=== PATIENT | male | born 1960 | race Caucasian/White ===

== ENCOUNTER → 2020-07-25 14:49 | Outpatient (BNVA) | payer MEDICAID, SELFPAY | PROVIDERS: Visit Provider Internal Medicine Cardiovascular Disease | DX: I42.8 Other cardiomyopathies (principal); Z86.79 Personal history of other diseases of the circulatory system | CPT/HCPCS: 93005; 99212 ==

== ENCOUNTER → 2021-02-22 14:45 | Outpatient (REF) | payer MEDICAID, SELFPAY ==
--- NOTE | 2021-02-22 14:49 | CA_ITS ---
Transthoracic Echocardiogram Patient (Last, First, Middle): Valerio Tello, Gender: Male Date of : 1960 Age: 60 Procedure Date: 02/22/2021 Procedure Type: Transthoracic Echocardiogram Location: OP Height: 172.72 cm Weight: 65.77 kg BSA: 1.78 m2 Heart Rate: bpm BP: 128 / 70 mmHg Audio Specialist: ALESSANDRO/YOON Referring MD: Justin Reyes MD Symptoms: I42.9 - Cardiomyopathy, unspecified Study Quality: Good Conclusions: - Mildly dilated left ventricle with mild LV systolic dysfunction with LVEF of 45-50% with impaired relaxation filling pattern Findings Left Ventricle Mildly increased left ventricular cavity size. There is normal left ventricular wall thickness. The left ventricular systolic function is mildly decreased. The visually estimated ejection fraction is between 45-50%. Spectral Doppler is indicative of an impaired relaxation filling pattern. Wall Motion Rest Echo Findings The basal inferior and apical septum segments are hypokinetic. The apex segment is akinetic. All other scored wall segments showed normal motion. Pericardium/Pleural There is no evidence of pericardial effusion. Prior Study Comparison Changes noted compared to prior study dated: 05/09/2020. LV systolic function has improved Measurements 2D Linear Measurements IVSd: 0.86 0.6-0.9/0.6-1.0 cm LVIDd: 6.07 3.9-5.3/4.2-5.9 cm LVIDd Index: 3.41 2.4-3.2/2.2-3.1 cm/m2 LVIDs: 4.54 2.0-3.6 cm LVPWd: 0.86 0.7-1.1 cm LV Mass: 259.61 67-162/88-224 g LV Mass Index: 145.85 43-95/49-115 g/m2 2D Systolic Function EF 4C: 47.20 >55% EF 2C: 47.30 >55% EF BiP: 47.00 >55% Mitral Valve MV Pk E: 0.67 MV PK A: 0.83 MV Decel Time: 268.00 E/A: 0.80 E'Lateral: 8.49 E'Medial: 5.77 E/E' Med: 11.60 E/E' Lat: 7.90 PHT: 78.00 MVA PHT: 2.82 Decel [place]: 2.50 Diastolic Function MV Pk E: 0.67 MV Pk A: 0.83 E/A: 0.80 E'Medial: 5.77 E/E' Med: 11.60 E' Laterial: 8.49 E/E' Lat: 7.90 Updated in Other Vendor System with Status of Final Justin Reyes MD electronically signed on 02/23/2021 1:00:22 PM with status of Final
== END ==
LOC: HO.CARD 14:45
PROVIDERS: PCP Family Medicine; Visit Provider Internal Medicine Cardiovascular Disease
DX: I42.9 Cardiomyopathy, unspecified (principal)
CPT/HCPCS: 93308

== ENCOUNTER 2021-03-07 16:21 | Emergency (ER) | payer MEDICAID, SELFPAY ==
--- NOTE | ~2021-03-07 | CT_ITS ---
EXAMINATION: CT ABDOMEN AND PELVIS WITH CONTRAST CLINICAL INFORMATION: Right inguinal pain. Hernia. COMPARISON: 01/25/2019 TECHNIQUE: Multidetector volumetric images were obtained from the superior aspect of the liver through the pubic symphysis following administration 85 mL of Omnipaque 350 intravenous contrast. Sagittal and coronal reformatted images were obtained on the technologist's workstation. Oral contrast: No This CT examination was performed using dose optimization techniques as appropriate, variously including the following: *Automated exposure control *Adjustment of mA and/or kV according to patient size (this includes techniques or standardized protocols for targeted exams where dose is matched to indication/reason for exam; i.e. extremities or head) *Use of iterative reconstruction technique DLP: 447 mGy-cm FINDINGS: LUNG BASES: Linear left basilar atelectasis. The visualized cardiac structures are unremarkable. LIVER, GALLBLADDER, AND BILIARY TREE: The liver is normal in size, shape, and attenuation. No focal hepatic lesion or biliary ductal dilatation is present. The gallbladder is unremarkable with no evidence of radiopaque gallstones, gallbladder wall thickening, or obvious pericholecystic inflammatory changes. PANCREAS: Unremarkable. SPLEEN: Unremarkable. ADRENAL GLANDS: Unremarkable. KIDNEYS AND URETERS: The kidneys are normal in size, shape, and attenuation. No hydronephrosis, hydroureter, or calculi seen. No perinephric stranding. 0.8 cm right upper pole simple renal cyst. No follow-up imaging recommended. BLADDER: Unremarkable. GASTROINTESTINAL TRACT: The stomach is unremarkable. Normal caliber small bowel. No obstruction. No colonic wall thickening or inflammatory change. Moderate colonic stool burden. Normal appendix. No free air or free fluid. ABDOMINAL WALL: No significant hernia is appreciated. LYMPH NODES: Normal. VASCULAR: Normal caliber aorta with mild atherosclerotic calcification. PELVIC VISCERA: The prostate and seminal vesicles are unremarkable. OSSEOUS STRUCTURES: No acute or suspicious osseous abnormality. CT/CT abdomen pelvis w con IMPRESSION: No acute findings of the abdomen or pelvis. Moderate colonic stool burden. No abdominal wall hernia. No inflammatory changes.
[2021-03-07 16:50] VITALS: BP 137/78; PULSE 68; RESP 18; TEMP 36.7; O2SAT 97; BMI 22.8
--- NOTE | 2021-03-07 17:47 | ED.GENADULT ---
HPI - General Adult General Chief complaint: General Medical Stated complaint: abd pain Time Seen by Provider: 03/07/21 17:33 Source: patient Mode of arrival: ambulatory Limitations: no limitations History of Present Illness HPI narrative: this is a 52-year-old male who complains of pain in his right groin area for few weeks, gradually worse and especially worse with ambulation or going up stairs. The patient has noted some bulging in the area. He denies any nausea vomiting. His appetite has been unchanged. He denies any fever. He thinks his stools have been a little bit slower in calming. He denies any urinary symptoms. Describes the pain as burning and moderately severe, worse at night. Patient is concerned he could have an incarcerated hernia. Related Data Home Medications Medication Instructions Recorded Confirmed folic acid 1 mg tablet 1 mg PO DAILY 07/25/20 07/25/20 lisinopril 5 mg tablet 5 mg PO DAILY 07/25/20 07/25/20 multivitamin,[id number] 1 tab PO DAILY 07/25/20 07/25/20 thiamine HCl (vitamin B1) 100 mg 100 mg PO DAILY 07/25/20 07/25/20 tablet Previous Rx's Medication Instructions Recorded ibuprofen 600 mg PO QID PRN #30 tab 03/07/21 tramadol 50 - 100 mg PO Q6H PRN #20 tab 03/07/21 Allergies Allergy/AdvReac Type Severity Reaction Status Date / Time Penicillins [PENICILLINS] Allergy Intermediate RASH Verified 03/07/21 16:50 Review of Systems Review of Systems: Yes all other systems are reviewed and are negative Constitutional: Constitutional: Reports as per HPI and Denies fever(s) Eyes: Eyes: Reports as per HPI and Reports no additional eye complaints ENT: Reports system reviewed and no additional complaints, except as documented, Reports as per HPI, Denies nasal congestion, Denies nasal discharge and Denies sore throat Cardiovascular: Cardiovascular: Reports as per HPI, Denies chest pain and Denies dyspnea Respiratory: Respiratory: Reports as per HPI, Denies cough and Denies dyspnea Gastrointestinal: Gastrointestinal: Reports as per HPI, Reports abdominal pain ( Right groin pain), Reports change in stool character, Denies diarrhea and Denies vomiting Genitourinary: Genitourinary: Reports as per HPI, Denies hematuria, Denies dysuria and Denies urinary frequency Comments: no scrotal swelling Musculoskeletal: Musculoskeletal: Reports no additional musculoskeletal complaints and Denies numbness Integumentary/Breasts: Skin/Breast: Reports as per HPI and Denies rash Neurologic: Reports as per HPI, Denies focal weakness and Denies numbness Psychiatric: Psychiatric: Reports no additional psychiatric complaints and Reports as per HPI Endocrine: Endocrine: Reports no additional endocrine complaints and Reports as per HPI Hematologic/Lymphatic: Hematologic/Lymphatic: Reports no additional hematologic/lymphatic complaints, Reports as per HPI and Reports other (No peripheral edema) [facility] Past Medical History Medical History Cardiomyopathy Paroxysmal atrial fibrillation Family History Family History (Updated 07/25/20 @ 15:09 by PHILL Carter) Father No problems noted. Mother No problems noted. Social History Social History (Updated 07/25/20 @ 15:17 by Justin Reyes MD) Alcohol intake: never Patient Tobacco Use Status: Never used Tobacco Use of substances other than those prescribed or required for medical reasons: No Advance Directives: No Advance Directives Information Provided: No Physical Exam Vital Signs: Vital Signs: Last Vital Signs Temp 97.7 F 03/07/21 18:01 Pulse 70 03/07/21 20:08 Resp 18 03/07/21 20:08 BP 114/62 03/07/21 20:08 Pulse Ox 98 03/07/21 20:08 Body Mass Index 22.8 Medical Decision Making MDM Narrative Medical decision making narrative: patient with right groin area pain, worsened with ambulation, had tenderness just above his inguinal ligament in the right suprapubic area. Patient had a slight bulge with Valsalva on exam, but no definite hernia. CT of the abdomen pelvis was negative for evidence of hernia or any other acute pathology. Labs are unremarkable. Will treat the patient with anti-inflammatory medicine and tramadol. The patient notes that he does go to the gym but has not recently due to the pain. It is possible he strained a muscle Lab Data Result diagrams: 03/07/21 18:09 03/07/21 18:09 Labs: Lab Results 03/07/21 03/07/21 Range/Units 18:09 18:09 WBC 5.1 (4.8-10.8) X10*3/uL RBC 4.21 L (4.60-5.80) X10*6/uL Hgb 13.2 L (14.0-18.0) g/dl Hct 40.1 L (42-52) % MCV 95.2 (80-98) fL MCH 31.4 (27.0-33.0) pg MCHC 32.9 (31.0-36.0) g/dl RDW 11.9 (11.0-16.0) % Plt Count 194 (160-400) X10*3/uL MPV 10.3 (9.4-12.4) fL Immature Gran % (Auto) 0.2 (0.0-0.4) % Neut % (Auto) 66.5 (45-73) % Lymph % (Auto) 24.3 (20-40) % [place] % (Auto) 7.8 (2-11) % Eos % (Auto) 0.8 (0-4) % Baso % (Auto) 0.4 (0-2) % Lymph # (Auto) 1.3 (1.2-4.9) X10*3/uL [place] # (Auto) 0.4 (0.1-1.2) X10*3/uL Eos # (Auto) 0.0 (0.0-0.4) X10*3/uL Baso # (Auto) 0.0 (0.0-0.2) X10*3/uL Abs Immat Gran (auto) 0.01 (0.00-0.03) X10*3/uL Absolute Neuts (auto) 3.4 (2.0-8.3) X10*3/uL Absolute Nucleated RBC 0.000 (0.0-0.012) X10*3/uL Nucleated RBC % (auto) 0.0 (0.0-0.2) /100WBC Sodium 136 (135-145) mmol/L Potassium 4.4 (3.3-5.1) mmol/L Chloride 103 (96-108) mmol/L Carbon Dioxide 24 (22-29) mmol/L Anion Gap 13 (12-20) BUN 37 H (9-16) mg/dL Creatinine 1.34 (0.5-1.4) mg/dL Estim Creat Clear Calc 57.8 Estimated GFR 55 Random Glucose 101 (60-115) mg/dL Calcium 10.3 H (8.4-10.2) mg/dL Total Bilirubin 0.8 (0.0-1.0) mg/dL AST 27 (5-37) U/L ALT 47 H (0-40) U/L Alkaline Phosphatase 75 (39-117) U/L Total Protein 7.1 (6.5-8.0) g/dL Albumin 4.5 (3.5-5.0) g/dL Discharge Plan Discharge Clinical Impression: Right groin pain Patient Disposition: Home, Self-Care Instructions: Groin Pain (ED) Additional Instructions: take the ibuprofen and tramadol as prescribed. Follow up with your primary care physician. Return for any new or worsened symptoms such as fever, increased pain or swelling Prescriptions: New ibuprofen 600 mg tablet 600 mg PO QID PRN (Reason: pain) Qty: 30 RF: 0 tramadol 50 mg tablet 50 - 100 mg PO Q6H PRN (Reason: pain) Qty: 20 RF: 0 No Action lisinopril 5 mg tablet 5 mg PO DAILY RF: 0 thiamine HCl (vitamin B1) 100 mg tablet 100 mg PO DAILY RF: 0 Complete Multivitamin Tablet 1 tab PO DAILY RF: 0 folic acid 1 mg tablet 1 mg PO DAILY RF: 0 Interventions: ED Discharge Assessment Last Done: 03/07/21 20:16 Discharge Date/Time: 03/07/21 20:21
[2021-03-07 18:01] VITALS: BP 129/74; PULSE 56; TEMP 36.5; O2SAT 97
[2021-03-07] MEDS: Ketorolac Tromethamine 15 MG/ML VIAL IVPUSH (18:13)
[2021-03-07 18:14] LABS: MANUAL DIFF FLAG NO
[2021-03-07 18:19] LABS: Basophils Percent Auto 0.4 % (0-2); Eosinophils Percent Auto 0.8 % (0-4); Hematocrit 40.1 % (42-52); Hemoglobin 13.2 g/dl (14.0-18.0); Imm Gran Abs Auto 0.01 X10*3/uL (0.00-0.03); Imm Gran Pct Auto 0.2 % (0.0-0.4); Lymphocytes Absolute Auto 1.3 X10*3/uL (1.2-4.9); Lymphocytes Percent Auto 24.3 % (20-40); Mean Corpuscular HGB Conc 32.9 g/dl (31.0-36.0); Mean Corpuscular Hemoglobin 31.4 pg (27.0-33.0); Mean Corpuscular Volume 95.2 fL (80-98); Mean Platelet Volume 10.3 fL (9.4-12.4); Monocytes Absolute Auto 0.4 X10*3/uL (0.1-1.2); Monocytes Percent Auto 7.8 % (2-11); Neutrophils Absolute Auto 3.4 X10*3/uL (2.0-8.3); Neutrophils Percent Auto 66.5 % (45-73); Platelet Count 194 X10*3/uL (160-400); Red Blood Count 4.21 X10*6/uL (4.60-5.80); Red Cell Distribution Width 11.9 % (11.0-16.0); White Blood Count 5.1 X10*3/uL (4.8-10.8)
[2021-03-07 18:40] LABS: Alanine Aminotransferase 47 U/L (0-40); Albumin Level 4.5 g/dL (3.5-5.0); Alkaline Phosphatase 75 U/L (39-117); Anion Gap 13 (12-20); Aspartate Amino Transferase 27 U/L (5-37); Bilirubin Total 0.8 mg/dL (0.0-1.0); Blood Urea Nitrogen 37 mg/dL (9-16); Calcium 10.3 mg/dL (8.4-10.2); Carbon Dioxide 24 mmol/L (22-29); Chloride 103 mmol/L (96-108); Creatinine Clr Calc Pharmacy 57.8; Estimated Glomerular Filt Rate 55; Glucose Random 101 mg/dL (60-115); Potassium 4.4 mmol/L (3.3-5.1); Sodium 136 mmol/L (135-145); Total Protein 7.1 g/dL (6.5-8.0)
[2021-03-07] MEDS: iohexoL 350 MG/ML 100 ML INFUS..BTL IV (19:12)
[2021-03-07 19:26] VITALS: RESP 16
[2021-03-07 20:08] VITALS: BP 114/62; PULSE 70; RESP 18; O2SAT 98
== END 2021-03-07 20:21 | disposition home or self-care (01) ==
PROVIDERS: Emergency Provider Emergency Medicine; PCP Family Medicine
DX: R10.31 Right lower quadrant pain (principal); I48.0 Paroxysmal atrial fibrillation; Z79.899 Other long term (current) drug therapy
CPT/HCPCS: 36415; 74177; 80053; 85025; 96374; 99284; J1885; Q9967

== ENCOUNTER → 2021-03-29 14:42 | Outpatient (BNVA) | payer MEDICAID, SELFPAY | PROVIDERS: PCP Family Medicine; Referring Provider Family Medicine; Visit Provider Internal Medicine Cardiovascular Disease | DX: I42.9 Cardiomyopathy, unspecified (principal); I48.0 Paroxysmal atrial fibrillation | CPT/HCPCS: 99212 ==

== ENCOUNTER 2021-04-24 12:42 | Outpatient (REF) | payer MEDICAID, SELFPAY ==
--- NOTE | ~2021-04-24 | US_ITS ---
EXAMINATION: US ABDOMEN LIMITED CLINICAL INFORMATION: Right lower quadrant pain, lump. Rule out hernia. COMPARISON: CT abdomen and pelvis 03/07/2021. Ultrasound abdomen complete 05/08/2020 and 11/05/2017. TECHNIQUE: Real-time imaging of the right lower quadrant. FINDINGS: Imaging to the right lower quadrant reveals nonvisualization of hernia. There is a hypoechoic round lesion measuring 1.15 x 0.661, likely a small lymph node. It is normal. No additional lesions seen. US/US abdomen limited IMPRESSION: No evidence of hernia. Small benign lymph node right groin.
== END 2021-04-24 12:43 | disposition home or self-care (01) ==
LOC: HO.US 12:42
PROVIDERS: Visit Provider Family Medicine
DX: R10.31 Right lower quadrant pain (principal)
CPT/HCPCS: 76705

== ENCOUNTER → 2021-05-02 12:44 | Outpatient (BNVA) | payer MEDICAID, SELFPAY | PROVIDERS: PCP Family Medicine; Referring Provider Family Medicine; Visit Provider Surgery | DX: K40.90 Unilateral inguinal hernia, without obstruction or gangrene, not specified as recurrent (principal); I42.9 Cardiomyopathy, unspecified | CPT/HCPCS: 99202 ==

== ENCOUNTER 2021-05-25 08:16 | Day surgery (SDC) | payer MEDICAID, SELFPAY ==
--- NOTE | 2021-05-15 | ECG_ITS ---
Test Reason : pre op Blood Pressure : / mmHG Vent. Rate : 077 BPM Atrial Rate : 077 BPM P-R Int : 196 ms QRS Dur : 108 ms QT Int : 412 ms P-R-T Axes : 031 -40 -09 degrees QTc Int : 466 ms Normal sinus rhythm Left axis deviation Cannot rule out Anterior infarct (cited on or before 08-MAY-2020) Abnormal ECG When compared with ECG of 08-MAY-2020 10:34, T wave inversion less evident in Anterolateral leads Referred By: Gale Nicole Electronically Signed By:SHANDRA VANCE
[2021-05-15 13:51] VITALS: BP 115/67; PULSE 80; RESP 20; O2SAT 97; BMI 24.6
--- NOTE | 2021-05-15 13:55 | P.CONAN_ITS ---
Documented by User: Gale Nicole NP 05/16/21 14:43 HPI - Anesthesia Eval Consult details Narrative: 61yo M for Right Hernia Repair Inguinal with Mesh Cardiac cleared at low to intermed h/o of ETOH abuse. None since 05/2020 [facility] Active Problems Active Problems: All Active Problems (Updated 05/14/21 @ 09:40 by Mila Medley RN) Right inguinal hernia (Acute) Cardiomyopathy (Acute) Paroxysmal atrial fibrillation (Acute) Past Medical History Medical History Alcohol dependence Cardiomyopathy HTN (hypertension) Paroxysmal atrial fibrillation Right inguinal hernia Family History Family History Father No problems noted. Mother No problems noted. Family history of problems with anesthesia: No Surgical History Surgical History History of tonsillectomy Hx of oral surgery Hx of right heart catheterization Social History Social History (Updated 05/14/21 @ 09:14 by Mila Medley RN) Are you a primary prompt care rn to a significant other at home: No Do you presently have visiting nurse or other home services: No Alcohol intake: former Patient Tobacco Use Status: Never used Tobacco Use of substances other than those prescribed or required for medical reasons: No Have you been hit, kicked, punched, or otherwise hurt by someone within the past year? If so, by whom?: No Are you DNR?: No Advance Directives Information Provided: Yes Advance Directives on File: No Recently lost weight without trying: No Eating poorly because of decreased appetite: No Nutrition Risks: No Nutritional Risk Poor oral hygiene: No Meds Allergies Allergy/AdvReac Type Severity Reaction Status Date / Time Penicillins [PENICILLINS] Allergy Intermediate RASH Verified 05/25/21 10:08 Home Medications Medication Instructions Recorded Confirmed Last Taken Type folic acid 1 mg tablet 1 mg PO DAILY 07/25/20 05/15/21 Unknown History lisinopril 5 mg tablet 5 mg PO DAILY 07/25/20 05/15/21 Unknown History gabapentin 600 mg tablet 600 mg PO TID 05/02/21 05/15/21 Unknown History ibuprofen 600 mg tablet 600 mg PO QID PRN 05/02/21 05/15/21 05/11/21 History sertraline 50 mg tablet 50 mg PO DAILY 05/02/21 05/15/21 Unknown History temazepam 15 mg capsule 15 mg PO BEDTIME PRN 05/02/21 05/15/21 Unknown History thiamine HCl (vitamin B1) 100 mg 100 mg PO DAILY 05/02/21 05/15/21 Unknown Hi story tablet Exam Exam Date and Time: May 15, 2021 1355 Pertinent Lab Results Pertinent Lab Results: Laboratory Tests 03/07/21 03/07/21 18:09 18:09 WBC 5.1 Hgb 13.2 L Hct 40.1 L Plt Count 194 Sodium 136 Potassium 4.4 Chloride 103 Carbon Dioxide 24 BUN 37 H Creatinine 1.34 Narrative Narrative: Echo 01/2021 Conclusions: -? Mildly dilated left ventricle with mild LV systolic ? dysfunction with LVEF of 45-50% with impaired relaxation filling pattern? ? EKG 05/2021 Vent. Rate : 077 BPM ? ? Atrial Rate : 077 BPM ?? P-R Int : 196 ms? QRS Dur : 108 ms ? ? QT Int : 412 ms ? ? ? P-R-T Axes : 031 -40 -09 degrees ?? QTc Int : 466 ms ? Normal sinus rhythm Left axis deviation Cannot rule out Anterior infarct (cited on or before 08-MAY-2020) Abnormal ECG When compared with ECG of 08-MAY-2020 10:34, T wave inversion less evident in Anterolateral leads Airway Mallampati Class: II TM Dist: >3cm Neck ROM: Full Loose/Missing/Broken Teeth: Yes (Pulled molars, poor dentition - denies loose or broken) Heart: RRR Lungs: CTA Assessment and Plan Assessment Anesthesia Assessment: Anesthesia Plan Discussed and PAT Visit Final Anesthetic Review Family History of Problems with Anesthesia: No Documented by User: Paola Davidson MD 05/25/21 11:00 [facility] Past Medical History Medical History Alcohol dependence Cardiomyopathy HTN (hypertension) Paroxysmal atrial fibrillation Right inguinal hernia Family History Family History Father No problems noted. Mother No problems noted. Surgical History Surgical History History of tonsillectomy Hx of oral surgery Hx of right heart catheterization History of Problems with Anesthesia: No Social History Social History (Updated 05/14/21 @ 09:14 by Mila Medley RN) Are you a primary prompt care rn to a significant other at home: No Do you presently have visiting nurse or other home services: No Alcohol intake: former Patient Tobacco Use Status: Never used Tobacco Use of substances other than those prescribed or required for medical reasons: No Have you been hit, kicked, punched, or otherwise hurt by someone within the past year? If so, by whom?: No Are you DNR?: No Advance Directives Information Provided: Yes Advance Directives on File: No Recently lost weight without trying: No Eating poorly because of decreased appetite: No Nutrition Risks: No Nutritional Risk Poor oral hygiene: No Meds Allergies Allergy/AdvReac Type Severity Reaction Status Date / Time Penicillins [PENICILLINS] Allergy Intermediate RASH Verified 05/25/21 10:08 Home Medications Medication Instructions Recorded Confirmed Last Taken Type folic acid 1 mg tablet 1 mg PO DAILY 07/25/20 05/15/21 Unknown History lisinopril 5 mg tablet 5 mg PO DAILY 07/25/20 05/15/21 Unknown History gabapentin 600 mg tablet 600 mg PO TID 05/02/21 05/15/21 Unknown History ibuprofen 600 mg tablet 600 mg PO QID PRN 05/02/21 05/15/21 05/11/21 History sertraline 50 mg tablet 50 mg PO DAILY 05/02/21 05/15/21 Unknown History temazepam 15 mg capsule 15 mg PO BEDTIME PRN 05/02/21 05/15/21 Unknown History thiamine HCl (vitamin B1) 100 mg 100 mg PO DAILY 05/02/21 05/15/21 Unknown History tablet Assessment and Plan Assessment Anesthesia Assessment: Chart Reviewed Final Anesthetic Review History of Problems with Anesthesia: No NPO: Yes ASA Class: III Patient Risk: Intermediate Procedure Risk: Low Assessment/Block/Sedation in SS: Assess/Block/Sedation-SS Anesthetic Plan Anesthetic Plan: GA Disposition: Standard PACU
[2021-05-25] VITALS (21 sets, daily range): BP systolic 107–158; BP diastolic 60–92; PULSE 41–88; RESP 15–18; TEMP 36.1–36.7; O2SAT 95–100
--- NOTE | 2021-05-25 | ECG_ITS ---
Test Reason : t wave inversion Blood Pressure : / mmHG Vent. Rate : 043 BPM Atrial Rate : 043 BPM P-R Int : 164 ms QRS Dur : 102 ms QT Int : 534 ms P-R-T Axes : 027 -33 -43 degrees QTc Int : 451 ms Marked sinus bradycardia Left axis deviation T wave abnormality, consider lateral ischemia Abnormal ECG When compared with ECG of 15-MAY-2021 14:54, Vent. rate has decreased BY 34 BPM Inverted T waves have replaced nonspecific T wave abnormality in Inferior leads Inverted T waves have replaced nonspecific T wave abnormality in Lateral leads Clinical Correlation Advised Referred By: Chente Day Electronically Signed By:SHANDRA VANCE
[2021-05-25] MEDS: Lactated Ringers 1,000 ML 50 ML IVCONT (09:29)
--- NOTE | 2021-05-25 10:56 | MHC.SHP ---
Pre-Procedural Eval Section A Date of Service: 05/25/21 Section B Chief Complaint: Right Inguinal Hernia Allergies: Allergies Allergy/AdvReac Type Severity Reaction Status Date / Time Penicillins [PENICILLINS] Allergy Intermediate RASH Verified 05/25/21 10:08 Plan I have reviewed the history and physical and performed a pertinent physical examination on my patient. No changes have occurred unless specified.
--- NOTE | 2021-05-25 11:53 | W.PM.OPN ---
Operative Note Operative Note Date of Service: 05/25/21 Narrative: Preop diagnosis: Right inguinal hernia Postop diagnosis: Right inguinal hernia, indirect Procedure: Repair of right inguinal hernia with mesh Surgeon: Bernabe Rao MD metallurgical laboratory assistant: KEMI Diallo The patient is a 61-year-old male who was seen in the office because of a reducible mass on the right groin. Physical exam is consistent with right inguinal hernia. He had his CAT scan but this was not obvious on imaging studies. In view of symptoms however wanted to proceed with repair. He understood the technique of repair with mesh and he was aware of the risks, benefits, and alternatives He was brought to the operating room and placed supine the table under general anesthesia via laryngeal mask airway. The right groin was prepped and draped in the usual sterile fashion. A surgical time-out was done. The patient received cefazolin 2 g IV preoperatively. I infiltrated the planned line of incision with lidocaine 1%. I made a short incision in the skin along an imaginary line from anterior superior iliac spine to the pubic ramus using blade 15. This was carried down with electrocautery through the full-thickness skin all the way expose the external oblique aponeurosis. We bluntly dissected the external oblique aponeurosis to define the external ring. I made an incision on the aponeurosis using a blade 15. This was extended inferomedially to connect external ring. The inguinal canal was therefore entered. I applied hemostats on the edges of the divided external oblique aponeurosis. I proceeded to bluntly dissect the underside to create space for the mesh. I bluntly dissected the spermatic cord and its contents with the finger until I was able to pass a Milly drain around this. This Milly drain was used for retraction. Identified the vas deferens and accompanying vessels. These were protected during the dissection. I proceeded to continue to dissect the cord to identify the contents and I was able to see a small sac. The sac was gently dissected off of the rest of the cord contents until this was reduced to the internal ring. I reinforced the internal ring with a small-sized plug. The plug was secured with Prolene 2 sutures to the shelving edge of the inguinal and laterally and the internal oblique superiorly and medially usiing its inner leaves. I then reinforced the floor of the canal with a keyhole mesh. The tails of the mesh were passed around the cord at the level of the internal ring and were secured together with Prolene 2 sutures. I then the mesh on the floor of the canal. I secured the mesh with Prolene to suture to shelving edge of the inguinal meant laterally and the internal oblique superiorly and medially as well as the pubic ramus inferomedially. I observed for hemostasis. Once hemostasis was ensured, I proceeded to then irrigate. I closed the external oblique aponeurosis with a running Dexon 2-0 stitch to re-create the external ring. The subcutaneous layer was reapposed with Dexon 3-0 interrupted sutures. Skin closure was achieved with Dexon 4-0 subcuticular running stitch. The area was infiltrated with Marcaine 0.5% for postop analgesia. The procedure was then completed The patient tolerated the procedure well with no complication noted. Initial and final counts of sponges and instruments were correct. Estimated blood loss was about 20 cc. The patient was extubated without difficulty and transferred to the recovery room with stable vital signs.
[2021-05-25] MEDS: fentaNYL citrate/PF 100 MCG/2 ML VIAL 50 MCG IVPUSH (12:17)
[2021-05-25] MEDS: oxyCODONE HCl Immed Release 5 MG TABLET PO (12:39)
[2021-05-25] MEDS: Ketorolac Tromethamine 30 MG/ML VIAL IVPUSH (13:20)
--- NOTE | 2021-05-25 16:16 | PM.EVENT ---
Event Note Date of Service: 05/25/21 Event Note: He underwent repair of right inguinal hernia today, uneventful However, was noted to be bradycardic in the PACU, with some T-wave inversions Hemodynamically remained stable As per pastry cook apprentice, Dr. Reyes- likely due to vagal response to pain To be observed overnight Likely discharge home tomorrow Patient continues do well
[2021-05-25] MEDS: 0.9 % Sodium Chloride 1,000 ML 80 ML IVCONT (17:14)
[2021-05-25] MEDS: Gabapentin 600 MG TABLET PO ×2 (17:15→19:37)
[2021-05-25] MEDS: 0.9 % Sodium Chloride Flush 3 ML SYRINGE IVFLUSH (17:28)
[2021-05-25] MEDS: Docusate Sodium 100 MG CAPSULE PO (19:37)
[2021-05-26] VITALS (8 sets, daily range): BP systolic 116–147; BP diastolic 68–74; PULSE 51–86; RESP 16–18; TEMP 36.6–37.2; O2SAT 97–99
[2021-05-26] MEDS: 0.9 % Sodium Chloride 1,000 ML 80 ML IVCONT ×2 (04:14→17:12)
[2021-05-26] MEDS: Docusate Sodium 100 MG CAPSULE PO ×2 (09:24→19:46)
[2021-05-26] MEDS: Sertraline HCL 50 MG TABLET PO (09:24)
[2021-05-26] MEDS: lisinopriL 5 MG TABLET PO (09:24)
[2021-05-26] MEDS: 0.9 % Sodium Chloride Flush 3 ML SYRINGE IVFLUSH (09:24)
[2021-05-26] MEDS: Folic Acid 1 MG TABLET PO (09:24)
[2021-05-26] MEDS: Gabapentin 600 MG TABLET PO ×3 (09:24→19:46)
[2021-05-26] MEDS: oxyCODONE HCl Immed Release 5 MG TABLET PO ×2 (09:25→14:21)
[2021-05-26] MEDS: Thiamine HCL 100 MG TABLET PO (09:25)
--- NOTE | 2021-05-26 10:34 | MHC.CM.PN ---
PATIENT LIVES ALONE. HE USES NO DME OR VNA SERVICES. HE CURRENTLY DOES NOT HAVE A CAR SO HE HAS TO WALK OR TAKE PUBLIC TRANSPORT TO [place]. HCP IS ON FILE AND VERIFIED. PCP (ANDREW CALDERON) HAS RECENTLY MOVED TO ANOTHER LOCATION. PATIENT IS HOPING TO REMAIN AT [facility] WITH A NEWLY ASSIGNED PCP, [place] IS TOO FAR FOR HIM. HE WOULD LIKE TO GO HOME TODAY. 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 HE WILL NEED A TAXI IF DC OVER WEEKEND, OTHERWISE HE CAN USE THE [facility] SHUTTLE
--- NOTE | 2021-05-26 12:41 | PM.CNCAR ---
History of Present Illness History of Present Illness Date of Service: 05/26/21 Requesting physician: Bernabe Rao Chief complaint: Sinus bradycardia Narrative: I was requested to see the patient for postoperative sinus bradycardia. Patient known to me with prior history of mild cardiomyopathy without congestive heart failure. In the past she has had sinus bradycardia leading to metoprolol therapy. The medication was used for neurohormonal modulation. That time his metoprolol has been discontinued is been doing well. He has no symptoms related to it. Yesterday came for elective outpatient right inguinal hernia surgery which she underwent uneventfully. Postoperatively was noted to have sinus bradycardia which was marked. There was no hypertension. Patient continues to have pain at the surgical site. However heart rate today as improved. He did not receive any intervention for sinus bradycardia. Review of Systems Constitutional: Constitutional: Reports no additional constitutional complaints Cardiovascular: Cardiovascular: Reports no additional cardiovascular complaints Respiratory: Respiratory: Reports no additional respiratory complaints Gastrointestinal: Gastrointestinal: Reports no additional gastrointestinal complaints Musculoskeletal: Musculoskeletal: Reports other (Pain at the surgical site) Integumentary/Breasts: Skin/Breast: Reports system reviewed and no additional complaints, except as docu Neurologic: Reports system reviewed and no additional complaints, except as documented Psychiatric: Psychiatric: Reports no additional psychiatric complaints Endocrine: Endocrine: Reports no additional endocrine complaints Hematologic/Lymphatic: Hematologic/Lymphatic: Reports no additional hematologic/lymphatic complaints Allergic/Immunologic: Allergic/Immunologic: Reports no additional allergic/immunologic complaints [facility] Past Medical History Medical History Alcohol dependence Cardiomyopathy HTN (hypertension) Paroxysmal atrial fibrillation Right inguinal hernia Family History Family History Father No problems noted. Mother No problems noted. Surgical History Surgical History History of tonsillectomy Hx of oral surgery Hx of right heart catheterization Social History Social History Household Members: Other Household Members Other:: lives alone. Housing: Apartment Are you a primary caregiver assisted living to a significant other at home: No Do you presently have visiting nurse or other home services: No Alcohol intake: former Patient Tobacco Use Status: Never used Tobacco Use of substances other than those prescribed or required for medical reasons: No Currently Displaying Signs/Symptoms of Drug Intoxication Withdrawal: No Have you been hit, kicked, punched, or otherwise hurt by someone within the past year? If so, by whom?: No Do you feel safe in your current relationship?: No Current Relationship Is there a partner from a previous relationship who is making you feel unsafe now?: No Are you made to feel afraid or neglected: No Are you DNR?: No Advance Directives Information Provided: Yes Advance Directives on File: No Do you have thoughts of harming others: None Do you have a plan to hurt others: No Plan Recently lost weight without trying: No Eating poorly because of decreased appetite: No Nutrition Risks: No Nutritional Risk Poor oral hygiene: No service: No Current occupational status: disabled Meds Allergies Allergy/AdvReac Type Severity Reaction Status Date / Time Penicillins [PENICILLINS] Allergy Intermediate RASH Verified 05/25/21 10:08 Active Medications: Current Medications Acetaminophen (Acetaminophen 325 Mg Tablet) 650 mg PO Q6H PRN PRN Reason: Pain, Mild (Pain Scale 1-3) Diphenhydramine HCl (Diphenhydramine Hcl 50 Mg/Ml Vial) 25 mg IVPUSH Q6H PRN PRN Reason: Itching Docusate Sodium (Docusate Sodium 100 Mg Capsule) 100 mg PO BID [facility] Last Admin: 05/26/21 09:24 Dose: 100 mg Documented by: Folic Acid (Folic Acid 1 Mg Tablet) 1 mg PO DAILY [facility] Last Admin: 05/26/21 09:24 Dose: 1 mg Documented by: Gabapentin (Gabapentin 600 Mg Tablet) 600 mg PO TID [facility] Last Admin: 05/26/21 09:24 Dose: 600 mg Documented by: Sodium Chloride (Ns) 1,000 mls @ 80 mls/hr IVCONT .[id number] [facility] Last Admin: 05/26/21 04:14 Dose: 80 mls/hr Documented by: Lisinopril (Lisinopril 5 Mg Tablet) 5 mg PO DAILY [facility]; Protocol Last Admin: 05/26/21 09:24 Dose: 5 mg Documented by: Morphine Sulfate (Morphine Sulfate 2 Mg/Ml Cartridge) 4 mg IVPUSH Q4H PRN; Protocol PRN Reason: Pain, Severe (Pain Scale 7-10) Ondansetron HCl (Ondansetron Hcl 4 Mg/2 Ml Vial) 4 mg IVPUSH Q8H PRN PRN Reason: Nausea Oxycodone HCl (Oxycodone Hcl Immed Release 5 Mg Tablet) 5 mg PO Q4H PRN PRN Reason: Pain, Moderate (Pain Scale 4-6 Last Admin: 05/26/21 09:25 Dose: 5 mg Documented by: Oxycodone HCl (Oxycodone Hcl Immed Release 5 Mg Tablet) 10 mg PO Q4H PRN PRN Reason: Pain, Severe (Pain Scale 7-10) Sertraline HCl (Sertraline Hcl 50 Mg Tablet) 50 mg PO DAILY [facility] Last Admin: 05/26/21 09:24 Dose: 50 mg Documented by: Sodium Chloride (0.9 % Sodium Chloride Flush 3 Ml Syringe) 3 ml IVFLUSH QSHIFT [facility] Last Admin: 05/26/21 09:24 Dose: 3 ml Documented by: Thiamine HCl (Thiamine Hcl 100 Mg Tablet) 100 mg PO DAILY [facility] Last Admin: 05/26/21 09:25 Dose: 100 mg Documented by: Zolpidem Tartrate (Zolpidem Tartrate 5 Mg Tablet) 5 mg PO BEDTIME PRN PRN Reason: Insomnia Home Medications Medication Instructions Recorded Confirmed Last Taken Type folic acid 1 mg tablet 1 mg PO DAILY 07/25/20 05/15/21 Unknown History lisinopril 5 mg tablet 5 mg PO DAILY 07/25/20 05/15/21 Unknown History gabapentin 600 mg tablet 600 mg PO TID 05/02/21 05/15/21 Unknown History ibuprofen 600 mg tablet 600 mg PO QID PRN 05/02/21 05/15/21 05/11/21 History sertraline 50 mg tablet 50 mg PO DAILY 05/02/21 05/15/21 Unknown History temazepam 15 mg capsule 15 mg PO BEDTIME PRN 05/02/21 05/15/21 Unknown History thiamine HCl (vitamin B1) 100 mg 100 mg PO DAILY 05/02/21 05/15/21 Unknown History tablet Physical Exam Vital Signs: Vital Signs: Last Vital Signs Temp 98.2 F 05/26/21 11:43 Pulse 68 05/26/21 11:43 Resp 18 05/26/21 11:43 BP 143/72 H 05/26/21 11:43 Pulse Ox 98 05/26/21 11:43 Body Mass Index 24.6 Const: General: cooperative, comfortable, no acute distress, alert and awake Nutritional Appearance: average body habitus Orientation/consciousness: patient oriented x3 HENMT: Head: Yes normocephalic and Yes atraumatic Neck: Neck: Yes trachea midline, Yes supple and Yes no JVD Resp: Effort & Inspection: normal respiratory effort Auscultation: clear to auscultation bilaterally Cardio: Jugular venous distension: no JVD Palpation: normal PMI Rate: regular rate Rhythm: regular rhythm Heart sounds: S1 normal heart sound present, S2 normal heart sound present, no click, no gallops, no murmurs and no rubs GI: Auscultation: normal bowel sounds Skin: General skin exam: no rashes or lesions noted Neuro: General: patient oriented x3 and no focal motor deficits Extrem: General: Yes no clubbing, cyanosis or edema Assessment and Plan (1) Sinus bradycardia: Status: Acute Postoperative marked sinus bradycardia without symptoms and not requiring any intervention we did the sinus bradycardia is not resolved. This appears to be due to high vagal tone in this man who has had prior history of sinus bradycardia with metoprolol therapy. He may have underlying sinoatrial juliane dysfunction. No interventions per se required at this point time. Will follow up with outpatient Holter monitor in couple weeks time. Patient can be discharged home from cardiac perspective. (2) Cardiomyopathy: Status: Acute Prior history of cardiomyopathy with mild LV systolic dysfunction. Clinically no signs of congestive heart failure. Can be discharged home. Abstinence from alcohol was discussed. Continue lisinopril 5 mg for neurohormonal modulation. Will follow up in the clinic after Holter monitor. Thank you for allowing me to partake in his care Procedures Date of Service Date of Service: 05/26/21
--- NOTE | 2021-05-26 13:33 | PM.PNGS ---
Subjective Subjective Date of Service: 05/26/21 Physical Exam Vital Signs: Vital Signs: Last Vital Signs Temp 98.2 F 05/26/21 11:43 Pulse 68 05/26/21 11:43 Resp 18 05/26/21 11:43 BP 143/72 H 05/26/21 11:43 Pulse Ox 98 05/26/21 11:43 Body Mass Index 24.6 Procedures Date of Service Date of Service: 05/26/21 Progress Note: A&P Assessment and plan (1) Sinus bradycardia: Status: Acute (2) Right inguinal hernia: Status: Acute Assessment and Plan: pt seen by cardiology nothing to do with his meds. PT - says he is safe to go home sp ing hernia - doing well, dc home Fall Risk Details Current Medications: Current Medications Acetaminophen (Acetaminophen 325 Mg Tablet) 650 mg PO Q6H PRN PRN Reason: Pain, Mild (Pain Scale 1-3) Diphenhydramine HCl (Diphenhydramine Hcl 50 Mg/Ml Vial) 25 mg IVPUSH Q6H PRN PRN Reason: Itching Docusate Sodium (Docusate Sodium 100 Mg Capsule) 100 mg PO BID [facility] Last Admin: 05/26/21 09:24 Dose: 100 mg Documented by: Folic Acid (Folic Acid 1 Mg Tablet) 1 mg PO DAILY [facility] Last Admin: 05/26/21 09:24 Dose: 1 mg Documented by: Gabapentin (Gabapentin 600 Mg Tablet) 600 mg PO TID [facility] Last Admin: 05/26/21 09:24 Dose: 600 mg Documented by: Sodium Chloride (Ns) 1,000 mls @ 80 mls/hr IVCONT .[id number] [facility] Last Admin: 05/26/21 04:14 Dose: 80 mls/hr Documented by: Lisinopril (Lisinopril 5 Mg Tablet) 5 mg PO DAILY [facility]; Protocol Last Admin: 05/26/21 09:24 Dose: 5 mg Documented by: Morphine Sulfate (Morphine Sulfate 2 Mg/Ml Cartridge) 4 mg IVPUSH Q4H PRN; Protocol PRN Reason: Pain, Severe (Pain Scale 7-10) Ondansetron HCl (Ondansetron Hcl 4 Mg/2 Ml Vial) 4 mg IVPUSH Q8H PRN PRN Reason: Nausea Oxycodone HCl (Oxycodone Hcl Immed Release 5 Mg Tablet) 5 mg PO Q4H PRN PRN Reason: Pain, Moderate (Pain Scale 4-6 Last Admin: 05/26/21 09:25 Dose: 5 mg Documented by: Oxycodone HCl (Oxycodone Hcl Immed Release 5 Mg Tablet) 10 mg PO Q4H PRN PRN Reason: Pain, Severe (Pain Scale 7-10) Sertraline HCl (Sertraline Hcl 50 Mg Tablet) 50 mg PO DAILY [facility] Last Admin: 05/26/21 09:24 Dose: 50 mg Documented by: Sodium Chloride (0.9 % Sodium Chloride Flush 3 Ml Syringe) 3 ml IVFLUSH QSHIFT [facility] Last Admin: 05/26/21 09:24 Dose: 3 ml Documented by: Thiamine HCl (Thiamine Hcl 100 Mg Tablet) 100 mg PO DAILY [facility] Last Admin: 05/26/21 09:25 Dose: 100 mg Documented by: Zolpidem Tartrate (Zolpidem Tartrate 5 Mg Tablet) 5 mg PO BEDTIME PRN PRN Reason: Insomnia Time Spent With Patient Time: Total time spent is greater than 50% in coordination of care (as documented) at patient's floor/unit and/or counseling patient: Time with patient: less than 15 minutes Quality Stroke Does the patient have a stroke diagnosis?: No VTE Prior VTE?: No VTE Risk Level:: Surgical - low VTE Device Contraindication: Treatment Not Indicated VTE Drug Contraindication: Treatment Not Indicated
--- NOTE | 2021-05-26 13:38 | HO.POSTANES ---
Post Anesthesia Evaluation Post Anesthesia Evaluation Vital Signs: Vital Signs Temp Pulse Resp BP Pulse Ox 05/26/21 11:43 98.2 F 68 18 143/72 H 98 05/26/21 09:24 52 147/70 H 05/26/21 07:50 97.9 F 52 18 147/70 H 98 05/26/21 04:00 98.1 F 77 16 124/68 97 Anesthesia: General LMA Mental Status: Awake Pain Control: Satisfactory Nausea/Vomiting: None Hydration: Adequate Anesthesia-Related Issues: No Anes. Related Issues
--- NOTE | 2021-05-26 13:51 | MHC.CM.PN ---
PATIENT IS DISCHARGED HOME - SELF CARE. HE WILL NEED A TAXI VOUCHER FOR TRANSPORT HOME. COMPLETED VOUCHER TO BE GIVEN TO RN.
--- NOTE | 2021-05-26 14:08 | MHC.CM.PN ---
Addendum entered by Jade Bello 05/26/21 14:14: DC PLACED ON HOLD SECONDARY TO PAIN AND HIS INABILITY TO GET HIS MEDICATION ([facility] IS CLOSED ON WEEKEND) POSSIBLE PLAN IS HOME LATE AFTERNOON FRIDAY, AND PATIENT CAN OBTAIN HIS MEDICATION ON FRIDAY. CM CAN EDIT THIS [facility] IF PATIENT DOES DC TOMORROW. [facility] AWARE OF PLAN. Original Note: PATIENT TO RETURN HOME TODAY. [facility] ARRANGED FOR A 1600 TRANSFER TO HOME SECONDARY TO PAIN AND INABILITY TO MANGE FOUR FLIGHTS OF STAIRS. PATIENT FEELS THAT HE WILL BE ABLE TO RELAX IN HIS HOME AND HAS ENOUGH FOOD AND WATER TO GET HIM THROUGH THE NEXT 4-5 DAYS. RN, SURGEON, AND UNIT AWARE OF PLAN.
--- NOTE | 2021-05-26 17:01 | PM.PNGS ---
Subjective Subjective Date of Service: 05/26/21 Interval history: complaining of surgical pain and feeling a little weak walking Physical Exam Vital Signs: Vital Signs: Last Vital Signs Temp 98.7 F 05/26/21 15:55 Pulse 51 05/26/21 15:55 Resp 16 05/26/21 15:55 BP 120/70 05/26/21 15:55 Pulse Ox 97 05/26/21 15:55 Body Mass Index 24.6 Skin: Other: incision ok bandage Procedures Date of Service Date of Service: 05/26/21 Progress Note: A&P Assessment and plan (1) Right inguinal hernia: Status: Acute Assessment and Plan: pt s/p ingu hernia repair but before dc home he had bradycardia. kept overnight and cardiology has seen ok to dc home no ddition or changes to meds or no f.u PT ambulated the pt and he is safet to go home soon will follow his bradycardia today nd if ok will dc home on po pain meds tomorrow he agrees Fall Risk Details Current Medications: Current Medications Acetaminophen (Acetaminophen 325 Mg Tablet) 650 mg PO Q6H PRN PRN Reason: Pain, Mild (Pain Scale 1-3) Diphenhydramine HCl (Diphenhydramine Hcl 50 Mg/Ml Vial) 25 mg IVPUSH Q6H PRN PRN Reason: Itching Docusate Sodium (Docusate Sodium 100 Mg Capsule) 100 mg PO BID [facility] Last Admin: 05/26/21 09:24 Dose: 100 mg Documented by: Folic Acid (Folic Acid 1 Mg Tablet) 1 mg PO DAILY [facility] Last Admin: 05/26/21 09:24 Dose: 1 mg Documented by: Gabapentin (Gabapentin 600 Mg Tablet) 600 mg PO TID [facility] Last Admin: 05/26/21 14:21 Dose: 600 mg Documented by: Sodium Chloride (Ns) 1,000 mls @ 80 mls/hr IVCONT .[id number] [facility] Last Admin: 05/26/21 16:20 Dose: Not Given Documented by: Lisinopril (Lisinopril 5 Mg Tablet) 5 mg PO DAILY [facility]; Protocol Last Admin: 05/26/21 09:24 Dose: 5 mg Documented by: Morphine Sulfate (Morphine Sulfate 2 Mg/Ml Cartridge) 4 mg IVPUSH Q4H PRN; Protocol PRN Reason: Pain, Severe (Pain Scale 7-10) Ondansetron HCl (Ondansetron Hcl 4 Mg/2 Ml Vial) 4 mg IVPUSH Q8H PRN PRN Reason: Nausea Oxycodone HCl (Oxycodone Hcl Immed Release 5 Mg Tablet) 5 mg PO Q4H PRN PRN Reason: Pain, Moderate (Pain Scale 4-6 Last Admin: 05/26/21 14:21 Dose: 5 mg Documented by: Oxycodone HCl (Oxycodone Hcl Immed Release 5 Mg Tablet) 10 mg PO Q4H PRN PRN Reason: Pain, Severe (Pain Scale 7-10) Sertraline HCl (Sertraline Hcl 50 Mg Tablet) 50 mg PO DAILY [facility] Last Admin: 05/26/21 09:24 Dose: 50 mg Documented by: Sodium Chloride (0.9 % Sodium Chloride Flush 3 Ml Syringe) [facility] Admin: 05/26/21 09:24 Dose: 3 ml Documented by: Thiamine HCl (Thiamine Hcl 100 Mg Tablet) 100 mg PO DAILY [facility] Last Admin: 05/26/21 09:25 Dose: 100 mg Documented by: Zolpidem Tartrate (Zolpidem Tartrate 5 Mg Tablet) 5 mg PO BEDTIME PRN PRN Reason: Insomnia Time Spent With Patient Time: Total time spent is greater than 50% in coordination of care (as documented) at patient's floor/unit and/or counseling patient: Time with patient: 15 - 24 minutes Quality Stroke Does the patient have a stroke diagnosis?: No VTE Prior VTE?: No VTE Risk Level:: Surgical - low VTE Device Contraindication: Treatment Not Indicated VTE Drug Contraindication: Treatment Not Indicated
[2021-05-26] MEDS: oxyCODONE HCl Immed Release 5 MG TABLET 10 MG PO (19:45)
[2021-05-26] MEDS: Acetaminophen 325 MG TABLET 650 MG PO (19:46)
[2021-05-27] VITALS: BP 110/60; PULSE 58; RESP 16; TEMP 37; O2SAT 99
[2021-05-27] MEDS: 0.9 % Sodium Chloride 1,000 ML 80 ML IVCONT (04:11)
[2021-05-27] MEDS: Acetaminophen 325 MG TABLET 650 MG PO (04:17)
[2021-05-27] MEDS: oxyCODONE HCl Immed Release 5 MG TABLET PO ×2 (04:17→14:06)
[2021-05-27 07:49] VITALS: BP 134/74; PULSE 72
[2021-05-27] MEDS: Gabapentin 600 MG TABLET PO ×2 (07:49→14:06)
[2021-05-27] MEDS: Docusate Sodium 100 MG CAPSULE PO (07:49)
[2021-05-27] MEDS: lisinopriL 5 MG TABLET PO (07:49)
[2021-05-27] MEDS: Sertraline HCL 50 MG TABLET PO (07:49)
[2021-05-27] MEDS: Thiamine HCL 100 MG TABLET PO (07:49)
[2021-05-27] MEDS: Folic Acid 1 MG TABLET PO (07:49)
[2021-05-27 08:00] VITALS: BP 134/74; PULSE 68; RESP 20; TEMP 36.2; O2SAT 97
--- NOTE | 2021-05-27 09:39 | PC.NURSE ---
Pt IV accidentally removed by patient. Dr. Bhakta made aware, gave okay to leave without IV access. No IV medications at this time.
[2021-05-27 11:43] VITALS: BP 131/70; PULSE 67; RESP 20; TEMP 36.4; O2SAT 97
--- NOTE | 2021-05-27 13:56 | MHC.CM.PN ---
PT WAS CLEARED TO DC YESTERDAY HOWEVER WAS HELD ANOTHER NIGHT DUE TO HIS PHARMACY NOT BEING OPEN. CM MET WITH PT THIS MORNING TO DISCUSS DC PLANS. PT WAS AWARE THE PLAN WAS FOR HIM TO DC HOME VIA BLS LATER TODAY AND PLANT PACKER HIS MEDS TOMORROW HOWEVER PT [place]ES [place] [address] AND HAS NO ONE TO GET THE MEDS FOR HIM. AFTER SOME DISCUSSION IT WAS DETERMINED IF PT DC'D VIA BLS TODAY AND SPENT ALL NIGHT WITHOUT PAIN MEDS, HE WOULD POSSIBLY HAVE A VERY DIFFICULT TIME GETTING TO THE PHARMACY TOMORROW. PT REPORTS HE FEELS HE COULD NAVIGATE HIS STAIRS IF HE HAD PAIN MEDICATION AND WENT VERY SLOWLY. CM WILL ARRANGE TAXI TRANSPORT FOR PT TO GO TO [facility] ON TO GET HIS MEDS AND THEN HOME. OT WILL DC HOME TODAY WITH NO SERVICES VIA TAXI
== END 2021-05-27 15:15 | disposition home or self-care (01) ==
LOC: HO.SSS 12:01 → HO.S3 15:31
PROVIDERS: PCP Family Medicine; Visit Provider Surgery
PROC: (CPT 49505; principal; 2021-05-25 11:20)
DX: K40.90 Unilateral inguinal hernia, without obstruction or gangrene, not specified as recurrent (principal); R00.1 Bradycardia, unspecified; I42.8 Other cardiomyopathies; I10 Essential (primary) hypertension; Z79.899 Other long term (current) drug therapy; Z88.0 Allergy status to penicillin
CPT/HCPCS: 49505; 93005; 97161; C1781; J0690; J1100; J1885; J2250; J2405; J3010

== ENCOUNTER 2021-06-18 | Outpatient (REF) | payer MEDICAID, SELFPAY | END 2021-06-18 00:01 | disposition home or self-care (01) | LOC: CF | PROVIDERS: PCP Family Medicine; Visit Provider Surgery | DX: K40.90 Unilateral inguinal hernia, without obstruction or gangrene, not specified as recurrent (principal) | CPT/HCPCS: 99212 ==

== ENCOUNTER 2021-11-01 14:13 | Outpatient (REF) | payer MEDICAID, SELFPAY ==
--- NOTE | ~2021-11-01 | US_ITS ---
EXAMINATION: US ABDOMEN LIMITED CLINICAL INFORMATION: Right lower quadrant, status post hernia repair. COMPARISON: Ultrasound abdomen limited 04/24/2021. Ultrasound abdomen complete with liver elastography 05/08/2020. CT abdomen and pelvis with contrast 03/07/2021. TECHNIQUE: Real-time imaging of the right lower quadrant abdominal viscera, area of hernia repair scar, inguinal area. FINDINGS: No definite hernia visualized in the region of the right groin. Nonenlarged lymph node noted measuring 3 mm in short axis. US/US abdomen limited IMPRESSION: 1. No definite hernia visualized in the region of the right groin. 2. Nonenlarged lymph node noted measuring 3 mm in short axis.
== END 2021-11-01 14:14 | disposition home or self-care (01) ==
LOC: HO.US 14:13
PROVIDERS: PCP Family Medicine; Visit Provider Family Medicine
DX: R10.31 Right lower quadrant pain (principal)
CPT/HCPCS: 76705

== ENCOUNTER → 2021-11-08 13:57 | Outpatient (BNVA) | payer MEDICAID, SELFPAY | PROVIDERS: PCP Family Medicine; Visit Provider Surgery | DX: L76.82 Other postprocedural complications of skin and subcutaneous tissue (principal); Z98.890 Other specified postprocedural states; Z87.19 Personal history of other diseases of the digestive system | CPT/HCPCS: 99212 ==

== ENCOUNTER 2022-02-15 13:00 | Outpatient (RCR) | payer MEDICAID, SELFPAY | END 2022-02-22 15:51 | disposition home or self-care (01) | LOC: HO.PT 13:00 | PROVIDERS: PCP Family Medicine; Visit Provider Family Medicine | DX: M54.9 Dorsalgia, unspecified (principal) | CPT/HCPCS: 97110; 97140; 97161; 97535 ==

== ENCOUNTER → 2022-02-28 12:56 | Outpatient (BNVA) | payer MEDICAID, SELFPAY | PROVIDERS: PCP Family Medicine; Visit Provider Nurse Practitioner | DX: Z01.818 Encounter for other preprocedural examination (principal); I48.0 Paroxysmal atrial fibrillation; I42.9 Cardiomyopathy, unspecified; F10.20 Alcohol dependence, uncomplicated | CPT/HCPCS: 99202 ==

== ENCOUNTER 2022-03-20 14:17 | Outpatient (REF) | payer MEDICAID, SELFPAY ==
--- NOTE | ~2022-03-20 | XR_ITS ---
EXAMINATION: XR KNEE, RIGHT CLINICAL INFORMATION: Right knee pain. COMPARISON: None TECHNIQUE: 2 views of the right knee. FINDINGS: There is mild loss of medial compartment joint space. The lateral and the patellofemoral compartment joint spaces are normal. No bony erosive changes. No abnormal joint effusion. The soft tissues are normal. XR/XR knee RT 2V IMPRESSION: Mild early degenerative arthritic changes of the medial compartment of the right knee.
== END 2022-03-20 14:18 | disposition home or self-care (01) ==
LOC: HO.XRAY 14:17
PROVIDERS: PCP Family Medicine; Visit Provider Family Medicine
DX: M25.561 Pain in right knee (principal)
CPT/HCPCS: 73560

== ENCOUNTER 2022-04-29 11:31 | Outpatient (REF) | payer MEDICAID, SELFPAY ==
--- NOTE | ~2022-04-29 | XR_ITS ---
EXAMINATION: XR BILATERAL KNEE AP STANDING. SUNRISE VIEW OF THE RIGHT KNEE. CLINICAL INFORMATION: Pain in right knee COMPARISON: 03/20/2022 TECHNIQUE: AP bilateral standing view of both knees with sunrise view of the right knee were obtained. FINDINGS: Right knee: Mild medial compartment joint space narrowing. Lateral and patellofemoral compartment joint spaces are maintained. No fracture or dislocation. Left knee: There may be minimal medial compartment joint space narrowing. Lateral compartment joint space maintained. No fracture or dislocation. XR/XR knee RT 1V IMPRESSION: Mild right, minimal left medial compartment joint space narrowing.
--- NOTE | ~2022-04-29 | XR_ITS ---
EXAMINATION: XR BILATERAL KNEE AP STANDING. SUNRISE VIEW OF THE RIGHT KNEE. CLINICAL INFORMATION: Pain in right knee COMPARISON: 03/20/2022 TECHNIQUE: AP bilateral standing view of both knees with sunrise view of the right knee were obtained. FINDINGS: Right knee: Mild medial compartment joint space narrowing. Lateral and patellofemoral compartment joint spaces are maintained. No fracture or dislocation. Left knee: There may be minimal medial compartment joint space narrowing. Lateral compartment joint space maintained. No fracture or dislocation. XR/XR knee standing BI IMPRESSION: Mild right, minimal left medial compartment joint space narrowing.
== END 2022-04-29 11:32 | disposition home or self-care (01) ==
LOC: HO.HOSX 11:31
PROVIDERS: Visit Provider Physician Assistant
DX: M17.11 Unilateral primary osteoarthritis, right knee (principal)
CPT/HCPCS: 73560; 73565; 99202

== ENCOUNTER → 2022-05-07 13:55 | Outpatient (REF) | payer MEDICAID, SELFPAY ==
--- NOTE | 2022-05-07 13:58 | CA_ITS ---
Transthoracic Echocardiogram Patient (Last, First, Middle): Valerio Caldwell A Gender: Male Date of : 1960 Age: 62 Procedure Date: 05/07/2022 Procedure Type: Transthoracic Echocardiogram Location: OP Height: 170.18 cm Weight: 62.14 kg BSA: 1.72 m2 Heart Rate: bpm BP: 128 / 72 mmHg Ship Superintendent: SB Referring MD: Justin Reyes MD Symptoms: I42.9 - Cardiomyopathy, unspecified Study Quality: Adequate ECG Rhythm: Bradycardia Conclusions: - The left ventricular systolic function is moderately decreased. The calculated ejection fraction is 39% by biplane method. - The basal inferior and basal inferolateral segments are akinetic. - There is moderate global hypokinesis. - There is mildly decreased right ventricular systolic function. - The left atrium is moderately dilated. - There is mild mitral valve regurgitation. Findings Left Ventricle Normal left ventricular cavity size. There is normal left ventricular wall thickness. The left ventricular systolic function is moderately decreased. The calculated ejection fraction is 39% by biplane method. There is evidence of regional wall motion abnormalities. There is moderate global hypokinesis. E/E prime ratio is between 8 and 15 consistent with indeterminate filling pressures. Evidence suggests grade II (moderate) diastolic dysfunction. Wall Motion Rest Echo Findings The basal inferior and basal inferolateral segments are akinetic. Right Ventricle Normal right ventricular cavity size. There is mildly decreased right ventricular systolic function. Atria The left atrium is moderately dilated. The right atrium is mildly dilated. Aortic Valve There is a normal trileaflet aortic valve. There is no aortic valve stenosis. There is no aortic valve regurgitation. Mitral Valve The mitral valve appears normal. There is mild mitral valve regurgitation. There is no mitral valve stenosis. Pulmonic Valve The pulmonic valve is likely normal. There is trace pulmonic valve regurgitation. Tricuspid Valve Normal tricuspid valve structure. There is no tricuspid valve regurgitation. There is no evidence of pulmonary hypertension. Great Vessels The asc aorta is normal in size. Venous The inferior vena cava is normal in size and collapses greater than 50% with inspiration. Pericardium/Pleural There is no evidence of pericardial effusion. Prior Study Comparison Changes noted compared to prior study dated: 02/22/2021. LVEF is lower. See comment on wall motion. Measurements 2D Linear Measurements IVSd: 1.00 0.6-0.9/0.6-1.0 cm LVIDd: 5.33 3.9-5.3/4.2-5.9 cm LVIDd Index: 3.10 2.4-3.2/2.2-3.1 cm/m2 LVIDs: 4.31 2.0-3.6 cm LVPWd: 1.04 0.7-1.1 cm LA Diam: 4.00 2.7-3.8/3.0-4.0 cm LAIDs Index: 2.33 1.5-2.3 cm/m2 LV Mass: 258.85 67-162/88-224 g LV Mass Index: 150.50 43-95/49-115 g/m2 LVOT Diam: 2.40 3.0+(-)1.3 cm 2D Systolic Function EF 4C: 42.80 >55% EF 2C: 35.90 >55% EF BiP: 38.50 >55% Mitral Valve MV Pk E: 0.70 MV PK A: 0.53 MV Decel Time: 309.00 E/A: 1.30 E'Lateral: 4.95 E'Medial: 5.68 E/E' Med: 12.40 E/E' Lat: 14.20 PHT: 90.00 MVA PHT: 2.44 Decel [place]: 2.28 Aortic Valve AoV Pk Butch: 1.10 AoV Mn Butch: 0.78 AoV VTI: 0.25 AoV Pk Grad: 5.00 Aov Mn Grad: 3.00 PERNELL Cont.VTI: 3.23 LVOT LVOT Pk Butch: 0.75 LVOT Mn Butch: 0.56 LVOT VTI: 0.18 LVOT Pk Grad: 2.00 LVOT Mn Grad: 1.00 LVOT Diam: 2.40 LVOT Area: 4.52 Diastolic Function MV Pk E: 0.70 MV Pk A: 0.53 E/A: 1.30 E'Medial: 5.68 E/E' Med: 12.40 E' Laterial: 4.95 E/E' Lat: 14.20 Right Ventricle TAPSE (mm): 16.10 TVS' Butch: 7.95 Tricuspid Valve RA Press: 3.00 Great Vessels Aorta Sinus of Valsalva: 4.00 2.0-3.5 cm Ao Asc: 3.90 2.1-3.4 cm Pulmonary Veins Pulm Vein S/D 1.30 Pulmonary Valve PV Pk Butch: 0.81 Peak PV Grad: 3.00 Updated in Other Vendor System with Status of Final Henok Beltre MD electronically signed on 05/08/2022 8:54:06 AM with status of Final
== END ==
LOC: HO.CARD 13:55
PROVIDERS: PCP Family Medicine; Visit Provider Internal Medicine Cardiovascular Disease
DX: I42.9 Cardiomyopathy, unspecified (principal)
CPT/HCPCS: 93306

== ENCOUNTER → 2022-07-18 13:53 | Outpatient (BNVA) | payer MEDICAID, SELFPAY | PROVIDERS: PCP Family Medicine; Referring Provider Family Medicine; Visit Provider Surgery | DX: L76.82 Other postprocedural complications of skin and subcutaneous tissue (principal) | CPT/HCPCS: 99212 ==

== ENCOUNTER 2022-08-15 09:50 | Outpatient (REF) | payer MEDICAID, SELFPAY ==
--- NOTE | ~2022-08-15 | CT_ITS ---
EXAMINATION: CT ABDOMEN AND PELVIS WITHOUT CONTRAST CLINICAL INFORMATION: Post-procedural complication of skin and subcutaneous tissues. COMPARISON: None TECHNIQUE: Multidetector volumetric imaging was performed from the superior aspect of the liver through the pubic symphysis. Sagittal and coronal reformatted images were obtained on the technologist's workstation. This CT examination was performed using dose optimization techniques as appropriate, variously including the following: *Automated exposure control *Adjustment of mA and/or kV according to patient size (this includes techniques or standardized protocols for targeted exams where dose is matched to indication/reason for exam; i.e. extremities or head) *Use of iterative reconstruction technique DLP: 404 mGy-cm FINDINGS: LUNG BASES: The visualized lung bases are unremarkable. LIVER, GALLBLADDER, AND BILIARY TREE: The liver is normal in size, shape, and attenuation. No focal hepatic lesion or biliary ductal dilatation is present. The gallbladder is unremarkable with no evidence of radiopaque gallstones, gallbladder wall thickening, or obvious pericholecystic inflammatory changes. PANCREAS: Unremarkable. SPLEEN: Unremarkable. ADRENAL GLANDS: Unremarkable. KIDNEYS AND URETERS: The kidneys are normal in size, shape, and attenuation. No hydronephrosis, hydroureter, or calculi seen. There is mild bilateral perinephric stranding. BLADDER: Unremarkable. GASTROINTESTINAL TRACT: There is scattered stool and gas seen in the colon without distention. The small bowel loops are of normal caliber. Appendix is of normal caliber. ABDOMINAL WALL: No significant hernia is appreciated. LYMPH NODES: Normal. VASCULAR: Unremarkable. PELVIC VISCERA: Unremarkable. OSSEOUS STRUCTURES: No aggressive lytic or sclerotic process seen. Minimal ventral spondylosis at L3-L4 disc level is noted. CT/CT abdomen pelvis wo IV con IMPRESSION: No acute intra-abdominal process seen. Fleischner guidelines were followed.
== END 2022-08-15 09:51 | disposition home or self-care (01) ==
LOC: HO.CT 09:50
PROVIDERS: PCP Family Medicine; Visit Provider Surgery
DX: L76.82 Other postprocedural complications of skin and subcutaneous tissue (principal)
CPT/HCPCS: 74176

== ENCOUNTER 2022-08-21 13:00 | Outpatient (RCR) | payer MEDICAID, SELFPAY ==
[2022-07-08 14:11] VITALS: BP 158/83; PULSE 67; O2SAT 93
--- NOTE | 2022-07-08 15:15 | MHC.PT.EP ---
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 HE RESIDES ALONE , HAS A H/O PAROXYSMAL AF, IS CURRENTLY UNEMPLOYED, AND ENJOYS GOING TO THE GYM AND READING. Pt HAS DECR FLEXIB IN Rt HIP ROTATORS/ LEFT HS, (+) Rt LATERAL RETINACULAR SOFT TISSUE RESTRICTION, WEAKNESS IN QUADS/GLUTES, AND FLUCTUATIUNG Rt PES ANSERINE AREA PAIN. FUNTIONALLY, Pt NOTES LIMITED FUNCTIONAL SQUAT, DIFFIC W SLS, JOGGING TOLERANCE, PROLONGED WALKING OR MORE CHALLENGING EXER. Pt WOULD BENEFIT FROM PT TO ADDRESS LEs FLEXIBILITY, EASE PFPS, DEV A PROGR STRENGTHENING PROGRAM, AND EDUC Pt RE SELF-SX MGMT STRATEGIES. Frequency and Duration: The patient will be seen 2 x WK x 4 WKS Short Term Goals: *Pt WILL DEMON EFFICIENT GAIT MECHANICS ON LEVEL GROUND AND STAIRS *Pt'S RIGHT KNEE PAIN WILL DECR TO 2-3/10 *Pt DEMON WFL LEFT HS AND Rt HIP FLEXIBILITY *Pt DEMON WFL FUNCT SQUAT [facility] [employer] Maker Goals: *Pt INDEP W PROGR HEP AND SELF-SX MGMT TECHN *Pt WILL IMPROVE LUMBOPELVIC/ Rt LE STRENGTH TO AT LEAST 5-/5 *Pt W IMPROVED LEFI SCORE BY 5-8 POINTS (AT EVAL 43/80 ) Treatment Plan: Modalities to reduce pain, spasms and effusion. Manual therapy to restore motion and function. Therapeutic exercise to improve strength and flexibility. Neuromuscular re-education for posture and balance. Therapeutic activities to return to functional activities of daily living. Electronically signed by: KATHY CLINTON,PT Please sign and return to therapist. Thank you for your referral.
--- NOTE | 2022-10-29 08:44 | MHC.PT.DC ---
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 Electronically signed by: KATHY CLINTON,PT Please sign and return to therapist. Thank you for your referral.
== END 2022-10-29 08:44 | disposition home or self-care (01) ==
LOC: HO.PT 13:00
PROVIDERS: PCP Family Medicine; Visit Provider Physician Assistant
DX: M17.11 Unilateral primary osteoarthritis, right knee (principal)
CPT/HCPCS: 97110; 97161; 97530

== ENCOUNTER → 2022-08-22 14:32 | Outpatient (BNVA) | payer MEDICAID, SELFPAY | PROVIDERS: PCP Family Medicine; Visit Provider Surgery | DX: L76.82 Other postprocedural complications of skin and subcutaneous tissue (principal) | CPT/HCPCS: 99212 ==

== ENCOUNTER 2022-10-15 14:39 | Outpatient (REF) | payer MEDICAID, SELFPAY ==
--- NOTE | ~2022-10-15 | MR_ITS ---
EXAMINATION: MR THORACIC SPINE WITHOUT CONTRAST CLINICAL INFORMATION: 36-year-old with chronic mid back pain. COMPARISON: 01/25/2019 CT chest. TECHNIQUE: MRI of the thoracic spine was obtained using routine sequences without contrast. FINDINGS: ALIGNMENT: There is approximately 52 degrees of thoracic kyphosis centered at the T5-T6 level which is more prominent than on the previous CT chest. Otherwise, normal spinal alignment. VERTEBRAL BODIES AND BONE MARROW: Mild chronic compression fracture deformity of T5, stable in appearance, jmiu-tu-[id number] chronic compression fracture deformity of T6, also stable in appearance. Dsci-ut-haxdqxdk chronic anterior wedge compression fracture deformity of T8, stable in appearance. Slight anterior wedge compression deformities of T9 and T10 are also stable. No nonhealed compression fractures are seen and remainder of the vertebral body heights are well-maintained. No suspicious marrow replacing process or bone marrow edema. DISC SPACES AND ENDPLATES: Discogenic degenerative changes, with disc desiccation at multiple levels between T3-T4 and T10-T11 inclusive, with disc space height loss at T8-T9 and to a lesser degree at T9-T10 and T10-T11. Schmorl's nodes noted along the endplates at T9-T10, T8-T9, T7-T8, T5-T6 and T4-T5. Possible minimal intradiscal vacuum disc phenomenon at T9-T10 and at T8-T9 which are noted on previous CT. Minor anterior marginal endplate spurring at T9-T10 stable in appearance. PARASPINAL SOFT TISSUES: The paravertebral soft tissues appear grossly unremarkable. SPINAL CORD: The thoracic spinal cord is normal in morphology, caliber and signal intensity throughout. The conus terminates at the L1 level. No intradural lesions are seen. SPINAL LEVELS: C7-T1: No disc herniation or canal stenosis. Mild facet arthrosis on the left without significant neural foraminal stenosis. T8-T9: Mild facet arthropathy noted bilaterally without disc herniation or canal stenosis. There is mild bilateral neural foraminal stenosis. T9-T10: Tiny central disc protrusion with minimal indentation of the ventral thecal sac without cord impingement or canal stenosis. Mild facet arthrosis noted on the right with minimal foraminal narrowing. T10-T11: Minimal shallow central disc protrusion without cord impingement or canal stenosis. No significant DJD or neural foraminal stenosis. The remaining levels demonstrate no disc herniation or canal stenosis and no significant DJD or neuroforaminal stenosis. MR/MR thoracic spine wo con IMPRESSION: 1. Moderate thoracic kyphosis centered at the T5-T6 level, more prominent than on the previous CT of 01/25/2019. 2. Grma-ru-txoalfoy chronic compression fracture deformities of T5, T6, T8, T9 and T10 stable in appearance. 3. Ibro-wt-treddapx degrees of multilevel discogenic degenerative change with tiny central disc protrusions at T9-T10 and T10-T11 without spinal cord impingement or canal stenosis. 4. Mild degrees of facet arthropathy at multiple levels with mild bilateral neural foraminal stenosis at T8-T9 and minimal right-sided neural foraminal narrowing at T9-T10. 5. Normal appearance to the spinal cord.
== END 2022-10-15 14:40 | disposition home or self-care (01) ==
LOC: HO.MRI 14:39
PROVIDERS: Visit Provider Family Medicine
DX: M54.9 Dorsalgia, unspecified (principal)
CPT/HCPCS: 72146

== ENCOUNTER → 2022-11-29 13:20 | Outpatient (BNVA) | payer MEDICAID, SELFPAY | PROVIDERS: PCP Family Medicine; Visit Provider Physician Assistant | DX: M17.11 Unilateral primary osteoarthritis, right knee (principal); M23.91 Unspecified internal derangement of right knee | CPT/HCPCS: 99212 ==

== ENCOUNTER 2023-01-03 13:28 | Outpatient (REF) | payer MEDICAID, SELFPAY ==
--- NOTE | ~2023-01-03 | MR_ITS ---
EXAMINATION: MR KNEE WITHOUT CONTRAST, RIGHT CLINICAL INFORMATION: Osteoarthritis right knee COMPARISON: None available. TECHNIQUE: MRI of the knee without contrast was performed using routine sequences on a high-field scanner. FINDINGS: MENISCI: Medial Meniscus: Oblique tear of the posterior horn, involving the undersurface, with probable involvement of the superior surface as well. Peripheral undersurface tear in the mid/posterior body. Lateral Meniscus: Focal vertical of increased signal in the body, extending to the superior and undersurface from focal fraying/tear, possible component of the inner margin radial tear in this region. LIGAMENTS: Cruciate: Intact Collateral: Intact EXTENSOR MECHANISM: Intact ARTICULAR CARTILAGE/BONE: Patellofemoral Compartment: No focal cartilage loss There is a mild-moderate edema diffusely in the lateral femoral condyle, femoral intercondylar region, and the anterior aspect of the medial femoral condyle. Hazy edema otherwise in the medial femoral condyle. There is a moderate patchy edema in the proximal tibial epiphysis and metaphysis involving the lateral, central and central medial portion of the tibia. Findings are nonspecific. Differential consideration include bone bruise, stress injury, insufficiency injury. No focal cartilage loss is seen in the medial compartment.. Mild cartilage thinning in the anterior aspect of the lateral femoral condyle. JOINT FLUID AND BURSAE: Small effusion. No significant Moss's cyst. MR/MR knee RT wo con IMPRESSION: 1. Tear of the medial meniscal posterior horn and body. 2. Focal fraying/tear in the body of the lateral meniscus, possible component of the inner margin radial tear. 3. Mild left and moderate edema in the distal femur and proximal tibia, detailed above. Findings are nonspecific. Differential consideration include bone bruise, stress injury, insufficiency injury. Follow-up imaging for reassessment as clinically warranted. 4. Mild lateral compartment arthritis. 5. Small effusion.
== END 2023-01-03 13:29 | disposition home or self-care (01) ==
LOC: HO.MRI 13:28
PROVIDERS: PCP Family Medicine; Visit Provider Physician Assistant
DX: M17.11 Unilateral primary osteoarthritis, right knee (principal); M23.91 Unspecified internal derangement of right knee
CPT/HCPCS: 73721

== ENCOUNTER → 2023-02-03 11:58 | Outpatient (BNVA) | payer MEDICAID, SELFPAY | PROVIDERS: PCP Family Medicine; Visit Provider Orthopaedic Surgery | DX: S83.241D Other tear of medial meniscus, current injury, right knee, subsequent encounter (principal) | CPT/HCPCS: 99212 ==

== ENCOUNTER → 2023-02-25 13:57 | Outpatient (BNVA) | payer MEDICAID, SELFPAY | PROVIDERS: PCP Family Medicine; Referring Provider Family Medicine; Visit Provider Nurse Practitioner Family | DX: Z01.810 Encounter for preprocedural cardiovascular examination (principal); I42.8 Other cardiomyopathies; I48.0 Paroxysmal atrial fibrillation | CPT/HCPCS: 93005; 99212 ==

== ENCOUNTER → 2023-03-12 10:12 | Outpatient (REF) | payer MEDICAID, SELFPAY ==
--- NOTE | 2023-03-12 10:17 | CA_ITS ---
Transthoracic Echocardiogram Patient (Last, First, Middle): Valerio Caldwell A Gender: Male Date of : 1960 Age: 62 Procedure Date: 03/12/2023 Procedure Type: Transthoracic Echocardiogram Location: OP Height: 172.72 cm Weight: 72.58 kg BSA: 1.86 m2 Heart Rate: 69 bpm BP: 125 / 80 mmHg Route Aide: ZAHRA Malcolm MD: Abi Puckett DIRECTOR FUNDRAISING-C Wan Support Specialist: Justin Reyes MD Symptoms: I42.9 - Cardiomyopathy, unspecified Study Quality: Adequate ECG Rhythm: Sinus Conclusions: - 1. Moderate LV systolic dysfunction with LVEF of 35-40% with regional wall motion abnormality consistent with ischemic cardiomyopathy 2. Mild mitral regurgitation 3. Mildly dilated ascending aorta at 4 cm 4. Normal RV systolic pressure 5. No gross pericardial effusion Findings Left Ventricle Normal left ventricular cavity size. There is normal left ventricular wall thickness. The left ventricular systolic function is moderately decreased. The visually estimated ejection fraction is between 35-40%. Spectral Doppler is indicative of an impaired relaxation filling pattern. Peak GLS is -10.9%, which is moderately reduced. Wall Motion Rest Echo Findings The mid inferior and mid inferoseptal segments are hypokinetic. The basal inferior, basal inferoseptal, and basal inferolateral segments are akinetic. All other scored wall segments showed normal motion. Right Ventricle Normal right ventricular cavity size. There is mildly decreased right ventricular systolic function. Atria Both atria are normal in size. There is no evidence of interatrial shunt. Aortic Valve Normal aortic valve structure and function. There is no aortic valve stenosis. There is no aortic valve regurgitation. Mitral Valve There is mild anterior and posterior mitral leaflet thickening. There is mild mitral valve regurgitation. There is no mitral valve stenosis. Pulmonic Valve The pulmonic valve was not well visualized. Tricuspid Valve Likely normal tricuspid valve structure and function. Tricuspid regurgitation envelope is inadequate for calculation of right ventricular systolic pressure. Normal right atrial pressure. Great Vessels The pulmonary artery was not well visualized. There is mild dilatation of the ascending aorta measuring 4.00 cm. Venous The inferior vena cava is normal in size and collapses greater than 50% with inspiration. Pericardium/Pleural There is no evidence of pericardial effusion. Prior Study Comparison Changes noted compared to prior study dated: 05/07/2022. left atrium is measured to be within normal limits on this study. Measurements 2D Linear Measurements IVSd: 0.96 0.6-0.9/0.6-1.0 cm LVIDd: 5.44 3.9-5.3/4.2-5.9 cm LVIDd Index: 2.92 2.4-3.2/2.2-3.1 cm/m2 LVIDs: 4.04 2.0-3.6 cm LVPWd: 1.19 0.7-1.1 cm LA Diam: 3.80 2.7-3.8/3.0-4.0 cm LAIDs Index: 2.04 1.5-2.3 cm/m2 LV Mass: 287.85 67-162/88-224 g LV Mass Index: 154.76 43-95/49-115 g/m2 LVOT Diam: 2.30 3.0+(-)1.3 cm 2D Systolic Function EF 4C: 39.30 >55% EF 2C: 35.80 >55% EF BiP: 36.40 >55% Mitral Valve MV Pk E: 0.50 MV PK A: 0.80 MV Decel Time: 376.00 E/A: 0.60 E'Lateral: 6.96 E'Medial: 4.57 E/E' Med: 10.90 E/E' Lat: 7.20 PHT: 110.00 MVA PHT: 2.00 Decel [place]: 1.33 Aortic Valve AoV Pk Butch: 1.28 AoV Mn Butch: 1.01 AoV VTI: 0.28 AoV Pk Grad: 7.00 Aov Mn Grad: 4.00 PERNELL Cont.VTI: 2.51 LVOT LVOT Pk Butch: 0.87 LVOT Mn Butch: 0.68 LVOT VTI: 0.17 LVOT Pk Grad: 3.00 LVOT Mn Grad: 2.00 LVOT Diam: 2.30 LVOT Area: 4.15 Diastolic Function MV Pk E: 0.50 MV Pk A: 0.80 E/A: 0.60 E'Medial: 4.57 E/E' Med: 10.90 E' Laterial: 6.96 E/E' Lat: 7.20 Right Ventricle TAPSE (mm): 16.60 TVS' Butch: 8.81 Tricuspid Valve RA Press: 3.00 Great Vessels Aorta Sinus of Valsalva: 4.20 2.0-3.5 cm Ao Asc: 4.00 2.1-3.4 cm Pulmonary Valve PV Pk Butch: 0.87 Peak PV Grad: 3.00 Updated in Other Vendor System with Status of Final Justin Reyes MD electronically signed on 03/13/2023 4:38:30 PM with status of Final
== END ==
LOC: HO.CARD 10:12
PROVIDERS: PCP Family Medicine; Visit Provider Nurse Practitioner Family
DX: Z01.810 Encounter for preprocedural cardiovascular examination (principal); I42.9 Cardiomyopathy, unspecified
CPT/HCPCS: 93306; 93356

== ENCOUNTER → 2023-03-12 10:17 | Outpatient (BNV) | payer MEDICAID, SELFPAY | PROVIDERS: PCP Family Medicine; Visit Provider Internal Medicine Cardiovascular Disease | DX: I34.0 Nonrheumatic mitral (valve) insufficiency (principal) | CPT/HCPCS: 93306 ==

== ENCOUNTER 2023-03-17 12:21 | Outpatient (AMB) | payer MEDICAID, SELFPAY ==
--- NOTE | 2023-03-17 12:29 | A.OFFVIS_ITS ---
Intake Vital Signs 03/17/23 12:30 Height 5 ft 8 in Weight 161 lb BMI 24.5 Intake Visit Reasons: Pre-Op RT Knee 03/26/23NE Intake Note: Valerio is a 63 year old male who presnets today for a pre-operative appointment , scheduled for a Right Knee Arthroscopy on 03/26/23. Allergies Penicillins [PENICILLINS] Allergy (Intermediate, Verified 03/17/23 12:30) RASH HPI Pre-Op RT Knee 03/26/23NE HPI Details 62-year-old male who presents in the office today for his preoperative history and physical exam prior to a right knee arthroscopy to be performed on 03/26/[address] Franklin. Patient states he lives on the 4th floor with no elevator. He is concerned about how he is supposed to get up to his home. Patient is scheduled with Cardiology on 03/18/2023 for preoperative cardiac clearance. He has had the echo performed. He has a stress test scheduled for tomorrow, 03/18/2023. Patient is scheduled with his PCP on 03/21/2023 for preoperative clearance. He states he was kept for 2 days status post his hernia surgery due to a decrease in heart function. He states he has a hard time waking up from anesthesia. Patient has an allergy history, as follows: -Penicillin; rash Patient is currently taking, as follows: -Acetaminophen 1,000 mg PO Q8H PRN -Buspirone 7.5 mg PO BID -Diclofenac sodium 75 mg PO BID -Folic acid 1 mg PO daily -Gabapentin 600 mg PO TID -Lisinopril 5 mg PO daily -Temazepam 30 mg PO bedtime PRN -Thiamine HCI 100 mg PO daily Patient has a medical history, as follows: -Alcohol dependence; admitted 05/2020 with withdrawal -Hypertension -Cardiomyopathy -Paroxysmal atrial fibrillation Patient has a surgical history, as follows: -Right inguinal hernia repair -Tonsillectomy -Oral surgery ? 2019 -Right heart catheterization 2014 [facility] Medical History Cardiomyopathy HTN (hypertension) Incisional pain Paroxysmal atrial fibrillation Right inguinal hernia Right inguinal hernia Surgical History History of right inguinal hernia repair History of tonsillectomy Hx of oral surgery Hx of right heart catheterization Family History Father Esophagus cancer Mother No problems noted. Social History Household Members: Other Household Members Other:: lives alone. Housing: Apartment Are you a primary career development coordinator/teacher to a significant other at home: No Do you presently have visiting nurse or other home services: No Alcohol intake: former Patient Tobacco Use Status: Never used Tobacco service: No Current occupational status: disabled Review of Systems Const All systems reviewed & are unremarkable except as noted in HPI and below Physical Exam Vital Signs: BMI result Body Mass Index 24.5 Const General: cooperative and no acute distress Orientation/consciousness: patient oriented x3 HEENT Head: Yes normocephalic and Yes atraumatic Eyes EOM: EOMs intact bilaterally Neck Neck: Yes normal visual inspection and Yes no lymphadenopathy Resp Effort & Inspection: normal respiratory effort and able to speak in complete sentences Cardio Jugular venous distension: no JVD Peripheral pulses: Peripheral pulses 2+ throughout GI Inspection: Yes normal to inspection Palpation (GI): Soft to palpation Skin General skin exam: no rashes or lesions noted Rashes: no rashes Neuro General: patient oriented x3 Extrem Other: Right Knee: Full ROM Markedly + medial Franny's TTP medial joint line Psych Appearance: grossly normal Affect: normal affect Attitude: cooperative Assessment & Plan Assessment & Plan (1) Tear of medial meniscus of right knee: Code(s): S83.241A - Other tear of medial meniscus, current injury, right knee, initial encounter Plan Mr. Omer Guaman is a 62-year-old male who presents in the office today for his preoperative history and physical exam prior to a right knee arthroscopy to be performed on 03/26/[address] Franklin. Patient states he lives on the 4th floor with no elevator. He is concerned about how he is supposed to get up to his home. Patient is scheduled with Cardiology on 03/18/2023 for preoperative cardiac clearance. He has had the echo performed. He has a stress test scheduled for tomorrow, 03/18/2023. Patient is scheduled with his PCP on 03/21/2023 for preoperative clearance. He states he was kept for 2 days status post his hernia surgery due to a decrease in heart function. He states he has a hard time waking up from anesthesia. Patient has an allergy history, as follows: -Penicillin; rash Patient is currently taking, as follows: -Acetaminophen 1,000 mg PO Q8H PRN -Buspirone 7.5 mg PO BID -Diclofenac sodium 75 mg PO BID -Folic acid 1 mg PO daily -Gabapentin 600 mg PO TID -Lisinopril 5 mg PO daily -Temazepam 30 mg PO bedtime PRN -Thiamine HCI 100 mg PO daily Patient has a medical history, as follows: -Alcohol dependence; admitted 05/2020 with withdrawal -Hypertension -Cardiomyopathy -Paroxysmal atrial fibrillation Patient has a surgical history, as follows: -Right inguinal hernia repair; keep for 2 days status post due to a decrease in heart function. -Tonsillectomy -Oral surgery ? 2019 -Right heart catheterization 2014 I discussed in detail the procedure and what to expect pre and post operatively. We discussed the risks, benefits and alternatives to the surgery as well as the rehabilitation course. The risks; which include, but are not limited to infection, bleeding, nerve injury, ongoing pain, swelling, and stiffness, perioperative risk of injury to bones and soft tissues, and blood clots. I have answered all questions and with their understanding they have consented to move forward with a right knee arthroscopy to be performed on by Dr. Elkin Franklin. Follow up will be at the post operative appointment on 03/31/2023 at 11:15 am, or sooner if needed. Patient Instructions: Scribed for Nhi Fleming PA-C by Jessica Jean Baptiste claim review medical director, on 03/17/2023 at 12:26 pm, EST. Your attestation Coding Level of Care Code Global (50779) Diagnoses Tear of medial meniscus of right knee S83.241A
[2023-03-17 12:30] VITALS: BMI 24.5
== END 2023-03-17 14:09 | disposition home or self-care (01) ==
PROVIDERS: PCP Family Medicine; Visit Provider Physician Assistant
DX: S83.241A Other tear of medial meniscus, current injury, right knee, initial encounter (principal)
CPT/HCPCS: 99213

== ENCOUNTER → 2023-03-17 12:21 | Outpatient (BNVA) | payer MEDICAID, SELFPAY | PROVIDERS: PCP Family Medicine; Visit Provider Physician Assistant | DX: S83.241A Other tear of medial meniscus, current injury, right knee, initial encounter (principal) | CPT/HCPCS: 99213 ==

== ENCOUNTER → 2023-03-18 09:50 | Outpatient (REF) | payer MEDICAID, SELFPAY ==
--- NOTE | ~2023-03-18 | NM_ITS ---
Lexiscan Myocardial perfusion study Indication: Preoperative cardiovascular evaluation Technique: The patient was brought in for a Lexiscan perfusion study on 03/18/2023 and was injected 0.4 mg of Lexiscan intravenously. Within a minute of this injection 25 mCi of sestamibi was given intravenously. Images were obtained using the SPECT gamma camera interlaced with the gating device. Images were obtained in supine position. Resting perfusion study was performed on 03/20/2023. Patient was administered 25 mCi of sestamibi intravenously at rest. Images were then obtained in supine position. Total DLP 88mGy-cm. Images were processed with the software and compared side to side in short axis, horizontal long axis and vertical long axis views. Findings: Raw acquisition reviewed. The stress perfusion study showed diminished tracer uptake in the basal part of inferior wall, basal inferior septum. No major change with CT attenuation correction. The gated study shows diminished LV systolic function with calculated LVEF of 43%. LV cavity is normal in size. The gated study shows septal akinesis. Resting study shows diminished tracer uptake in the basal part of inferior wall, adjacent parts of inferior septum and septum. No major change with CT attenuation correction. Gating at rest reveals ejection fraction at 36%. Basal to mid septum akinetic. The findings are consistent with fixed defect in the basal to mid septum, anterior septum and basal inferior wall. WI/NM cardiolite stress test Impression: 1. Myocardial perfusion imaging study shows probable infarct in the basal part of septum, inferior septum and adjacent part of basal inferior wall. 2. Gated LVEF is 43% during stress and 36% during rest. 3. Transient ischemic dilatation not present. EKG component of the test reported separately.
--- NOTE | 2023-03-18 09:53 | CA_ITS ---
Acquisition Time: 2023-03-18 10:14:39 Total Exercise Time: 00:02:00 Test Indications: CARDIOMYOPATHY Medications: BUSPIRONE LISINOPRIL GABAPENTIN Protocol: LEXISCAN Max HR: 100 BPM 62% of Pred: 159 BPM Max BP: 114/072 mmHG Max Work Load: 1.0 METS Pharmacological stress test with Lexiscan injection while sitting and kicking his legs, without anginal symptoms, with isolated PVCs, with normotensive response to injection, with non-diagnostic EKGs. Nuclear images pending. Test reviewed with Dr. Chinchilla. Referred By: Abi Puckett Overread By: Massiel Pierce
== END ==
LOC: HO.CARD 09:50
PROVIDERS: PCP Family Medicine; Visit Provider Nurse Practitioner Family
DX: Z01.810 Encounter for preprocedural cardiovascular examination (principal); I48.0 Paroxysmal atrial fibrillation; I42.9 Cardiomyopathy, unspecified
CPT/HCPCS: 78452; 93017; A9500; J0280; J2785

== ENCOUNTER → 2023-03-18 09:53 | Outpatient (BNV) | payer MEDICAID, SELFPAY | PROVIDERS: PCP Family Medicine; Visit Provider Nurse Practitioner | DX: I42.9 Cardiomyopathy, unspecified (principal) | CPT/HCPCS: 78452; 93016; 93018 ==

== ENCOUNTER 2023-03-21 13:46 | Outpatient (REF) | payer MEDICAID, SELFPAY ==
[2023-03-21 17:55] LABS: Hemoglobin 12.1 g/dl (14.0-18.0); Mean Corpuscular HGB Conc 31.8 g/dl (31.0-36.0); Mean Corpuscular Hemoglobin 31.8 pg (27.0-33.0); Mean Corpuscular Volume 99.7 fL (80.0-98.0); Mean Platelet Volume 11.6 fL (9.4-12.4); Platelet Count 184 X10*3/uL (160-400); Red Blood Count 3.81 X10*6/uL (4.60-5.80); Red Cell Distribution Width 11.5 % (11.0-16.0); White Blood Count 4.2 X10*3/uL (4.8-10.8)
[2023-03-21 18:18] LABS: Anion Gap 9 (12-20); Blood Urea Nitrogen 14 mg/dL (9-16); Calcium 9.4 mg/dL (8.4-10.2); Carbon Dioxide 27 mmol/L (22-29); Chloride 106 mmol/L (96-108); Estimated Glomerular Filt Rate > 60; Glucose Random 63 mg/dL (60-115); Potassium 4.4 mmol/L (3.3-5.1); Sodium 138 mmol/L (135-145)
== END 2023-03-21 13:47 | disposition home or self-care (01) ==
LOC: HO.CHCLDS 13:46
PROVIDERS: Visit Provider Family Medicine
DX: Z01.818 Encounter for other preprocedural examination (principal)
CPT/HCPCS: 36415; 80048; 85027

== ENCOUNTER 2023-06-11 13:57 | Outpatient (REF) | payer MEDICAID, SELFPAY ==
[2023-06-11 15:08] LABS: Anion Gap 14 (12-20); Blood Urea Nitrogen 22 mg/dL (9-16); Calcium 9.4 mg/dL (8.4-10.2); Carbon Dioxide 23 mmol/L (22-29); Chloride 101 mmol/L (96-108); Estimated Glomerular Filt Rate 55; Glucose Random 86 mg/dL (60-115); Potassium 5.2 mmol/L (3.3-5.1); Sodium 133 mmol/L (135-145)
== END 2023-06-11 13:58 | disposition home or self-care (01) ==
LOC: HO.LAB 13:57
PROVIDERS: PCP Family Medicine; Visit Provider Internal Medicine Cardiovascular Disease
DX: Z01.810 Encounter for preprocedural cardiovascular examination (principal); I42.9 Cardiomyopathy, unspecified; I48.0 Paroxysmal atrial fibrillation; R94.31 Abnormal electrocardiogram [ECG] [EKG]; K40.90 Unilateral inguinal hernia, without obstruction or gangrene, not specified as recurrent
CPT/HCPCS: 36415; 80048; 85025; 85610

== ENCOUNTER 2023-07-21 13:31 | Outpatient (REF) | payer MEDICARE, MEDICAID, SELFPAY ==
[2023-07-21 16:02] LABS: MANUAL DIFF FLAG NO
[2023-07-21 16:22] LABS: Basophils Percent Auto 0.5 % (0-2); Eosinophils Absolute Auto 0.1 X10*3/uL (0.0-0.4); Eosinophils Percent Auto 3.2 % (0-4); Hematocrit 38.8 % (42.0-52.0); Hemoglobin 12.3 g/dl (14.0-18.0); Imm Gran Abs Auto 0.01 X10*3/uL (0.00-0.03); Imm Gran Pct Auto 0.2 % (0.0-0.4); Lymphocytes Absolute Auto 1.2 X10*3/uL (1.2-4.9); Lymphocytes Percent Auto 29.2 % (20-40); Mean Corpuscular HGB Conc 31.7 g/dl (31.0-36.0); Mean Corpuscular Hemoglobin 31.5 pg (27.0-33.0); Mean Corpuscular Volume 99.2 fL (80.0-98.0); Mean Platelet Volume 11.2 fL (9.4-12.4); Monocytes Absolute Auto 0.4 X10*3/uL (0.1-1.2); Monocytes Percent Auto 10.1 % (2-11); Neutrophils Absolute Auto 2.3 x10*3/uL (2.0-8.3); Neutrophils Percent Auto 56.8 % (45-73); Platelet Count 204 X10*3/uL (160-400); Red Blood Count 3.91 X10*6/uL (4.60-5.80); Red Cell Distribution Width 11.8 % (11.0-16.0); White Blood Count 4.1 X10*3/uL (4.8-10.8)
[2023-07-21 16:25] LABS: Alanine Aminotransferase 22 U/L (0-40); Albumin Level 4.5 g/dL (3.5-5.0); Alkaline Phosphatase 55 U/L (39-117); Anion Gap 9 (12-20); Aspartate Amino Transferase 21 U/L (5-37); Bilirubin Total 0.3 mg/dL (0.0-1.0); Blood Urea Nitrogen 12 mg/dL (9-16); Calcium 9.5 mg/dL (8.4-10.2); Carbon Dioxide 29 mmol/L (22-29); Chloride 109 mmol/L (96-108); Cholesterol 183 mg/dL (<200); Estimated Glomerular Filt Rate > 60; Glucose Random 83 mg/dL (60-115); HDL Cholesterol 50 mg/dL (>40); LDL Cholesterol Calculated 115 mg/dL (<100); Potassium 5.7 mmol/L (3.3-5.1); Sodium 141 mmol/L (135-145); Triglycerides 93 mg/dL (<150)
[2023-07-21 16:46] LABS: Creatinine Urine 153.13 mg/dL; Microalbum/Creatinine Ratio Ur 6.5 ug/mg cr (<30)
== END 2023-07-21 13:32 | disposition home or self-care (01) ==
LOC: HO.HHCL 13:31
PROVIDERS: Visit Provider Family Medicine
DX: I10 Essential (primary) hypertension (principal)
CPT/HCPCS: 36415; 80053; 80061; 82043; 82570; 85025

== ENCOUNTER 2023-12-26 13:55 | Outpatient (AMB) | payer MEDICARE, MEDICAID, SELFPAY ==
--- NOTE | 2023-12-26 13:54 | MHC.OFFVIS ---
Intake Visit Reasons: erectile dysfunction Intake Note: New Patient presents for initial visit for Erectile Dysfunction Urology Medications: none Blood Thinner: none Diabetic: no Can Top Setter Required: No Accompanied by: Self / Same As Patient Allergies Penicillins [PENICILLINS] Allergy (Intermediate, Verified 12/26/23 14:26) RASH Medication List - Last Reconciled 12/26/23 by ELINA Cardenas acetaminophen 1,000 mg PO Q8H PRN buspirone 7.5 mg PO BID diclofenac sodium 75 mg PO BID folic acid 1 mg PO DAILY gabapentin 600 mg PO TID hydroxyzine pamoate mg PO lisinopril 5 mg PO DAILY temazepam 30 mg PO BEDTIME PRN thiamine HCl (vitamin B1) 100 mg PO DAILY HPI Comments Details: Valerio is a 63-year-old male patient of Dr. Schroeder. He has a past medical history of alcohol dependence quit in 2019, hypertension, paroxysmal AFib, and cardiomyopathy. He presents to the office today as a new patient for low libido and erectile dysfunction. In discussion with the patient today he reports noting over the last year to be having issues obtaining and maintaining his erections. He reports at time he is able to obtain erections however it is not consistent. He also feels his sexual desire has been decreased. He otherwise denies urinary urgency, urinary frequency, incontinence, nocturia, hematuria, dysuria, foul smelling urine, changes to urinary stream, flank pain, fever, and or chills. He is happy with his current voiding parameters. He discusses upcoming appointment with cardiology as he suffers from cardiomyopathy and is undergoing cardiac clearance for his upcoming knee surgery. In office urinalysis results reviewed with the patient today. Otherwise offers no other issues or concerns at this time. ON LICENSE OF [facility] Medical History Incisional pain Right inguinal hernia HTN (hypertension) Right inguinal hernia Paroxysmal atrial fibrillation Cardiomyopathy Surgical History History of right inguinal hernia repair Hx of oral surgery Hx of right heart catheterization History of tonsillectomy Family History Father Esophagus cancer Mother No problems noted. Social History Household Members: Other Household Members Other:: lives alone. Housing: Apartment Are you a primary vision care associate to a significant other at home: No Do you presently have visiting nurse or other home services: No Alcohol intake: former Patient Tobacco Use Status: Never used Tobacco service: No Current occupational status: disabled Review of Systems Const Reports no additional complaints Eyes Reports no additional complaints ENT Reports no additional complaints Card Reports as per HPI Resp Reports no additional complaints GI Reports no additional complaints Reports as per HPI Musc Reports as per HPI Neuro Reports no additional complaints Psych Reports no additional complaints Ben/Lymph Reports no additional complaints Aller/Immun Reports no additional complaints Physical Exam Const General: cooperative, healthy appearing, comfortable, no acute distress, well developed, alert and awake Orientation/consciousness: patient oriented x3 Limitations: no limitations HEENT Head: Yes normal to inspection, Yes normocephalic and Yes atraumatic Ears: hearing grossly normal bilaterally Eyes General: appearance normal, both eyes and all related structures Neck Neck: Yes normal visual inspection and Yes trachea midline Chest Chest palpation & inspection: normal inspection of the chest Resp Effort & Inspection: normal respiratory effort and able to speak in complete sentences Cardio Rate: regular rate GI Inspection: Yes normal to inspection General: Yes no CVA tenderness Back/Spine/Pelvis Back: no CVA tenderness Skin General skin exam: no rashes or lesions noted Neuro General: patient oriented x3 Extrem General: Yes normal to inspection Psych Appearance: grossly normal and well kempt Mental Status: mental status grossly normal Speech and movement: Normal speech and movement present and Clear speech present Affect: normal affect Attitude: cooperative Thought process: Normal thought process present Thought content: Normal thought content present Insight: Fair insight present (Psych) Judgement: Fair judgement present (Psych) Results AMB Urinalysis, Automated UA Leukoctes 0 Samira/uL Last Edit by [employer] on 12/26/23 14:12 UA Nitrite Negative Last Edit by [employer] on 12/26/23 14:12 UA Urobilinogen 0.2 mg/dL Last Edit by [employer] on 12/26/23 14:12 UA Protein 0 mg/dL Last Edit by [employer] on 12/26/23 14:12 UA pH 7.5 Last Edit by [employer] on 12/26/23 14:12 UA Blood 0 Jaime/uL Last Edit by Sharee Stringer on 12/26/23 14:12 UA Specific [place] 1.005 Last Edit by Sharee Stringer on 12/26/23 14:12 UA Ketone Negative Last Edit by Sharee Stringer on 12/26/23 14:12 UA Bilirubin 0 mg/dL Last Edit by Sharee Stringer on 12/26/23 14:12 UA Glucose 0 mg/dL Last Edit by Sharee Stringer on 12/26/23 14:12 Results Reviewed Results Reviewed: Laboratory Last Values Urine pH (Auto) 7.5 12/26/23 14:02 Specific [place] (Auto) 1.005 12/26/23 14:02 Urine Protein (Auto) 0 mg/dL 12/26/23 14:02 Glucose (UA)(Auto) 0 mg/dL 12/26/23 14:02 Urine Ketones (Auto) Negative 12/26/23 14:02 Urine Blood (Auto) 0 Jaime/uL 12/26/23 14:02 Urine Nitrite (Auto) Negative 12/26/23 14:02 Urine Bilirubin (Auto) 0 mg/dL 12/26/23 14:02 Urine Urobilinogen (Auto) 0.2 mg/dL 12/26/23 14:02 Leukocyte Esterase (Auto) 0 Samira/uL 12/26/23 14:02 Assessment & Plan Assessment & Plan (1) Erectile dysfunction: Code(s): N52.9 - Male erectile dysfunction, unspecified Category: Medical (2) Low libido: Code(s): R68.82 - Decreased libido Category: Medical Plan In office urinalysis results reviewed with the patient today; as noted above. Discussed at length potential causes for low libido and erectile dysfunction. Discussed lifestyle modifications to assist with erectile dysfunction as well as low libido. Start Cialis 5 mg daily. Discuss treatment options for erectile dysfunction. Will obtain testosterone free and total as well as PSA for further assessment evaluation. Patient currently denies any bothersome urinary issues or concerns. He reports be happy with current voiding parameters. Follow-up in 3 months with labs to be completed prior; or sooner with any issues, concerns, and or questions. Orders: Orders AMB Urinalysis Automated 12/26/23 Z13.9 - Encounter for screening, unspecified Testosterone, Free/Total 12/26/23 N52.9 - Male erectile dysfunction, unspecified, R68.82 - Decreased libido Prostate Specific Antigen 12/26/23 N40.0 - Benign prostatic hyperplasia without lower urinary tract symptoms Medications: New tadalafil (Cialis) [id number] [facility] [id number] Member [id number] 5 mg PO DAILY 90 tabs 0RF 90 days Patient Instructions: The patient had an opportunity to ask questions regarding the treatment plan. All questions were answered. Physical exam, labs, and imaging were discussed and reviewed in detail. As well as risks, benefits, and discussion of treatment choices. No major barriers to understanding were identified. The patient expressed understanding and agreement with the above treatment plan. The patient was made aware they should contact our office by phone for worsening of their current condition, the appearance of new symptoms, or with any questions or concerns. Compliance is encouraged with any medications and follow up testing that is ordered. It is a privilege to be allowed the opportunity to participate in? your urological care.? Again, if you have any questions or concerns If you have any questions or concerns please do not hesitate to contact me. The office is [phone]. This note is constructed using voice recognition software. While every effort has been made to ensure accuracy cabin furnishings installer errors may have been included. Yours sincerely, ELINA Cardenas Coding Level of Care Code New Pt Level 4 (30407) Diagnoses Erectile dysfunction N52.9 Low libido R68.82
== END 2023-12-26 14:34 | disposition home or self-care (01) ==
PROVIDERS: PCP Family Medicine; Visit Provider Nurse Practitioner Family
DX: N52.9 Male erectile dysfunction, unspecified (principal); R68.82 Decreased libido
CPT/HCPCS: 99204

== ENCOUNTER → 2023-12-26 13:55 | Outpatient (BNVA) | payer MEDICARE, MEDICAID, SELFPAY | PROVIDERS: PCP Family Medicine; Visit Provider Nurse Practitioner Family | DX: N52.9 Male erectile dysfunction, unspecified (principal); R68.82 Decreased libido | CPT/HCPCS: 81003; 99202 ==

== ENCOUNTER 2024-02-24 14:28 | Outpatient (AMB) | payer MEDICARE, MEDICAID, SELFPAY ==
--- NOTE | 2024-02-24 14:53 | MHC.OFFVIS ---
Vital Signs 02/24/24 14:54 Height 5 ft 8 in Weight 180 lb 12.465 oz BMI 27.5 BP 120/84 Blood Pressure Location Lt brachial Position Sitting Pulse 79 Intake Visit Reasons: r/s 01/05/24 overdue followup Intake Note: Overdue follow-up with ekg Immunologist Required: No Allergies Penicillins [PENICILLINS] Allergy (Intermediate, Verified 12/26/23 14:26) RASH Medication List - Last Reconciled 02/24/24 by Justin Reyes MD acetaminophen 1,000 mg PO Q8H PRN buspirone 7.5 mg PO BID diclofenac sodium 75 mg PO BID folic acid 1 mg PO DAILY gabapentin 600 mg PO TID hydroxyzine pamoate 25 mg PO ONCE lisinopril 5 mg PO DAILY tadalafil (Cialis) 5 mg PO DAILY 90 days temazepam 30 mg PO BEDTIME PRN thiamine HCl (vitamin B1) 100 mg PO DAILY HPI Comments Details: Valerio comes for follow-up after a long gap. Last year he underwent an echocardiogram which showed persistent moderate LV systolic dysfunction subsequently underwent a myocardial perfusion imaging which was abnormal and for which she underwent a coronary CTA which showed nonobstructive CAD. Since then he has been doing overall okay. He is currently taking lisinopril 5 mg daily. Remains active and functional. Denies any exertional chest pain or shortness of breath. Denies any heart failure symptoms. He is taking his lisinopril every day. Denies any prolonged palpitations, irregular heartbeat, lightheadedness, syncope. Has stopped drinking alcohol completely. [facility] Medical History Incisional pain Right inguinal hernia HTN (hypertension) Right inguinal hernia Paroxysmal atrial fibrillation Cardiomyopathy Surgical History History of right inguinal hernia repair Hx of oral surgery Hx of right heart catheterization History of tonsillectomy Family History Father Esophagus cancer Mother No problems noted. Social History Household Members: Other Household Members Other:: lives alone. Housing: Apartment Are you a primary workforce investment act career manager to a significant other at home: No Do you presently have visiting nurse or other home services: No Alcohol intake: former Patient Tobacco Use Status: Never used Tobacco service: No Current occupational status: disabled Review of Systems Const Denies chills, Denies fatigue, Denies fever(s), Denies frequent falls, Denies weakness, Denies weight gain and Denies weight loss ENT Denies dizziness Card Denies chest pain, Denies leg edema, Denies lightheadedness, Denies palpitations, Denies dyspnea, Denies dyspnea on exertion, Denies orthopnea and Denies other (loss of consciousness) Resp Denies cough, Denies dyspnea and Denies dyspnea on exertion GI Denies hematochezia and Denies change in stool character Musc Denies abnormal gait, Denies muscle weakness, Denies numbness, Denies radiating pain into limb and Denies tingling Neuro Denies abnormal gait, Denies dizziness, Denies frequent falls, Denies numbness, Denies tingling and Denies weakness Endo Denies fatigue and Denies palpitations Physical Exam Vital Signs: Last Vital Signs Pulse 79 02/24/24 14:54 BP 120/84 02/24/24 14:54 BMI result Body Mass Index 27.5 Const General: cooperative, healthy appearing, comfortable and no acute distress Orientation/consciousness: patient oriented x3 Neck Neck: Yes normal visual inspection Resp Effort & Inspection: normal respiratory effort Auscultation: clear to auscultation bilaterally, no crackles, no rales, no rhonchi and no wheezes Cardio Jugular venous distension: no JVD Rate: regular rate Rhythm: regular rhythm Heart sounds: S1 normal heart sound present, S2 normal heart sound present, no murmurs and no rubs Neuro General: patient oriented x3 Extrem Other: brace on right knee Psych Appearance: grossly normal Mental Status: mental status grossly normal Speech and movement: Normal speech and movement present Office Procedures EKG Details: EKG shows normal sinus rhythm with left axis deviation with poor R-wave progression most likely lead placement with nonspecific T-wave changes [id number], Complete Assessment & Plan Assessment & Plan (1) Cardiomyopathy: Comment: nonischemic, suspected to be secondary to alcohol use. 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 Clinically with no signs or symptoms of heart failure. Will further maximize neurohormonal modulation. Increase lisinopril to 10 mg daily and add Toprol-XL 50 mg to his regimen. Signs and symptoms of heart failure were discussed. Follow-up basic metabolic profile in 1 weeks time. Follow-up echocardiogram in 3 months time. Alcohol abstinence was applauded. Continue to pursue the same. Further treatment based on the findings of the echocardiogram. (2) Paroxysmal atrial fibrillation: Comment: in setting of alcohol intoxication per Dr. Reyes note-not on anticoagulants at this time Code(s): I48.0 - Paroxysmal atrial fibrillation Category: Medical Plan: Atrial fibrillation in the setting of alcohol intoxication. Since then he has not been using any alcohol. Continue avoid alcohol. Start metoprolol therapy as above. No indication for oral anticoagulation therapy. (3) CAD (coronary artery disease): Comment: Nonobstructive by coronary CTA Code(s): I25.10 - Atherosclerotic heart disease of [place] coronary artery without angina pectoris Category: Medical Plan: Nonobstructive CAD by coronary CTA. No symptoms of angina. Consider statin therapy target goal LDL less than 70 mg/dL. Blood pressure is currently well optimized encouraged to continue to participate in physical activity as tolerated. Follow up in the clinic in 3 months time, sooner p.r.n.. Thank you for allowing me to partake in his care Medications: New lisinopril 10 mg PO DAILY 30 tabs 5RF metoprolol succinate ER (Toprol XL) 50 mg PO DAILY 30 tabs 5RF Coding Level of Care Code Est Pt Level 4 (37337) Diagnoses Cardiomyopathy I42.9 Paroxysmal atrial fibrillation I48.0 CAD (coronary artery disease) I25.10 CPT Codes EKG - CPT: 96080-[id number], Complete ([id number])
[2024-02-24 14:54] VITALS: BP 120/84; PULSE 79; BMI 27.5
== END 2024-02-24 15:14 | disposition home or self-care (01) ==
PROVIDERS: PCP Family Medicine; Visit Provider Internal Medicine Cardiovascular Disease
DX: I42.9 Cardiomyopathy, unspecified (principal); I48.0 Paroxysmal atrial fibrillation; I25.10 Atherosclerotic heart disease of native coronary artery without angina pectoris
CPT/HCPCS: 93010; 99214

== ENCOUNTER → 2024-02-24 14:28 | Outpatient (BNVA) | payer MEDICARE, MEDICAID, SELFPAY | PROVIDERS: PCP Family Medicine; Visit Provider Internal Medicine Cardiovascular Disease | DX: I25.10 Atherosclerotic heart disease of native coronary artery without angina pectoris (principal); I10 Essential (primary) hypertension; I48.0 Paroxysmal atrial fibrillation; I42.9 Cardiomyopathy, unspecified | CPT/HCPCS: 93005; 99212 ==

== ENCOUNTER 2024-03-22 15:46 | Outpatient (REF) | payer MEDICARE, MEDICAID, SELFPAY ==
[2024-03-22 18:14] LABS: Prostate Specific Antigen 0.56 ng/mL (<0.05-4.0)
[2024-03-26 14:58] LABS: Testosterone, Free 87.4 pg/mL (35.0-155.0); Testosterone, Total 840 ng/dL (250-1100)
== END 2024-03-22 15:47 | disposition home or self-care (01) ==
LOC: HO.HHCL 15:46
PROVIDERS: Visit Provider Nurse Practitioner Family
DX: N52.9 Male erectile dysfunction, unspecified (principal); R68.82 Decreased libido; N40.0 Benign prostatic hyperplasia without lower urinary tract symptoms; Z12.5 Encounter for screening for malignant neoplasm of prostate
CPT/HCPCS: 36415; 84153; 84402; 84403

== ENCOUNTER 2024-04-05 14:12 | Inpatient (IN) | payer MEDICARE, MEDICAID, SELFPAY ==
[2024-04-05] VITALS (11 sets, daily range): BP systolic 163–204; BP diastolic 82–126; PULSE 57–97; RESP 13–18; TEMP 36.6–36.8; O2SAT 97–100; BMI 25.7
--- NOTE | ~2024-04-05 | XR_ITS ---
EXAMINATION: XR CHEST 2 VIEW CLINICAL INFORMATION: Confusion COMPARISON: 12/09/2019 TECHNIQUE: PA and lateral views of the chest obtained. FINDINGS: There are low volumes but the lungs are clear. There are no pleural effusions. The cardiomediastinal silhouette is normal. XR/XR chest 2V IMPRESSION: No acute cardiopulmonary disease.
--- NOTE | ~2024-04-05 | CT_ITS ---
EXAMINATION: CT HEAD WITHOUT CONTRAST CLINICAL INFORMATION: Confusion. COMPARISON: CT head August 24, 2019 TECHNIQUE: Contiguous axial imaging was performed from the skull base to vertex without intravenous administration of contrast. Coronal and sagittal reformatted images are performed at the CT scanner. [This CT examination was performed using dose optimization techniques as appropriate, variously including the following: *Automated exposure control *Adjustment of mA and/or kV according to patient size (this includes techniques or standardized protocols for targeted exams where dose is matched to indication/reason for exam; i.e. extremities or head) *Use of iterative reconstruction technique] DLP: 715 mGy-cm. FINDINGS: There is no evidence of acute intracranial hemorrhage or territorial infarction. No abnormal mass-effect or midline shift is seen. Guan to white matter differentiation is well preserved. No extra-axial fluid collections are identified. There is generalized global volume loss. There is mild prominence of the ventricles and the sulci . There is mild hypodensity of the periventricular white matter due to chronic small vessel ischemic disease. There are vascular calcifications of the internal carotid arteries bilaterally. There is no osseous abnormality. The mastoid air cells and visualized portions of the paranasal sinuses are well-aerated. CT/CT head/brain wo IV con IMPRESSION: No acute intracranial pathology.
--- NOTE | ~2024-04-05 | CT_ITS ---
EXAMINATION: CT CHEST, ABDOMEN AND PELVIS WITHOUT CONTRAST CLINICAL INFORMATION: elevated calcium COMPARISON: 08/15/2022 TECHNIQUE: Multidetector volumetric imaging was performed from the thoracic inlet through the pubic symphysis without IV contrast. Sagittal and coronal reformatted images were obtained on the technologist's workstation. This CT examination was performed using dose optimization techniques as appropriate, variously including the following: *Automated exposure control *Adjustment of mA and/or kV according to patient size (this includes techniques or standardized protocols for targeted exams where dose is matched to indication/reason for exam; i.e. extremities or head) *Use of iterative reconstruction technique DLP: 491+923 mGy-cm FINDINGS: CHEST: Lung: There is mild cardiac enlargement. The lungs are clear without focal opacity or nodule. Mild bibasilar atelectasis is present Mediastinum: The ascending aorta is dilated at 4.0 cm.. The central vascular structures are otherwise unremarkable. No coronary calcium is seen. No hilar or mediastinal lymphadenopathy. Pericardium/Pleura: No significant effusion. No pleural mass or thickening. Chest Wall/Axilla: Unremarkable ABDOMEN/PELVIS: Peritoneal Space: No significant free air or free fluid identified. Liver, Gallbladder, Biliary Tree: The liver is normal in size, shape, and attenuation. No focal hepatic lesion or biliary ductal dilatation is present. The gallbladder is unremarkable with no evidence of radiopaque gallstones, gallbladder wall thickening, or obvious pericholecystic inflammatory changes. Pancreas: Unremarkable Spleen: Unremarkable Adrenal Glands: Unremarkable Kidneys and Ureters: The kidneys are normal in size, shape, and attenuation. No hydronephrosis, hydroureter, or calculi seen. No perinephric stranding. Bladder: Nuno catheter is present in the bladder. Gastrointestinal Tract: Dense contrast is present throughout the colon. There is some mild mucosal thickening of the terminal ileum without inflammatory changes in the surrounding fat. The small and large bowel are otherwise unremarkable. The appendix is unremarkable. Abdominal Wall: No significant hernia is appreciated. Lymph Nodes: No lymphadenopathy. Vascular: The aorta appears normal.. The IVC appears unremarkable. PELVIC VISCERA: Prostate mildly prominent. Seminal vesicles are normal. The vas deferens are calcified. OSSEUS STRUCTURES: No bony destructive lesions are seen. CT/CT abdomen pelvis wo IV con IMPRESSION: 1. A cause for the patient's elevated calcium has not been found. 2. Incidental note made of mild cardiomegaly, 4.0 cm ascending aortic aneurysm, mild mucosal thickening of the terminal ileum without inflammatory changes in the surrounding fat, mild BPH and calcified vas deferens. Fleischner guidelines were followed.
--- NOTE | 2024-04-05 14:19 | ED.WEAKNESS ---
HPI - Weakness General Chief complaint: Weakness Stated complaint: weakness nausea hypertension 180/110 Time Seen by Provider: 04/05/24 14:18 Source: patient and EMS Mode of arrival: EMS Limitations: no limitations History of Present Illness HPI Narrative: 64-year-old male past medical history significant for coronary disease right knee injury and pain paroxysmal atrial fibrillation cardiomyopathy patient is on BuSpar diclofenac gabapentin hydroxyzine lisinopril metoprolol temazepam who presents to the emergency department complaining of nausea hypertension and weakness. Patient lives alone he was found by bystanders and brought into a business who called EMS. He states he has been noncompliant with his medications he is unable to tell me why she told EMS that he is confused but is alert and oriented to person place and time and is answering all questions appropriately. During his stay he was he will answer a few more questions he states his symptoms gone for 5 days I Complaint: generalized weakness Onset (ago): day(s) Duration: constant Location: generalized Associated symptoms: nausea/vomiting Related Data Home Medications ?Medication ?Instructions ?Recorded ?Confirmed folic acid 1 mg tablet 1 mg PO DAILY 07/25/20 02/24/24 gabapentin 600 mg tablet 600 mg PO TID 05/02/21 02/24/24 thiamine HCl (vitamin B1) 100 mg 100 mg PO DAILY 05/02/21 02/24/24 tablet acetaminophen 500 mg tablet 1,000 mg PO Q8H PRN pain 02/25/23 02/24/24 buspirone 7.5 mg tablet 7.5 mg PO BID 02/25/23 02/24/24 diclofenac sodium 75 mg 75 mg PO BID 02/25/23 02/24/24 tablet,delayed release temazepam 30 mg capsule 30 mg PO BEDTIME PRN insomnia 02/25/23 02/24/24 hydroxyzine pamoate 25 mg capsule 25 mg PO ONCE 02/24/24 02/24/24 Previous Rx's ?Medication ?Instructions ?Recorded lisinopril 10 mg tablet 10 mg PO DAILY #30 tabs 02/24/24 metoprolol succinate 50 mg 50 mg PO DAILY #30 tabs 02/24/24 tablet,extended release 24 hr (Toprol XL) tadalafil 5 mg tablet (Cialis) 5 mg PO DAILY 90 days #90 tabs 03/29/24 Allergies Allergy/AdvReac Type Severity Reaction Status Date / Time Penicillins [PENICILLINS] Allergy Intermediate RASH Verified 04/05/24 14:24 Review of Systems Review of Systems: Review of systems: General: Patient denies any fever chills recent illness or falls Musculoskeletal: Denies back pain or body aches or other injuries HEENT: denies headache, runny nose, ear pain Respiratory: denies shortness of breath, cough Cardiovascular: no chest pain or palpitations : denies dysuria, frequency Abdomen: no nausea vomiting denies abdominal pain Extremities: no swelling, no pain Skin: no diaphoresis Yes all other systems are reviewed and are negative [facility] Past Medical History Medical History Incisional pain Right inguinal hernia HTN (hypertension) Right inguinal hernia Paroxysmal atrial fibrillation Cardiomyopathy Surgical History History of right inguinal hernia repair Hx of oral surgery Hx of right heart catheterization History of tonsillectomy Family History Family History Father Esophagus cancer Mother No problems noted. Social History Social History Household Members: Other Household Members Other:: lives alone. Housing: Apartment Are you a primary transitional care nurse to a significant other at home: No Do you presently have visiting nurse or other home services: No Alcohol intake: current Alcohol intake frequency: a few times a week Patient Tobacco Use Status: Never used Tobacco Smoked in Last 30 Days: No Use of substances other than those prescribed or required for medical reasons: No Advance Directives: No Advance Directives Information Provided: No Do you have a plan to hurt others: No Plan service: No Current occupational status: disabled Physical Exam Vital Signs: Vital Signs: Last Vital Signs Temp 97.8 F 04/05/24 16:04 Pulse 57 04/05/24 18:28 Resp 16 04/05/24 17:35 BP 173/86 H 04/05/24 18:28 Pulse Ox 100 04/05/24 17:35 O2 Del Method Room Air 04/05/24 17:35 BMI result Body Mass Index 25.7 Neurological exam: CN II- XII tested. Patient is alert and oriented to person place and time. Patient has no dysphagia or dysarthia, denies good vision in all four vision c[place] no nystagmus on exam, good strength to upper and lower extremities with normal reflexes to brachioradialis, wrist, patella and achilles. Negative romberg, good finger to nose and heel to dietz. General: Well-appearing well-nourished in no signs of distress HEENT: Normocephalic atraumatic Neck: No signs of JVD, no masses no tenderness or lymphadenopathy Cardiovascular: Regular rate and rhythm Respiratory: Clear to auscultation bilaterally Abdomen: Soft nontender no masses Extremities: Normal pedal pulses no signs of edema Skin: Dry warm no rashes Back: No tenderness full ROM Course Course Course Narrative: Patient has remained hypertensive we he was given labetalol and then 100 of Librium. Concerned the patient was having some alcohol withdrawal as he has only previous visits for for alcohol intoxication. Patient continues to be out of it he is awake is able to do everything normally has normal strength to his upper and lower extremities but continues to be slightly off. CT head is normal repeat troponin after 3 hours she was minimal change I do not think this is ACS I do not think this patient has any concerning signs still waiting for his [facility] LFTs. I will give some more labetalol IV and orally Reevaluation(s) Reevaluation #1: BP still elevated I will give another dose of labetolol Iv and orally. Still waiting on [facility] multiple calls made for results. They stated first set of blood was hemolyzed then they just didn't run the 2nd set of blood. I still can't see results but they state the calcium and creatinine are elevated. Reevaluation #2: With the Calcium and elevated creatinine I did consult Dr. Vincent from nephrology. I don't think emergent dialysis is warranted. I feel patient needs admission to the hospitalist service. Patient reassess he denies any cancer history and states he has never had kidney failure. BP is slightly improved. I will give another dose of labetolol at this time. Time: 18:36 Medications Administered Discontinued Medications Generic Name Dose Route Start Last Admin Trade Name Freq PRN Reason Stop Dose Admin Chlordiazepoxide HCl 100 mg 04/05/24 17:02 04/05/24 17:14 Chlordiazepoxide Hcl 25 Mg Capsule PO 04/05/24 17:03 100 mg ONCE ONE Administration Sodium Chloride 1,000 mls @ 999 mls/hr 08/05/24 14:30 04/05/24 17:59 Ns IV 04/05/24 15:30 Infused .Q1H1M HONG Infusion Sodium Chloride 1,000 mls @ 999 mls/hr 04/05/24 16:15 04/05/24 17:23 Ns IV 04/05/24 17:15 999 mls/hr .Q1H1M HONG Administration Labetalol HCl 20 mg 04/05/24 16:13 04/05/24 16:24 Labetalol Hcl 100 Mg/20 Ml Vial IVPUSH 04/05/24 16:14 20 mg ONCE ONE Administration Labetalol HCl 20 mg 04/05/24 17:53 04/05/24 18:08 Labetalol Hcl 100 Mg/20 Ml Vial IVPUSH 04/05/24 17:54 20 mg ONCE ONE Administration Labetalol HCl 200 mg 04/05/24 17:53 04/05/24 18:28 Labetalol Hcl 200 Mg Tablet PO 04/05/24 17:54 200 mg ONCE ONE Administration Protocol Medical Decision Making Medical Decision Making [facility] Narrative: Of the patient fluids get over for CT scan labs and reassess Differential Diagnosis Differential Diagnoses: The differential diagnosis associated with the presentation includes Weakness dehydration intracranial hemorrhage electrolyte abnormality hypertensive urgency hypertensive emergency medication noncompliance dementia Admission/Observation Consideration of admission/observation: Escalation of care including admission/observation considered Consult Healthcare Provider Management of the patient was discussed with: Hospitalist and Adjunct Lecturer I did speak with the [facility] and nephrology. Nephrology wanted saline started at 200 per hour and lasix 40 mg BID as well as 60 mg of palmidronate. Palmidronate is not on formulary I did call pharmacy to find a bisphosphonate that we might have. We agreed no dialysis he also wanted other things checked for admission including immunofixation, PTH, mere d 25 and 125 LDH, PSA and ct chest abdomen and pelvis. He will follow in the morning. Lab Data [facility] Lab Attestation statement: I reviewed the patient's lab results. 04/05/24 14:45 04/05/24 16:04 Labs: Lab Results 04/05/24 04/05/24 04/05/24 Range/Units 14:45 16:04 16:54 WBC 9.8 (4.8-10.8) X10*3/uL RBC 4.04 L (4.60-5.80) X10*6/uL Hgb 13.0 L (14.0-18.0) g/dl Hct 37.8 L (42.0-52.0) % MCV 93.6 (80.0-98.0) fL MCH 32.2 (27.0-33.0) pg MCHC 34.4 (31.0-36.0) g/dl RDW 11.4 (11.0-16.0) % Plt Count 223 (160-400) X10*3/uL MPV 10.8 (9.4-12.4) fL Immature Gran % (Auto) 0.3 (0.0-0.4) % Neut % (Auto) 80.8 H (45-73) % Lymph % (Auto) 9.7 L (20-40) % [place] % (Auto) 8.6 (2-11) % Eos % (Auto) 0.3 (0-4) % Baso % (Auto) 0.3 (0-2) % Lymph # (Auto) 1.0 L (1.2-4.9) X10*3/uL [place] # (Auto) 0.8 (0.1-1.2) X10*3/uL Eos # (Auto) 0.0 (0.0-0.4) X10*3/uL Baso # (Auto) 0.0 (0.0-0.2) X10*3/uL Abs Immat Gran (auto) 0.03 (0.00-0.03) X10*3/uL Absolute Neuts (auto) 7.9 (2.0-8.3) x10*3/uL Absolute Nucleated RBC 0.000 (0.0-0.012) X10*3/uL Nucleated RBC % (auto) 0.0 (0.0-0.2) /100WBC Sodium 138 (135-145) mmol/L Potassium 3.9 (3.3-5.1) mmol/L Chloride 102 (96-108) mmol/L Carbon Dioxide 24 (22-29) mmol/L Anion Gap 16 (12-20) BUN 63 H (9-16) mg/dL Creatinine 6.07 H* (0.5-1.4) mg/dL Estim Creat Clear Calc 11.7 Estimated GFR 9 Random Glucose 109 (60-115) mg/dL Lactic Acid (0.5-2.0) mmol/L Calcium 17.5 H* D (8.4-10.2) mg/dL Total Bilirubin 0.6 (0.0-1.0) mg/dL Direct Bilirubin 0.2 (0.0-0.5) mg/dL AST 20 (5-37) U/L ALT 18 (0-40) U/L Alkaline Phosphatase 48 (39-117) U/L Ammonia 21 (13-55) umol/L Troponin I High Sens 62.5 H (<3.5-35.0) ng/L Total Protein 6.8 (6.5-8.0) g/dL Albumin 4.1 (3.5-5.0) g/dL Lipase 17 (8-78) U/L Urine Color Yellow Urine Appearance Clear Urine pH 6.0 (5.0-9.0) Ur Specific [place] 1.010 (1.005-1.025) Urine Protein Negative (Neg-Trace) mg/dL Urine Glucose (UA) Negative (Negative) mg/dL Urine Ketones Negative (Negative) mg/dL Urine Blood Negative (Negative) Urine Nitrite Negative (Negative) Ur Leukocyte Esterase Negative (Negative) Urine Opiates Screen Not Detected (Not Detect) Ur Buprenorphine Scrn Not Detected (Not Detect) ng/mL Ur Oxycodone Screen Not Detected (Not Detect) ng/mL Urine Methadone Screen Not Detected (Not Detect) ng/mL Urine Fentanyl Screen Not Detected (Not Detect) Ur Barbiturates Screen Not Detected (Not Detect) Ur Phencyclidine Scrn Not Detected (Not Detect) Ur Amphetamines Screen Not Detected (Not Detect) U Benzodiazepines Scrn Not Detected (Not Detect) Urine Cocaine Screen Not Detected (Not Detect) U Marijuana (THC) Screen Not Detected (Not Detect) Ethyl Alcohol < 10 mg/dL COVID-19 (KAMRAN) Negative (Negative) COVID-19 Clin Com See Note 04/05/24 04/05/24 Range/Units 17:22 18:26 WBC (4.8-10.8) X10*3/uL RBC (4.60-5.80) X10*6/uL Hgb (14.0-18.0) g/dl Hct (42.0-52.0) % MCV (80.0-98.0) fL MCH (27.0-33.0) pg MCHC (31.0-36.0) g/dl RDW (11.0-16.0) % Plt Count (160-400) X10*3/uL MPV (9.4-12.4) fL Immature Gran % (Auto) (0.0-0.4) % Neut % (Auto) (45-73) % Lymph % (Auto) (20-40) % [place] % (Auto) (2-11) % Eos % (Auto) (0-4) % Baso % (Auto) (0-2) % Lymph # (Auto) (1.2-4.9) X10*3/uL [place] # (Auto) (0.1-1.2) X10*3/uL Eos # (Auto) (0.0-0.4) X10*3/uL Baso # (Auto) (0.0-0.2) X10*3/uL Abs Immat Gran (auto) (0.00-0.03) X10*3/uL Absolute Neuts (auto) (2.0-8.3) x10*3/uL Absolute Nucleated RBC (0.0-0.012) X10*3/uL Nucleated RBC % (auto) (0.0-0.2) /100WBC Sodium (135-145) mmol/L Potassium (3.3-5.1) mmol/L Chloride (96-108) mmol/L Carbon Dioxide (22-29) mmol/L Anion Gap (12-20) BUN (9-16) mg/dL Creatinine (0.5-1.4) mg/dL Estim Creat Clear Calc Estimated GFR Random Glucose (60-115) mg/dL Lactic Acid 1.6 (0.5-2.0) mmol/L Calcium (8.4-10.2) mg/dL Total Bilirubin (0.0-1.0) mg/dL Direct Bilirubin (0.0-0.5) mg/dL AST (5-37) U/L ALT (0-40) U/L Alkaline Phosphatase (39-117) U/L Ammonia (13-55) umol/L Troponin I High Sens 69.5 H (<3.5-35.0) ng/L Total Protein (6.5-8.0) g/dL Albumin (3.5-5.0) g/dL Lipase (8-78) U/L Urine Color Urine Appearance Urine pH (5.0-9.0) Ur Specific [place] (1.005-1.025) Urine Protein (Neg-Trace) mg/dL Urine Glucose (UA) (Negative) mg/dL Urine Ketones (Negative) mg/dL Urine Blood (Negative) Urine Nitrite (Negative) Ur Leukocyte Esterase (Negative) Urine Opiates Screen (Not Detect) Ur Buprenorphine Scrn (Not Detect) ng/mL Ur Oxycodone Screen (Not Detect) ng/mL Urine Methadone Screen (Not Detect) ng/mL Urine Fentanyl Screen (Not Detect) Ur Barbiturates Screen (Not Detect) Ur Phencyclidine Scrn (Not Detect) Ur Amphetamines Screen (Not Detect) U Benzodiazepines Scrn (Not Detect) Urine Cocaine Screen (Not Detect) U Marijuana (THC) Screen (Not Detect) Ethyl Alcohol mg/dL COVID-19 (KAMRAN) (Negative) COVID-19 Clin Com Independent Interpretation I performed an independent interpretation of an: EKG Interpretation: Rate 83 normal sinus rhythm a previous for comparison patient does have minimal elevation V2 V3 does not look like acute ACS Radiology Impression Discussion of test interpretation with radiology: I have reviewed the radiologist's reading. External Record Review External record reviewed: Inpatient record, Office record, Outpatient record and Prior outpatient labs Critical Care Time Critical Care Time Critical Care Time: Yes Total Critical Care Time: 60 Attestation: Altered mental status requiring CT and labs patient remained altered and hypotensive requiring multiple dose of antihypertensive medications Discharge Plan Discharge Clinical Impression: Hypertensive emergency, Hypercalcemia, Acute renal failure, Acute alteration in mental status Patient Disposition: Admitted As Inpatient Prescriptions: No Action tadalafil [Cialis] 5 mg tablet 5 mg PO DAILY 90 Days Qty: 90 0RF Rx Instructions: [id number] [facility] [id number] Member [id number] gabapentin 600 mg tablet 600 mg PO TID thiamine HCl (vitamin B1) 100 mg tablet 100 mg PO DAILY folic acid 1 mg tablet 1 mg PO DAILY hydroxyzine pamoate 25 mg capsule 25 mg PO ONCE lisinopril 10 mg tablet 10 mg PO DAILY Qty: 30 5RF metoprolol succinate [Toprol XL] 50 mg tablet extended release 24 hr 50 mg PO DAILY Qty: 30 5RF temazepam 30 mg capsule 30 mg PO BEDTIME PRN (Reason: insomnia) diclofenac sodium 75 mg tablet,delayed release (DR/EC) 75 mg PO BID buspirone 7.5 mg tablet 7.5 mg PO BID acetaminophen 500 mg tablet 1,000 mg PO Q8H PRN (Reason: pain) Print Language: Yakut
--- NOTE | 2024-04-05 14:25 | ECG_ITS ---
Test Reason : WEAKNESS Blood Pressure : / mmHG Vent. Rate : 083 BPM Atrial Rate : 083 BPM P-R Int : 238 ms QRS Dur : 110 ms QT Int : 334 ms P-R-T Axes : 013 -40 -30 degrees QTc Int : 392 ms Sinus rhythm with 1st degree A-V block Left axis deviation Moderate voltage criteria for LVH, may be normal variant ( R in aVL , Froilan product ) Anterior infarct , age undetermined ST & T wave abnormality, consider lateral ischemia Abnormal ECG When compared with ECG of 25-MAY-2021 13:23, NV interval has increased Vent. rate has increased BY 40 BPM T wave inversion more evident in Anterior leads QT has shortened Referred By: Aldair Duvall Electronically Signed By:MARIA LUISA BADILLO MD
--- NOTE | 2024-04-05 14:25 | PC.NURSE ---
a&ox4. vss and up to date aside from being hypertensive. pt is noncompliant w/ home medication. nsr on the cardiac specialist. pt biba c/o dizziness/weakness/nausea x 4 days. pt reports feeling confused but seems to be able to answer questions appropriately. pt seemingly somnolence/resting w/ eyes closed in no apparent distress. pt endorses slight headache - rating pain a 2/10. denies any change in vision. 20gIV placed in the right AC - labs obtained/sent to lab. ekg performed by tech. pt aware urine sample is needed - states, i'll do it soon, i'm just tired right now. no sob/wob noted. respirations even/unlabored. plan of care ongoing. call elizabeth placed within reach.
--- NOTE | 2024-04-05 14:31 | PC.NURSE ---
chest xray being completed at this time.
[2024-04-05 14:52] LABS: MANUAL DIFF FLAG NO
[2024-04-05 14:57] LABS: Basophils Percent Auto 0.3 % (0-2); Eosinophils Percent Auto 0.3 % (0-4); Hematocrit 37.8 % (42.0-52.0); Imm Gran Abs Auto 0.03 X10*3/uL (0.00-0.03); Imm Gran Pct Auto 0.3 % (0.0-0.4); Lymphocytes Percent Auto 9.7 % (20-40); Mean Corpuscular HGB Conc 34.4 g/dl (31.0-36.0); Mean Corpuscular Hemoglobin 32.2 pg (27.0-33.0); Mean Corpuscular Volume 93.6 fL (80.0-98.0); Mean Platelet Volume 10.8 fL (9.4-12.4); Monocytes Absolute Auto 0.8 X10*3/uL (0.1-1.2); Monocytes Percent Auto 8.6 % (2-11); Neutrophils Absolute Auto 7.9 x10*3/uL (2.0-8.3); Neutrophils Percent Auto 80.8 % (45-73); Platelet Count 223 X10*3/uL (160-400); Red Blood Count 4.04 X10*6/uL (4.60-5.80); Red Cell Distribution Width 11.4 % (11.0-16.0); White Blood Count 9.8 X10*3/uL (4.8-10.8)
[2024-04-05 15:10] LABS: Ethanol < 10 mg/dL
[2024-04-05] MEDS: 0.9 % Sodium Chloride 1,000 ML 999 ML IV ×2 (15:11→17:23)
[2024-04-05 15:14] LABS: COVID-19 Test Negative (Negative); IDNOW Serial# 152EDE1D
[2024-04-05 15:19] LABS: Ammonia 21 umol/L (13-55)
--- OUTSIDE RECORDS SUMMARY | 2024-04-05 15:20 | XMS_ITS | Continuity of Care Document ---
Author Organization [facility] ter Address [address] [place] [id number] Care Team Providers Care [employer] Developer Name Role Phone Moises MOLINA, Jose Elias Galeano Primary Care Physician Encounter [facility] Date(s): 01/12/20 - 01/15/[address] [address]- [facility] Encounter Diagnosis Altered mental status(Final) - 01/12/20 Discharge Disposition: A-D/C Home Attending Physician: Chloe Delgadillo MD Admitting Physician: Shahida Mares DO Referring Physician: Not on Staff, Referring MD Allergies, Adverse Reactions, Alerts Substance Reaction Severity Status penicillins Active Medications Banophen 50 mg oral capsule TAKE 1 CAPSULE BY MOUTH AT BEDTIME NEEDED Start Date: 01/15/20 Status: Ordered Daily Chun oral tablet TAKE 1 TABLET EVERY DAY WITH FOOD Start Date: 01/15/20 Status: Ordered digoxin 0.125 mg oral tablet 125 mcg, 1, tablet, By Mouth, Daily, # 90 tablet, Refills 0, Tot. Refills 0, Maintenance, 09/30/16 10:49:13, Route to Pharmacy Electronically, [id number], [facility] Start Date: 09/30/16 Stop Date: 12/29/16 Status: Ordered folic acid 1 mg oral tablet 1 tablet = 1 mg, By Mouth, Daily, 0 Refills, Maintenance, 06/19/15 11:53:34 Start Date: 06/19/15 Status: Ordered furosemide 20 mg oral tablet 20 mg, 1, tablet, By Mouth, Daily, # 90 tablet, Refills 0, Tot. Refills 0, Maintenance, 07/22/17 11:11:17, Route to Pharmacy Electronically, [id number], [facility] Start Date: 07/22/17 Stop Date: 10/20/17 Status: Ordered gabapentin 300 mg oral capsule 300 mg, 1, capsule, By Mouth, 2 times a day, # 60 capsule, Refills 0, Tot. Refills 0, Maintenance, 08/03/18 12:45:48 EST, Print Requisition Start Date: 08/03/18 Stop Date: 09/02/18 Status: Ordered lisinopril 10 mg oral tablet 10 mg, 1, tablet, By Mouth, Daily, Refills 0, Maintenance, 01/15/20 15:28:00 EDT Start Date: 01/15/20 Status: Ordered Metoprolol Succinate ER 25 mg oral tablet, extended release 1 tablet = 25 mg, By Mouth, Daily, # 90 tablet, 0 Refills, Maintenance, 07/22/17 11:11:45 Start Date: 07/22/17 Stop Date: 10/20/17 Status: Ordered spironolactone 25 mg oral tablet 25 mg, 1, tablet, By Mouth, 2 times a day, # 180 tablet, Refills 0, Tot. Refills 0, Maintenance, 07/22/17 11:11:06, Route to Pharmacy Electronically, [id number], [facility] Start Date: 07/22/17 Stop Date: 10/20/17 Status: Ordered thiamine 100 mg oral tablet 100 mg, By Mouth, Daily, Refills 0, Maintenance, 08/03/18 12:45:31 EST Start Date: 08/03/18 Status: Ordered Vitamin B-1 100 Mg Tablet TAKE 1 TABLET EVERY DAY Start Date: 01/15/20 Status: Ordered zaleplon 10 mg oral capsule TAKE 1 CAPSULE BY MOUTH AT BEDTIME Start Date: 01/15/20 Status: Ordered Problem List Condition Effective Dates Status Health Status Inform ant Alcoholism(Confirmed) Active Anxiety(Confirmed) Active BPH (benign prostatic hyperplasia)(Confirmed) Active Cardiogenic shock(Confirmed) Active Cardiomyopathy(Confirmed) Active Depression(Confirmed) Active Hyponatremia(Confirmed) Active Seizure(Confirmed) Active Vitamin D deficiency(Confirmed) Active Zinc deficiency(Confirmed) Active Vital Signs Most recent to oldest [Reference Range]: 1 2 3 Weight 67.4 kg (01/12/20 11:03 PM) Oxygen Saturation [94-100 %] 100 % (01/15/20 4:05 PM) 95 % (01/15/20 11:21 AM) 100 % (01/15/20 8:43 AM) Pulse Rate [55-90 bpm] 70 bpm (01/15/20 4:05 PM) 75 bpm (01/15/20 2:51 PM) 67 bpm (01/15/20 11:21 AM) Blood Pressure [90-138/55-84 mm Hg] 122/80mm Hg (01/15/20 4:05 PM) 123/89mm Hg (01/15/20 11:21 AM) 121/82mm Hg (01/15/20 8:43 AM) Respiratory Rate [16-30 br/min] 18 br/min (01/15/20 4:05 PM) 18 br/min (01/15/20 11:21 AM) 18 br/min (01/15/20 9:00 AM) Temperature [96.8-100.4 DegF] 97.8 DegF (01/15/20 4:05 PM) 98.0 DegF (01/15/20 11:21 AM) 97.8 DegF (01/15/20 8:43 AM) Mode of Delivery (Oxygen) Room air (01/15/20 4:05 PM) Room air (01/15/20 11:21 AM) Room air (01/15/20 8:43 AM) Blood pressure sites Arm, right (01/15/20 4:05 PM) Arm, right (01/15/20 11:21 AM) Arm, right (01/15/20 8:43 AM) Temperature Route Oral (01/15/20 4:05 PM) Oral (01/15/20 11:21 AM) Oral (01/15/20 8:43 AM) Social History Social History Type Response Smoking Status Never smoker; Tobacc o user in household: No entered on: 07/01/16 Sex
--- NOTE | 2024-04-05 15:40 | PC.NURSE ---
pt to CT at this time.
--- NOTE | 2024-04-05 16:00 | PC.NURSE ---
lab results still pending at this time. chemistry called - states results will be coming in shortly.
[2024-04-05] MEDS: Labetalol HCL 100 MG/20 ML VIAL 20 MG IVPUSH ×2 (16:24→18:08)
--- NOTE | 2024-04-05 16:25 | PC.NURSE ---
pt remains hypertensive at this time. denies any chest pain/palpitations. MD notified/aware. will reassess BP shortly.
[2024-04-05 16:36] LABS: Troponin-I High Sensitivity 62.5 ng/L (<3.5-35.0)
--- NOTE | 2024-04-05 16:49 | PC.NURSE ---
urine obtained/sent to lab.
[2024-04-05 17:12] LABS: Appearance Urine Clear; Color Urine Yellow; Glucose Urine UA Negative (Negative); Leukocyte Esterase Urine Negative (Negative); Nitrite Urine Negative (Negative); Urine Blood Negative (Negative); Urine Ketones Negative (Negative); Urine Protein Negative (Neg-Trace)
[2024-04-05] MEDS: chlordiazePOXIDE HCl 25 MG CAPSULE 100 MG PO (17:14)
[2024-04-05 17:16] LABS: Amphetamine Screen Urine Not Detected (Not Detect); Barbiturates, Urine Not Detected (Not Detect); Benzodiazepines Screen Urine Not Detected (Not Detect); Buprenorphine Scr Not Detected (Not Detect); Cannabinoid Screen Urine Not Detected (Not Detect); Cocaine Screen Urine Not Detected (Not Detect); Fentanyl, urine Not Detected (Not Detect); Methadone Screen, Urine Not Detected (Not Detect); Opiate Screen Urine Not Detected (Not Detect); Oxycodone Screen Urine Not Detected (Not Detect); Phencyclidine Screen Urine Not Detected (Not Detect)
--- NOTE | 2024-04-05 17:25 | PC.NURSE ---
pt remains hypertensive at this time. MD notified/aware. provider suspects possible withdrawal. medication administered per provider order. CIWA = 0.
--- NOTE | 2024-04-05 17:40 | PC.NURSE ---
lab called again d/t labs still not resulting. lab states that tube was placed on the analyzer but they did not run it. wire charger/dr. rahman notified/aware.
[2024-04-05 17:49] LABS: Troponin-I High Sensitivity 69.5 ng/L (<3.5-35.0)
[2024-04-05 18:09] LABS: Anion Gap 16 (12-20)
--- NOTE | 2024-04-05 18:11 | PC.NURSE ---
medication administered per provider order since pt remains hypertensive. pharmacy called d/t medication not being in pyxis. will administer PO BP medication when able.
--- NOTE | 2024-04-05 18:20 | PC.NURSE ---
lab called this RN for critical lab values of creatinine/calcium level. dr. rahman notified/aware. lab also stating that lactic level needs to be obtained. lab notified that this RN obtained specimen at 1445. labs states they left the lactic tube out on the counter and the ice melted so they are no longer able to use the original tube that had been collected. dr. rahman/charge notified as well.
[2024-04-05 18:25] LABS: Alanine Aminotransferase 18 U/L (0-40); Albumin Level 4.1 g/dL (3.5-5.0); Alkaline Phosphatase 48 U/L (39-117); Aspartate Amino Transferase 20 U/L (5-37); Bilirubin Direct 0.2 mg/dL (0.0-0.5); Bilirubin Total 0.6 mg/dL (0.0-1.0); Blood Urea Nitrogen 63 mg/dL (9-16); Calcium 17.5 mg/dL (8.4-10.2); Carbon Dioxide 24 mmol/L (22-29); Chloride 102 mmol/L (96-108); Creatinine Clr Calc Pharmacy 11.7; Estimated Glomerular Filt Rate 9; Glucose Random 109 mg/dL (60-115); Lipase 17 U/L (8-78); Potassium 3.9 mmol/L (3.3-5.1); Sodium 138 mmol/L (135-145); Total Protein 6.8 g/dL (6.5-8.0)
[2024-04-05] MEDS: Labetalol HCL 200 MG TABLET PO (18:28)
[2024-04-05 18:44] LABS: Lactic Acid 1.6 mmol/L (0.5-2.0)
[2024-04-05] MEDS: Furosemide 40 MG/4 ML VIAL IVPUSH (19:47)
[2024-04-05] MEDS: 0.9 % Sodium Chloride 1,000 ML 200 ML IVCONT (19:48)
--- NOTE | 2024-04-05 20:09 | MHC.EDTECH ---
This tech took over care of patient at 1900,hourly rounds and vitals completed,repositioned to comfort,belongings list completed and copy placed in chart,call elizabeth in reach
--- NOTE | 2024-04-05 20:13 | PM.IMHP ---
History of Present Illness Date of Service: 04/05/24 Attending physician on admission: Camelia Galaviz Chief Complaint: Confusion Valerio Guaman is a 64 years old man with past medical history significant for HFrEF, CAD, paroxysmal atrial fibrillation and essential hypertension was brought to the emergency department via EMS after he was found to be confused by a friend. Patient seems to be confused but was able to answer my questions appropriately. He stated that he feels generally weak, somewhat confused and dizzy. He denied nausea, vomiting or diarrhea, and does not take diuretics. He does take lisinopril and metoprolol for hypertension, however, said that he has not been taking dose over the last few days. Patient commented that recently he started low carb diet (like [place] diet) and has been taking supplements including vitamin-D and vitamin K. denied taking medications such as Tums. He did not report any acute urinary changes such as increased frequency, decreased frequency or dark urine. He also denied any headache, fever, chills, abdominal pain, chest pain or shortness on breath. Patient denies alcohol abuse, illicit drug use or tobacco smoking. In the ED, he was found to have marked hypertension (max 204/126, most recent 172/84. There is no tachycardia, tachypnea or low O2 sats. Blood workup showed no leukocytosis, hemoglobin is 13 which is at baseline and platelets are normal. Creatinine is 6.07 (prior 1.04) and BUN is 63. There is no metabolic acidosis. Lactic acid is normal. LFTs are normal. Troponin is 69.5. There is severe hypercalcemia 17.5 but no other electrolyte imbalances. Urinalysis negative for blood. Urine toxicology is negative. CXR is negative. Head CTA showed no acute intracranial pathology. ECG showed NSR, first-degree AV block, nonspecific ST and T-wave abnormalities and short [place] segment. ED tx: NS 2 L bolus, labetalol 40 mg IV (total), labetalol 200 mg PO. Review of Systems Review of Systems: All 12 systems were reviewed and normal except as noted in HPI. [facility] Medical History Incisional pain Right inguinal hernia HTN (hypertension) Right inguinal hernia Paroxysmal atrial fibrillation Cardiomyopathy Family History Father Esophagus cancer Mother No problems noted. Surgical History History of right inguinal hernia repair Hx of oral surgery Hx of right heart catheterization History of tonsillectomy Social History Household Members: Other Household Members Other:: lives alone. Housing: Apartment Are you a primary manager managed care to a significant other at home: No Do you presently have visiting nurse or other home services: No Alcohol intake: current Alcohol intake frequency: a few times a week Patient Tobacco Use Status: Never used Tobacco Smoked in Last 30 Days: No Use of substances other than those prescribed or required for medical reasons: No Advance Directives: No Advance Directives Information Provided: No Do you have a plan to hurt others: No Plan Nutrition Risks: No Nutritional Risk service: No Current occupational status: disabled Meds Allergies Allergy/AdvReac Type Severity Reaction Status Date / Time Penicillins [PENICILLINS] Allergy Intermediate RASH Verified 04/05/24 14:24 Active Medications: Current Medications Acetaminophen (Acetaminophen 325 Mg Tablet) 975 mg PO Q6H PRN PRN Reason: Pain, Mild (Pain Scale 1-3), fever or headache Heparin Sodium (Porcine) (Heparin Sodium,Porcine 5,000 Unit/Ml Vial) 5,000 unit SUBCUT Q12H [facility] Sodium Chloride (Ns) 1,000 mls @ 200 mls/hr IVCONT .Q5H [facility] Stop: 04/05/24 23:59 Last Admin: 04/05/24 19:48 Dose: 200 mls/hr Pamidronate Disodium 60 mg/ (Sodium Chloride) 260 mls @ 65 mls/hr IV ONCE ONE Stop: 04/06/24 00:59 Sodium Chloride (0.9 % Sodium Chloride Flush 3 Ml Syringe) 3 ml IVFLUSH QSHIFT [facility] Home Medications ?Medication ?Instructions ?Recorded ?Confirmed ?Last Taken ?Type gabapentin 600 mg tablet 600 mg PO TID 05/02/21 04/05/24 04/04/24 History buspirone 7.5 mg tablet 7.5 mg PO BID 02/25/23 04/05/24 04/04/24 History temazepam 30 mg capsule 30 mg PO BEDTIME PRN insomnia 02/25/23 04/05/24 04/04/24 History hydroxyzine pamoate 25 mg capsule 25 mg PO Q6H 02/24/24 04/05/24 04/04/24 History tadalafil 5 mg tablet (Cialis) 5 mg PO DAILY 04/05/24 04/05/24 Unknown History Physical Exam Vital Signs and Narrative: Vital Signs: Last Vital Signs Temp 97.9 F 04/05/24 20:06 Pulse 68 04/05/24 20:06 Resp 14 04/05/24 20:06 BP 172/84 H 04/05/24 20:06 Pulse Ox 99 04/05/24 20:06 O2 Del Method Room Air 04/05/24 20:06 BMI result Body Mass Index 25.7 Constitutional - Awake and Alert, Confused at time. Answer questions appropriately. Follows simple commands. HEENT - PERRLA, EOMI. Normal sclerae. Dry oral mucosa. Heart - S1S2, RRR, No murmurs. Lungs - Normal lung expansion, Normal respiratory effort, No respiratory distress, CTA bilaterally Abdoment - NT / ND; +BS; No rebound or guarding Extremities - no calf tenderness bilaterally, no swelling Musculoskeletal - Normal inspection, normal ROM Skin - Warm/Dry Neurological - Alert & oriented x3. Confused at time. No focal weakness grossly noted. Normal speech. Psychological - Appropriate affect Results Labs 04/06/24 05:13 04/06/24 05:13 Labs: Laboratory Results - last 24 hr 04/05/24 04/05/24 04/05/24 14:45 16:04 16:54 MCV 93.6 MCH 32.2 MCHC 34.4 RDW 11.4 Plt Count 223 MPV 10.8 Immature Gran % (Auto) 0.3 Neut % (Auto) 80.8 H Lymph % (Auto) 9.7 L [place] % (Auto) 8.6 Eos % (Auto) 0.3 Baso % (Auto) 0.3 Lymph # (Auto) 1.0 L [place] # (Auto) 0.8 Eos # (Auto) 0.0 Baso # (Auto) 0.0 Abs Immat Gran (auto) 0.03 Absolute Neuts (auto) 7.9 Absolute Nucleated RBC 0.000 Nucleated RBC % (auto) 0.0 Anion Gap 16 Estim Creat Clear Calc 11.7 Estimated GFR 9 Random Glucose 109 Lactic Acid Calcium 17.5 H* D Total Bilirubin 0.6 Direct Bilirubin 0.2 AST 20 ALT 18 Alkaline Phosphatase 48 Ammonia 21 Troponin I High Sens 62.5 H Total Protein 6.8 Albumin 4.1 Lipase 17 Urine Color Yellow Urine Appearance Clear Urine pH 6.0 Ur Specific [place] 1.010 Urine Protein Negative Urine Glucose (UA) Negative Urine Ketones Negative Urine Blood Negative Urine Nitrite Negative Ur Leukocyte Esterase Negative Urine Opiates Screen Not Detected Ur Buprenorphine Scrn Not Detected Ur Oxycodone Screen Not Detected Urine Methadone Screen Not Detected Urine Fentanyl Screen Not Detected Ur Barbiturates Screen Not Detected Ur Phencyclidine Scrn Not Detected Ur Amphetamines Screen Not Detected U Benzodiazepines Scrn Not Detected Urine Cocaine Screen Not Detected U Marijuana (THC) Screen Not Detected Ethyl Alcohol < 10 COVID-19 ([facility]) Negative COVID-19 [employer] See Note 04/05/24 04/05/24 17:22 18:26 MCV MCH MCHC RDW Plt Count MPV Immature Gran % (Auto) Neut % (Auto) Lymph % (Auto) [place] % (Auto) Eos % (Auto) Baso % (Auto) Lymph # (Auto) [place] # (Auto) Eos # (Auto) Baso # (Auto) Abs Immat Gran (auto) Absolute Neuts (auto) Absolute Nucleated RBC Nucleated RBC % (auto) Anion Gap Estim Creat Clear Calc Estimated GFR Random Glucose Lactic Acid 1.6 Calcium Total Bilirubin Direct Bilirubin AST ALT Alkaline Phosphatase Ammonia Troponin I High Sens 69.5 H Total Protein Albumin Lipase Urine Color Urine Appearance Urine pH Ur Specific [place] Urine Protein Urine Glucose (UA) Urine Ketones Urine Blood Urine Nitrite Ur Leukocyte Esterase Urine Opiates Screen Ur Buprenorphine Scrn Ur Oxycodone Screen Urine Methadone Screen Urine Fentanyl Screen Ur Barbiturates Screen Ur Phencyclidine Scrn Ur Amphetamines Screen U Benzodiazepines Scrn Urine Cocaine Screen U Marijuana (THC) Screen Ethyl Alcohol COVID-19 ([facility]) COVID-19 Clin Com Imaging Radiologist's Impressions: Impressions Chest X-Ray 04/05/24 14:36 IMPRESSION: No acute cardiopulmonary disease. Head CT 04/05/24 15:40 IMPRESSION: No acute intracranial pathology. Assessment and Plan (1) Acute encephalopathy: Status: Acute (2) Hypercalcemia: Status: Acute (3) Uncontrolled hypertension: Status: Acute Plan Valerio Guaman is a 64 y/o man admitted with: Acute encephalopathy secondary to hypercalcemia and ARJUN. Admit to hospitalist service. Telemetry. Pulse oximetry. Insert indwelling urinary catheter for intake and output. Continue IV fluids. Lasix 40 mg IV twice daily. Pamidronate 60 mg IV X1. Nephrology consult, Dr. Vincent, recommended: No hemodialysis for now, NS 200 ml/hr, Lasix 40 mg IV b.i.d., check serum immunofixation, PTH, vitamin-D 25 OH, Vitamin 1,25 dihydoxy, LDH, chest/abdomen/pelvis CT scans and PSA. Avoid nephrotoxic agent and sedative. Hold lisinopril, buspirone, hydroxyzine and gabapentin. Check total CK, TSH, phosphate, magnesium, intact and related PTH and urine calcium. Continue to monitor calcium level. Uncontrolled hypertension, improving. Received Labetalol IV in ED. Continue labetalol and Lasix IV. Continue to monitor blood pressure. Paroxysmal atrial fibrillation. Currently normal sinus rhythm. Continue to monitor. HFrEF, 35-40 %. No evidence of acute decompensation. Code status: Full DVT prophylaxis: Heparin subcut Patient will need hospitalization for at least 2 midnights for acute encephalopathy, hyperkalemia and ARJUN with IV fluids, IV diuretic and evaluation by subspecialty. Quality Stroke Does the patient have a stroke diagnosis?: No VTE Prior VTE?: No VTE Risk Level:: Medical - moderate - high VTE Device Contraindication: Treatment Not Indicated VTE Drug Contraindication: N/A - Med Ordered
[2024-04-05] MEDS: Pamidronate Disodium 60 MG in 0.9 % Sodium Chloride 250 ML 65 MG IV (20:17)
--- NOTE | 2024-04-05 20:18 | PHA.MEDREC ---
Addendum entered by Derick Head [facility] 04/05/24 20:47: MED REC DOUBLE CHECKED BY [facility] Original Note: Pharmacy Consult ? Medication Reconciliation Pharmacy has completed the medication reconciliation. Spoke to patient to confirm med list. Patient was very slow at answering question but was able to state he is no longer taking Diclofenac sodium 75 mg bid, Folic acid 1 mg daily, Vitamin B1 100 mg daily.
[2024-04-05 20:44] LABS: Lactate Dehydrogenase 192 U/L (118-273)
[2024-04-05 21:17] LABS: Prostate Specific Antigen 0.54 ng/mL (<0.05-4.0); Vitamin D 25-OH Total > 154.2 ng/mL (>30)
--- NOTE | 2024-04-05 22:23 | MHC.EDTECH ---
Hourly rounds and vitals completed,emptied 325MLS of diluted urine,patient placed in hospital bed at this time for comfort and safety bed alarm on and call elizabeth in reach
[2024-04-06] VITALS (9 sets, daily range): BP systolic 129–148; BP diastolic 76–88; PULSE 62–103; RESP 16–18; TEMP 36.2–38; O2SAT 94–98; BMI 25.9
[2024-04-06 00:28] LABS: Anion Gap 15 (12-20); Blood Urea Nitrogen 60 mg/dL (9-16); Calcium 16.1 mg/dL (8.4-10.2); Carbon Dioxide 27 mmol/L (22-29); Chloride 102 mmol/L (96-108); Creatinine Clr Calc Pharmacy 12.1; Estimated Glomerular Filt Rate 10; Glucose Random 108 mg/dL (60-115); Magnesium 2.7 mg/dL (1.6-2.6); Potassium 3.3 mmol/L (3.3-5.1); Sodium 141 mmol/L (135-145)
--- NOTE | 2024-04-06 00:45 | MHC.EDTECH ---
Hourly rounds and vitals completed,patient ate 2 sandwiches was repositioned to comfort,bed alarm on and call elizabeth in reach
--- NOTE | 2024-04-06 03:44 | MHC.EDTECH ---
Hourly rounds completed,patient had a hard time falling asleep,will do a full set of vitals at 0600AM per RN
[2024-04-06 05:28] LABS: MANUAL DIFF FLAG NO
[2024-04-06 05:29] LABS: Basophils Percent Auto 0.5 % (0-2); Eosinophils Absolute Auto 0.2 X10*3/uL (0.0-0.4); Eosinophils Percent Auto 2.4 % (0-4); Hematocrit 35.8 % (42.0-52.0); Imm Gran Abs Auto 0.03 X10*3/uL (0.00-0.03); Imm Gran Pct Auto 0.4 % (0.0-0.4); Lymphocytes Absolute Auto 1.2 X10*3/uL (1.2-4.9); Lymphocytes Percent Auto 15.8 % (20-40); Mean Corpuscular HGB Conc 33.5 g/dl (31.0-36.0); Mean Corpuscular Hemoglobin 31.9 pg (27.0-33.0); Mean Corpuscular Volume 95.2 fL (80.0-98.0); Mean Platelet Volume 10.9 fL (9.4-12.4); Monocytes Absolute Auto 0.9 X10*3/uL (0.1-1.2); Monocytes Percent Auto 11.6 % (2-11); Neutrophils Absolute Auto 5.3 x10*3/uL (2.0-8.3); Neutrophils Percent Auto 69.3 % (45-73); Platelet Count 203 X10*3/uL (160-400); Red Blood Count 3.76 X10*6/uL (4.60-5.80); Red Cell Distribution Width 11.5 % (11.0-16.0); White Blood Count 7.6 X10*3/uL (4.8-10.8)
[2024-04-06 05:41] LABS: Parathyroid Hormone Intact 7.2 pg/mL (8.7-77.1)
[2024-04-06 05:47] LABS: Alanine Aminotransferase 17 U/L (0-40); Albumin Level 3.9 g/dL (3.5-5.0); Alkaline Phosphatase 47 U/L (39-117); Anion Gap 16 (12-20); Aspartate Amino Transferase 16 U/L (5-37); Bilirubin Total 0.3 mg/dL (0.0-1.0); Blood Urea Nitrogen 61 mg/dL (9-16); Carbon Dioxide 28 mmol/L (22-29); Chloride 103 mmol/L (96-108); Creatinine Clr Calc Pharmacy 12.1; Estimated Glomerular Filt Rate 10; Glucose Random 115 mg/dL (60-115); Potassium 3.3 mmol/L (3.3-5.1); Sodium 144 mmol/L (135-145); Total Protein 6.4 g/dL (6.5-8.0)
--- NOTE | 2024-04-06 06:08 | MHC.EDTECH ---
Hourly rounds and vitals completed,emptied Nuno 900MLS of pale yellow urine. Patient was repositioned to comfort,call elizabeth in reach
[2024-04-06 06:28] LABS: Phosphorus 4.1 mg/dL (2.7-4.5)
[2024-04-06 07:24] LABS: Thyroid Stimulating Hormone 1.42 uIU/mL (0.32-4.0)
[2024-04-06] MEDS: 0.9 % Sodium Chloride Flush 3 ML SYRINGE IVFLUSH ×2 (09:28→21:09)
[2024-04-06] MEDS: Labetalol HCL 200 MG TABLET PO ×2 (09:28→20:47)
[2024-04-06] MEDS: Furosemide 40 MG/4 ML VIAL IVPUSH ×2 (09:29→20:51)
[2024-04-06] MEDS: 0.9 % Sodium Chloride 1,000 ML 200 ML IVCONT (09:29)
--- NOTE | 2024-04-06 09:47 | HO.PM.IMPN ---
Subjective Subjective Date of Service: 04/06/24 Interval History: more alert Physical Exam Vital Signs: Vital Signs: Last Vital Signs Temp 97.8 F 04/06/24 07:34 Pulse 72 04/06/24 07:34 Resp 17 04/06/24 07:34 BP 138/81 04/06/24 07:34 Pulse Ox 98 04/06/24 07:34 O2 Del Method Room Air 04/06/24 07:34 BMI result Body Mass Index 25.9 General: AO X 3, no acute distress Resp: CTA bilateral, no accessory muscles used CVS: S1,S2,RRR GI: soft, non tender, non distended Neuro: motor grossly intact, alert Psych: appropriate affect, appropriate insight Objective Data Active Medications Acetaminophen (Acetaminophen 325 Mg Tablet) 975 mg PO Q6H PRN PRN Reason: Pain, Mild (Pain Scale 1-3), fever or headache Buspirone HCl (Buspirone Hcl 5 Mg Tablet) 7.5 mg PO BID [facility] Furosemide (Furosemide 40 Mg/4 Ml Vial) 40 mg IVPUSH Q12H [facility]; Protocol Last Admin: 04/06/24 09:29 Dose: 40 mg Documented By: SORAYA Heparin Sodium (Porcine) (Heparin Sodium,Porcine 5,000 Unit/Ml Vial) 5,000 unit SUBCUT Q12H [facility] Hydroxyzine HCl (Hydroxyzine Hcl 25 Mg Tablet) 25 mg PO Q6H [facility] Sodium Chloride (Ns) 1,000 mls @ 200 mls/hr IVCONT .Q5H [facility] Stop: 04/06/24 14:29 Last Admin: 04/06/24 09:29 Dose: 200 mls/hr Documented By: SORAYA Labetalol HCl (Labetalol Hcl 200 Mg Tablet) 200 mg PO BID [facility]; Protocol Last Admin: 04/06/24 09:28 Dose: 200 mg Documented By: SORAYA Sodium Chloride (0.9 % Sodium Chloride Flush 3 Ml Syringe) 3 ml IVFLUSH QSHIFT [facility] Last Admin: 04/06/24 09:28 Dose: 3 ml Documented By: SORAYA Labs 04/06/24 05:13 04/06/24 05:13 Labs: Laboratory Results - last 24 hr 04/05/24 04/05/24 04/05/24 14:45 16:04 16:54 MCV 93.6 MCH 32.2 MCHC 34.4 RDW 11.4 Plt Count 223 MPV 10.8 Immature Gran % (Auto) 0.3 Neut % (Auto) 80.8 H Lymph % (Auto) 9.7 L [place] % (Auto) 8.6 Eos % (Auto) 0.3 Baso % (Auto) 0.3 Lymph # (Auto) 1.0 L [place] # (Auto) 0.8 Eos # (Auto) 0.0 Baso # (Auto) 0.0 Abs Immat Gran (auto) 0.03 Absolute Neuts (auto) 7.9 Absolute Nucleated RBC 0.000 Nucleated RBC % (auto) 0.0 Anion Gap 16 Estim Creat Clear Calc 11.7 Estimated GFR 9 Random Glucose 109 Lactic Acid Calcium 17.5 H* D Phosphorus Magnesium Total Bilirubin 0.6 Direct Bilirubin 0.2 AST 20 ALT 18 Alkaline Phosphatase 48 Ammonia 21 Lactate Dehydrogenase Total Creatine Kinase Troponin I High Sens 62.5 H Total Protein 6.8 Albumin 4.1 Lipase 17 Prostate Specific [place] 25-OH Vitamin D Total TSH PTH Intact Urine Color Yellow Urine Appearance Clear Urine pH 6.0 Ur Specific [place] 1.010 Urine Protein Negative Urine Glucose (UA) Negative Urine Ketones Negative Urine Blood Negative Urine Nitrite Negative Ur Leukocyte Esterase Negative Urine Opiates Screen Not Detected Ur Buprenorphine Scrn Not Detected Ur Oxycodone Screen Not Detected Urine Methadone Screen Not Detected Urine Fentanyl Screen Not Detected Ur Barbiturates Screen Not Detected Ur Phencyclidine Scrn Not Detected Ur Amphetamines Screen Not Detected U Benzodiazepines Scrn Not Detected Urine Cocaine Screen Not Detected U Marijuana (THC) Screen Not Detected Ethyl Alcohol < 10 COVID-19 ([facility]) Negative COVID-19 Clin Com See Note 04/05/24 04/05/24 04/05/24 17:22 18:26 23:53 MCV MCH MCHC RDW Plt Count MPV Immature Gran % (Auto) Neut % (Auto) Lymph % (Auto) [place] % (Auto) Eos % (Auto) Baso % (Auto) Lymph # (Auto) [place] # (Auto) Eos # (Auto) Baso # (Auto) Abs Immat Gran (auto) Absolute Neuts (auto) Absolute Nucleated RBC Nucleated RBC % (auto) Anion Gap 15 Estim Creat Clear Calc 12.1 Estimated GFR 10 Random Glucose 108 Lactic Acid 1.6 Calcium 16.1 H* D Phosphorus Magnesium 2.7 H Total Bilirubin Direct Bilirubin AST ALT Alkaline Phosphatase Ammonia Lactate Dehydrogenase 192 Total Creatine Kinase 150 Troponin I High Sens 69.5 H Total Protein Albumin Lipase Prostate Specific [place] 0.54 25-OH Vitamin D Total > 154.2 TSH PTH Intact 7.2 L Urine Color Urine Appearance Urine pH Ur Specific [place] Urine Protein Urine Glucose (UA) Urine Ketones Urine Blood Urine Nitrite Ur Leukocyte Esterase Urine Opiates Screen Ur Buprenorphine Scrn Ur Oxycodone Screen Urine Methadone Screen Urine Fentanyl Screen Ur Barbiturates Screen Ur Phencyclidine Scrn Ur Amphetamines Screen U Benzodiazepines Scrn Urine Cocaine Screen U Marijuana (THC) Screen Ethyl Alcohol COVID-19 ([facility]) COVID-19 Clin Com 04/06/24 05:13 MCV 95.2 MCH 31.9 MCHC 33.5 RDW 11.5 Plt Count 203 MPV 10.9 Immature Gran % (Auto) 0.4 Neut % (Auto) 69.3 Lymph % (Auto) 15.8 L [place] % (Auto) 11.6 H Eos % (Auto) 2.4 Baso % (Auto) 0.5 Lymph # (Auto) 1.2 [place] # (Auto) 0.9 Eos # (Auto) 0.2 Baso # (Auto) 0.0 Abs Immat Gran (auto) 0.03 Absolute Neuts (auto) 5.3 Absolute Nucleated RBC 0.000 Nucleated RBC % (auto) 0.0 Anion Gap 16 Estim Creat Clear Calc 12.1 Estimated GFR 10 Random Glucose 115 Lactic Acid Calcium 16.0 H* Phosphorus 4.1 Magnesium Total Bilirubin 0.3 Direct Bilirubin AST 16 ALT 17 Alkaline Phosphatase 47 Ammonia Lactate Dehydrogenase Total Creatine Kinase Troponin I High Sens Total Protein 6.4 L Albumin 3.9 Lipase Prostate Specific [place] 25-OH Vitamin D Total TSH 1.42 PTH Intact Urine Color Urine Appearance Urine pH Ur Specific [place] Urine Protein Urine Glucose (UA) Urine Ketones Urine Blood Urine Nitrite Ur Leukocyte Esterase Urine Opiates Screen Ur Buprenorphine Scrn Ur Oxycodone Screen Urine Methadone Screen Urine Fentanyl Screen Ur Barbiturates Screen Ur Phencyclidine Scrn Ur Amphetamines Screen U Benzodiazepines Scrn Urine Cocaine Screen U Marijuana (THC) Screen Ethyl Alcohol COVID-19 ([facility]) COVID-19 Clin Com Assessment and Plan (1) Acute encephalopathy: Status: Acute Plan 64M PMH hfref, pafib, htn, history of etoh dependence reports 3 years sober, presented with ams, found to have severe hypercalcemia and ARJUN acute metabolic encephalopathy due to hypercalcemia and arjun follow up spep, vit d level s/p bisphosphanate continue aggressive ivf with concurrent iv lasix monitor bmp nephro following vit d suppelements discontinued holding mahesh-i history of pafib - was likely etoh induced in sinus, no longer on meds or AC hfref, ? etoh cardiomyopathy, last echo 2022 ef 35% hypovolemic on presentation, at risk for fluid overload with aggressive hydration, continue ivf and lasix to lower calcium not on beta blcoker due to history of bradycarding, holding mahesh-i for arjun dvt prophylaxis - hep sq full code reason for continued hospitalization:severe hyperca, arjun, ongoing ivf with iv lasix Quality Stroke Does the patient have a stroke diagnosis?: No VTE Prior VTE?: No VTE Risk Level:: Medical - moderate - high VTE Device Contraindication: Treatment Not Indicated VTE Drug Contraindication: N/A - Med Ordered
[2024-04-06] MEDS: hydrOXYzine HCL 25 MG TABLET PO ×3 (10:39→20:47)
--- NOTE | 2024-04-06 13:07 | P.CONNP_ITS ---
History of Present Illness Reason for Consult Consult date: 04/06/24 Reason for consult: ARJUN Chief Complaint Chief complaint: Acute kidney injury History of Present Illness Narrative: Valerio Guaman is a 64 years old man with HFrEF, CAD, paroxysmal atrial fibrillation and essential hypertension was brought to the emergency department via EMS after he was found to be confused by a friend. He stated that he feels generally weak, somewhat confused and dizzy. He denied nausea, vomiting or diarrhea, and does not take diuretics. He does take lisinopril and metoprolol for hypertension, however, said that he has not been taking dose over the last few days. He has been taking supplements including vitamin-D and calcium. He also denied any headache, fever, chills, abdominal pain, chest pain or shortness on breath. Patient denies alcohol abuse, illicit drug use or tobacco smoking. In the ER, he was found to have marked hypertension (max 204/126, most recent 172/84 with no tachycardia, tachypnea or low O2 sats. Blood workup showed no leukocytosis, hemoglobin is 13 which is at baseline and platelets are normal. Creatinine is 6.07 (prior 1.04) and BUN is 63. There is no metabolic acidosis. Lactic acid is normal. LFTs are normal. Troponin is 69.5. There was severe hypercalcemia 17.5 but no other electrolyte imbalances. Urinalysis negative for blood. Urine toxicology is negative. CXR is negative. Head CTA showed no acute intracranial pathology. ECG showed NSR, first-degree AV block, nonspecific ST and T-wave abnormalities and short TN segment. He was admitted for further management. Nephrology has been consulted to assist in his clinical care during his current hospital stay. Review of Systems Review of Systems Yes all other systems are reviewed and are negative [facility] Past Medical History Medical History Incisional pain Right inguinal hernia HTN (hypertension) Right inguinal hernia Paroxysmal atrial fibrillation Cardiomyopathy Family History Family History Father Esophagus cancer Mother No problems noted. Surgical History Surgical History History of right inguinal hernia repair Hx of oral surgery Hx of right heart catheterization History of tonsillectomy Social History Social History Household Members: None Household Members Other:: lives alone. Housing: Apartment Are you a primary student career development specialist to a significant other at home: No Do you presently have visiting nurse or other home services: No Alcohol intake: current Alcohol intake frequency: a few times a week Patient Tobacco Use Status: Never used Tobacco service: No Current occupational status: disabled Meds Allergies Allergy/AdvReac Type Severity Reaction Status Date / Time Penicillins [PENICILLINS] Allergy Intermediate RASH Verified 04/05/24 14:24 Active Medications: Current Medications Acetaminophen (Acetaminophen 325 Mg Tablet) 975 mg PO Q6H PRN PRN Reason: Pain, Mild (Pain Scale 1-3), fever or headache Buspirone HCl (Buspirone Hcl 5 Mg Tablet) 7.5 mg PO BID [facility] Furosemide (Furosemide 40 Mg/4 Ml Vial) 40 mg IVPUSH Q12H [facility]; Protocol Last Admin: 04/06/24 09:29 Dose: 40 mg Heparin Sodium (Porcine) (Heparin Sodium,Porcine 5,000 Unit/Ml Vial) 5,000 unit SUBCUT Q12H [facility] Hydroxyzine HCl (Hydroxyzine Hcl 25 Mg Tablet) 25 mg PO Q6H [facility] Last Admin: 04/06/24 10:39 Dose: 25 mg Sodium Chloride (Ns) 1,000 mls @ 200 mls/hr IVCONT .Q5H [facility] Stop: 04/06/24 14:29 Last Admin: 04/06/24 09:29 Dose: 200 mls/hr Labetalol HCl (Labetalol Hcl 200 Mg Tablet) 200 mg PO BID [facility]; Protocol Last Admin: 04/06/24 09:28 Dose: 200 mg Sodium Chloride (0.9 % Sodium Chloride Flush 3 Ml Syringe) 3 ml IVFLUSH QSHIFT [facility] Last Admin: 04/06/24 09:28 Dose: 3 ml Home Medications ?Medication ?Instructions ?Recorded ?Confirmed ?Last Taken ?Type gabapentin 600 mg tablet 600 mg PO TID 05/02/21 04/05/24 04/04/24 History buspirone 7.5 mg tablet 7.5 mg PO BID 02/25/23 04/05/24 04/04/24 History temazepam 30 mg capsule 30 mg PO BEDTIME PRN insomnia 02/25/23 04/05/2424 History hydroxyzine pamoate 25 mg capsule 25 mg PO Q6H 02/24/24 04/05/24 04/04/24 History tadalafil 5 mg tablet (Cialis) 5 mg PO DAILY 04/05/24 04/05/24 Unknown History Physical Exam Vital Signs: Last Vital Signs Temp 97.1 F 04/06/24 11:23 Pulse 75 04/06/24 11:23 Resp 18 04/06/24 11:23 BP 145/84 H 04/06/24 11:23 Pulse Ox 95 04/06/24 11:23 O2 Del Method Room Air 04/06/24 11:23 BMI result Body Mass Index 25.9 Const General: no acute distress Eyes EOM: EOMs intact bilaterally Neck Neck: Yes supple Resp Auscultation: diminished lung sounds Cardio Rate: regular rate GI Palpation (GI): Soft to palpation Neuro General: moves all extremities Results Lab Results 04/06/24 05:13 04/06/24 05:13 Lab results: Chemistry 04/05/24 04/05/24 04/06/24 16:04 23:53 05:13 Sodium 138 141 144 Potassium 3.9 3.3 3.3 Carbon Dioxide 24 27 28 BUN 63 H 60 H 61 H Creatinine 6.07 H* 5.87 H* 5.91 H* Calcium 17.5 H* D 16.1 H* D 16.0 H* Phosphorus 4.1 Hematology 04/05/24 04/06/24 14:45 05:13 WBC 9.8 7.6 Hgb 13.0 L 12.0 L Plt Count 223 203 Urinalysis 04/05/24 16:54 Urine Color Yellow Urine Appearance Clear Urine pH 6.0 Ur Specific [place] 1.010 Urine Protein Negative Urine Glucose (UA) Negative Urine Ketones Negative Urine Blood Negative Urine Nitrite Negative Ur Leukocyte Esterase Negative Assessment and Plan (1) Acute renal failure: Qualifiers: Acute renal failure type: with acute tubular necrosis Qualified Code(s): N17.0 - Acute kidney failure with tubular necrosis Status: Acute (2) Hypercalcemia: Status: Acute (3) Uncontrolled hypertension: Status: Acute Plan Valerio has ARJUN due to tubular injury His urine output is good; no reason to suspect any obstructive uropathy/ain/GN Serum calcium has been high- workup in progress-likely multifactorial Was given bisphosphonate. On IV fluids and intravenous Lasix Imaging studies did not show any malignancy. Immunofixation pending Likely will need sestamibi scan in next 48 hours. No calcium or vitamin-D supplements No indication for renal replacement. Continue current management; Labs AM Procedures Date of Service Date of Service: 04/06/24
--- NOTE | 2024-04-06 14:43 | MHC.CM.PN ---
CM made multiple attempts to see pt., he is sleeping soundly. Per rounds, he will not be ready to DC today. CM to see home tomorrow.
[2024-04-06 17:20] LABS: Albumin Level 4.3 g/dL (3.5-5.0); Anion Gap 17 (12-20); Blood Urea Nitrogen 61 mg/dL (9-16); Calcium 15.7 mg/dL (8.4-10.2); Carbon Dioxide 24 mmol/L (22-29); Chloride 104 mmol/L (96-108); Creatinine Clr Calc Pharmacy 12.8; Estimated Glomerular Filt Rate 10; Glucose Random 132 mg/dL (60-115); Potassium 3.8 mmol/L (3.3-5.1); Sodium 141 mmol/L (135-145)
--- NOTE | 2024-04-06 18:32 | PC.NURSE ---
Md notified and brought to bedside after patient was found to be more lethargic and sleepy. Patient had muscle spasms and head twitching. . Patient had poor lye boiler strength and could not keep arms extended when asked to do so. Vitals were stable and neuros were negative. Stat labs were drawn, no further intervention at this time
[2024-04-06] MEDS: busPIRone HCl 5 MG TABLET 7.5 MG PO (20:47)
[2024-04-06] MEDS: Heparin Sodium,Porcine 5,000 UNIT/ML VIAL 5000 UNIT SUBCUT (20:51)
[2024-04-06] MEDS: Acetaminophen 325 MG TABLET 975 MG PO (21:00)
[2024-04-06 23:48] LABS: Influenza A PCR NEGATIVE (Negative); Influenza B PCR NEGATIVE (Negative); Resp Syncy Virus RNA Qual PCR NEGATIVE (Negative); SARS COV2 PCR INHOUSE NEGATIVE (Negative)
[2024-04-07] MEDS: hydrOXYzine HCL 25 MG TABLET PO ×4 (03:23→20:18)
[2024-04-07 03:52] VITALS: BP 132/75; PULSE 84; RESP 18; TEMP 37.3; O2SAT 97
--- NOTE | 2024-04-07 06:03 | PC.NURSE ---
Pt AOx3 but confused and lethargic. He is able to answer questions appropriately but will randomly repeat a question or nod off. Pt will suddenly decide to try to get OOB, removed hospital gown, pull at tele leads and his hatfield. Hatfield catheter is patent and at the beginning of this RN's shift was draining CYU, approx mid way through shift, this RN noticed urine was still yellow but had red flecks/sediment in tubing. Pt denied pain. He did ask for a sandwich, which he ate. Pt did ask this RN when the hatfield would be removed, encouraged pt to ask MD during rounds. Call elizabeth within reach, bed alarm on, camera in room.
[2024-04-07 07:42] VITALS: BP 134/86; PULSE 85; RESP 18; TEMP 36.3; O2SAT 97
[2024-04-07 08:27] LABS: Hematocrit 37.2 % (42.0-52.0); Hemoglobin 12.7 g/dl (14.0-18.0); Mean Corpuscular HGB Conc 34.1 g/dl (31.0-36.0); Mean Corpuscular Hemoglobin 31.8 pg (27.0-33.0); Mean Platelet Volume 11.1 fL (9.4-12.4); Platelet Count 210 X10*3/uL (160-400); Red Cell Distribution Width 11.7 % (11.0-16.0); White Blood Count 8.1 X10*3/uL (4.8-10.8)
[2024-04-07] MEDS: Labetalol HCL 200 MG TABLET PO ×2 (08:31→20:17)
[2024-04-07] MEDS: busPIRone HCl 5 MG TABLET 7.5 MG PO ×2 (08:31→20:18)
[2024-04-07] MEDS: Heparin Sodium,Porcine 5,000 UNIT/ML VIAL 5000 UNIT SUBCUT ×2 (08:33→20:18)
[2024-04-07] MEDS: Furosemide 40 MG/4 ML VIAL IVPUSH ×2 (08:33→20:19)
[2024-04-07] MEDS: 0.9 % Sodium Chloride Flush 3 ML SYRINGE IVFLUSH ×3 (08:34→20:19)
[2024-04-07 08:59] LABS: Alanine Aminotransferase 22 U/L (0-40); Albumin Level 4.1 g/dL (3.5-5.0); Alkaline Phosphatase 50 U/L (39-117); Anion Gap 15 (12-20); Aspartate Amino Transferase 16 U/L (5-37); Bilirubin Direct 0.1 mg/dL (0.0-0.5); Bilirubin Total 0.4 mg/dL (0.0-1.0); Blood Urea Nitrogen 61 mg/dL (9-16); Carbon Dioxide 29 mmol/L (22-29); Chloride 100 mmol/L (96-108); Glucose Fasting 120 mg/dL (60-99); Magnesium 2.2 mg/dL (1.6-2.6); Sodium 141 mmol/L (135-145)
[2024-04-07 09:08] LABS: Calcium 15.1 mg/dL (8.4-10.2); Creatinine Clr Calc Pharmacy 12.5; Estimated Glomerular Filt Rate 10
--- NOTE | 2024-04-07 09:29 | MHC.CM.PN ---
IMM 04/07/24, Pt lives alone, he is independent, no home health services, or DME. He said he works, does not drive, lives 3 blocks from his job, everything is close by. He was a little slow to answer questions, but seemed to follow appropriately. CM will follow to assist with DCP. He said he will have a new PCP, he does not know the name, but said he goes to [facility].
[2024-04-07] MEDS: 0.9 % Sodium Chloride 1,000 ML 100 ML IVCONT ×2 (11:05→21:41)
[2024-04-07 11:21] VITALS: BP 118/63; PULSE 82; RESP 18; TEMP 36.2; O2SAT 95
--- NOTE | 2024-04-07 13:21 | P.PNNP_ITS ---
Subjective Subjective Date of Service: 04/07/24 Interval history: More alert; All recent data reviewed Physical Exam 2 Vital Signs: Vital Signs: Last Vital Signs Temp 97.1 F 04/07/24 11:21 Pulse 82 04/07/24 11:21 Resp 18 04/07/24 11:21 BP 118/63 04/07/24 11:21 Pulse Ox 95 04/07/24 11:21 O2 Del Method Room Air 04/07/24 11:21 BMI result Body Mass Index 25.9 Const: General: no acute distress Neck: Neck: Yes supple Resp: Auscultation: diminished lung sounds Cardio: Rate: regular rate GI: Palpation (GI): Soft to palpation Neuro: General: moves all extremities Extrem: General: Yes no pedal edema Objective Data Labs 04/07/24 07:37 04/07/24 07:37 Labs: Laboratory Results - last 24 hr 04/06/24 04/06/24 04/06/24 05:13 16:38 22:18 WBC RBC Hgb Hct MCV MCH MCHC RDW Plt Count MPV Absolute Nucleated RBC Nucleated RBC % (auto) Sodium 141 Potassium 3.8 Chloride 104 Carbon Dioxide 24 Anion Gap 17 BUN 61 H Creatinine 5.91 H* 5.57 H* Estim Creat Clear Calc 12.8 Estimated GFR 10 Random Glucose 132 H Fasting Glucose Calcium 15.7 H* Magnesium Total Bilirubin Direct Bilirubin AST ALT Alkaline Phosphatase Total Protein Albumin 4.3 Influenza Type A (PCR) NEGATIVE Influenza Type B (PCR) NEGATIVE RSV RNA Qual (PCR) NEGATIVE SARS-CoV-2 RNA (RT-PCR) NEGATIVE 04/07/24 07:37 WBC 8.1 RBC 4.00 L Hgb 12.7 L Hct 37.2 L MCV 93.0 MCH 31.8 MCHC 34.1 RDW 11.7 Plt Count 210 MPV 11.1 Absolute Nucleated RBC 0.000 Nucleated RBC % (auto) 0.0 Sodium 141 Potassium 3.0 L D Chloride 100 Carbon Dioxide 29 Anion Gap 15 BUN 61 H Creatinine 5.69 H* Estim Creat Clear Calc 12.5 Estimated GFR 10 Random Glucose Fasting Glucose 120 H Calcium 15.1 H* Magnesium 2.2 Total Bilirubin 0.4 Direct Bilirubin 0.1 AST 16 ALT 22 Alkaline Phosphatase 50 Total Protein 7.0 Albumin 4.1 Influenza Type A (PCR) Influenza Type B (PCR) RSV RNA Qual (PCR) SARS-CoV-2 RNA (RT-PCR) Procedures Date of Service Date of Service: 04/07/24 Assessment & Plan Assessment and plan (1) Acute renal failure: Status: Acute (2) Hypercalcemia: Status: Acute Plan Valerio has ARJUN due to tubular injury His urine output is good; no reason to suspect any obstructive uropathy/ain/GN Serum calcium has been high- workup in progress-likely multifactorial- improving Was given bisphosphonate. On IV fluids and intravenous Lasix Imaging studies did not show any malignancy. Immunofixation pending Likely will need sestamibi scan soon. No calcium or vitamin-D supplements No indication for renal replacement. Continue current management; Labs AM Progress Note: Quality Stroke Does the patient have a stroke diagnosis?: No
[2024-04-07 15:37] VITALS: BP 110/75; PULSE 84; RESP 17; TEMP 36.3; O2SAT 97
--- NOTE | 2024-04-07 16:04 | P.PNIM_ITS ---
Subjective Subjective Date of Service: 04/07/24 Interval History: Seen and evaluated this morning alert and interactive denies any muscle cramps but reports constipation Ca at 15.1 this morning no other overnight events Review of Systems Review of Systems: Yes all other systems are reviewed and are negative Physical Exam 2 Vital Signs: Vital Signs: Last Vital Signs Temp 97.4 F 04/07/24 15:37 Pulse 84 04/07/24 15:37 Resp 17 04/07/24 15:37 BP 110/75 04/07/24 15:37 Pulse Ox 97 04/07/24 15:37 O2 Del Method Room Air 04/07/24 15:37 BMI result Body Mass Index 25.9 Const: Other: Constitutional : Awake, interactive, not in distress Neck : Normal inspection, Supple Cardiovascular : RRR, no JVP, no lower extremity edema Respiratory : good bilateral air entry, no crackles, wheezes or rhonchi Gastrointestinal: soft, lax, Normal bowel sounds, Non tender Skin : Warm, Dry Neurological : Alert & oriented x3, No focal deficit Objective Data Active Medications Acetaminophen (Acetaminophen 325 Mg Tablet) 975 mg PO Q6H PRN PRN Reason: Pain, Mild (Pain Scale 1-3), fever or headache Last Admin: 04/06/24 21:00 Dose: 975 mg Documented By: CORBIN Buspirone HCl (Buspirone Hcl 5 Mg Tablet) 7.5 mg PO BID [facility] Last Admin: 04/07/24 08:31 Dose: 7.5 mg Documented By: JUANITA Furosemide (Furosemide 40 Mg/4 Ml Vial) 40 mg IVPUSH Q12H [facility]; Protocol Last Admin: 04/07/24 08:33 Dose: 40 mg Documented By: JUANITA Heparin Sodium (Porcine) (Heparin Sodium,Porcine 5,000 Unit/Ml Vial) 5,000 unit SUBCUT Q12H [facility] Last Admin: 04/07/24 08:33 Dose: 5,000 unit Documented By: JUANITA Hydroxyzine HCl (Hydroxyzine Hcl 25 Mg Tablet) 25 mg PO Q6H [facility] Last Admin: 04/07/24 08:35 Dose: 25 mg Documented By: JUANITA Sodium Chloride (Ns) 1,000 mls @ 100 mls/hr IVCONT .Q10H [facility] Last Admin: 04/07/24 11:05 Dose: 100 mls/hr Documented By: JUANITA Labetalol HCl (Labetalol Hcl 200 Mg Tablet) 200 mg PO BID [facility]; Protocol Last Admin: 04/07/24 08:31 Dose: 200 mg Documented By: JUANITA Sodium Chloride (0.9 % Sodium Chloride Flush 3 Ml Syringe) 3 ml IVFLUSH QSHIFT [facility] Last Admin: 04/07/24 08:34 Dose: 3 ml Documented By: JUANITA Labs 04/07/24 07:37 04/07/24 07:37 Labs: Laboratory Results - last 24 hr 04/06/24 04/06/24 04/07/24 16:38 22:18 07:37 MCV 93.0 MCH 31.8 MCHC 34.1 RDW 11.7 Plt Count 210 MPV 11.1 Absolute Nucleated RBC 0.000 Nucleated RBC % (auto) 0.0 Anion Gap 17 15 Estim Creat Clear Calc 12.8 12.5 Estimated GFR 10 10 Random Glucose 132 H Fasting Glucose 120 H Calcium 15.7 H* 15.1 H* Magnesium 2.2 Total Bilirubin 0.4 Direct Bilirubin 0.1 AST 16 ALT 22 Alkaline Phosphatase 50 Total Protein 7.0 Albumin 4.3 4.1 Influenza Type A (PCR) NEGATIVE Influenza Type B (PCR) NEGATIVE RSV RNA Qual (PCR) NEGATIVE SARS-CoV-2 RNA (RT-PCR) NEGATIVE Assessment and Plan (1) Uncontrolled hypertension: Status: Acute (2) Acute encephalopathy: Status: Acute (3) Acute alteration in mental status: Status: Acute (4) Acute renal failure: Status: Acute (5) Hypercalcemia: Status: Acute Plan 64M PMH hfref, pafib, htn, history of etoh dependence reports 3 years sober, presented with ams, found to have severe hypercalcemia and ARJUN acute metabolic encephalopathy due to hypercalcemia and arjun mentation improving Pending SPEP, Vit D, rPTH s/p bisphosphanate Ca trending down at 15.1 Cr improving to 5.7 continue IVF with concurrent iv lasix monitor bmp Ca and Vit D suppelements discontinued holding mahesh-i for ARJUN Nephrology input appreciated, 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
[2024-04-07] MEDS: Potassium Chloride Packet 20 MEQ PACKET 40 MEQ PO ×2 (17:23→18:35)
[2024-04-07 19:56] VITALS: BP 136/86; PULSE 85; RESP 20; TEMP 36.9; O2SAT 97
[2024-04-08] VITALS (7 sets, daily range): BP systolic 120–144; BP diastolic 72–86; PULSE 76–90; RESP 16–20; TEMP 36.4–37.1; O2SAT 95–98
[2024-04-08] MEDS: hydrOXYzine HCL 25 MG TABLET PO ×4 (03:27→20:59)
[2024-04-08 06:21] LABS: Hematocrit 35.1 % (42.0-52.0); Hemoglobin 12.1 g/dl (14.0-18.0); Mean Corpuscular HGB Conc 34.5 g/dl (31.0-36.0); Mean Corpuscular Hemoglobin 32.2 pg (27.0-33.0); Mean Corpuscular Volume 93.4 fL (80.0-98.0); Mean Platelet Volume 11.3 fL (9.4-12.4); Platelet Count 203 X10*3/uL (160-400); Red Blood Count 3.76 X10*6/uL (4.60-5.80); Red Cell Distribution Width 11.8 % (11.0-16.0); White Blood Count 6.7 X10*3/uL (4.8-10.8)
[2024-04-08 07:17] LABS: Anion Gap 14 (12-20); Blood Urea Nitrogen 60 mg/dL (9-16); Calcium 15.2 mg/dL (8.4-10.2); Carbon Dioxide 26 mmol/L (22-29); Chloride 103 mmol/L (96-108); Creatinine Clr Calc Pharmacy 12.9; Estimated Glomerular Filt Rate 10; Glucose Random 115 mg/dL (60-115); Potassium 3.1 mmol/L (3.3-5.1); Sodium 140 mmol/L (135-145)
[2024-04-08] MEDS: busPIRone HCl 5 MG TABLET 7.5 MG PO ×2 (08:47→20:57)
[2024-04-08] MEDS: 0.9 % Sodium Chloride 1,000 ML 100 ML IVCONT ×2 (08:47→18:32)
[2024-04-08] MEDS: Heparin Sodium,Porcine 5,000 UNIT/ML VIAL 5000 UNIT SUBCUT ×2 (08:47→21:00)
[2024-04-08] MEDS: Furosemide 40 MG/4 ML VIAL IVPUSH ×2 (08:47→21:01)
[2024-04-08] MEDS: Labetalol HCL 200 MG TABLET PO ×2 (08:47→20:59)
[2024-04-08] MEDS: 0.9 % Sodium Chloride Flush 3 ML SYRINGE IVFLUSH ×2 (08:48→16:48)
[2024-04-08] MEDS: Potassium Chloride Packet 20 MEQ PACKET 40 MEQ PO (08:48)
[2024-04-08] MEDS: predniSONE 20 MG TABLET 40 MG PO (08:48)
[2024-04-08] MEDS: Acetaminophen 325 MG TABLET 975 MG PO (08:54)
--- NOTE | 2024-04-08 15:21 | HO.PM.IMPN ---
Subjective Subjective Date of Service: 04/08/24 Interval History: Seen and evaluated this morning alert and interactive , feels better Had BM Ca at 15.2 this morning no other overnight events Review of Systems Review of Systems: Yes all other systems are reviewed and are negative Physical Exam Vital Signs: Vital Signs: Last Vital Signs Temp 98.2 F 04/08/24 12:00 Pulse 76 04/08/24 12:00 Resp 20 04/08/24 12:00 BP 120/72 04/08/24 12:00 Pulse Ox 97 04/08/24 12:00 O2 Del Method Room Air 04/08/24 12:00 BMI result Body Mass Index 25.9 Const: Other: Constitutional : Awake, interactive, not in distress Neck : Normal inspection, Supple Cardiovascular : RRR, no JVP, no lower extremity edema Respiratory : good bilateral air entry, no crackles, wheezes or rhonchi Gastrointestinal: soft, lax, Normal bowel sounds, Non tender Skin : Warm, Dry Neurological : Alert & oriented x3, No focal deficit Objective Data Active Medications Acetaminophen (Acetaminophen 325 Mg Tablet) 975 mg PO Q6H PRN PRN Reason: Pain, Mild (Pain Scale 1-3), fever or headache Last Admin: 04/08/24 08:54 Dose: 975 mg Documented By: DARNELL Buspirone HCl (Buspirone Hcl 5 Mg Tablet) 7.5 mg PO BID [facility] Last Admin: 04/08/24 08:47 Dose: 7.5 mg Documented By: DARNELL Furosemide (Furosemide 40 Mg/4 Ml Vial) 40 mg IVPUSH Q12H [facility]; Protocol Last Admin: 04/08/24 08:47 Dose: 40 mg Documented By: DARNELL Heparin Sodium (Porcine) (Heparin Sodium,Porcine 5,000 Unit/Ml Vial) 5,000 unit SUBCUT Q12H [facility] Last Admin: 04/08/24 08:47 Dose: 5,000 unit Documented By: DARNELL Hydroxyzine HCl (Hydroxyzine Hcl 25 Mg Tablet) 25 mg PO Q6H [facility] Last Admin: 04/08/24 08:48 Dose: 25 mg Documented By: DARNELL Sodium Chloride (Ns) 1,000 mls @ 100 mls/hr IVCONT .Q10H [facility] Last Admin: 04/08/24 08:47 Dose: 100 mls/hr Documented By: DARNELL Labetalol HCl (Labetalol Hcl 200 Mg Tablet) 200 mg PO BID [facility]; Protocol Last Admin: 04/08/24 08:47 Dose: 200 mg Documented By: DARNELL Prednisone (Prednisone 20 Mg Tablet) 40 mg PO DAILY [facility] Last Admin: 04/08/24 08:48 Dose: 40 mg Documented By: DARNELL Sodium Chloride (0.9 % Sodium Chloride Flush 3 Ml Syringe) 3 ml IVFLUSH QSHIFT [facility] Last Admin: 04/08/24 08:48 Dose: 3 ml Documented By: DARNELL Labs 04/08/24 05:41 04/08/24 05:41 Labs: Laboratory Results - last 24 hr 04/08/24 05:41 MCV 93.4 MCH 32.2 MCHC 34.5 RDW 11.8 Plt Count 203 MPV 11.3 Absolute Nucleated RBC 0.000 Nucleated RBC % (auto) 0.0 Anion Gap 14 Estim Creat Clear Calc 12.9 Estimated GFR 10 Random Glucose 115 Calcium 15.2 H* Microbiology Microbiology Results: Microbiology 04/06/24 21:19 Blood Culture - Preliminary Blood - Venous No growth after 24 hours. 04/06/24 21:19 Blood Culture - Preliminary Blood - Venous No growth after 24 hours. Assessment and Plan (1) Uncontrolled hypertension: Status: Acute (2) Acute encephalopathy: Status: Acute (3) Acute alteration in mental status: Status: Acute (4) Hypercalcemia: Status: Acute (5) Acute renal failure: Status: Acute Plan 64M PMH hfref, pafib, htn, history of etoh dependence reports 3 years sober, presented with ams, found to have severe hypercalcemia and ARJUN acute metabolic encephalopathy due to hypercalcemia and arjun mentation improving Pending SPEP, Vit D 1,25, rPTH s/p bisphosphanate Ca trending down at 15.2 Cr improving to 5.5 continue IVF with concurrent iv lasix dose of Prednisone monitor bmp Ca and Vit D suppelements discontinued holding mahesh-i for ARJUN Nephrology input appreciated, 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
[2024-04-08 15:49] LABS: Calcium, Random Urine 17.2 mg/dL
--- NOTE | 2024-04-08 16:32 | P.PNNP_ITS ---
Subjective Subjective Date of Service: 04/08/24 Interval history: Seen and evaluated this morning ;alert and interactive , feels better ;no other overnight events Physical Exam 2 Vital Signs: Vital Signs: Last Vital Signs Temp 97.6 F 04/08/24 15:34 Pulse 90 04/08/24 15:34 Resp 16 04/08/24 15:34 BP 136/86 04/08/24 15:34 Pulse Ox 95 04/08/24 15:34 O2 Del Method Room Air 04/08/24 15:34 BMI result Body Mass Index 25.9 Const: General: comfortable and no acute distress O rientation/consciousness: patient oriented x3 HEENT: Head: Yes normocephalic Mouth: Normal oral and palatal mucosa present Eyes: EOM: EOMs intact bilaterally Neck: Neck: Yes supple Resp: Auscultation: clear to auscultation bilaterally Cardio: Jugular venous distension: no JVD Rate: regular rate GI: Palpation (GI): Soft to palpation Auscultation: normal bowel sounds : General: Yes no CVA tenderness Back/Spine/Pelvis: Back: no CVA tenderness Skin: General skin exam: no rashes or lesions noted Neuro: General: patient oriented x3 and moves all extremities Extrem: General: Yes no pedal edema Objective Data Labs 04/08/24 05:41 04/08/24 05:41 Labs: Laboratory Results - last 24 hr 04/05/24 04/08/24 16:54 05:41 WBC 6.7 RBC 3.76 L Hgb 12.1 L Hct 35.1 L MCV 93.4 MCH 32.2 MCHC 34.5 RDW 11.8 Plt Count 203 MPV 11.3 Absolute Nucleated RBC 0.000 Nucleated RBC % (auto) 0.0 Sodium 140 Potassium 3.1 L Chloride 103 Carbon Dioxide 26 Anion Gap 14 BUN 60 H Creatinine 5.55 H* Estim Creat Clear Calc 12.9 Estimated GFR 10 Random Glucose 115 Calcium 15.2 H* Ur Random Calcium 17.2 Microbiology Microbiology Results: Microbiology 04/06/24 21:19 Blood - Venous Blood Culture - Preliminary No growth after 24 hours. 04/06/24 21:19 Blood - Venous Blood Culture - Preliminary No growth after 24 hours. Procedures Date of Service Date of Service: 04/08/24 Assessment & Plan Assessment and plan (1) Acute renal failure: Status: Acute (2) Hypercalcemia: Status: Acute Plan Valerio has ARJUN due to tubular injury His urine output is good; no reason to suspect any obstructive uropathy/ain/GN Serum calcium high- workup in progress-likely multifactorial- improved modestly Was given bisphosphonate. On IV fluids and intravenous Lasix Imaging studies did not show any malignancy. Immunofixation pending Likely will need sestamibi scan . No calcium or vitamin-D supplements No indication for renal replacement. Continue current management; Labs AM Progress Note: Quality Stroke Does the patient have a stroke diagnosis?: No
[2024-04-08] MEDS: Temazepam 15 MG CAPSULE 30 MG PO (21:31)
[2024-04-08 21:59] LABS: IgA 234 mg/dL (70-320); IgG 723 mg/dL (600-1540); IgM 61 mg/dL (50-300)
[2024-04-09] VITALS (10 sets, daily range): BP systolic 137–160; BP diastolic 80–96; PULSE 66–79; RESP 18–20; TEMP 36.3–37.1; O2SAT 97–100
[2024-04-09] MEDS: 0.9 % Sodium Chloride 1,000 ML 100 ML IVCONT ×3 (04:16→23:48)
[2024-04-09] MEDS: hydrOXYzine HCL 25 MG TABLET PO ×4 (04:20→21:04)
[2024-04-09 06:20] LABS: Anion Gap 16 (12-20); Blood Urea Nitrogen 63 mg/dL (9-16); Calcium 14.9 mg/dL (8.4-10.2); Carbon Dioxide 25 mmol/L (22-29); Chloride 101 mmol/L (96-108); Creatinine Clr Calc Pharmacy 15.1; Estimated Glomerular Filt Rate 13; Glucose Random 104 mg/dL (60-115); Potassium 3.4 mmol/L (3.3-5.1); Sodium 139 mmol/L (135-145)
[2024-04-09] MEDS: busPIRone HCl 5 MG TABLET 7.5 MG PO ×2 (08:23→21:03)
[2024-04-09] MEDS: Labetalol HCL 200 MG TABLET PO ×2 (08:23→21:04)
[2024-04-09] MEDS: Heparin Sodium,Porcine 5,000 UNIT/ML VIAL 5000 UNIT SUBCUT ×2 (08:25→21:09)
[2024-04-09] MEDS: Furosemide 40 MG/4 ML VIAL IVPUSH ×2 (08:25→21:08)
--- NOTE | 2024-04-09 12:52 | P.PNIM_ITS ---
Subjective Subjective Date of Service: 04/09/24 Interval History: Seen and evaluated this morning alert and interactive , feels better Ca at 14.9 and Cr 4.7 this morning no other overnight events Review of Systems Review of Systems: Yes all other systems are reviewed and are negative Physical Exam 2 Vital Signs: Vital Signs: Last Vital Signs Temp 97.7 F 04/09/24 07:24 Pulse 73 04/09/24 07:24 Resp 20 04/09/24 07:24 BP 158/94 H 04/09/24 07:24 Pulse Ox 97 04/09/24 07:24 O2 Del Method Room Air 04/09/24 07:24 BMI result Body Mass Index 25.9 Const: Other: Constitutional : Awake, interactive, not in distress Neck : Normal inspection, Supple Cardiovascular : RRR, no JVP, no lower extremity edema Respiratory : good bilateral air entry, no crackles, wheezes or rhonchi Gastrointestinal: soft, lax, Normal bowel sounds, Non tender Skin : Warm, Dry Neurological : Alert & oriented x3, No focal deficit Objective Data Active Medications Acetaminophen (Acetaminophen 325 Mg Tablet) 975 mg PO Q6H PRN PRN Reason: Pain, Mild (Pain Scale 1-3), fever or headache Last Admin: 04/08/24 08:54 Dose: 975 mg Documented By: DARNELL Buspirone HCl (Buspirone Hcl 5 Mg Tablet) 7.5 mg PO BID [facility] Last Admin: 04/09/24 08:23 Dose: 7.5 mg Documented By: TONY Furosemide (Furosemide 40 Mg/4 Ml Vial) 40 mg IVPUSH Q12H [facility]; Protocol Last Admin: 04/09/24 08:25 Dose: 40 mg Documented By: TONY Heparin Sodium (Porcine) (Heparin Sodium,Porcine 5,000 Unit/Ml Vial) 5,000 unit SUBCUT Q12H [facility] Last Admin: 04/09/24 08:25 Dose: 5,000 unit Documented By: TONY Hydroxyzine HCl (Hydroxyzine Hcl 25 Mg Tablet) 25 mg PO Q6H [facility] Last Admin: 04/09/24 08:24 Dose: 25 mg Documented By: TONY Sodium Chloride (Ns) 1,000 mls @ 100 mls/hr IVCONT .Q10H [facility] Last Admin: 04/09/24 04:16 Dose: 100 mls/hr Documented By: LORI Labetalol HCl (Labetalol Hcl 200 Mg Tablet) 200 mg PO BID [facility]; Protocol Last Admin: 04/09/24 08:23 Dose: 200 mg Documented By: TONY Sodium Chloride (0.9 % Sodium Chloride Flush 3 Ml Syringe) 3 ml IVFLUSH QSHIFT [facility] Last Admin: 04/09/24 08:25 Dose: Not Given Documented By: TONY Non-Admin Reason: IV Running Temazepam (Temazepam 15 Mg Capsule) 30 mg PO BEDTIME PRN PRN Reason: insomnia Last Admin: 04/08/24 21:31 Dose: 30 mg Documented By: LORI Labs 04/08/24 05:41 04/09/24 05:33 Labs: Laboratory Results - last 24 hr 04/05/24 04/07/24 04/09/24 16:54 07:37 05:33 Anion Gap 16 Estim Creat Clear Calc 15.1 Estimated GFR 13 Random Glucose 104 Calcium 14.9 H* Ur Random Calcium 17.2 IgG Total 723 IgA Total 234 IgM 61 SOL Interpretation SEE NOTE Microbiology Microbiology Results: Microbiology 04/06/24 21:19 Blood Culture - Preliminary Blood - Venous No growth after 48 hours. 04/06/24 21:19 Blood Culture - Preliminary Blood - Venous No growth after 48 hours. Assessment and Plan (1) Uncontrolled hypertension: Status: Acute (2) Acute alteration in mental status: Status: Acute (3) Acute renal failure: Status: Acute (4) Hypercalcemia: Status: Acute Plan 64M PMH hfref, pafib, htn, history of etoh dependence reports 3 years sober, presented with ams, found to have severe hypercalcemia and ARJUN acute metabolic encephalopathy due to hypercalcemia and arjun mentation improving Pending SPEP, Vit D 1,25, rPTH s/p bisphosphanate Ca trending down at 14.9 Cr improving to 4.7 continue IVF with concurrent iv lasix Hold on more Prednisone per Nephrology monitor bmp Ca and Vit D suppelements discontinued holding mahesh-i for ARJUN Nephrology input appreciated, Physical deconditioning PT eval 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
--- NOTE | 2024-04-09 16:19 | MHC.CM.PN ---
EMR REVIEWED, PT W/SEVERE HYPERCALCEMIA CONT'S TO RECEIVE IV FLUID AND IV LASIX, NO PLAN FOR DC TODAY, CM WILL CONT TO FOLLOW DC NEEDS.
--- NOTE | 2024-04-09 17:22 | P.PNNP_ITS ---
Subjective Subjective Date of Service: 04/09/24 Interval history: Seen and evaluated this morning ;feels better ;no other overnight events Physical Exam 2 Vital Signs: Vital Signs: Last Vital Signs Temp 97.6 F 04/09/24 12:00 Pulse 73 04/09/24 13:57 Resp 20 04/09/24 12:00 BP 154/90 H 04/09/24 12:00 Pulse Ox 97 04/09/24 13:57 O2 Del Method Room Air 04/09/24 12:00 BMI result Body Mass Index 25.9 Const: General: comfortable and no acute distress O rientation/consciousness: patient oriented x3 HEENT: Head: Yes normocephalic Mouth: Normal oral and palatal mucosa present Eyes: EOM: EOMs intact bilaterally Neck: Neck: Yes supple Resp: Auscultation: clear to auscultation bilaterally Cardio: Jugular venous distension: no JVD Rate: regular rate GI: Palpation (GI): Soft to palpation Auscultation: normal bowel sounds : General: Yes no CVA tenderness Back/Spine/Pelvis: Back: no CVA tenderness Skin: General skin exam: no rashes or lesions noted Neuro: General: patient oriented x3 and moves all extremities Extrem: General: Yes no pedal edema Objective Data Labs 04/08/24 05:41 04/09/24 05:33 Labs: Laboratory Results - last 24 hr 04/07/24 04/09/24 07:37 05:33 Sodium 139 Potassium 3.4 Chloride 101 Carbon Dioxide 25 Anion Gap 16 BUN 63 H Creatinine 4.73 H* Estim Creat Clear Calc 15.1 Estimated GFR 13 Random Glucose 104 Calcium 14.9 H* IgG Total 723 IgA Total 234 IgM 61 SOL Interpretation SEE NOTE Microbiology Microbiology Results: Microbiology 04/06/24 21:19 Blood - Venous Blood Culture - Preliminary No growth after 48 hours. 04/06/24 21:19 Blood - Venous Blood Culture - Preliminary No growth after 48 hours. Procedures Date of Service Date of Service: 04/09/24 Assessment & Plan Assessment and plan (1) Acute renal failure: Status: Acute (2) Hypercalcemia: Status: Acute Plan Valerio has ARJUN due to tubular injury His urine output is good; no reason to suspect any obstructive uropathy/ain/GN Serum calcium high- workup in progress-likely multifactorial- improving Was given bisphosphonate. On IV fluids and intravenous Lasix Imaging studies did not show any malignancy. Immunofixation normal Likely will need sestamibi scan . No calcium or vitamin-D supplements No indication for renal replacement. Continue current management; Labs AM Progress Note: Quality Stroke Does the patient have a stroke diagnosis?: No
[2024-04-09] MEDS: 0.9 % Sodium Chloride Flush 3 ML SYRINGE IVFLUSH (21:10)
[2024-04-09] MEDS: Temazepam 15 MG CAPSULE 30 MG PO (23:40)
[2024-04-09] MEDS: Acetaminophen 325 MG TABLET 975 MG PO (23:43)
[2024-04-10] VITALS (9 sets, daily range): BP systolic 141–155; BP diastolic 82–95; PULSE 75–88; RESP 18–20; TEMP 36.2–37.4; O2SAT 97–100
[2024-04-10] MEDS: hydrOXYzine HCL 25 MG TABLET PO ×4 (04:23→22:29)
[2024-04-10 06:52] LABS: Hematocrit 39.4 % (42.0-52.0); Hemoglobin 13.4 g/dl (14.0-18.0); Mean Corpuscular Hemoglobin 32.4 pg (27.0-33.0); Mean Corpuscular Volume 95.2 fL (80.0-98.0); Platelet Count 216 X10*3/uL (160-400); Red Blood Count 4.14 X10*6/uL (4.60-5.80); Red Cell Distribution Width 11.9 % (11.0-16.0); White Blood Count 8.7 X10*3/uL (4.8-10.8)
[2024-04-10 07:34] LABS: Anion Gap 19 (12-20); Blood Urea Nitrogen 68 mg/dL (9-16); Carbon Dioxide 25 mmol/L (22-29); Chloride 101 mmol/L (96-108); Creatinine Clr Calc Pharmacy 15.9; Estimated Glomerular Filt Rate 13; Glucose Random 82 mg/dL (60-115); Sodium 142 mmol/L (135-145)
[2024-04-10] MEDS: Heparin Sodium,Porcine 5,000 UNIT/ML VIAL 5000 UNIT SUBCUT ×2 (08:29→20:02)
[2024-04-10] MEDS: Potassium Chloride Packet 20 MEQ PACKET 40 MEQ PO ×2 (08:29→10:49)
[2024-04-10] MEDS: Furosemide 40 MG/4 ML VIAL IVPUSH ×2 (08:29→20:03)
[2024-04-10] MEDS: Labetalol HCL 200 MG TABLET PO ×2 (08:30→20:00)
[2024-04-10] MEDS: busPIRone HCl 5 MG TABLET 7.5 MG PO ×2 (08:30→20:00)
[2024-04-10] MEDS: 0.9 % Sodium Chloride Flush 3 ML SYRINGE IVFLUSH (08:30)
[2024-04-10] MEDS: 0.9 % Sodium Chloride 1,000 ML 100 ML IVCONT ×2 (08:31→19:46)
--- NOTE | 2024-04-10 08:46 | HO.PM.IMPN ---
Subjective Subjective Date of Service: 04/10/24 Interval History: Seen and evaluated this morning alert and interactive Ca at 14 and Cr 4.5 this morning no other overnight events Review of Systems Review of Systems: Yes all other systems are reviewed and are negative Physical Exam Vital Signs: Vital Signs: Last Vital Signs Temp 99.3 F 04/10/24 07:25 Pulse 86 04/10/24 07:25 Resp 20 04/10/24 07:25 BP 141/85 H 04/10/24 07:25 Pulse Ox 98 04/10/24 07:25 O2 Del Method Room Air 04/10/24 07:25 BMI result Body Mass Index 25.9 Const: Other: Constitutional : Awake, interactive, not in distress Neck : Normal inspection, Supple Cardiovascular : RRR, no JVP, no lower extremity edema Respiratory : good bilateral air entry, no crackles, wheezes or rhonchi Gastrointestinal: soft, lax, Normal bowel sounds, Non tender Skin : Warm, Dry Neurological : Alert & oriented to self and place, No focal deficit Objective Data Active Medications Acetaminophen (Acetaminophen 325 Mg Tablet) 975 mg PO Q6H PRN PRN Reason: Pain, Mild (Pain Scale 1-3), fever or headache Last Admin: 04/09/24 23:43 Dose: 975 mg Documented By: MARGAUX Buspirone HCl (Buspirone Hcl 5 Mg Tablet) 7.5 mg PO BID [facility] Last Admin: 04/09/24 21:03 Dose: 7.5 mg Documented By: JULIAN Furosemide (Furosemide 40 Mg/4 Ml Vial) 40 mg IVPUSH Q12H [facility]; Protocol Last Admin: 04/09/24 21:08 Dose: 40 mg Documented By: JULIAN Heparin Sodium (Porcine) (Heparin Sodium,Porcine 5,000 Unit/Ml Vial) 5,000 unit SUBCUT Q12H [facility] Last Admin: 04/09/24 21:09 Dose: 5,000 unit Documented By: JULIAN Hydroxyzine HCl (Hydroxyzine Hcl 25 Mg Tablet) 25 mg PO Q6H [facility] Last Admin: 04/10/24 04:23 Dose: 25 mg Documented By: MARGAUX Sodium Chloride (Ns) 1,000 mls @ 100 mls/hr IVCONT .Q10H [facility] Last Admin: 04/09/24 23:48 Dose: 100 mls/hr Documented By: MARGAUX Labetalol HCl (Labetalol Hcl 200 Mg Tablet) 200 mg PO BID [facility]; Protocol Last Admin: 04/09/24 21:04 Dose: 200 mg Documented By: JULIAN Polyethylene Glycol (Polyethylene Glycol 3350 17 Gm Powd.Pack) 17 gm PO DAILY PRN PRN Reason: Constipation Potassium Chloride (Potassium Chloride Packet 20 Meq Packet) 40 meq PO Q2H [facility] Stop: 04/10/24 09:46 Sodium Chloride (0.9 % Sodium Chloride Flush 3 Ml Syringe) 3 ml IVFLUSH QSHIFT [facility] Last Admin: 04/09/24 21:10 Dose: 3 ml Documented By: JULIAN Temazepam (Temazepam 15 Mg Capsule) 30 mg PO BEDTIME PRN PRN Reason: insomnia Last Admin: 04/09/24 23:40 Dose: 30 mg Documented By: MARGAUX Labs 04/10/24 06:25 04/10/24 06:25 Labs: Laboratory Results - last 24 hr 04/10/24 06:25 MCV 95.2 MCH 32.4 MCHC 34.0 RDW 11.9 Plt Count 216 MPV 11.0 Absolute Nucleated RBC 0.000 Nucleated RBC % (auto) 0.0 Anion Gap 19 Estim Creat Clear Calc 15.9 Estimated GFR 13 Random Glucose 82 Calcium 14.0 H* D Assessment and Plan (1) Uncontrolled hypertension: Status: Acute (2) Acute encephalopathy: Status: Acute (3) Acute renal failure: Status: Acute (4) Acute alteration in mental status: Status: Acute (5) Hypercalcemia: Status: Acute Plan 64M PMH hfref, pafib, htn, history of etoh dependence reports 3 years sober, presented with ams, found to have severe hypercalcemia and ARJUN acute metabolic encephalopathy due to hypercalcemia and arjun mentation improving Cr improving to 4.5 s/p bisphosphanate Ca trending down at 14 Pending SPEP, Vit D 1,25, rPTH continue IVF with concurrent iv lasix monitor bmp Ca and Vit D suppelements discontinued holding mahesh-i for ARJUN Nephrology input appreciated, Acute Hypokalemia K of 3 replacement given. 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, no longer on meds or AC Uncontrolled Hypertension better controlled on Labetalol 200 mg bid Hold Lisinopril Hx hfref, could be etoh cardiomyopathy, last echo 2022 ef 35% hypovolemic on presentation, at risk for fluid overload with aggressive hydration, continue ivf and lasix to lower calcium not on beta blcoker due to history of bradycarding, holding mahesh-i for arjun dvt prophylaxis - heparin SC full code reason for continued hospitalization:severe hyperca, arjun, ongoing ivf with iv lasix Quality Stroke Does the patient have a stroke diagnosis?: No VTE Prior VTE?: No VTE Risk Level:: Medical - moderate - high VTE Device Contraindication: Treatment Not Indicated VTE Drug Contraindication: N/A - Med Ordered
[2024-04-10] MEDS: polyethylene glycoL 3350 17 GM POWD.PACK PO (10:49)
[2024-04-10] MEDS: Phenazopyridine HCL 100 MG TABLET PO (13:20)
[2024-04-10] MEDS: Temazepam 15 MG CAPSULE 30 MG PO (22:29)
[2024-04-11] VITALS (9 sets, daily range): BP systolic 122–160; BP diastolic 74–89; PULSE 75–87; RESP 16–20; TEMP 36.4–37.3; O2SAT 94–100
[2024-04-11] MEDS: hydrOXYzine HCL 25 MG TABLET PO ×4 (03:21→20:41)
[2024-04-11] MEDS: 0.9 % Sodium Chloride 1,000 ML 100 ML IVCONT ×2 (05:27→15:34)
[2024-04-11 06:04] LABS: VITAMIN D (1,25 OH) D3 31 pg/mL; Vit D (1,25-Dihydroxy) Total 31 pg/mL (18-72); Vitamin D (1,25 OH) D2 <8 pg/mL
[2024-04-11 07:16] LABS: Hematocrit 35.1 % (42.0-52.0); Hemoglobin 11.9 g/dl (14.0-18.0); Mean Corpuscular HGB Conc 33.9 g/dl (31.0-36.0); Mean Corpuscular Hemoglobin 31.7 pg (27.0-33.0); Mean Corpuscular Volume 93.6 fL (80.0-98.0); Mean Platelet Volume 10.8 fL (9.4-12.4); Platelet Count 249 X10*3/uL (160-400); Red Blood Count 3.75 X10*6/uL (4.60-5.80); Red Cell Distribution Width 11.7 % (11.0-16.0)
[2024-04-11 08:00] LABS: Anion Gap 15 (12-20); Blood Urea Nitrogen 69 mg/dL (9-16); Calcium 13.6 mg/dL (8.4-10.2); Carbon Dioxide 28 mmol/L (22-29); Chloride 103 mmol/L (96-108); Creatinine Clr Calc Pharmacy 17.7; Estimated Glomerular Filt Rate 15; Glucose Random 99 mg/dL (60-115); Potassium 3.2 mmol/L (3.3-5.1); Sodium 143 mmol/L (135-145)
[2024-04-11] MEDS: Furosemide 40 MG/4 ML VIAL IVPUSH ×2 (09:55→20:41)
[2024-04-11] MEDS: Heparin Sodium,Porcine 5,000 UNIT/ML VIAL 5000 UNIT SUBCUT ×2 (09:55→20:41)
[2024-04-11] MEDS: Labetalol HCL 200 MG TABLET PO ×2 (09:55→20:41)
[2024-04-11] MEDS: busPIRone HCl 5 MG TABLET 7.5 MG PO ×2 (09:55→20:40)
[2024-04-11] MEDS: 0.9 % Sodium Chloride Flush 3 ML SYRINGE IVFLUSH ×3 (09:56→20:42)
[2024-04-11] MEDS: Phenazopyridine HCL 100 MG TABLET PO (11:23)
--- NOTE | 2024-04-11 11:52 | HO.PM.IMPN ---
Subjective Subjective Date of Service: 04/11/24 Interval History: Seen and evaluated this morning alert and interactive Ca at 13.6 and Cr 4 this morning no other overnight events Physical Exam Vital Signs: Vital Signs: Last Vital Signs Temp 99.2 F 04/11/24 11:00 Pulse 76 04/11/24 11:00 Resp 18 04/11/24 11:00 BP 160/86 H 04/11/24 11:00 Pulse Ox 95 04/11/24 11:00 O2 Del Method Room Air 04/11/24 11:00 BMI result Body Mass Index 25.9 Const: Other: Constitutional : Awake, interactive, not in distress Neck : Normal inspection, Supple Cardiovascular : RRR, no JVP, no lower extremity edema Respiratory : good bilateral air entry, no crackles, wheezes or rhonchi Gastrointestinal: soft, lax, Normal bowel sounds, Non tender Skin : Warm, Dry Neurological : Alert & oriented to self and place, No focal deficit Objective Data Active Medications Acetaminophen (Acetaminophen 325 Mg Tablet) 975 mg PO Q6H PRN PRN Reason: Pain, Mild (Pain Scale 1-3), fever or headache Last Admin: 04/09/24 23:43 Dose: 975 mg Documented By: MARGAUX Buspirone HCl (Buspirone Hcl 5 Mg Tablet) 7.5 mg PO BID [facility] Last Admin: 04/11/24 09:55 Dose: 7.5 mg Documented By: HAYDEE Furosemide (Furosemide 40 Mg/4 Ml Vial) 40 mg IVPUSH Q12H [facility]; Protocol Last Admin: 04/11/24 09:55 Dose: 40 mg Documented By: HAYDEE Heparin Sodium (Porcine) (Heparin Sodium,Porcine 5,000 Unit/Ml Vial) 5,000 unit SUBCUT Q12H [facility] Last Admin: 04/11/24 09:55 Dose: 5,000 unit Documented By: HAYDEE Hydroxyzine HCl (Hydroxyzine Hcl 25 Mg Tablet) 25 mg PO Q6H [facility] Last Admin: 04/11/24 09:56 Dose: 25 mg Documented By: HAYDEE Sodium Chloride (Ns) 1,000 mls @ 100 mls/hr IVCONT .Q10H [facility] Last Admin: 04/11/24 05:27 Dose: 100 mls/hr Documented By: LORI Labetalol HCl (Labetalol Hcl 200 Mg Tablet) 200 mg PO BID [facility]; Protocol Last Admin: 04/11/24 09:55 Dose: 200 mg Documented By: HAYDEE Phenazopyridine HCl (Phenazopyridine Hcl 100 Mg Tablet) 100 mg PO TIDWM PRN PRN Reason: Dysurea Stop: 04/12/24 12:01 Last Admin: 04/11/24 11:23 Dose: 100 mg Documented By: HAYDEE Polyethylene Glycol (Polyethylene Glycol 3350 17 Gm Powd.Pack) 17 gm PO DAILY PRN PRN Reason: Constipation Last Admin: 04/10/24 10:49 Dose: 17 gm Documented By: HAYDEE Sodium Chloride (0.9 % Sodium Chloride Flush 3 Ml Syringe) 3 ml IVFLUSH [facility] Last Admin: 04/11/24 09:56 Dose: 3 ml Documented By: HAYDEE Temazepam (Temazepam 15 Mg Capsule) 30 mg PO BEDTIME PRN PRN Reason: insomnia Last Admin: 04/10/24 22:29 Dose: 30 mg Documented By: LORI Labs 04/11/24 06:36 04/11/24 06:36 Labs: Laboratory Results - last 24 hr 04/05/24 04/11/24 23:53 06:36 MCV 93.6 MCH 31.7 MCHC 33.9 RDW 11.7 Plt Count 249 MPV 10.8 Absolute Nucleated RBC 0.000 Nucleated RBC % (auto) 0.0 Anion Gap 15 Estim Creat Clear Calc 17.7 Estimated GFR 15 Random Glucose 99 Calcium 13.6 H* 1,25 Dihydroxy Vit D 31 1,25 Dihydroxy Vit D2 <8 1,25 Dihydroxy Vit D3 31 Assessment and Plan (1) Uncontrolled hypertension: Status: Acute (2) Acute encephalopathy: Status: Acute (3) Acute renal failure: Status: Acute (4) Hypercalcemia: Status: Acute Plan 64M PMH hfref, pafib, htn, history of etoh dependence reports 3 years sober, presented with ams, found to have severe hypercalcemia and ARJUN acute metabolic encephalopathy due to hypercalcemia and arjun mentation improving Pending SPEP, Vit D 1,25, rPTH Cr improving to 4 s/p bisphosphanate Ca trending down at 13.6 continue IVF with concurrent iv lasix monitor bmp Ca and Vit D suppelements discontinued holding mahesh-i for ARJUN Nephrology input appreciated, Uncontrolled Hypertension continue Labetalol 200 mg bid start Amlodipine 5 mg Acute Hypokalemia K of 3.2 replacement given. 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, no longer on meds or AC Hx hfref, could be etoh cardiomyopathy, last echo 2022 ef 35% hypovolemic on presentation, at risk for fluid overload with aggressive hydration, continue ivf and lasix to lower calcium not on beta blcoker due to history of bradycarding, holding mahesh-i for arjun dvt prophylaxis - heparin SC full code reason for continued hospitalization:severe hyperca, arjun, ongoing ivf with iv lasix Quality Stroke Does the patient have a stroke diagnosis?: No VTE Prior VTE?: No VTE Risk Level:: Medical - moderate - high VTE Device Contraindication: Treatment Not Indicated VTE Drug Contraindication: N/A - Med Ordered
[2024-04-11] MEDS: amLODIPine Besylate 5 MG TABLET PO (13:11)
[2024-04-11] MEDS: Potassium Chloride Packet 20 MEQ PACKET 40 MEQ PO ×2 (13:12→15:32)
[2024-04-11 15:03] LABS: Appearance Urine Clear; Color Urine Yellow; Glucose Urine UA Negative (Negative); Leukocyte Esterase Urine Negative (Negative); Nitrite Urine Negative (Negative); Urine Blood Negative (Negative); Urine Ketones Negative (Negative); Urine Protein Negative (Neg-Trace)
[2024-04-12] VITALS (7 sets, daily range): BP systolic 128–154; BP diastolic 67–98; PULSE 78–94; RESP 16–18; TEMP 36.2–37.2; O2SAT 94–99
[2024-04-12] MEDS: Temazepam 15 MG CAPSULE 30 MG PO ×2 (00:41→22:56)
[2024-04-12] MEDS: hydrOXYzine HCL 25 MG TABLET PO ×4 (04:26→21:14)
[2024-04-12 08:08] LABS: Anion Gap 18 (12-20); Blood Urea Nitrogen 61 mg/dL (9-16); Calcium 12.6 mg/dL (8.4-10.2); Carbon Dioxide 26 mmol/L (22-29); Chloride 102 mmol/L (96-108); Creatinine Clr Calc Pharmacy 19.8; Estimated Glomerular Filt Rate 17; Glucose Random 101 mg/dL (60-115); Potassium 2.9 mmol/L (3.3-5.1); Sodium 143 mmol/L (135-145)
[2024-04-12] MEDS: busPIRone HCl 5 MG TABLET 7.5 MG PO ×2 (09:12→21:14)
[2024-04-12] MEDS: amLODIPine Besylate 5 MG TABLET PO (09:12)
[2024-04-12] MEDS: 0.9 % Sodium Chloride Flush 3 ML SYRINGE IVFLUSH (09:13)
[2024-04-12] MEDS: Heparin Sodium,Porcine 5,000 UNIT/ML VIAL 5000 UNIT SUBCUT ×2 (09:13→21:12)
[2024-04-12] MEDS: Labetalol HCL 200 MG TABLET PO ×2 (09:13→21:13)
[2024-04-12] MEDS: Furosemide 40 MG/4 ML VIAL IVPUSH ×2 (09:13→22:56)
[2024-04-12] MEDS: Potassium Chloride Packet 20 MEQ PACKET 40 MEQ PO ×2 (09:53→12:22)
[2024-04-12] MEDS: KCl 20 mEq in 0.9 % Sodium ChL 20 MEQ/1,000 ML IV.SOLN 100 MEQ IVCONT ×2 (09:58→18:45)
[2024-04-12] MEDS: Phenazopyridine HCL 100 MG TABLET PO (10:34)
--- NOTE | 2024-04-12 11:03 | MHC.CM.PN ---
EMR REVIEWED, PT W/ARJUN AND HYPOKALEMIA TRENDING DOWN, PT NOT YET READY FOR DC, P.T. REC'S STR, PT HAS MULTIPLE BED OFFERS, CM WILL CONT TO FOLLOW DC NEEDS.
[2024-04-12] MEDS: polyethylene glycoL 3350 17 GM POWD.PACK PO (11:05)
--- NOTE | 2024-04-12 11:34 | P.PNNP_ITS ---
Subjective Subjective Date of Service: 04/12/24 Interval history: Seen and evaluated this morning ; events noted; all recent data reviewed Physical Exam 2 Vital Signs: Vital Signs: Last Vital Signs Temp 97.2 F 04/12/24 07:52 Pulse 91 04/12/24 07:52 Resp 17 04/12/24 07:52 BP 142/80 H 04/12/24 07:52 Pulse Ox 97 04/12/24 07:52 O2 Del Method Room Air 04/12/24 07:52 BMI result Body Mass Index 25.9 Const: General: comfortable and no acute distress O rientation/consciousness: patient oriented x3 HEENT: Head: Yes normocephalic Mouth: Normal oral and palatal mucosa present Eyes: EOM: EOMs intact bilaterally Neck: Neck: Yes supple Resp: Auscultation: clear to auscultation bilaterally Cardio: Jugular venous distension: no JVD Rate: regular rate GI: Palpation (GI): Soft to palpation Auscultation: normal bowel sounds : General: Yes no CVA tenderness Back/Spine/Pelvis: Back: no CVA tenderness Skin: General skin exam: no rashes or lesions noted Neuro: General: patient oriented x3 and moves all extremities Extrem: General: Yes no pedal edema Objective Data Labs 04/11/24 06:36 04/12/24 06:40 Labs: Laboratory Results - last 24 hr 04/11/24 04/12/24 14:45 06:40 Sodium 143 Potassium 2.9 L* Chloride 102 Carbon Dioxide 26 Anion Gap 18 BUN 61 H Creatinine 3.60 H Estim Creat Clear Calc 19.8 Estimated GFR 17 Random Glucose 101 Calcium 12.6 H* D Urine Color Yellow Urine Appearance Clear Urine pH 6.0 Ur Specific [place] 1.010 Urine Protein Negative Urine Glucose (UA) Negative Urine Ketones Negative Urine Blood Negative Urine Nitrite Negative Ur Leukocyte Esterase Negative Microbiology Microbiology Results: Microbiology 04/06/24 21:19 Blood - Venous Blood Culture - Final No growth after 5 days. 04/06/24 21:19 Blood - Venous Blood Culture - Final No growth after 5 days. Procedures Date of Service Date of Service: 04/12/24 Assessment & Plan Assessment and plan (1) Acute renal failure: Status: Acute (2) Hypercalcemia: Status: Acute Plan Valerio has ARJUN due to tubular injury His urine output is good; no reason to suspect any obstructive uropathy/ain/GN Serum calcium high- workup in progress-likely multifactorial- improving Was given bisphosphonate. On IV fluids and intravenous Lasix & K replacement Imaging studies did not show any malignancy. Immunofixation normal Likely will need sestamibi scan . No calcium or vitamin-D supplements Continue current management; Labs AM Progress Note: Quality Stroke Does the patient have a stroke diagnosis?: No
--- NOTE | 2024-04-12 12:31 | HO.PM.IMPN ---
Subjective Subjective Date of Service: 04/12/24 Interval History: Seen and evaluated this morning alert and interactive Ca at 12.6 and Cr 3.6 this morning K of 2.9 no other overnight events Review of Systems Review of Systems: Yes all other systems are reviewed and are negative Physical Exam Vital Signs: Vital Signs: Last Vital Signs Temp 97.2 F 04/12/24 07:52 Pulse 91 04/12/24 07:52 Resp 17 04/12/24 07:52 BP 142/80 H 04/12/24 07:52 Pulse Ox 97 04/12/24 07:52 O2 Del Method Room Air 04/12/24 07:52 BMI result Body Mass Index 25.9 Const: Other: Constitutional : Awake, interactive, not in distress Neck : Normal inspection, Supple Cardiovascular : RRR, no JVP, no lower extremity edema Respiratory : good bilateral air entry, no crackles, wheezes or rhonchi Gastrointestinal: soft, lax, Normal bowel sounds, Non tender Skin : Warm, Dry Neurological : Alert & oriented to self and place otherwise easily confused , No focal deficit Objective Data Active Medications Acetaminophen (Acetaminophen 325 Mg Tablet) 975 mg PO Q6H PRN PRN Reason: Pain, Mild (Pain Scale 1-3), fever or headache Last Admin: 04/09/24 23:43 Dose: 975 mg Documented By: MARGAUX Amlodipine Besylate (Amlodipine Besylate 5 Mg Tablet) 5 mg PO DAILY [facility]; Protocol Last Admin: 04/12/24 09:12 Dose: 5 mg Documented By: LEOLA Buspirone HCl (Buspirone Hcl 5 Mg Tablet) 7.5 mg PO BID [facility] Last Admin: 04/12/24 09:12 Dose: 7.5 mg Documented By: LEOLA Furosemide (Furosemide 40 Mg/4 Ml Vial) 40 mg IVPUSH Q12H [facility]; Protocol Last Admin: 04/12/24 09:13 Dose: 40 mg Documented By: LEOLA Heparin Sodium (Porcine) (Heparin Sodium,Porcine 5,000 Unit/Ml Vial) 5,000 unit SUBCUT Q12H [facility] Last Admin: 04/12/24 09:13 Dose: 5,000 unit Documented By: LEOLA Hydroxyzine HCl (Hydroxyzine Hcl 25 Mg Tablet) 25 mg PO Q6H [facility] Last Admin: 04/12/24 09:12 Dose: 25 mg Documented By: LEOLA Potassium Chloride/Sodium Chloride (Kcl 20 Meq In 0.9 % Sodium Chl) 20 meq in 1,000 mls @ 100 mls/hr IVCONT .Q10H [facility] Stop: 04/15/24 09:44 Last Admin: 04/12/24 09:58 Dose: 100 mls/hr Documented By: LEOLA Labetalol HCl (Labetalol Hcl 200 Mg Tablet) 200 mg PO BID [facility]; Protocol Last Admin: 04/12/24 09:13 Dose: 200 mg Documented By: LEOLA Polyethylene Glycol (Polyethylene Glycol 3350 17 Gm Powd.Pack) 17 gm PO DAILY PRN PRN Reason: Constipation Last Admin: 04/12/24 11:05 Dose: 17 gm Documented By: LEOLA Sodium Chloride (0.9 % Sodium Chloride Flush 3 Ml Syringe) 3 ml IVFLUSH QSHIFT [facility] Last Admin: 04/12/24 09:13 Dose: 3 ml Documented By: LEOLA Temazepam (Temazepam 15 Mg Capsule) 30 mg PO BEDTIME PRN PRN Reason: insomnia Last Admin: 04/12/24 00:41 Dose: 30 mg Documented By: FLORA Labs 04/11/24 06:36 04/12/24 06:40 Labs: Laboratory Results - last 24 hr 04/11/24 04/12/24 14:45 06:40 Anion Gap 18 Estim Creat Clear Calc 19.8 Estimated GFR 17 Random Glucose 101 Calcium 12.6 H* D Urine Color Yellow Urine Appearance Clear Urine pH 6.0 Ur Specific [place] 1.010 Urine Protein Negative Urine Glucose (UA) Negative Urine Ketones Negative Urine Blood Negative Urine Nitrite Negative Ur Leukocyte Esterase Negative Microbiology Microbiology Results: Microbiology 04/06/24 21:19 Blood Culture - Final Blood - Venous No growth after 5 days. 04/06/24 21:19 Blood Culture - Final Blood - Venous No growth after 5 days. Assessment and Plan (1) Uncontrolled hypertension: Status: Acute (2) Acute encephalopathy: Status: Acute (3) Acute renal failure: Status: Acute (4) Hypercalcemia: Status: Acute Plan 64M PMH hfref, pafib, htn, history of etoh dependence reports 3 years sober, presented with ams, found to have severe hypercalcemia and ARJUN acute metabolic encephalopathy due to hypercalcemia and arjun s/p bisphosphanate mentation improving but gets easily confused Cr at 3.6, Ca 12.6 normal SPEP, Vit D 1,25, Pending rPTH continue IVF with concurrent iv lasix monitor bmp Ca and Vit D suppelements discontinued holding mahesh-i for ARJUN Nephrology input appreciated, will need Parathyroid NM scan Uncontrolled Hypertension continue Labetalol 200 mg bid start Amlodipine 5 mg Acute Hypokalemia K of 2.9 replacement given. 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, no longer on meds or AC Hx hfref, could be etoh cardiomyopathy, last echo 2022 ef 35% hypovolemic on presentation, at risk for fluid overload with aggressive hydration, continue ivf and lasix to lower calcium not on beta blcoker due to history of bradycarding, holding mahesh-i for arjun dvt prophylaxis - heparin SC full code reason for continued hospitalization:severe hyperca, arjun, ongoing ivf with iv lasix Quality Stroke Does the patient have a stroke diagnosis?: No VTE Prior VTE?: No VTE Risk Level:: Medical - moderate - high VTE Device Contraindication: Treatment Not Indicated VTE Drug Contraindication: N/A - Med Ordered
[2024-04-12] MEDS: Potassium Chloride ER 20 MEQ TAB.ER.PRT 40 MEQ PO (18:42)
[2024-04-13] VITALS (10 sets, daily range): BP systolic 129–153; BP diastolic 66–90; PULSE 75–90; RESP 18–20; TEMP 36.1–36.8; O2SAT 96–99
[2024-04-13] MEDS: hydrOXYzine HCL 25 MG TABLET PO ×4 (03:26→21:17)
[2024-04-13] MEDS: KCl 20 mEq in 0.9 % Sodium ChL 20 MEQ/1,000 ML IV.SOLN 100 MEQ IVCONT ×2 (03:28→15:36)
[2024-04-13 07:24] LABS: Anion Gap 14 (12-20); Blood Urea Nitrogen 55 mg/dL (9-16); Calcium 12.3 mg/dL (8.4-10.2); Carbon Dioxide 23 mmol/L (22-29); Chloride 105 mmol/L (96-108); Creatinine Clr Calc Pharmacy 23.4; Estimated Glomerular Filt Rate 21; Glucose Random 104 mg/dL (60-115); Potassium 3.6 mmol/L (3.3-5.1); Sodium 138 mmol/L (135-145)
[2024-04-13] MEDS: busPIRone HCl 5 MG TABLET 7.5 MG PO ×2 (07:46→21:17)
[2024-04-13] MEDS: amLODIPine Besylate 5 MG TABLET PO (07:46)
[2024-04-13] MEDS: 0.9 % Sodium Chloride Flush 3 ML SYRINGE IVFLUSH ×2 (07:47→15:39)
[2024-04-13] MEDS: Heparin Sodium,Porcine 5,000 UNIT/ML VIAL 5000 UNIT SUBCUT (07:47)
[2024-04-13] MEDS: Furosemide 40 MG/4 ML VIAL IVPUSH ×2 (07:47→21:18)
[2024-04-13] MEDS: Labetalol HCL 200 MG TABLET PO ×2 (08:56→21:17)
--- NOTE | 2024-04-13 11:26 | MHC.CM.PN ---
Addendum entered by Bhakti Crum RN 04/13/24 12:58: PT REQUESTING [facility] TRANSPORT HOME ONCE MEDICALLY CLEARED. Original Note: EMR REVIEWED, P.T. NOW RECOMMENDING HOME W/SERVICES, NO LONGER NEEDS STR, [facility] REFERRAL TO BE PLACED, CM WILL CONT TO FOLLOW DC NEEDS.
--- NOTE | 2024-04-13 12:06 | P.PNIM_ITS ---
Subjective Subjective Date of Service: 04/13/24 Interval History: Seen and evaluated this morning alert and interactive Ca at 12.3 and Cr 3 this morning no other overnight events Review of Systems Review of Systems: Yes all other systems are reviewed and are negative Physical Exam 2 Vital Signs: Vital Signs: Last Vital Signs Temp 96.9 F 04/13/24 11:32 Pulse 86 04/13/24 11:32 Resp 20 04/13/24 11:32 BP 139/90 H 04/13/24 11:32 Pulse Ox 99 04/13/24 11:32 O2 Del Method Room Air 04/13/24 11:32 BMI result Body Mass Index 25.9 Const: Other: Constitutional : Awake, interactive, not in distress Neck : Normal inspection, Supple Cardiovascular : RRR, no JVP, no lower extremity edema Respiratory : good bilateral air entry, no crackles, wheezes or rhonchi Gastrointestinal: soft, lax, Normal bowel sounds, Non tender Skin : Warm, Dry Neurological : Alert & oriented to self and place otherwise easily confused , No focal deficit Objective Data Active Medications Acetaminophen (Acetaminophen 325 Mg Tablet) 975 mg PO Q6H PRN PRN Reason: Pain, Mild (Pain Scale 1-3), fever or headache Last Admin: 04/09/24 23:43 Dose: 975 mg Documented By: MARGAUX Amlodipine Besylate (Amlodipine Besylate 5 Mg Tablet) 5 mg PO DAILY [facility]; Protocol Last Admin: 04/13/24 07:46 Dose: 5 mg Documented By: ANA Buspirone HCl (Buspirone Hcl 5 Mg Tablet) 7.5 mg PO BID [facility] Last Admin: 04/13/24 07:46 Dose: 7.5 mg Documented By: ANA Furosemide (Furosemide 40 Mg/4 Ml Vial) 40 mg IVPUSH Q12H [facility]; Protocol Last Admin: 04/13/24 07:47 Dose: 40 mg Documented By: ANA Heparin Sodium (Porcine) (Heparin Sodium,Porcine 5,000 Unit/Ml Vial) 5,000 unit SUBCUT Q12H [facility] Last Admin: 04/13/24 07:47 Dose: 5,000 unit Documented By: ANA Hydroxyzine HCl (Hydroxyzine Hcl 25 Mg Tablet) 25 mg PO Q6H [facility] Last Admin: 04/13/24 08:56 Dose: 25 mg Documented By: ANA Potassium Chloride/Sodium Chloride (Kcl 20 Meq In 0.9 % Sodium Chl) 20 meq in 1,000 mls @ 100 mls/hr IVCONT .Q10H [facility] Stop: 04/15/24 09:44 Last Infusion: 04/13/24 07:44 Dose: 100 mls/hr Documented By: ANA Labetalol HCl (Labetalol Hcl 200 Mg Tablet) 200 mg PO BID [facility]; Protocol Last Admin: 04/13/24 08:56 Dose: 200 mg Documented By: ANA Polyethylene Glycol (Polyethylene Glycol 3350 17 Gm Powd.Pack) 17 gm PO DAILY PRN PRN Reason: Constipation Last Admin: 04/12/24 11:05 Dose: 17 gm Documented By: LEOLA Sodium Chloride (0.9 % Sodium Chloride Flush 3 Ml Syringe) 3 ml IVFLUSH QSHIFT [facility] Last Admin: 04/13/24 07:47 Dose: 3 ml Documented By: ANA Temazepam (Temazepam 15 Mg Capsule) 30 mg PO BEDTIME PRN PRN Reason: insomnia Last Admin: 04/12/24 22:56 Dose: 30 mg Documented By: SAI Labs 04/11/24 06:36 04/13/24 06:27 Labs: Laboratory Results - last 24 hr 04/13/24 06:27 Hold Purple Top SEE NOTE Anion Gap 14 Estim Creat Clear Calc 23.4 Estimated GFR 21 Random Glucose 104 Calcium 12.3 H Assessment and Plan (1) Uncontrolled hypertension: Status: Acute (2) Acute encephalopathy: Status: Acute (3) Hypercalcemia: Status: Acute (4) Acute renal failure: Status: Acute Plan 64M PMH hfref, pafib, htn, history of etoh dependence reports 3 years sober, presented with ams, found to have severe hypercalcemia and ARJUN acute metabolic encephalopathy due to hypercalcemia and arjun s/p bisphosphanate mentation improving but gets easily confused Cr at 3, Ca 12.3 normal SPEP, Vit D 1,25, Pending rPTH continue IVF with concurrent iv lasix monitor bmp Ca and Vit D suppelements discontinued holding mahesh-i for ARJUN Nephrology input appreciated, will need Parathyroid NM scan Uncontrolled Hypertension continue Labetalol 200 mg bid start Amlodipine 5 mg Acute Hypokalemia K of 2.9 replacement given. 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, no longer on meds or AC Hx hfref, could be etoh cardiomyopathy, last echo 2022 ef 35% hypovolemic on presentation, at risk for fluid overload with aggressive hydration, continue ivf and lasix to lower calcium not on beta blcoker due to history of bradycarding, holding mahesh-i for arjun dvt prophylaxis - heparin SC full code reason for continued hospitalization:severe hyperca, arjun, ongoing ivf with iv lasix Quality Stroke Does the patient have a stroke diagnosis?: No VTE Prior VTE?: No VTE Risk Level:: Medical - moderate - high VTE Device Contraindication: Treatment Not Indicated VTE Drug Contraindication: N/A - Med Ordered
--- NOTE | 2024-04-13 12:49 | P.PNNP_ITS ---
Subjective Subjective Date of Service: 04/13/24 Interval history: Seen and evaluated this morning ; alert and interactive ; Ca at 12.3 and Cr 3 this morning ;no other overnight events ; wants to go home Physical Exam 2 Vital Signs: Vital Signs: Last Vital Signs Temp 96.9 F 04/13/24 11:32 Pulse 86 04/13/24 11:32 Resp 20 04/13/24 11:32 BP 139/90 H 04/13/24 11:32 Pulse Ox 99 04/13/24 11:32 O2 Del Method Room Air 04/13/24 11:32 BMI result Body Mass Index 25.9 Const: General: no acute distress Orientation/consciousness: patient oriented x3 Eyes: EOM: EOMs intact bilaterally Neck: Neck: Yes supple Resp: Auscultation: diminished lung sounds Cardio: Rate: regular rate GI: Palpation (GI): Soft to palpation Neuro: General: patient oriented x3 and moves all extremities Objective Data Labs 04/11/24 06:36 04/13/24 06:27 Labs: Laboratory Results - last 24 hr 04/13/24 06:27 Hold Purple Top SEE NOTE Sodium 138 Potassium 3.6 D Chloride 105 Carbon Dioxide 23 Anion Gap 14 BUN 55 H Creatinine 3.06 H Estim Creat Clear Calc 23.4 Estimated GFR 21 Random Glucose 104 Calcium 12.3 H Microbiology Microbiology Results: Microbiology 04/06/24 21:19 Blood - Venous Blood Culture - Final No growth after 5 days. 04/06/24 21:19 Blood - Venous Blood Culture - Final No growth after 5 days. Procedures Date of Service Date of Service: 04/13/24 Assessment & Plan Assessment and plan (1) Hypercalcemia: Status: Acute (2) Acute renal failure: Status: Acute Plan Valerio has ARJUN due to tubular injury- resolving His urine output is good; no reason to suspect any obstructive uropathy/ain/GN Serum calcium high- likely multifactorial- improving Was given bisphosphonate. On IV fluids and intravenous Lasix & K replacement Imaging studies did not show any malignancy. Immunofixation normal will need sestamibi scan . No calcium or vitamin-D supplements Continue current management; Labs AM Progress Note: Quality Stroke Does the patient have a stroke diagnosis?: No
[2024-04-13] MEDS: Temazepam 15 MG CAPSULE 30 MG PO (23:08)
[2024-04-14] MEDS: Acetaminophen 325 MG TABLET 975 MG PO (00:11)
[2024-04-14] MEDS: KCl 20 mEq in 0.9 % Sodium ChL 20 MEQ/1,000 ML IV.SOLN 100 MEQ IVCONT (01:29)
[2024-04-14 03:22] VITALS: BP 119/69; PULSE 79; RESP 18; TEMP 36.8; O2SAT 96
[2024-04-14] MEDS: hydrOXYzine HCL 25 MG TABLET PO ×4 (04:05→21:12)
[2024-04-14 07:04] LABS: Anion Gap 14 (12-20); Blood Urea Nitrogen 53 mg/dL (9-16); Calcium 11.2 mg/dL (8.4-10.2); Carbon Dioxide 22 mmol/L (22-29); Chloride 107 mmol/L (96-108); Creatinine Clr Calc Pharmacy 25.4; Estimated Glomerular Filt Rate 23; Glucose Random 101 mg/dL (60-115); Potassium 3.2 mmol/L (3.3-5.1); Sodium 140 mmol/L (135-145)
[2024-04-14 07:22] VITALS: BP 138/80; PULSE 66; RESP 20; TEMP 37.1; O2SAT 96
[2024-04-14] MEDS: amLODIPine Besylate 5 MG TABLET PO (07:48)
[2024-04-14] MEDS: Labetalol HCL 200 MG TABLET PO ×2 (07:48→21:12)
[2024-04-14] MEDS: busPIRone HCl 5 MG TABLET 7.5 MG PO ×2 (07:49→21:12)
[2024-04-14] MEDS: Potassium Chloride Packet 20 MEQ PACKET 40 MEQ PO ×2 (07:49→09:45)
--- NOTE | 2024-04-14 09:25 | P.PNNP_ITS ---
Subjective Subjective Date of Service: 04/14/24 Interval history: Seen and evaluated this morning ; alert and interactive ;no other overnight events ; wants to go home Physical Exam 2 Vital Signs: Vital Signs: Last Vital Signs Temp 98.8 F 04/14/24 07:22 Pulse 66 04/14/24 07:22 Resp 20 04/14/24 07:22 BP 138/80 04/14/24 07:22 Pulse Ox 96 04/14/24 07:22 O2 Del Method Room Air 04/14/24 07:22 BMI result Body Mass Index 25.9 Const: General: comfortable and no acute distress O rientation/consciousness: patient oriented x3 HEENT: Head: Yes normocephalic Mouth: Normal oral and palatal mucosa present Eyes: EOM: EOMs intact bilaterally Neck: Neck: Yes supple Resp: Auscultation: clear to auscultation bilaterally Cardio: Jugular venous distension: no JVD Rate: regular rate GI: Palpation (GI): Soft to palpation Auscultation: normal bowel sounds : General: Yes no CVA tenderness Back/Spine/Pelvis: Back: no CVA tenderness Skin: General skin exam: no rashes or lesions noted Neuro: General: patient oriented x3 and moves all extremities Extrem: General: Yes no pedal edema Objective Data Labs 04/11/24 06:36 04/14/24 06:30 Labs: Laboratory Results - last 24 hr 04/14/24 06:30 Sodium 140 Potassium 3.2 L Chloride 107 Carbon Dioxide 22 Anion Gap 14 BUN 53 H Creatinine 2.81 H Estim Creat Clear Calc 25.4 Estimated GFR 23 Random Glucose 101 Calcium 11.2 H D Microbiology Microbiology Results: Microbiology 04/06/24 21:19 Blood - Venous Blood Culture - Final No growth after 5 days. 04/06/24 21:19 Blood - Venous Blood Culture - Final No growth after 5 days. Procedures Date of Service Date of Service: 04/14/24 Assessment & Plan Assessment and plan (1) Acute renal failure: Status: Acute (2) Hypercalcemia: Status: Acute Plan Valerio has ARJUN due to tubular injury- resolving His urine output is good; no reason to suspect any obstructive uropathy/ain/GN Serum calcium was high- likely multifactorial- improving Was given bisphosphonate. On IV fluids and intravenous Lasix & K replacement Imaging studies did not show any malignancy. Immunofixation normal Could D/C fluids and lasix today; will need sestamibi scan No calcium or vitamin-D supplements Continue rest of current management Progress Note: Quality Stroke Does the patient have a stroke diagnosis?: No
[2024-04-14] MEDS: Furosemide 40 MG/4 ML VIAL IVPUSH (09:45)
--- NOTE | 2024-04-14 09:50 | HO.PM.IMPN ---
Subjective Subjective Date of Service: 04/14/24 Interval History: Seen and evaluated this morning alert and interactive Ca at 12.3 and Cr 3 this morning no other overnight events Physical Exam Vital Signs: Vital Signs: Last Vital Signs Temp 98.8 F 04/14/24 07:22 Pulse 66 04/14/24 07:22 Resp 20 04/14/24 07:22 BP 138/80 04/14/24 07:22 Pulse Ox 96 04/14/24 07:22 O2 Del Method Room Air 04/14/24 07:22 BMI result Body Mass Index 25.9 Const: Other: Constitutional : Awake, interactive, not in distress Neck : Normal inspection, Supple Cardiovascular : RRR, no JVP, no lower extremity edema Respiratory : good bilateral air entry, no crackles, wheezes or rhonchi Gastrointestinal: soft, lax, Normal bowel sounds, Non tender Skin : Warm, Dry Neurological : Alert & oriented to self and place otherwise easily confused , No focal deficit Objective Data Active Medications Acetaminophen (Acetaminophen 325 Mg Tablet) 975 mg PO Q6H PRN PRN Reason: Pain, Mild (Pain Scale 1-3), fever or headache Last Admin: 04/14/24 00:11 Dose: 975 mg Documented By: SAI Amlodipine Besylate (Amlodipine Besylate 5 Mg Tablet) 5 mg PO DAILY [facility]; Protocol Last Admin: 04/14/24 07:48 Dose: 5 mg Documented By: GERRY Buspirone HCl (Buspirone Hcl 5 Mg Tablet) 7.5 mg PO BID [facility] Last Admin: 04/14/24 07:49 Dose: 7.5 mg Documented By: GERRY Furosemide (Furosemide 40 Mg/4 Ml Vial) 40 mg IVPUSH Q12H [facility]; Protocol Stop: 04/14/24 14:00 Last Admin: 04/14/24 09:45 Dose: 40 mg Documented By: GERRY Hydroxyzine HCl (Hydroxyzine Hcl 25 Mg Tablet) 25 mg PO Q6H [facility] Last Admin: 04/14/24 07:59 Dose: 25 mg Documented By: GERRY Potassium Chloride/Sodium Chloride (Kcl 20 Meq In 0.9 % Sodium Chl) 20 meq in 1,000 mls @ 100 mls/hr IVCONT .Q10H [facility] Stop: 04/14/24 18:00 Last Admin: 04/14/24 01:29 Dose: 100 mls/hr Documented By: SAI Labetalol HCl (Labetalol Hcl 200 Mg Tablet) 200 mg PO BID [facility]; Protocol Last Admin: 04/14/24 07:48 Dose: 200 mg Documented By: GERRY Polyethylene Glycol (Polyethylene Glycol 3350 17 Gm Powd.Pack) 17 gm PO DAILY PRN PRN Reason: Constipation Last Admin: 04/12/24 11:05 Dose: 17 gm Documented By: LEOLA Sodium Chloride (0.9 % Sodium Chloride Flush 3 Ml Syringe) 3 ml IVFLUSH QSHIFT [facility] Last Admin: 04/14/24 07:49 Dose: Not Given Documented By: GERRY Non-Admin Reason: IV Running Temazepam (Temazepam 15 Mg Capsule) 30 mg PO BEDTIME PRN PRN Reason: insomnia Last Admin: 04/13/24 23:08 Dose: 30 mg Documented By: SAI Labs 04/11/24 06:36 04/14/24 06:30 Labs: Laboratory Results - last 24 hr 04/14/24 06:30 Anion Gap 14 Estim Creat Clear Calc 25.4 Estimated GFR 23 Random Glucose 101 Calcium 11.2 H D Assessment and Plan (1) Uncontrolled hypertension: Status: Acute (2) Acute encephalopathy: Status: Acute (3) Acute renal failure: Status: Acute (4) Hypercalcemia: Status: Acute Plan 64M PMH hfref, pafib, htn, history of etoh dependence reports 3 years sober, presented with ams, found to have severe hypercalcemia and ARJUN acute metabolic encephalopathy due to hypercalcemia and arjun s/p bisphosphanate mentation improving but gets less confused Cr at 2.8, Ca 11.3 normal SPEP, Vit D 1,25, Pending rPTH DC IVF and iv lasix, Follow BMP tomorrow and DC if stable Ca and Vit D suppelements discontinued holding mahesh-i for ARJUN Nephrology input appreciated, will need Parathyroid NM scan , follow OP Uncontrolled Hypertension now better controlled continue Labetalol 200 mg bid Amlodipine 5 mg Acute Hypokalemia K of 3.1 replacement given. 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, no longer on meds or AC Hx hfref, could be etoh cardiomyopathy, last echo 2022 ef 35% hypovolemic on presentation, at risk for fluid overload with aggressive hydration, continue ivf and lasix to lower calcium not on beta blcoker due to history of bradycarding, holding mahesh-i for arjun dvt prophylaxis - heparin SC full code reason for continued hospitalization:severe hyperca, arjun pending resolution Quality Stroke Does the patient have a stroke diagnosis?: No VTE Prior VTE?: No VTE Risk Level:: Medical - moderate - high VTE Device Contraindication: Treatment Not Indicated VTE Drug Contraindication: N/A - Med Ordered
[2024-04-14 11:34] VITALS: BP 137/71; PULSE 80; RESP 19; TEMP 36.8; O2SAT 96
--- NOTE | 2024-04-14 11:48 | MHC.CM.PN ---
EMR REVIEWED, PER HOSPITALIST PT IMPROVING AND WILL LIKELY BE CLEARED FOR DC HOME TOMORROW 04/15, PT WILL NEED ASSISTANCE W/TRANSPORT.
[2024-04-14 15:32] VITALS: BP 133/80; PULSE 71; RESP 20; TEMP 36.4; O2SAT 100
[2024-04-14] MEDS: 0.9 % Sodium Chloride Flush 3 ML SYRINGE IVFLUSH ×2 (16:00→21:13)
[2024-04-14 19:36] VITALS: BP 141/83; PULSE 71; RESP 18; TEMP 37.1; O2SAT 99
[2024-04-14 23:23] VITALS: BP 138/79; PULSE 73; RESP 18; TEMP 36.6; O2SAT 93
[2024-04-15] MEDS: Temazepam 15 MG CAPSULE 30 MG PO (00:03)
[2024-04-15 03:15] VITALS: BP 123/72; PULSE 81; RESP 18; TEMP 36.9; O2SAT 95
[2024-04-15] MEDS: hydrOXYzine HCL 25 MG TABLET PO ×2 (04:33→09:03)
[2024-04-15 07:16] LABS: Anion Gap 13 (12-20); Blood Urea Nitrogen 52 mg/dL (9-16); Calcium 11.3 mg/dL (8.4-10.2); Carbon Dioxide 26 mmol/L (22-29); Chloride 104 mmol/L (96-108); Creatinine Clr Calc Pharmacy 26.1; Estimated Glomerular Filt Rate 24; Glucose Random 122 mg/dL (60-115); Potassium 2.9 mmol/L (3.3-5.1); Sodium 140 mmol/L (135-145)
[2024-04-15 07:36] VITALS: BP 142/90; PULSE 99; RESP 20; TEMP 36.2; O2SAT 94
--- NOTE | 2024-04-15 08:30 | P.PNNP_ITS ---
Subjective Subjective Date of Service: 04/15/24 Interval history: Events noted. All recent data reviewed. Physical Exam 2 Vital Signs: Vital Signs: Last Vital Signs Temp 97.2 F 04/15/24 07:36 Pulse 99 04/15/24 07:36 Resp 20 04/15/24 07:36 BP 142/90 H 04/15/24 07:36 Pulse Ox 94 04/15/24 07:36 O2 Del Method Room Air 04/15/24 07:36 BMI result Body Mass Index 25.9 Const: General: comfortable and no acute distress O rientation/consciousness: patient oriented x3 HEENT: Head: Yes normocephalic Mouth: Normal oral and palatal mucosa present Eyes: EOM: EOMs intact bilaterally Neck: Neck: Yes supple Resp: Auscultation: clear to auscultation bilaterally Cardio: Jugular venous distension: no JVD Rate: regular rate GI: Palpation (GI): Soft to palpation Auscultation: normal bowel sounds : General: Yes no CVA tenderness Back/Spine/Pelvis: Back: no CVA tenderness Skin: General skin exam: no rashes or lesions noted Neuro: General: patient oriented x3 and moves all extremities Extrem: General: Yes no pedal edema Objective Data Labs 04/11/24 06:36 04/15/24 05:58 Labs: Laboratory Results - last 24 hr 04/15/24 05:58 Sodium 140 Potassium 2.9 L* Chloride 104 Carbon Dioxide 26 Anion Gap 13 BUN 52 H Creatinine 2.74 H Estim Creat Clear Calc 26.1 Estimated GFR 24 Random Glucose 122 H Calcium 11.3 H Microbiology Microbiology Results: Microbiology 04/06/24 21:19 Blood - Venous Blood Culture - Final No growth after 5 days. 04/06/24 21:19 Blood - Venous Blood Culture - Final No growth after 5 days. Procedures Date of Service Date of Service: 04/15/24 Assessment & Plan Assessment and plan (1) Acute renal failure: Status: Acute (2) Hypercalcemia: Status: Acute Plan Valerio has ARJUN due to tubular injury- resolving His urine output is good; no reason to suspect any obstructive uropathy/ain/GN Serum calcium was high- likely multifactorial- improving Was given bisphosphonate. Needs K replacement Imaging studies did not show any malignancy. Immunofixation normal will need sestamibi scan as outpatient No calcium or vitamin-D supplements Continue rest of current management Could be D/Devyn from a renal perspective Needs follow up with me in first week of Sep Progress Note: Quality Stroke Does the patient have a stroke diagnosis?: No
[2024-04-15] MEDS: Labetalol HCL 200 MG TABLET PO (09:03)
[2024-04-15] MEDS: busPIRone HCl 5 MG TABLET 7.5 MG PO (09:03)
[2024-04-15] MEDS: amLODIPine Besylate 5 MG TABLET PO (09:03)
[2024-04-15] MEDS: Potassium Chloride ER 20 MEQ TAB.ER.PRT 40 MEQ PO (09:03)
--- NOTE | 2024-04-15 11:38 | MHC.CM.PN ---
Second IMM, pt. has been medically cleared for DC, he will go home via [facility] shuttle, plan is self care.
[2024-04-15 12:00] VITALS: BP 126/86; PULSE 84; RESP 20; TEMP 36.2; O2SAT 96
--- NOTE | 2024-04-15 12:00 | PM.DS ---
DS: Providers Provider Date of Service: 04/15/24 Date of admission: 04/05/24 19:23 Date of discharge: 04/15/24 Primary care physician: Mireya Beltran MD Consults: 04/05/24 19:27 Consult to Nephrology Routine Consulting Provider: César Vincent Reason for consultation: ARJUN. Hypercalcemia Has provider been notified: Yes DS: Diagnosis Discharge Diagnosis (1) Acute renal failure: Status: Acute (2) Hypercalcemia: Status: Acute DS: Summary Hospital Course Hospital Course: 64 years old man with past medical history significant for HFrEF, CAD, paroxysmal atrial fibrillation and essential hypertension was brought to the emergency department via EMS after he was found to be confused by a friend. Patient seems to be confused but was able to answer my questions appropriately. He stated that he feels generally weak, somewhat confused and dizzy. He denied nausea, vomiting or diarrhea, and does not take diuretics. He does take lisinopril and metoprolol for hypertension, however, said that he has not been taking dose over the last few days. Patient commented that recently he started low carb diet (like [place] diet) and has been taking supplements including vitamin-D and vitamin K. denied taking medications such as Tums. He did not report any acute urinary changes such as increased frequency, decreased frequency or dark urine. He also denied any headache, fever, chills, abdominal pain, chest pain or shortness on breath. Patient denies alcohol abuse, illicit drug use or tobacco smoking. In the ED, he was found to have marked hypertension (max 204/126, most recent 172/84. There is no tachycardia, tachypnea or low O2 sats. Blood workup showed no leukocytosis, hemoglobin is 13 which is at baseline and platelets are normal. Creatinine is 6.07 (prior 1.04) and BUN is 63. There is no metabolic acidosis. Lactic acid is normal. LFTs are normal. Troponin is 69.5. There is severe hypercalcemia 17.5 but no other electrolyte imbalances. Urinalysis negative for blood. Urine toxicology is negative. CXR is negative. Head CTA showed no acute intracranial pathology. ECG showed NSR, first-degree AV block, nonspecific ST and T-wave abnormalities and short GA segment. ED tx: NS 2 L bolus, labetalol 40 mg IV (total), labetalol 200 mg PO. Hospital Course Patient admitted to telemetry where monitor failed to demonstrate any acute dysrhythmias. Nephrology was consulted and workup is in progress. Patient was treated with IV fluids and IV Lasix given a calcium that was elevated. Over the course of the hospitalization, his renal function did return to baseline; he will be discharged home on potassium supplements for 5 days and then obtain labs. Nephrology will call for follow up for their office shortly thereafter. Given elevated calcium, calcium and vitamin-D supplements were discontinued. Patient will need a parathyroid nuclear medicine scan as outpatient and Nephrology will arrange. On the day of discharge he received potassium supplementation and now is medically acceptable for discharge to home Time Attestation Discharge Coordination Time (in mins): 35 Quality: Safe Use of Opioids Does Pt have an Active Cancer Diagnosis on the Problem List?: No Quality: Stroke Does the patient have a stroke diagnosis?: No Physical Exam Vital Signs: Vital Signs: Last Vital Signs Temp 97.2 F 04/15/24 07:36 Pulse 99 04/15/24 07:36 Resp 20 04/15/24 07:36 BP 142/90 H 04/15/24 07:36 Pulse Ox 94 04/15/24 07:36 O2 Del Method Room Air 04/15/24 07:36 BMI result Body Mass Index 25.9 Const: Other: Awake alert no acute distress Resp: Other: Clear to auscultation bilaterally no rales rhonchi or wheezes Cardio: Other: No S4; positive S1-S2; no S3 murmurs rubs or gallops GI: Other: Soft nontender nondistended normoactive bowel sounds Extrem: Other: No edema bilaterally DS: Data Data Completed and Pending Labs on day of discharge: Laboratory Results - last 24 hr 04/15/24 05:58 Sodium 140 Potassium 2.9 L* Chloride 104 Carbon Dioxide 26 Anion Gap 13 BUN 52 H Creatinine 2.74 H Estim Creat Clear Calc 26.1 Estimated GFR 24 Random Glucose 122 H Calcium 11.3 H Discharge Plan Discharge Anticipated Discharge Date/Time: 04/15/24 11:40 Patient Disposition: Home, Self-Care Discharge Diagnosis: Acute metabolic encephalopathy Referrals: Mireya Beltran MD [Primary Care Provider] - 05/28/24 1:45 pm (You have a new patient visit with Mireya Beltran on 05/28 @1:45 PM) Physician,Unknown J [Physician] - 1 Week Discharge Medications: New labetalol 200 mg Tablet 200 mg PO BID Qty: 60 0RF Protocol: Hold for SBP/HR < HOLD for SBP < : 90 HOLD for HR < : 60 amlodipine 5 mg Tablet 5 mg PO DAILY Qty: 30 0RF Protocol: Hold for SBP< HOLD for SBP < : 90 potassium chloride 20 mEq Tablet,Er Particles/Crystals 40 meq PO DAILY Qty: 10 0RF Continued tadalafil [Cialis] 5 mg tablet 5 mg PO DAILY Rx Instructions: [id number] [facility] [id number] Member [id number] gabapentin 600 mg tablet 600 mg PO TID hydroxyzine pamoate 25 mg capsule 25 mg PO Q6H temazepam 30 mg capsule 30 mg PO BEDTIME PRN (Reason: insomnia) buspirone 7.5 mg tablet 7.5 mg PO BID Discontinued lisinopril 10 mg tablet 10 mg PO DAILY Qty: 30 5RF Discharge Orders: Discharge Order (Routine); Ordered 04/15/24 Ordered By: Bret Rucker Diet: Advance to usual diet Activity on Discharge: As tolerated Stand Alone Forms: Patient Portal Discharge page Print Language: Jordanian Other Ambulatory Orders: Basic Metabolic Panel (Routine) Timeframe: [id number] Facility: [facility] - Location: Laboratory Ordered By: Bret Rucker Care Plan Goals: Amlodipine 5 mg daily along with labetalol 200 mg twice daily has been added to your regimen. Resume all your previous medicines as taken prior to the hospital. Potassium will be 2 tabs daily for 5 days and then you will need to get blood work Health Concerns: Nephrology will call you with an appointment to follow up at their office Plan of Treatment: No calcium or vitamin-D supplements such as Tums. Follow up with the PCP next available Assessment: See discharge summary
[2024-04-16 16:33] LABS: Parathyroid Hormone Related Pr 6 pg/mL (11-20)
== END 2024-04-15 13:15 | disposition home or self-care (01) | DRG 640 ==
LOC: HO.ED 19:25 → HO.EDOVER 19:48 → HO.IMC 04-06 06:03
PROVIDERS: Internal Medicine; Internal Medicine Nephrology; Student in an Organized Health Care Education/Training Program; Admitting Provider Internal Medicine; Emergency Provider Student in an Organized Health Care Education/Training Program; PCP General Practice; Visit Provider Hospitalist
DX: E83.52 Hypercalcemia (principal); G93.41 Metabolic encephalopathy; N17.0 Acute kidney failure with tubular necrosis; I50.22 Chronic systolic (congestive) heart failure; I42.6 Alcoholic cardiomyopathy; E86.1 Hypovolemia; I11.0 Hypertensive heart disease with heart failure; E87.6 Hypokalemia; T46.4X6A Underdosing of angiotensin-converting-enzyme inhibitors, initial encounter; T44.7X6A Underdosing of beta-adrenoreceptor antagonists, initial encounter; Z20.822 Contact with and (suspected) exposure to COVID-19; Z79.899 Other long term (current) drug therapy
CPT/HCPCS: 0241U; 36415; 70450; 71046; 71250; 74176; 80048; 80053; 80076; 80307; 81003; 82040; 82140; 82306; 82310; 82550; 82652; 82784; 83519; 83605; 83615; 83690; 83735; 83970; 84100; 84153; 84443; 84484; 85025; 85027; 86334; 87040; 87635; 93005; 97110; 97116; 97162; 99285; C1758; J1644; J1920; J1940; J2430; J3480

== ENCOUNTER → 2024-04-05 14:25 | Outpatient (BNV) | payer MEDICARE, MEDICAID, SELFPAY | PROVIDERS: Admitting Provider Internal Medicine; Emergency Provider Student in an Organized Health Care Education/Training Program; Visit Provider Internal Medicine Cardiovascular Disease | DX: I44.0 Atrioventricular block, first degree (principal) | CPT/HCPCS: 93010 ==

== ENCOUNTER → 2024-04-05 19:23 | Outpatient (BNV) | payer MEDICARE, MEDICAID, SELFPAY | PROVIDERS: Admitting Provider Internal Medicine; Emergency Provider Student in an Organized Health Care Education/Training Program; Visit Provider Internal Medicine Nephrology | DX: N17.0 Acute kidney failure with tubular necrosis (principal); E83.52 Hypercalcemia | CPT/HCPCS: 99223; 99232 ==

== ENCOUNTER → 2024-04-05 19:23 | Outpatient (BNV) | payer MEDICARE, MEDICAID, SELFPAY | PROVIDERS: Admitting Provider Internal Medicine; Emergency Provider Student in an Organized Health Care Education/Training Program; Visit Provider Internal Medicine | DX: N17.0 Acute kidney failure with tubular necrosis (principal); E83.52 Hypercalcemia | CPT/HCPCS: 99223; 99232; 99233; 99239 ==

== ENCOUNTER 2024-04-23 14:08 | Outpatient (AMB) | payer MEDICARE, MEDICAID, SELFPAY ==
[2024-04-23 14:09] VITALS: BP 122/76; PULSE 64; O2SAT 99; BMI 24.0
--- NOTE | 2024-04-23 14:09 | HO.NEPHOV ---
Vital Signs 04/23/24 14:09 Height 5 ft 8 in Weight 158 lb BMI 24.0 BP 122/76 Blood Pressure Location Lt brachial Position Sitting Pulse 64 Pulse Source Pulse Oximeter Pulse Oximetry (%) 99 Oxygen Delivery Method Room Air Intake Visit Reasons: Seen at [facility] [place] [facility] on 04/05/24- Conf Machine Operator Slitter Technician Required: No Accompanied by: Self / Same As Patient Allergies Penicillins [PENICILLINS] Allergy (Intermediate, Verified 04/23/24 14:11) RASH Medication List - Last Reconciled 04/23/24 by Ayden De La Cruz MD amlodipine 5 mg See Protocol PO DAILY buspirone 7.5 mg PO BID gabapentin 600 mg PO TID hydroxyzine pamoate 25 mg PO Q6H labetalol 200 mg See Protocol PO BID potassium chloride ER 40 mEq (2 x 20 mEq) PO DAILY tadalafil (Cialis) 5 mg PO DAILY temazepam 30 mg PO BEDTIME PRN HPI Comments Details: 64 years old man with HFrEF, CAD, paroxysmal atrial fibrillation and essential hypertension seen in [facility] [place] for ARJUN And severe hypercalcemia of 14 He was on high dose of Vit D and Calcium tabs. Intact PTH was suppressed at 6. PTHrP was NOT elevated. Received bisphosphonate, IVF with LASIX and had hypokalemia K is being replaced Creatinine is trending down PFSH Medical History Incisional pain Right inguinal hernia HTN (hypertension) Right inguinal hernia Paroxysmal atrial fibrillation Cardiomyopathy Surgical History History of right inguinal hernia repair Hx of oral surgery Hx of right heart catheterization History of tonsillectomy Family History Father Esophagus cancer Mother No problems noted. Social History Household Members: None Household Members Other:: lives alone. Housing: Apartment Are you a primary emergency care attendant to a significant other at home: No Do you presently have visiting nurse or other home services: No Alcohol intake: current Alcohol intake frequency: a few times a week Patient Tobacco Use Status: Never used Tobacco service: No Current occupational status: disabled Review of Systems Const Reports as per HPI, Denies anorexia, Denies fatigue, Denies fever(s) and Denies headache(s) Eyes Denies blurry vision ENT Denies headache(s) Card Denies chest pain, Denies pedal edema and Denies dyspnea Resp Denies cough, Denies hemoptysis and Denies dyspnea GI Denies diarrhea, Denies nausea and Denies vomiting Denies hematuria, Denies urinary frequency and Denies urinary hesitancy Neuro Denies confusion, Denies headache(s) and Denies focal weakness Psych Denies confusion Endo Denies cold intolerance, Denies fatigue and Denies polyuria Physical Exam Vital Signs: Last Vital Signs Pulse 64 04/23/24 14:09 BP 122/76 04/23/24 14:09 Pulse Ox 99 04/23/24 14:09 Oxygen Delivery Method Room Air 04/23/24 14:09 BMI result Body Mass Index 24.0 Const General: No confusion Orientation/consciousness: No confusion Eyes General: appearance normal, both eyes and all related structures Visual Tobar: normal visual tobar by confrontation Neck Neck: Yes supple and Yes no JVD Resp Effort & Inspection: normal respiratory effort and respiratory effort not decreased Auscultation: rhonchi Cardio Palpation: no palpable S3 and no palpable S4 Heart sounds: no rubs GI Inspection: Yes normal to inspection Palpation (GI): Soft to palpation Percussion: Yes normal to percussion Auscultation: normal bowel sounds General: Yes no CVA tenderness Back/Spine/Pelvis Back: no CVA tenderness Skin General skin exam: no petechiae and no purpura Neuro General: No confusion Extrem General: No clubbing and No edema Results Reviewed Nephrology Results: Hgb 11.9 g/dl (14.0-18.0) L 04/11/24 WBC 8.0 X10*3/uL (4.8-10.8) 04/11/24 Plt Count 249 X10*3/uL (160-400) 04/11/24 Sodium 140 mmol/L (135-145) 04/15/24 Potassium 2.9 mmol/L (3.3-5.1) L* 04/15/24 Chloride 104 mmol/L (96-108) 04/15/24 Carbon Dioxide 26 mmol/L (22-29) 04/15/24 BUN 52 mg/dL (9-16) H 04/15/24 Creatinine 2.74 mg/dL (0.5-1.4) H 04/15/24 Calcium 11.3 mg/dL (8.4-10.2) H 04/15/24 Phosphorus 4.1 mg/dL (2.7-4.5) 04/06/24 PTH Intact 7.2 pg/mL (8.7-77.1) L 04/05/24 Urine Protein Negative mg/dL (Neg-Trace) 04/11/24 Assessment & Plan Assessment & Plan (1) ARJUN (acute kidney injury): Code(s): N17.9 - Acute kidney failure, unspecified Category: Medical (2) Hypercalcemia: Code(s): E83.52 - Hypercalcemia Category: Medical Plan Renal function is improving Encouraged to increased PO fluid intake Expect renal recovery Repeat labs ordered Hypercalcemia Ca normalized PTH and PTHrP were suppresed Hold Vit D and Ca Recheck HTN BP acceptable Hypokalemia Recheck K levels and will adjust supplementation Orders: Orders Parathyroid Hormone Intact 4 Days N17.9 - Acute kidney failure, unspecified Basic Metabolic Panel 4 Days N17.9 - Acute kidney failure, unspecified Phosphorus 4 Days N17.9 - Acute kidney failure, unspecified Coding Level of Care Code Est Pt Level 4 (03635) Diagnoses ARJUN (acute kidney injury) N17.9 Hypercalcemia E83.52
== END 2024-04-23 14:30 | disposition home or self-care (01) ==
PROVIDERS: PCP General Practice; Visit Provider Internal Medicine Hypertension Specialist
DX: N17.9 Acute kidney failure, unspecified (principal); E83.52 Hypercalcemia
CPT/HCPCS: 99214

== ENCOUNTER → 2024-04-23 14:08 | Outpatient (BNVA) | payer MEDICARE, MEDICAID, SELFPAY | PROVIDERS: PCP General Practice; Visit Provider Internal Medicine Hypertension Specialist | DX: I25.10 Atherosclerotic heart disease of native coronary artery without angina pectoris (principal); I48.0 Paroxysmal atrial fibrillation; I10 Essential (primary) hypertension; E83.52 Hypercalcemia; N17.9 Acute kidney failure, unspecified | CPT/HCPCS: 99212 ==

== ENCOUNTER 2024-04-26 14:00 | Outpatient (REF) | payer MEDICARE, MEDICAID, SELFPAY ==
[2024-04-26 16:47] LABS: Anion Gap 15 (12-20); Blood Urea Nitrogen 30 mg/dL (9-16); Calcium 10.3 mg/dL (8.4-10.2); Carbon Dioxide 21 mmol/L (22-29); Chloride 109 mmol/L (96-108); Estimated Glomerular Filt Rate 33; Glucose Random 99 mg/dL (60-115); Phosphorus 2.9 mg/dL (2.7-4.5); Potassium 4.2 mmol/L (3.3-5.1); Sodium 141 mmol/L (135-145)
[2024-04-27 05:47] LABS: Parathyroid Hormone Intact 18.7 pg/mL (8.7-77.1)
== END 2024-04-26 14:01 | disposition home or self-care (01) ==
LOC: HO.HHCL 14:00
PROVIDERS: Internal Medicine Cardiovascular Disease; Visit Provider Internal Medicine Hypertension Specialist
DX: I42.9 Cardiomyopathy, unspecified (principal); N17.9 Acute kidney failure, unspecified
CPT/HCPCS: 36415; 80048; 83970; 84100

== ENCOUNTER 2024-04-30 11:21 | Outpatient (REF) | payer MEDICARE, MEDICAID, SELFPAY ==
[2024-04-30 14:19] LABS: Anion Gap 11 (12-20); Blood Urea Nitrogen 33 mg/dL (9-16); Calcium 10.5 mg/dL (8.4-10.2); Carbon Dioxide 25 mmol/L (22-29); Chloride 108 mmol/L (96-108); Estimated Glomerular Filt Rate 30; Glucose Random 109 mg/dL (60-115); Potassium 4.1 mmol/L (3.3-5.1); Sodium 140 mmol/L (135-145)
== END 2024-04-30 11:22 | disposition home or self-care (01) ==
LOC: HO.HHCL 11:21
PROVIDERS: Referring Provider Internal Medicine Hypertension Specialist; Visit Provider Registered Nurse
DX: N17.9 Acute kidney failure, unspecified (principal)
CPT/HCPCS: 36415; 80048

== ENCOUNTER → 2024-05-31 12:50 | Outpatient (REF) | payer MEDICARE, MEDICAID, SELFPAY ==
--- NOTE | 2024-05-31 12:53 | CA_ITS ---
Transthoracic Echocardiogram Patient (Last, First, Middle): Valerio Caldwell A Gender: Male Date of : 1960 Age: 64 Procedure Date: 05/31/2024 Procedure Type: Transthoracic Echocardiogram Location: OP Height: 170. cm Weight: 70.76 kg BSA: 1.82 m2 Heart Rate: 66 bpm BP: 155 / 95 mmHg Medical Reception: ZAHRA Referring MD: Justin Reyes MD Symptoms: I42.9 - Cardiomyopathy, unspecified Study Quality: Adequate ECG Rhythm: Bradycardia Conclusions: - The left ventricular systolic function is mildly decreased. The visually estimated ejection fraction is between 35-40%. - No obvious valvular pathology seen on this study. - The basal inferior and basal inferoseptal segments are akinetic. - The basal inferolateral segment is hypokinetic. - There is mild dilatation of the ascending aorta measuring 4.10 cm. Findings Left Ventricle Normal left ventricular cavity size. There is normal left ventricular wall thickness. The left ventricular systolic function is mildly decreased. The visually estimated ejection fraction is between 35-40%. There is moderate global hypokinesis. Diastolic function is normal for age. Wall Motion Rest Echo Findings The basal inferolateral segment is hypokinetic. The basal inferior and basal inferoseptal segments are akinetic. Right Ventricle There is mildly decreased right ventricular systolic function. There is normal right ventricular wall thickness. Atria The left atrium is mildly dilated. The right atrium is normal in size. Aortic Valve There is a normal trileaflet aortic valve. There is no aortic valve stenosis. There is no aortic valve regurgitation. Mitral Valve The mitral valve appears normal. There is mild mitral annular calcification. There is mild mitral valve regurgitation. There is no mitral valve stenosis. Pulmonic Valve The pulmonic valve is likely normal. Tricuspid Valve There is no tricuspid valve regurgitation. Tricuspid regurgitation envelope is inadequate for calculation of right ventricular systolic pressure. Great Vessels There is mild dilatation of the ascending aorta measuring 4.10 cm. Venous The inferior vena cava is normal in size and collapses greater than 50% with inspiration. Pericardium/Pleural There is no evidence of pericardial effusion. Prior Study Comparison No significant change compared to prior study dated: 03/12/2023. Recommendations, Care & Conclusions No obvious valvular pathology seen on this study. Measurements 2D Linear Measurements IVSd: 0.90 0.6-0.9/0.6-1.0 cm LVIDd: 5.51 3.9-5.3/4.2-5.9 cm LVIDd Index: 3.03 2.4-3.2/2.2-3.1 cm/m2 LVIDs: 3.68 2.0-3.6 cm LVPWd: 1.00 0.7-1.1 cm LA Diam: 4.30 2.7-3.8/3.0-4.0 cm LAIDs Index: 2.36 1.5-2.3 cm/m2 LV Mass: 249.51 67-162/88-224 g LV Mass Index: 137.09 43-95/49-115 g/m2 LVOT Diam: 2.20 3.0+(-)1.3 cm 2D Systolic Function EF 4C: 48.80 >55% EF 2C: 45.10 >55% EF BiP: 46.80 >55% Mitral Valve MV Pk E: 0.66 MV PK A: 0.80 MV Decel Time: 231.00 E/A: 0.80 E'Lateral: 7.94 E'Medial: 5.33 E/E' Med: 12.50 E/E' Lat: 8.40 PHT: 68.00 MVA PHT: 3.24 Decel Victoria: 2.87 Aortic Valve AoV Pk Butch: 1.21 AoV Mn Butch: 0.89 AoV VTI: 0.30 AoV Pk Grad: 6.00 Aov Mn Grad: 4.00 PERNELL Cont.VTI: 2.47 LVOT LVOT Pk Butch: 0.78 LVOT Mn Butch: 0.57 LVOT VTI: 0.19 LVOT Pk Grad: 2.00 LVOT Mn Grad: 1.00 LVOT Diam: 2.20 LVOT Area: 3.80 Diastolic Function MV Pk E: 0.66 MV Pk A: 0.80 E/A: 0.80 E'Medial: 5.33 E/E' Med: 12.50 E' Laterial: 7.94 E/E' Lat: 8.40 Right Ventricle TAPSE (mm): 22.60 TVS' Butch: 7.63 Tricuspid Valve RA Press: 3.00 Great Vessels Aorta Sinus of Valsalva: 3.80 2.0-3.5 cm Ao Asc: 4.10 2.1-3.4 cm Pulmonary Valve PV Pk Butch: 0.87 Peak PV Grad: 3.00 Updated in Other Vendor System with Status of Final Henok Beltre MD electronically signed on 06/01/2024 9:45:09 AM with status of Final
== END ==
LOC: HO.CARD 12:50
PROVIDERS: PCP General Practice; Visit Provider Internal Medicine Cardiovascular Disease
DX: I42.9 Cardiomyopathy, unspecified (principal)
CPT/HCPCS: 93306

== ENCOUNTER → 2024-05-31 12:53 | Outpatient (BNV) | payer MEDICARE, MEDICAID, SELFPAY | PROVIDERS: PCP General Practice; Visit Provider Internal Medicine | DX: I34.0 Nonrheumatic mitral (valve) insufficiency (principal); R93.1 Abnormal findings on diagnostic imaging of heart and coronary circulation | CPT/HCPCS: 93306 ==

== ENCOUNTER 2024-06-24 13:53 | Outpatient (AMB) | payer MEDICARE, MEDICAID, SELFPAY ==
[2024-06-24 14:00] VITALS: BP 140/90; PULSE 62; O2SAT 100; BMI 23.0
--- NOTE | 2024-06-24 14:00 | HO.NEPHOV ---
Vital Signs 06/24/24 14:00 06/24/24 14:10 Height 5 ft 8 in Weight 151 lb BMI 23.0 BP 140/90 H 134/80 Blood Pressure Location Rt brachial Rt brachial Position Sitting Sitting Pulse 62 Pulse Source Pulse Oximeter Pulse Oximetry (%) 100 Oxygen Delivery Method Room Air Intake Visit Reasons: 4-6wk follow up/ LVM [place] Fishing Crew Member Required: No Accompanied by: Self / Same As Patient Allergies Penicillins [PENICILLINS] Allergy (Intermediate, Verified 06/24/24 14:02) RASH Medication List - Last Reconciled 06/24/24 by Ayden De La Cruz MD amlodipine 5 mg See Protocol PO DAILY buspirone 7.5 mg PO BID diclofenac sodium 75 mg PO BID PRN gabapentin 600 mg PO TID hydroxyzine pamoate 25 mg PO Q6H labetalol 200 mg See Protocol PO BID potassium chloride ER 40 mEq (2 x 20 mEq) PO DAILY tadalafil (Cialis) 5 mg PO DAILY temazepam 30 mg PO BEDTIME PRN HPI Comments Details: 64 years old man with HFrEF, CAD, paroxysmal atrial fibrillation and essential hypertension seen in [facility] [place] ARJUN And severe hypercalcemia of 14 He was on high dose of Vit D and Calcium tabs. Intact PTH was suppressed at 6. PTHrP was NOT elevated. Received bisphosphonate, IVF with LASIX and had hypokalemia K is being replaced Creatinine is unchanged PFS Medical History Incisional pain Right inguinal hernia HTN (hypertension) Right inguinal hernia Paroxysmal atrial fibrillation Cardiomyopathy Surgical History History of right inguinal hernia repair Hx of oral surgery Hx of right heart catheterization History of tonsillectomy Family History Father Esophagus cancer Mother No problems noted. Social History Household Members: None Household Members Other:: lives alone. Housing: Apartment Are you a primary career placement specialist to a significant other at home: No Do you presently have visiting nurse or other home services: No Alcohol intake: current Alcohol intake frequency: a few times a week Patient Tobacco Use Status: Never used Tobacco service: No Current occupational status: disabled Physical Exam Vital Signs: Last Vital Signs Pulse 62 06/24/24 14:00 BP 134/80 06/24/24 14:10 Pulse Ox 100 06/24/24 14:00 Oxygen Delivery Method Room Air 06/24/24 14:00 BMI result Body Mass Index 23.0 Awake. Comfortable. Neck is supple. Mucosa moist. Lungs AE equal. Heart S1-S2 heard no gallop. Abdomen soft. Extremities no edema. No involuntary movements. No myoclonus. Results Reviewed Nephrology Results: Hgb 11.9 g/dl (14.0-18.0) L 04/11/24 WBC 8.0 X10*3/uL (4.8-10.8) 04/11/24 Plt Count 249 X10*3/uL (160-400) 04/11/24 Sodium 140 mmol/L (135-145) 04/30/24 Potassium 4.1 mmol/L (3.3-5.1) 04/30/24 Chloride 108 mmol/L (96-108) 04/30/24 Carbon Dioxide 25 mmol/L (22-29) 04/30/24 BUN 33 mg/dL (9-16) H 04/30/24 Creatinine 2.25 mg/dL (0.5-1.4) H 04/30/24 Calcium 10.5 mg/dL (8.4-10.2) H 04/30/24 Phosphorus 2.9 mg/dL (2.7-4.5) 04/26/24 PTH Intact 18.7 pg/mL (8.7-77.1) 04/26/24 Urine Protein Negative mg/dL (Neg-Trace) 04/11/24 Assessment & Plan Assessment & Plan (1) ARJUN (acute kidney injury): Code(s): N17.9 - Acute kidney failure, unspecified Category: Medical (2) Hypercalcemia: Code(s): E83.52 - Hypercalcemia Category: Medical Plan Renal function is improving Encouraged to increased PO fluid intake Expect renal recovery Hypercalcemia Ca normalized PTH and PTHrP were suppresed Hold Vit D and Ca HTN BP acceptable Hypokalemia - resolved Off KCL Check again Orders: Orders Basic Metabolic Panel Today N17.9 - Acute kidney failure, unspecified Magnesium Today N17.9 - Acute kidney failure, unspecified Phosphorus Today N17.9 - Acute kidney failure, unspecified Medications: Discontinued potassium chloride ER Discontinued Reason: Patient no longer taking 40 mEq (2 x 20 mEq) PO DAILY 10 tabs 0RF Coding Level of Care Code Est Pt Level 4 (67416) Diagnoses ARJUN (acute kidney injury) N17.9 Hypercalcemia E83.52
[2024-06-24 14:10] VITALS: BP 134/80
== END 2024-06-24 14:15 | disposition home or self-care (01) ==
PROVIDERS: PCP General Practice; Visit Provider Internal Medicine Hypertension Specialist
DX: N17.9 Acute kidney failure, unspecified (principal); E83.52 Hypercalcemia
CPT/HCPCS: 99214

== ENCOUNTER → 2024-06-24 13:53 | Outpatient (BNVA) | payer MEDICARE, MEDICAID, SELFPAY | PROVIDERS: PCP General Practice; Visit Provider Internal Medicine Hypertension Specialist | DX: N17.9 Acute kidney failure, unspecified (principal); E83.52 Hypercalcemia; I10 Essential (primary) hypertension; I25.10 Atherosclerotic heart disease of native coronary artery without angina pectoris; I48.0 Paroxysmal atrial fibrillation | CPT/HCPCS: 99212 ==

== ENCOUNTER 2024-06-29 13:39 | Outpatient (AMB) | payer MEDICARE, MEDICAID, SELFPAY ==
--- NOTE | 2024-06-29 13:39 | A.OFFVIS_ITS ---
Intake Visit Reasons: follow up/labs(set) Intake Note: Patient presents today for follow up on:Erectile Dysfunction, low libido, and lab results PSA: 0.54; Total Testosterone: 840; Free Testosterone: 87.4 Urology Medications: tadalafil Blood Thinner: none Diabetic: no Flask Maker Required: No Accompanied by: Self / Same As Patient Allergies Penicillins [PENICILLINS] Allergy (Intermediate, Verified 06/29/24 14:38) RASH Medication List - Last Reconciled 06/29/24 by JANET Cardenas- amlodipine 5 mg See Protocol PO DAILY buspirone 7.5 mg PO BID diclofenac sodium 75 mg PO BID PRN gabapentin 600 mg PO TID hydroxyzine pamoate 25 mg PO Q6H labetalol 200 mg See Protocol PO BID tadalafil (Cialis) 5 mg PO DAILY temazepam 30 mg PO BEDTIME PRN HPI Comments Details: Valerio is a 64-year-old male patient of Dr. Schroeder. He has a past medical history of alcohol dependence quit in 2019, hypertension, paroxysmal AFib, and cardiomyopathy. He is being followed up on today via telehealth for his ED. In discussion with the patient today he continues to report issues with erectile dysfunction. However, he reports he does feel low libido issues he had been experiencing have improved. Recent PSA and testosterone results reviewed with the patient today. PSA 04/24 0.5 Testosterone 03/24 840 Free testosterone 03/24 87.4 He discusses feeling his current medication regimen is causing issues with ED. He reports prior to initiation of the medications he is taking for his cardiac history of paroxysmal AFib, cardiomyopathy, and coronary artery disease he had had no issues with erectile dysfunction. He reports compliance with 5 mg of Cialis daily and does not feel this has been helpful. We discussed further treatment options of erectile dysfunction to include penile pump and or penile constriction bands, injectable therapy, and or penile prosthesis. Risks and benefits of these interventions were discussed. He does report being extremely active in his health and goes to the gym 3-5 times per week where he walks 4-6 miles a day without shortness of breath, chest pain, and or palpitations. He otherwise denies any bothersome urinary issues. He denies urinary urgency, urinary frequency, incontinence, nocturia, hematuria, dysuria, foul smelling urine, changes to urinary stream, flank pain, fever, and or chills. He is happy with his current voiding parameters. He discusses his most recent hospitalization for hypercalcemia and abnormal kidney function. Otherwise offers no other issues or concerns at this time. [facility] Medical History Incisional pain Right inguinal hernia HTN (hypertension) Right inguinal hernia Paroxysmal atrial fibrillation Cardiomyopathy Surgical History History of right inguinal hernia repair Hx of oral surgery Hx of right heart catheterization History of tonsillectomy Family History Father Esophagus cancer Mother No problems noted. Social History Household Members: None Household Members Other:: lives alone. Housing: Apartment Are you a primary health care facilities inspector to a significant other at home: No Do you presently have visiting nurse or other home services: No Alcohol intake: current Alcohol intake frequency: a few times a week Patient Tobacco Use Status: Never used Tobacco service: No Current occupational status: disabled Review of Systems Const Reports no additional complaints Eyes Reports no additional complaints ENT Reports no additional complaints Card Reports as per HPI Resp Reports no additional complaints GI Reports no additional complaints Reports as per HPI Musc Reports as per HPI Neuro Reports no additional complaints Psych Reports no additional complaints Ben/Lymph Reports no additional complaints Aller/Immun Reports no additional complaints Physical Exam Const General: cooperative Resp Effort & Inspection: able to speak in complete sentences Psych Attitude: cooperative Thought process: Normal thought process present Thought content: Normal thought content present Insight: Fair insight present (Psych) Judgement: Fair judgement present (Psych) Telehealth Telehealth Telehealth Platform: [facility] Location of provider rendering services: practice address Location of patient: address on file Patient Identification confirmed using: Name, : Yes Telehealth method: voice only Patient verbally consented to treatment: Yes Patient verbally consented to billing insurance company: Yes Patient informed of any privacy concerns related to visit: Yes Minutes spent on Phone/Video with Pt.: 28 Assessment & Plan Assessment & Plan (1) Erectile dysfunction: Code(s): N52.9 - Male erectile dysfunction, unspecified Category: Medical Plan Recent PSA and testosterone results reviewed with the patient today; as noted above. We discussed at length potential causes of ED as well as further treatment options; risks and benefits of these interventions were discussed. All questions were answered. Continue daily dosing of tadalafil as discussed and prescribed. Discussed p.r.n. dosing of 20 mg 1 hour prior to sexual activity and not to exceed more than 2-3 times per week. He currently denies any bothersome urinary issues or concerns. He reports be happy with current voiding parameters. Follow-up in 6 months; or sooner with any issues, concerns, and or questions. Medications: Discontinued amlodipine Discontinued Reason: Patient no longer taking 5 mg See Protocol PO DAILY 30 tabs 0RF labetalol Discontinued Reason: Patient no longer taking 200 mg See Protocol PO BID 60 tabs 0RF Patient Instructions: The patient had an opportunity to ask questions regarding the treatment plan. All questions were answered. Physical exam, labs, and imaging were discussed and reviewed in detail. As well as risks, benefits, and discussion of treatment choices. No major barriers to understanding were identified. The patient expressed understanding and agreement with the above treatment plan. The patient was made aware they should contact our office by phone for worsening of their current condition, the appearance of new symptoms, or with any questions or concerns. Compliance is encouraged with any medications and follow up testing that is ordered. It is a privilege to be allowed the opportunity to participate in? your urological care.? Again, if you have any questions or concerns If you have any questions or concerns please do not hesitate to contact me. The office is [phone]. This note is constructed using voice recognition software. While every effort has been made to ensure accuracy golf sales associate errors may have been included. Yours sincerely, ELINA Cardenas Coding Level of Care Code Tele Est Pt Level 4 (73344) Diagnoses Erectile dysfunction N52.9 Time Spent (min) 28
== END 2024-06-29 15:34 | disposition home or self-care (01) ==
LOC: HO.HUSH 13:39
PROVIDERS: PCP General Practice; Visit Provider Nurse Practitioner Family
DX: N52.9 Male erectile dysfunction, unspecified (principal)
CPT/HCPCS: 99443

== ENCOUNTER → 2024-06-29 13:39 | Outpatient (BNVA) | payer MEDICARE, MEDICAID, SELFPAY | PROVIDERS: PCP General Practice; Visit Provider Nurse Practitioner Family ==

== ENCOUNTER 2024-07-16 14:23 | Outpatient (REF) | payer MEDICARE, MEDICAID, SELFPAY ==
[2024-07-16 16:15] LABS: Anion Gap 16 (12-20); Blood Urea Nitrogen 10 mg/dL (9-16); Calcium 10.6 mg/dL (8.4-10.2); Carbon Dioxide 24 mmol/L (22-29); Chloride 107 mmol/L (96-108); Estimated Glomerular Filt Rate 50; Glucose Random 92 mg/dL (60-115); Magnesium 1.8 mg/dL (1.6-2.6); Phosphorus 3.3 mg/dL (2.7-4.5); Potassium 4.7 mmol/L (3.3-5.1); Sodium 142 mmol/L (135-145)
== END 2024-07-16 14:24 | disposition home or self-care (01) ==
LOC: HO.HHCL 14:23
PROVIDERS: Visit Provider Internal Medicine Hypertension Specialist
DX: N17.9 Acute kidney failure, unspecified (principal)
CPT/HCPCS: 36415; 80048; 83735; 84100

== ENCOUNTER 2024-09-30 12:53 | Outpatient (AMB) | payer MEDICARE, MEDICAID, SELFPAY ==
[2024-09-30 12:56] VITALS: BP 110/72; PULSE 61; O2SAT 100; BMI 23.4
--- NOTE | 2024-09-30 12:56 | HO.NEPHOV ---
Vital Signs 09/30/24 12:56 Height 5 ft 8 in Weight 154 lb BMI 23.4 BP 110/72 Blood Pressure Location Lt brachial Position Sitting Pulse 61 Pulse Source Pulse Oximeter Pulse Oximetry (%) 100 Oxygen Delivery Method Room Air Intake Visit Reasons: R/S 09/23/2024/ M Fill Technician Required: No Accompanied by: Self / Same As Patient Allergies Penicillins [PENICILLINS] Allergy (Intermediate, Verified 09/30/24 12:58) RASH Medication List - Last Reconciled 09/30/24 by Ayden De La Cruz MD buspirone 7.5 mg PO BID diclofenac sodium 75 mg PO BID PRN gabapentin 600 mg PO TID hydroxyzine pamoate 25 mg PO Q6H lisinopril 5 mg PO DAILY tadalafil (Cialis) 5 mg PO DAILY temazepam 30 mg PO BEDTIME PRN HPI Comments Details: 64 years old man with HFrEF, CAD, paroxysmal atrial fibrillation and essential hypertension seen in [facility] [place] for ARJUN And severe hypercalcemia of 17.5 He was on high dose of Vit D and Calcium tabs. Intact PTH was suppressed at 6. PTHrP was NOT elevated. Received bisphosphonate, IVF with LASIX and had hypokalemia K is being replaced Creatinine has improved PFSH Medical History Incisional pain Right inguinal hernia HTN (hypertension) Right inguinal hernia Paroxysmal atrial fibrillation Cardiomyopathy Surgical History History of right inguinal hernia repair Hx of oral surgery Hx of right heart catheterization History of tonsillectomy Family History Father Esophagus cancer Mother No problems noted. Social History Household Members: None Household Members Other:: lives alone. Housing: Apartment Are you a primary careers counsellor to a significant other at home: No Do you presently have visiting nurse or other home services: No Alcohol intake: current Alcohol intake frequency: a few times a week Patient Tobacco Use Status: Never used Tobacco service: No Current occupational status: disabled Physical Exam Vital Signs: Last Vital Signs Pulse 61 09/30/24 12:56 BP 110/72 09/30/24 12:56 Pulse Ox 100 09/30/24 12:56 Oxygen Delivery Method Room Air 09/30/24 12:56 BMI result Body Mass Index 23.4 Awake. Comfortable. Neck is supple. Mucosa moist. Lungs AE equal. Heart S1-S2 heard no gallop. Abdomen soft. Extremities no edema. No involuntary movements. No myoclonus. Results Reviewed Nephrology Results: Sodium 142 mmol/L (135-145) 07/16/24 Potassium 4.7 mmol/L (3.3-5.1) 07/16/24 Chloride 107 mmol/L (96-108) 07/16/24 Carbon Dioxide 24 mmol/L (22-29) 07/16/24 BUN 10 mg/dL (9-16) 07/16/24 Creatinine 1.43 mg/dL (0.5-1.4) H 07/16/24 Calcium 10.6 mg/dL (8.4-10.2) H 07/16/24 Phosphorus 3.3 mg/dL (2.7-4.5) 07/16/24 PTH Intact 18.7 pg/mL (8.7-77.1) 04/26/24 Assessment & Plan Assessment & Plan (1) ARJUN (acute kidney injury): Code(s): N17.9 - Acute kidney failure, unspecified Category: Medical (2) Hypercalcemia: Code(s): E83.52 - Hypercalcemia Category: Medical Plan Renal function is improving Encouraged to increased PO fluid intake Expect renal recovery Hypercalcemia Ca close to normal- currently at 10.6 as on Jul 2024 PTH and PTHrP were suppresed Continue to Hold Vit D and Ca HTN BP well controlled Hypokalemia - resolved Off KCL Orders: Orders Parathyroid Hormone Intact Today N17.9 - Acute kidney failure, unspecified Phosphorus Today N17.9 - Acute kidney failure, unspecified Complete Blood Count Auto Diff Today N17.9 - Acute kidney failure, unspecified Basic Metabolic Panel Today N17.9 - Acute kidney failure, unspecified Coding Level of Care Code Est Pt Level 4 (38460) Diagnoses ARJUN (acute kidney injury) N17.9 Hypercalcemia E83.52
--- OUTSIDE RECORDS SUMMARY | 2024-09-30 16:42 | XMS_ITS | Encounter Summary ---
Author Organization [employer] Address [address] 7[address] [place] [address] Care Team Providers Care Multiple Knife Edge Trimmer Operator Name Role Phone Jennifer Schroeder MD Primary Care Provider [phone] Mireya Beltran MD Primary Care Provider [phone] Reason for Visit * Reason Onset Date Comments Hospital Follow-up 04/16/2024 Encounter Details Date Type Department Care Team (Late st Contact Info) Description 04/16/2024 Telephone [facility] 230 [place] [address] Jennifer Schroeder MD [address] [place] [address] Hospital Follow-up Social History Tobacco Use Types Packs/Day Years Used Date Smoking Tobacco: Never Passive Smoke Exposure: Never Smokeless Tobacco: Never Alcohol Use Standard Drinks/Week Comments Not Currently 0 (1 standard drink = 0.6 oz pur e alcohol) Depression Answer Date Recorded Patient Health Questionnaire-9 Score 2 09/26/2022 Housing Stability Answer Date Recorded What is your housing situation today? I have leona alvarez 06/16/[address] you li ve. Do you have problems with any of the following? None of the above 06/16/2023 Food Insecurity Answer Date Recorded Within the past 12 months, y ou worried that your food would run out before you got money to buy more: Never True 06/16/2023 Within the past 12 months,th e food you bought just didn't last and you didn't have enough money to get more: Never True Transportation Answer Date Recorded In the past 12 months, has l ack of transportation kept you from medical appts, meetings, work or from getting things needed for daily living? No 06/16/2023 Utilities Answer Date Recorded In the past 12 months, has t he electric, gas, oil or water company threatened to shut off services in your home? No 06/16/2023 Depression Answer Date Recorded Patient Health Questionnaire-2 Score 0 09/26/2022 Sex and Gender Information Value Date Recorded Sex Assigned at Male 07/01/2022 10:31 AM EDT Legal Sex Male 10:31 AM EDT Gender Identity Male 07/01/2022 10:31 AM EDT Sexual Orientation Straight 07/01/2022 10 :31 AM EDT documented as of this encounter Miscellaneous Notes * Telephone Encounter - Sixto Barcenas - 04/16/2024 8:40 AM EDT Tc from pt requesting a HDF appt. [place] [facility] [place]: 04/05 Discharge date: 04/15 Diagnosed: Acute renal failure and Hypercalcemia documented in this encounter Plan of Treatment Upcoming Encounters Date Type Department Care Team (Late st Contact Info) Description 10/14/2024 2:00 PM EST Clinical Support [facility] [address] [place] [address] Sirisha Orellana, RN 11/04/2024 2:30 PM EST Office Visit [facility] OPT[facility] [address] [place] [address] Adrianna Cleary, OD 230 [place] [address] documented as of this encounter Visit Diagnoses Not on filedocumented in this encounter Additional Health Concerns Assessment Noted Time PHQ-9 Depression Total Score: 2 09/26/19 23 2:58 PM EST documented as of this encounter Care Teams Multiple Knife Edge Trimmer Operator Relationship Specialty Start Date End Date Jennifer Schroeder MD 230 [place] [address] PCP - General Family Medicine 06/19/21 05/27/24 Mireya Beltran MD [address] [place] [address] PCP - General Family Medicine 05/28/24 documented as of this encounter
--- OUTSIDE RECORDS SUMMARY | 2024-09-30 16:42 | XMS_ITS | Encounter Summary ---
Author Organization [employer] Address [address] [place] [address] Care Team Providers Care Infant Room Teacher Name Role Phone Jennifer Schroeder MD Primary Care Provider [phone] Mireya Beltran MD Primary Care Provider [phone] Reason for Visit * Reason Onset Date Comments Appointment Request 04/16/2024 Encounter Details Date Type Department Care Team (Late st Contact Info) Description 04/16/2024 Telephone [facility] 230 [place] [address] Jennifer Schroeder MD 505 [place] [address] Appointment Request Social History Tobacco Use Types Packs/Day Years [...] Telephone Encounter - Sixto Barcenas - 04/16/2024 8:38 AM EDT Tc from patient requesting a callback to reschedule appt for 04/16 patient was admitted in [facility] on 04/05 and was discharged on 04/15 documented in this encounter Plan of Treatment Upcoming Encounters Date Type Department Care Team (Late st Contact Info) Description 10/14/2024 2:00 PM EST Clinical Support [facility] [address] [place] [address] Sirisha Orellana RN 11/04/2024 2:30 PM EST Office Visit [facility] OPTOMETRY [address] [place] [address] Adrianna Cleary, OD 230 [place] [address] documented as of this encounter Visit Diagnoses Not on filedocumented in this encounter Additional Health Concerns Assessment Noted Time PHQ-9 Depression Total Score: 2 09/26/19 23 2:58 PM EST documented as of this encounter Care Teams Infant Room Teacher Relationship Specialty Start Date End Date Jennifer Schroeder MD [address] [place] [address] PCP - General Family Medicine 06/19/21 05/27/24 Mireya Beltran MD [address] [place] [address] PCP - General Family Medicine 05/28/24 documented as of this encounter
--- OUTSIDE RECORDS SUMMARY | 2024-09-30 16:42 | XMS_ITS | Encounter Summary ---
Author Organization [employer] Address [address] [place] [address] 7t [place] [address] Care Team Providers Care Lab Director Name Role Phone Jennifer Schroeder MD Primary Care Provider Mireya Beltran MD Primary Care Provider [phone] Encounter Details Date Type Department Care Team ([facility] Contact Info) Description 10/16/2022 Telephone [facility] [address] [place], [place] [id number] Jennifer Schroeder MD [address] [place] [address] Social History Tobacco Use Types Packs/Day Years Used Date Smoking Tobacco: Never Passive Smoke Exposure: Never Smokeless Tobacco: Never Alcohol Use Standard Drinks/Week Comments Never 0 (1 standard drink = 0.6 oz pur e alcohol) Depression Answer Date Recorded Patient Health Questionnaire-9 Score 2 09/26/2022 Depression Answer Date Recorded Patient Health Questionnaire-2 Score 0 09/26/2022 Sex and Gender Information Value Date Recorded Sex Assigned at Male 07/01/2022 10:31 AM EDT Legal Sex Male 10:31 AM EDT Gender Identity Male 07/01/2022 10:31 AM EDT Sexual Orientation Straight 07/01/2022 10 :31 AM EDT COVID-19 Exposure Response Date Recorded In the last 10 days, have yo u been in contact with someone who was confirmed or suspected to have Coronavirus/COVID-19? No / Unsure 09/26/2022 2:41 PM EST documented as of this encounter Plan of Treatment Upcoming Encounters Date Type Department Care Team (Late Contact Info) Description 10/14/2024 2:00 PM EST Clinical Support [facility] 230 [place] [address] Sirisha Orellana, RN 11/04/2024 2:30 PM EST Office Visit [facility] OPT[facility]ET[facility] [address] [place] [address] Evin, Adrianna, OD [address] [place] [address] documented as of this encounter Visit Diagnoses Not on filedocumented in this encounter Additional Health Concerns Assessment Noted Time PHQ-9 Depression Total Score: 2 09/26/19 23 2:58 PM EST documented as of this encounter Care Teams Lab Director Relationship Specialty Start Date End Date Jennifer Schroeder MD [address] [place] [id number] PCP - General Family Medicine 06/19/21 05/27/24 Mireya Beltran MD [address] [place] [id number] PCP - General Family Medicine 05/28/24 documented as of this encounter
--- OUTSIDE RECORDS SUMMARY | 2024-09-30 16:42 | XMS_ITS | Encounter Summary ---
Author Organization [employer] Address [address] [place] [address] Care Team Providers Care Trademark Paralegal Name Role Phone Jennifer Schroeder MD Primary Care Provider [phone] Mireya Beltran MD Primary Care Provider [phone] Reason for Visit * Reason Onset Date Comments Referral 12/23/2022 Encounter Details Date Type Department Care Team (Late st Contact Info) Description 12/23/2022 Telephone [facility] [address] [place] [address] Jennifer Schroeder MD [address] [place] [address] Referral Social History Tobacco Use Types Packs/Day Years Used Date Smoking Tobacco: Never Passive Smoke Exposure: Never Smokeless Tobacco: Never Alcohol Use Standard Drinks/Week Comments Never 0 (1 standard drink = 0.6 oz pur e alcohol) Depression Answer Date Recorded Patient Health Questionnaire-9 Score 0 05/28/2024 Patient Health Questionnaire-9 Score 0 05/28/2024 Last PHQ-9: Questionnaire Data Not on file 0 05/28/2024 Housing Stability Answer Date Recorded What is your housing situation today? I have leonaisi alvarez 05/28/[address] you li ve. Do you have problems with any of the following? None of the above 05/28/2024 Food Insecurity Answer Date Recorded Within the past 12 months, y ou worried that your food would run out before you got money to buy more: Never True 05/28/2024 Within the past 12 months,th e food you bought just didn't last and you didn't have enough money to get more: Never True Transportation Answer Date Recorded In the past 12 months, has l ack of transportation kept you from medical appts, meetings, work or from getting things needed for daily living? No 05/28/2024 Utilities Answer Date Recorded In the past 12 months, has t he electric, gas, oil or water company threatened to shut off services in your home? No 05/28/2024 Depression Answer Date Recorded Patient Health Questionnaire-2 Score 0 05/28/2024 Internet Access Answer Date Recorded Internet Access Q1 Yes 05/28/2024 Internet Access Q2 Not on file 05/28/2024 Sex and Gender Information Value Date Recorded [...] suspected to have Coronavirus/COVID-19? No / Unsure 02/06/2023 12:58 PM EDT documented as of this encounter Miscellaneous Notes * Telephone Encounter - Marta Maldonado - 12/23/2022 9:50 AM EDT Tc from pt requesting a PT-1 Form, States has an upcoming appt. PT 1 request Name of facility : [facility] Address : : [address] [place] [address] [address], [place] [address] Specialty : Mental health exam ( Ruthie Romero ) Time : 3:30pm Date : 12/28/22 Phone : N/a Fax N/a Wheel Chair : No Door Puller : No documented in this encounter Plan of Treatment Upcoming Encounters Date Type Department Care Team (Late st Contact Info) Description 10/14/2024 2:00 PM EST Clinical Support [facility] [address] [place] [address] Sirisha Orellana RN 11/04/2024 2:30 PM EST Office Visit [facility] OPTOMETRY [address] [place], [place] [phone] Adrianna Cleary, OD [address] [place] [address] documented as of this encounter Visit Diagnoses Not on filedocumented in this encounter Additional Health Concerns Assessment Noted Time PHQ-9 Depression Total Score: 2 09/26/19 23 2:58 PM EST documented as of this encounter Care Teams Trademark Paralegal Relationship Specialty Start Date End Date Jennifer Schroeder MD [address] [place] [address] PCP - General Family Medicine 06/19/21 05/27/24 Mireya Beltran MD [address] [place] [address] PCP - General Family Medicine 05/28/24 documented as of this encounter
--- OUTSIDE RECORDS SUMMARY | 2024-09-30 16:42 | XMS_ITS | Encounter Summary ---
Author Organization [employer] Address [address] 7[address] [place] [address] Care Team Providers Care Communications Specialist Name Role Phone Jennifer Schroeder MD Primary Care Provider [phone] Mireya Beltran MD Primary Care Provider [phone] Encounter Details Date Type Department Care Team ([facility] Contact Info) Description 12/30/2022 Telephone [facility] 230 [place] [address] Jeninfer Schroeder MD 505 [place] [address] Social History Tobacco Use Types Packs/Day Years [...] suspected to have Coronavirus/COVID-19? No / Unsure 12/31/2022 1:42 PM EDT documented as of this encounter Plan of Treatment Upcoming Encounters Date Type Department Care Team (Late Contact Info) Description 10/14/2024 2:00 PM EST Clinical Support [facility] [address] [place] [address] Sirisha Orellana, RN 11/04/2024 2:30 PM EST Office Visit [facility] OPTOMETRY [address] [place] [address] Adrianna Cleary, OD [address] [place] [address] documented as of this encounter Visit Diagnoses Not on filedocumented in this encounter Additional Health Concerns Assessment Noted Time PHQ-9 Depression Total Score: 2 09/26/19 23 2:58 PM EST documented as of this encounter Care Teams Communications Specialist Relationship Specialty Start Date End Date Jennifer Schroeder MD [address] [place] [address] PCP - General Family Medicine 06/19/21 05/27/24 Mireya Beltran MD [address] [place] [id number] PCP - General Family Medicine 05/28/24 documented as of this encounter
--- OUTSIDE RECORDS SUMMARY | 2024-09-30 16:42 | XMS_ITS | Encounter Summary ---
Author Organization [employer] Address [address] [place] [address] Care Team Providers Care Knee Bolter Name Role Phone Mireya Beltran MD Primary Care Provider [phone] Reason for Visit * Reason Comments Med Refill Encounter Details Date Type Department Care Team ([facility] st Contact Info) Description 06/11/2024 Refill [facility] [address] [place] [address] Jennifer Schroeder MD [address] [place] [address] Insomnia, unspecified type Social History Tobacco Use Types Packs/Day Years [...] housing situation today? I have leona alvarez 05/28/[address] you [...] AM EDT documented as of this encounter Plan of Treatment Upcoming Encounters Date Type Department Care Team (Late st Contact Info) Description 10/14/2024 2:00 PM EST Clinical Support [facility] [address] [place] [address] Sirisha Orellana, CHEL 11/04/2024 2:30 PM EST Office Visit [facility] [address] [place] [address] Adrianna Cleary, DEWAYNE [address] [place] [address] documented as of this encounter Visit Diagnoses Diagnosis Insomnia, unspecified type documented in this encounter Additional Health Concerns Assessment Noted Time PHQ-9 Depression Total Score: 0 05/28/20 24 1:56 PM EDT documented as of this encounter Care Teams Knee Bolter Relationship Specialty Start Date End Date Mireya Beltran MD [address] [place] [address] PCP - General Family Medicine 05/28/24 documented as of this encounter
--- OUTSIDE RECORDS SUMMARY | 2024-09-30 16:42 | XMS_ITS | Encounter Summary ---
Author Organization [employer] Address [address] [facility] [address] [place] [address] Care Team Providers Care Nursery Rn Name Role Phone Jennifer Schroeder MD Primary Care Provider [phone] Mireya Beltran MD Primary Care Provider [phone] Reason for Visit * Reason Onset Date Comments Referral 10/09/2022 Encounter Details Date Type Department Care Team (Late st Contact Info) Description 10/09/2022 Telephone [facility] 230 [place] [address] Jennifer Schroeder MD [address] [place] [address] Referral Social History Tobacco Use Types Packs/Day [...] encounter Miscellaneous Notes * Telephone Encounter - Dinah Miles - 10/16/2022 1:22 PM EST Tc from pt requesting status on pt1 ? * Telephone Encounter - Dinah Miles - 10/14/2022 11:13 AM EST Tc from pt checking status on PT1 request . * Telephone Encounter - Marta Maldonado - 10/09/2022 12:31 PM EST Tc from pt requesting a PT-1 Form, States has an upcoming appt. PT 1 request Name of facility : [facility] Address : [address] [place] [address] [address], [place] [address] Specialty : Chiropratic Time : 10/18/22 Date : 1:30pm Fax : Wheel Chair : No Mower Operator : No documented in this encounter Plan of Treatment Upcoming Encounters Date Type Department Care Team (Late st Contact Info) Description 10/14/2024 2:00 PM EST Clinical Support [facility] [address] [place] [address] Sirisha Orellana, RN 11/04/2024 2:30 PM EST Office Visit [facility] OPTOMETRY [address] [place], [place] [phone] Adrianna Cleary, OD [address] [place] [address] documented as of this encounter Visit Diagnoses Not on filedocumented in this encounter Additional Health Concerns Assessment Noted Time PHQ-9 Depression Total Score: 2 09/26/19 23 2:58 PM EST documented as of this encounter Care Teams Nursery Rn Relationship Specialty Start Date End Date Jennifer Schroeder MD 230 [place] [address] PCP - General Family Medicine 06/19/21 05/27/24 Mireya Beltran MD [address] [place], [place] [phone] PCP - General Family Medicine 05/28/24 documented as of this encounter
--- OUTSIDE RECORDS SUMMARY | 2024-09-30 16:42 | XMS_ITS | Encounter Summary ---
Author Organization [employer] Address [address] [place] [address] Care Team Providers Care Assistant Program Director Name Role Phone Jennifer Schroeder MD Primary Care Provider [phone] Mireya Beltran MD Primary Care Provider [phone] Reason for Visit * Reason Onset Date Comments PT-1 04/19/2024 Encounter Details Date Type Department Care Team (Late st Contact Info) Description 04/19/2024 Telephone [facility] MED[facility] [address] [place] [address] Jennifer Schroeder MD [address] [place] [address] PT-1 Social History Tobacco Use Types Packs/Day Years [...] * Telephone Encounter - Sixto Barcenas - 04/19/2024 1:32 PM EDT Patient calling requesting PT1 Home Address verified: Y/N: Yes Provider name or facility name: [facility] Facility Address: [address] [place] [address] Escort needed: Y/N: No Do you have a wheelchair: Y/N: No If yes- Manual or electric: no Visits: 3 documented in this encounter Plan of Treatment Upcoming Encounters Date Type Department Care Team (Late st Contact Info) Description 10/14/2024 2:00 PM EST Clinical Support [facility] [address] [place] [address] Sirisha Orellana RN 11/04/2024 2:30 PM EST Office Visit [facility] OPTOMETRY [address] [place] [address] Evin, Adrianna, OD [address] [place] [address] documented as of this encounter Visit Diagnoses Not on filedocumented in this encounter Additional Health Concerns Assessment Noted Time PHQ-9 Depression Total Score: 2 09/26/19 23 2:58 PM EST documented as of this encounter Care Teams Assistant Program Director Relationship Specialty Start Date End Date Jennifer Schroeder MD [address] [place] [address] PCP - General Family Medicine 06/19/21 05/27/24 Mireya Beltran MD 230 [facility] [place] [address] PCP - General Family Medicine 05/28/24 documented as of this encounter
--- OUTSIDE RECORDS SUMMARY | 2024-09-30 16:42 | XMS_ITS | Encounter Summary ---
Author Organization [employer] Address [address] [facility] [address] [place] [address] Care Team Providers Care Fish Pitcher Name Role Phone Mireya Beltran MD Primary Care Provider [phone] Reason for Visit * Reason Comments Pre-visit Planning (Unable to reach for PVP screening, LVM) Encounter Details Date Type Department Care Team ([facility] st Contact Info) Description 09/21/2024 Patient Outreach [facility] [address] [place] [address] Mireya Beltran MD [address] [place] [address] Pre-visit Planning ((Unable to reach for PVP screening, LVM)) Social History Tobacco Use Types Packs/Day Years [...] your housing situation today? I have leona kim 05/28/[address] you li [...] AM EDT documented as of this encounter Progress Notes * Corinne Miles - 09/21/2024 9:59 AM EST CC Corinne. Placed outbound call to patient to complete pre-visit planning. No answer at this time. Patient name and were not confirmed. CC left voicemail requesting return call. Direct contact information provided. documented in this encounter Plan of Treatment Upcoming Encounters Date Type Department Care Team (Late st Contact Info) Description 10/14/2024 2:00 PM EST Clinical Support [facility] [address] [place] [address] Sirisha Orellana RN 11/04/2024 2:30 PM EST Office Visit [facility] OPTOMETRY [address] [place] [address] Adrianna Cleary, OD [address] [place] [address] documented as of this encounter Visit Diagnoses Not on filedocumented in this encounter Additional Health Concerns Assessment Noted Time PHQ-9 Depression Total Score: 0 05/28/20 24 1:56 PM EDT documented as of this encounter Care Teams Fish Pitcher Relationship Specialty Start Date End Date Mireya Beltran MD [address] [place] [address] PCP - General Family Medicine 05/28/24 documented as of this encounter
--- OUTSIDE RECORDS SUMMARY | 2024-09-30 16:42 | XMS_ITS | Encounter Summary ---
Author Organization [employer] Address [address] [place] [address] Care Team Providers Care Community Health Consultant Name Role Phone Mireya Beltran MD Primary Care Provider [phone] Reason for Visit * Reason Onset Date Comments RS APPT 09/08/2024 Encounter Details Date Type Department Care Team (Late st Contact Info) Description 09/08/2024 Telephone [facility] [address] [place] [address] Mellissa Weinstein MA RS APPT Social History Tobacco Use Types Packs/Day Years [...] encounter Miscellaneous Notes * Telephone Encounter - Mellissa Weinstein MA - 09/08/2024 9:46 AM EST T/C placed to pt to reschedule appt from 09/24/24 to 09/30/24. Lvm for notify pt, will also mail an appt reminder documented in this encounter Plan of Treatment Upcoming Encounters Date Type Department Care Team (Late st Contact Info) Description 10/14/2024 2:00 PM EST Clinical Support [facility] [address] [place] [address] Sirisha Orellana RN 11/04/2024 2:30 PM EST Office Visit [facility] [address] [place] [address] Adrianna Cleary, OD [address] [place] [address] documented as of this encounter Visit Diagnoses Not on filedocumented in this encounter Additional Health Concerns Assessment Noted Time PHQ-9 Depression Total Score: 0 05/28/20 24 1:56 PM EDT documented as of this encounter Care Teams Community Health Consultant Relationship Specialty Start Date End Date Mireya Beltran MD [address] [place] [address] PCP - General Family Medicine 05/28/24 documented as of this encounter
--- OUTSIDE RECORDS SUMMARY | 2024-09-30 16:42 | XMS_ITS | Encounter Summary ---
Author Organization [employer] Address [address] [place] [address] Care Team Providers Care Weight Control Lecturer Name Role Phone Jennifer Schroeder MD Primary Care Provider [phone] Mireya Beltran MD Primary Care Provider [phone] Reason for Visit * Reason Onset Date Comments PT-1 05/17/2024 Encounter Details Date Type Department Care Team (Late st Contact Info) Description 05/17/2024 Telephone [facility] MEDICINE [address] [place] [address] Jennifer Schroeder MD [address] [place] [address] PT-1 Social History Tobacco Use Types Packs/Day [...] * Telephone Encounter - Sixto Barcenas - 05/17/2024 12:04 PM EDT Patient calling requesting PT1 Home Address verified: Y/N: Yes Provider name or facility name: [facility] Facility Address: [facility] [place] [place] [address], [place] [address] Escort needed: Y/N: No Do you have a wheelchair: Y/N: No If yes- Manual or electric: no Visits: 3 appt 05/19 documented in this encounter Plan of Treatment Upcoming Encounters Date Type Department Care Team (Late st Contact Info) Description 10/14/2024 2:00 PM EST Clinical Support [facility] MEDICINE [address] [place] [address] Sirisha Orellana RN 11/04/2024 2:30 PM EST Office Visit [facility] OPTOMETRY [address] [place] [address] Evin, Adrianna, OD [address] [place] [address] documented as of this encounter Visit Diagnoses Not on filedocumented in this encounter Additional Health Concerns Assessment Noted Time PHQ-9 Depression Total Score: 2 09/26/19 23 2:58 PM EST documented as of this encounter Care Teams Weight Control Lecturer Relationship Specialty Start Date End Date Jennifer Schroeder MD [address] [place] [address] PCP - General Family Medicine 06/19/21 05/27/24 Mireya Beltran MD [address] [place] [address] PCP - General Family Medicine 05/28/24 documented as of this encounter
--- OUTSIDE RECORDS SUMMARY | 2024-09-30 16:43 | XMS_ITS | Encounter Summary ---
Author Organization [employer] Address [address] [facility] [address] [place] [address] Care Team Providers Care Cook Manager Name Role Phone Mireya Beltran MD Primary Care Provider [phone] Reason for Visit * Reason Onset Date Comments R/s CTS appt. 09/23/2024 Encounter Details Date Type Department Care Team ([facility] st Contact Info) Description 09/23/2024 Telephone [facility] MEDICINE [address] [place] [address] Mireya Beltran MD [address] [place] [address] R/s CTS appt. Social History Tobacco Use Types Packs/Day Years [...] encounter Miscellaneous Notes * Telephone Encounter - Sirisha Orellana RN - 09/23/2024 12:59 PM EST Pt cancelled AUTHOR AGENT RV appt today. Return TC to patient, patient stated he had another appt today and couldn't male it. AUTHOR AGENT RV rescheduled for 10/14/24 @ 2pm. * Telephone Encounter - Elizabeth Foster - 09/23/2024 12:52 PM EST Tc from pt requesting a call back to r/s Nurse visit AUTHOR AGENT RV appt . Pt stating he can only do or Friday. documented in this encounter Plan of Treatment Upcoming Encounters Date Type Department Care Team (Late st Contact Info) Description 10/14/2024 2:00 PM EST Clinical Support [facility] MEDICINE [address] [place] [address] Sirisha Orellana RN 11/04/2024 2:30 PM EST Office Visit [facility] OPTOMETRY [address] [place] [address] Adrianna Cleary, OD [address] [place] [address] documented as of this encounter Visit Diagnoses Not on filedocumented in this encounter Additional Health Concerns Assessment Noted Time PHQ-9 Depression Total Score: 0 05/28/20 1:56 PM EDT documented as of this encounter Care Teams Cook Manager Relationship Specialty Start Date End Date Mireya Beltran MD [address] [place] [address] PCP - General Family Medicine 05/28/24 documented as of this encounter
--- OUTSIDE RECORDS SUMMARY | 2024-09-30 16:43 | XMS_ITS | Encounter Summary ---
Author Organization [employer] Address [address] [place] [address] [address] [place] [address] Care Team Providers Care Math Instructor Name Role Phone Jnenifer Schroeder MD Primary Care Provider Mireya Beltran MD Primary Care Provider [phone] Reason for Visit * Reason Comments Med Refill Encounter Details Date Type Department Care Team (Late Contact Info) Description 05/01/2023 Refill [facility] MEDICINE [address] [place] [address] Jennifer Schroeder MD [address] [place] [address] Insomnia, unspecified type Social History Tobacco Use [...] Description 10/14/2024 2:00 PM EST Clinical Support [facility] MEDICINE [address] [place] [address] Sirisha Orellana RN 11/04/2024 2:30 PM EST Office Visit [facility] OPTOMETRY [address] [place], [place] [phone] Adrianna Cleary, OD [address] [place] [address] documented as of this encounter Visit Diagnoses Diagnosis Insomnia, unspecified type documented in this encounter Additional Health Concerns Assessment Noted Time PHQ-9 Depression Total Score: 2 09/26/19 23 2:58 PM EST documented as of this encounter Care Teams Math Instructor Relationship Specialty Start Date End Date Jennifer Schroeder MD [address] [place], [place] [phone] PCP - General Family Medicine 06/19/21 05/27/24 Mireya Beltran MD [address] [place], [place] [phone] PCP - General Family Medicine 05/28/24 documented as of this encounter
--- OUTSIDE RECORDS SUMMARY | 2024-09-30 16:43 | XMS_ITS | Encounter Summary ---
Author Organization [employer] Address [address] [facility] 7[address] [place] [address] Care Team Providers Care Epoxy Specialist Name Role Phone Jennifer Schroeder MD Primary Care Provider [phone] Mireya Beltran MD Primary Care Provider [phone] Reason for Visit * Reason Comments Med Refill Encounter Details Date Type Department Care Team ([facility] st Contact Info) Description 02/12/2024 Refill [facility] [address] [place] [address] Jennifer Schroeder MD [address] [place] [address] Social History Tobacco Use Types Packs/Day Years [...] 10/14/2024 2:00 PM EST Clinical Support [facility] MEDICINE [address] [place] [address] Sirisha Orellana, RN 11/04/2024 2:30 PM EST Office Visit [facility] OPTOMETRY [address] [place], [place] [phone] Evin, Adrianna, OD [address] [place] [address] documented as of this encounter Visit Diagnoses Not on filedocumented in this encounter Additional Health Concerns Assessment Noted Time PHQ-9 Depression Total Score: 2 09/26/19 23 2:58 PM EST documented as of this encounter Care Teams Epoxy Specialist Relationship Specialty Start Date End Date Jennifer Schroeder MD [address] [place] [phone] PCP - General Family Medicine 06/19/21 05/27/24 Mireya Beltran MD [address] [place] [phone] PCP - General Family Medicine 05/28/24 documented as of this encounter
--- OUTSIDE RECORDS SUMMARY | 2024-09-30 16:43 | XMS_ITS | Encounter Summary ---
Author Organization [employer] Address [address] [facility] [address] [place] [address] Care Team Providers Care Doubling Machine Operator Name Role Phone Jennifer Schroeder MD Primary Care Provider [phone] Mireya Beltran MD Primary Care Provider [phone] Reason for Visit * Reason Onset Date Comments Appointment 03/21/2023 Encounter Details Date Type Department Care Team (Late st Contact Info) Description 03/21/2023 Telephone [facility] [address] [place], [place] [phone] Xavier Watt [address] [place] [address] Appointment Social History Tobacco Use Types Packs/Day Years [...] encounter Miscellaneous Notes * Telephone Encounter - Jessica Schroeder - 03/21/2023 12:30 PM EDT Valerio Tello 1960 Patient called in and stated he does not have his preop medication and his appt for SRP is 03/21/2023 at 2:00pm documented in this encounter Plan of Treatment Upcoming Encounters Date Type Department Care Team (Late st Contact Info) Description 10/14/2024 2:00 PM EST Clinical Support [facility] MEDICINE [address] [place] [address] Sirisha Orellana, RN 11/04/2024 2:30 PM EST Office Visit [facility] OPTOMETRY [address] [place] [address] Evin, Adrianna, OD [address] [place] [address] documented as of this encounter Visit Diagnoses Not on filedocumented in this encounter Additional Health Concerns Assessment Noted Time PHQ-9 Depression Total Score: 2 09/26/19 23 2:58 PM EST documented as of this encounter Care Teams Doubling Machine Operator Relationship Specialty Start Date End Date Jennifer Schroeder MD [address] [place] [phone] PCP - General Family Medicine 06/19/21 05/27/24 Mireya Beltran MD [address] [place] [phone] PCP - General Family Medicine 05/28/24 documented as of this encounter
--- OUTSIDE RECORDS SUMMARY | 2024-09-30 16:43 | XMS_ITS | Clinical Summary ---
Author Organization [employer] Address [address] [facility] 7t [place] [address] Care Team Providers Care Assembler Faucets Name Role Phone Mireya Beltran MD Primary Care Provider [phone] Allergies Active Allergy Reactions Criticality Noted Date Comments Penicillins Rash Low 08/12/2022 Medications thiamine (Vitamin B-1) 100 MG tabletIndicatio ns:Alcohol dependence, in remission (CMS/HCC) TAKE 1 TABLET BY MOUTH EVERY DAY 30 tablet 9 08/19/20 23 Active folic acid (Folvite) 1 MG tablet TAKE 1 TABLET BY MOUTH EVERY MORNING 90 tablet 1 12/17/19 24 Active amLODIPine (Norvasc) 5 MG tablet Take 5 mg by mouth Once per day. 04/15/20 24 Active labetalol (Normodyne) 200 MG tablet Take 1 tablet by mouth 2 times daily. 04/15/20 24 Active tadalafil (Cialis) 5 MG tablet Take 5 mg by mouth Once per day. 12/26/19 24 Active busPIRone (Buspar) 7.5 MG tabletIndicatio ns:Anxiety TAKE 1 TABLET BY MOUTH TWICE DAILY 180 tablet 1 06/07/20 24 Active hydrOXYzine pamoate (Vistaril) 25 MG capsuleIndicati ons:Anxiety TAKE 1 CAPSULE BY MOUTH EVERY 6 HOURS NEEDED FOR ITCHING OR ANXIETY 90 capsule 1 06/07/20 24 Active diclofenac (Voltaren) 75 MG EC tabletIndicatio ns:Back pain, unspecified back location, unspecified back pain laterality, unspecified chronicity TAKE 1 TABLET BY MOUTH TWICE DAILY IN THE MORNING AND IN THE EVENING WITH MEALS. DO NOT BREAK, CRUSH, DISSOLVE OR CHEW. 30 tablet 06/15/20 24 Active naloxone (Narcan) 4 mg/0.1 mL nasal sprayIndication s:Insomnia, unspecified type Administer 1 spray (4 mg) into affected nostril(s) if needed for opioid reversal. May repeat every 2-3 minutes if needed, alternating nostrils, until medical assistance becomes available. 2 each 3 07/23/20 24 025 Active gabapentin (Neurontin) 600 MG tabletIndicatio ns:Neuropathy TAKE 1 TABLET BY MOUTH THREE TIMES DAILY 90 tablet 5 07/23/20 24 Active temazepam (Restoril) 30 MG capsuleIndicati ons:Insomnia, unspecified type TAKE 1 CAPSULE BY MOUTH AT BEDTIME NEEDED FOR SLEEP 28 capsule 09/24/19 25 Active baclofen (Lioresal) 10 MG tablet Take 1 tablet by mouth 2 times daily. 01/19/20 24 Active potassium chloride CR (Klor-Con M20) 20 MEQ ER tablet Take 2 tablets by mouth Once per day. 04/15/20 24 Active temazepam (Restoril) 30 MG capsuleIndicati ons:Insomnia, unspecified type TAKE 1 CAPSULE BY MOUTH EVERY DAY AT BEDTIME NEEDED for SLEEP. 28 capsule 08/24/20 24 025 Discontinued Active Problems Problem Noted Date Diagnosed Date Erectile dysfunction 08/18/2023 Assessment & Plan (08/18/2023 2:23 PM EST): Patient that presented visit with complaints of erectile dysfunction will be referred to Urology. Periodontal disease 08/13/2023 Dental plaque 08/13/2023 Missing teeth, acquired 08/13/2023 Crowded teeth 08/13/2023 Hypertension 07/07/2023 Assessment & Plan (05/29/2024 11:46 AM EDT): Continue Amlodipine 5mg daily At goal today Will recheck CMP/renal function at next office visit Assessment & Plan (08/18/2023 2:20 PM EST): Uncontrolled: patient presented visit with an elevated blood pressure with readings of 140/84 mmHg. Advised to send readings through patient portal. Recommended to keep monitoring at home and bring readings upon next office visit. Assessment & Plan (07/09/2023 3:17 PM EST): Uncontrolled: patient presented visit with an elevated blood pressure with readings of 150/86 mmHg. Recommended to keep monitoring blood pressure at home at least once a day. *Blood pressure was retaken at the time of visit with readings of 140/98 mmHg. -Labs: CBC, Albumin, Metabolic Panel, Lipid Panel. Discoloration and thickening of nails both feet 07/07/2023 Assessment & Plan (07/07/2023 2:34 PM EST): -Patient will be referred to Podiatry. Mid back pain on right side 09/26/2022 Assessment & Plan (09/26/2022 5:34 PM EST): Symptoms persistent despite conservative therapy and completing PT. Patient requested chiropracter referral which was placed. Also will send for throacic MRI to be sent to [facility]. F/u prn Added APAP to regimen for synergistic use with NSAID. Pending MRI results will refer to pain management. Alcoholism 09/25/2022 Assessment & Plan (05/29/2024 11:47 AM EDT): Check in with patient at next visit about current drinking habits Anxiety 09/25/2022 Assessment & Plan (05/29/2024 11:48 AM EDT): Pt does not want to give up Benzo for sleep, but is interested in consolidating the other medications during the day Consider Wellbutrin, he will discuss with urology and then with me at next visit Assessment & Plan (07/07/2023 2:35 PM EST): Patient still presents concerns of anxiety upon visit. Recommended patient to talk with Therapist and Psychiatrist. Therefore, patient will be given a list of different psychiatrist that could be available for him. Will be prescribing Hydroxyzine. Benign prostatic hyperplasia 09/25/2022 Depressive disorder 09/25/2022 Vitamin D deficiency 09/25/2022 Sick sinus syndrome 09/25/2022 Prolonged QT interval 12/25/2017 Primary cardiomyopathy 02/24/2017 Psychoactive substance use disorder 11/29/2016 Resolved Problems Problem Noted Date Diagnosed Date Resolved Date Hyperkalemia 08/18/2023 05/29/2024 Assessment & Plan (08/18/2023 2:22 PM EST): Labs: Basic Metabolic Panel, Magnesium. Cardiogenic shock 09/25/2022 05/28/2024 Encounters Date Type Department Care Team Description 09/30/2024 2:30 PM EST Office Visit [address] [address] Mireya Beltran MD Arrived 09/30/2024 Travel 09/23/[address] [address] Mireya Beltran MD R/s CTS appt. 09/22/2024 Refill [facility] [address] [place] [address] Mireya Beltran MD Insomnia, unspecified type 09/21/2024 Patient Outreach [address] [address] Mireya Beltran MD Pre-visit Planning ((Unable to reach for PVP screening, LVM)) 09/08/[address] [address] Mellissa Weinstein MA RS APPT 08/24/2024 Refill [facility] [address] [place] [address] Mireya Beltran MD Insomnia, unspecified type 08/24/2024 Refill [facility] [address] [place] [address] Mireya Beltran MD Insomnia, unspecified type 08/12/2024 Patient Outreach [address] [address] Mireya Beltran MD Pre-visit Planning (SDOH screening completed on 05/28/2024) 07/23/2024 Refill [facility] [address] [place] [address] Mireya Beltran MD Insomnia, unspecified type 07/23/2024 Refill [facility] [address] [place] [address] Jennifer Schroeder MD Neuropathy 07/22/2024 1:00 PM EST Clinical Support [facility] [address] [place] [address] Sirisha Orellana RN Benzodiazepine use agreement exists (Primary Dx); Anxiety 07/22/2024 Refill [facility] [address] [place] [address] Sirisha Orellana RN Insomnia, unspecified type 07/22/2024 Travel 07/19/2024 Travel from Last 3 Months Immunizations Name Administration Dates Next Due Pfizer Covid-19 Vaccine 12+ 05/28/2024 Social History Tobacco Use Types Packs/Day Years Used Date Smoking Tobacco: Never Passive Smoke Exposure: Never Smokeless Tobacco: Never Tobacco Cessation:Counseling Given: Not Answered Alcohol Use Standard Drinks/Week Comments Not Currently [...] Orientation Straight 07/01/2022 10 :31 AM EDT Last Filed Vital Signs Vital Sign Reading Time Taken Comments Blood Pressure 132/83 09/30/2024 2:41 PM EST Pulse 66 09/30/2024 2:41 PM EST Temperature 36.6 ??C (97.9 ??F) 09/30/2024 2:41 PM ES T Respiratory Rate 18 09/30/2024 2:41 PM EST Oxygen Saturation 98% 09/30/2024 2:41 PM EST Inhaled Oxygen Concentration - - Weight 69.1 kg (152 lb 4 oz) 09/30/2024 2:41 PM EST Height 172.7 cm (5' 8 ) 09/30/2024 2:41 PM EST Body Mass Index 23.15 09/30/2024 2:41 PM EST Plan of Treatment Upcoming Encounters Date Type Department Care Team (Late st Contact Info) Description 10/14/2024 2:00 PM EST Clinical Support [facility] [address] [place] [address] Sirisha Orellana, CHEL 11/04/2024 2:30 PM EST Office Visit [facility] [address] [place] [address] Evin, Adrianna, OD [address] [place] [address] Health Maintenance Due Date Last Done Comments CT Colonography 1962 Colonoscopy 1962 Dental X-Ray: Full Mouth 1962 FIT 1962 FOBT 1962 HIV Screening 1962 Sigmoidoscopy 1962 Hepatitis C Screening 1980 DTaP/Tdap/Td Vaccines (1 - Tdap) 1981 Hepatitis A Vaccines (1 of 2 - Risk 2-dose series) 1981 Pneumococcal Vaccine: 50+ Years (1 of 2 - PCV) 1981 Zoster Vaccines (1 of 2) 2012 RSV Patients and Patients Aged 60 years or older (1 - Risk 60-74 years 1-dose series) 2022 Dental Oral Exam 01/17/2024 07/18/2023, 08/12/2022 Dental Prophylaxis 02/13/2024 08/13/2023, 12/05/2022 Influenza Vaccine (#1) 2024 Dental X-Ray: Bitewings 12/19/2024 12/19/19 24, 07/18/2023, 08/12/2022 Depression Screening 05/28/2025 05/28/2024, 05/28/20 SDOH Screening 05/28/2025 05/28/2024 Alcohol/Substance Use Screening 09/30/2025 09/30/2024 Tobacco Screening 09/30/2025 09/30/2024 Colorectal Cancer Screening 08/13/2026 FIT DNA/Cologuard 08/13/2026 08/13/2023 Lipid Panel 07/21/2028 07/21/2023 COVID-19 Vaccine Completed 05/28/2024, , 04/15/2022, Additional history exists HIB Vaccines Aged Out No longer eligi ble based on patient's age to complete this topic HPV Vaccines Aged Out No longer eligi ble based on patient's age to complete this topic Hepatitis B Vaccines Aged Out No long er eligible based on patient's age to complete this topic IPV Vaccines Aged Out No longer eligi ble based on patient's age to complete this topic Meningococcal Vaccine Aged Out No hemanth kaity eligible based on patient's age to complete this topic RSV under 20 months Aged Out No longe r eligible based on patient's age to complete this topic Rotavirus Vaccines Aged Out No longer eligible based on patient's age to complete this topic Procedures Procedure Name Priority Date/Time Associated Diagnosis Comments POCT MISTY-14 URINE DRUG SCREEN Routine 07/22/2024 1:08 PM EST Benzodiazepine use agreement exists BITEWING - SINGLE RADIOGRAPHIC IMAGE Routine 12/19/2023 2:30 PM EDT Full PROPHYLAXIS - ADULT Routine 08/13/2023 1:00 PM EST LAB COLOGUARD?? COLON CANCER SCREEN Routine 08/13/2023 12:20 PM EST Colon cancer screening LIPID PANEL, STANDARD Routine 07/21/2023 1:33 PM EST Hypertension, unspecified type PERIODIC ORAL EVALUATION - ESTABLISHED PATIENT Routine 07/18/2023 1:00 PM EST from Last 3 Months or Most Recently Relevant to Health Maintenance Results * POCT MISTY-14 Urine Drug Screen (07/22/2024 1:08 PM EST) Benzodiazepines Screen, Urine Positive Urine Urine specimen obtained by clean catch procedure / Unknown 07/22/2024 1:08 PM EST Sirisha Howard RN - 07/22/2024 1:08 PM EST UTOX cup Lot#[id number] Exp. 04/20/26 Internal Pass Control Mireya Beltran MD POINT OF CARE TEST ENTER/EDIT ORDERABLES Final Result * Cologuard?? colon cancer screening (08/13/2023 12:20 PM EST) Cologuard Result Negative Negative 08/21/20 3:41 AM EST [employer] (CLIA #:[id number]) Comment: NEGATIVE TEST RESULT. A negative Cologuard result indicates a low likelihood that a colorectal cancer (CRC) or advanced adenoma (adenomatous polyps with more advanced pre-malignant features) ??is present. The chance that a person with a negative Cologuard test has a colorectal cancer is less than 1 in 1500 (negative predictive value >99.9%) or has an ??advanced adenoma is less than ??5.3% (negative predictive value 94.7%). These data are based on a prospective cross-sectional study of 10,000 individuals at average risk for colorectal cancer who were screened with both Cologuard and colonoscopy. (Russell Hutchison al, N Engl J Med 2014;370(14):1286- 1297) The normal value (reference range) for this assay is negative. COLOGUARD RE-SCREENING RECOMMENDATION: Periodic colorectal cancer screening is an important part of preventive healthcare for asymptomatic individuals at average risk for colorectal cancer. ??Following a negative Cologuard result, the [place] Cancer Society and U.S. Multi-Society Task Force screening guidelines recommend a Cologuard re-screening interval of 3 years. References: [place] [employer] Society Guideline for Colorectal Cancer Screening: https://www.cancer.org/cancer/jsriq-ylivkm-wnoxdv/vsoeuilzc-ztvxfcizs-rzmfbmg/ac s-rec ommendations.html.; Edy DK, Nahid CR, Memo CanasK, Colorectal Cancer Screening: Recommendations for Physicians and Patients from the U.S. Multi-Society Task Force on Colorectal Cancer Screening , Am J Gastroenterology 2017; 112:6107-4806. TEST DESCRIPTION: Composite algorithmic analysis of stool DNA-biomarkers with hemoglobin immunoassay. ?? Quantitative values of individual biomarkers are not reportable and are not associated with individual biomarker result reference ranges. Cologuard is intended for colorectal cancer screening of adults of either sex, 45 years or older, who are at average-risk for colorectal cancer (CRC). Cologuard has been approved for use by the U.S. FDA. The performance of Cologuard was established in a cross sectional study of average-risk adults aged 50-84. Cologuard performance in patients ages 45 to 49 years was estimated by sub-group analysis of near-age groups. Colonoscopies performed for a positive result may find as the most clinically significant lesion: colorectal cancer [4.0%], advanced adenoma (including sessile serrated polyps greater than or equal to 1cm diameter) [20%] or non- advanced adenoma [31%]; or no colorectal neoplasia [45%]. These estimates are derived from a prospective cross-sectional screening study of 10,000 individuals at average risk for colorectal cancer who were screened with both Cologuard and colonoscopy. (Russell Hutchison al, N Engl J Med 2014;370(14):5956-7609.) Cologuard may produce a false negative or false positive result (no colorectal cancer or precancerous polyp present at colonoscopy follow up). A negative Cologuard test result does not guarantee the absence of CRC or advanced adenoma (pre-cancer). The current Cologuard screening interval is every 3 years. ([place] Cancer Society and U.S. Multi-Society Task Force). Cologuard performance data in a 10,000 patient pivotal study using colonoscopy as the reference method can be accessed at the following location: www.Utel.com/results. Additional description of the Cologuard test process, warnings and precautions can be found at www.[employer]porama.com. Stool specimen (specimen) 08/13/2023 12:20 PM EST 08/15/2023 7:44 PM EST us eJnnifer Schroeder MD LAB MOLECULAR DIAGNOSTICS ORD ERABLES Final Result Performing Organization Address City/[facility]/ZIP Co de Phone Number [employer] (CLIA #:[id number]) [place] [address], [place] [phone] * (ABNORMAL) Lipid Panel, Standard (07/21/2023 1:33 PM EST) Triglycerides 93 <150 mg/dL [facility] Comment:Desirable Triglyceri de: less than 150 mg/dLBorderline High Triglyceride 150-199 mg/dLHigh Triglyceride: 200-499 mg/dLVery High Triglyceride: greater than or equal to 5OO mg/dL Cholesterol 183 <200 mg/dL [facility] Comment:Desirable Cholestero l: less than 200 mg/dLBorderline High Cholesterol: 200-239 mg/dLHigh Cholesterol: greater than 239 mg/dL LDL Cholesterol Calculated 115(H) <100 mg/dL [facility] Comment:Desirable LDL: less than 100 mg/dLNear Optimal/Above Optimal LDL: 110- 129 mg/dLBorderline High LDL: 130-159 mg/dLHigh LDL: 160-189 mg/dLVery High LDL: greater than or equal to 190 mg/dL HDL Cholesterol 50 >40 mg/dL [facility] Comment:Desirable HDL: great er than 40 mg/dL Note: This HDL assay may give artificially low results in patients with liver disease. Blood Venous blood specimen / Unknown 07/21/2023 1:33 PM EST 07/21/2023 3:59 PM EST us Jennifer Schroeder MD LAB BLOOD ORDERABLES Final Re sult [facility] [address] [place] [address] [phone] from Last 3 Months or Most Recently Relevant to Health Maintenance Insurance [facility]IC[facility] STAND ADULT Care Teams Assembler Faucets Relationship Specialty Start Date End Date Mireya Beltran MD [address] [place] [id number] PCP - General Family Medicine 05/28/24
--- OUTSIDE RECORDS SUMMARY | 2024-09-30 16:43 | XMS_ITS | Encounter Summary ---
Author Organization [employer] Address [address] [facility] [address] [place] [address] Care Team Providers Care Powerhouse Electrician Name Role Phone Jennifer Schroeder MD Primary Care Provider [phone] Mireya Beltran MD Primary Care Provider [phone] Reason for Visit * Reason Onset Date Comments PT1 08/19/2023 Encounter Details Date Type Department Care Team ([facility] st Contact Info) Description 08/19/2023 Telephone [facility] [address] [place] [address] Jennifer Schroeder MD [address] [place] [address] PT1 Social History Tobacco Use Types Packs/Day Years [...] encounter Miscellaneous Notes * Telephone Encounter - India Albarado - 08/20/2023 10:11 AM EST PT-1 submitted for patient. They will receive a letter of approval or denial in the mail. * Telephone Encounter - Deo Altamirano - 08/19/2023 1:14 PM EST PT1 needed Date: 08/27/2023 Time: 1:00 pm Visits: All future Appt's Address: [address] [place] [address] Facility: Dr. Rose, Podiatry Wheel Chair: No Telephone Repairer Needed: No documented in this encounter Plan of Treatment Upcoming Encounters Date Type Department Care Team (Late st Contact Info) Description 10/14/2024 2:00 PM EST Clinical Support [facility] [address] [place] [address] Sirisha Orellana, RN 11/04/2024 2:30 PM EST Office Visit [facility] [address] [place] [address] Adrianna Cleary, OD [address] [place] [address] documented as of this encounter Visit Diagnoses Not on filedocumented in this encounter Additional Health Concerns Assessment Noted Time PHQ-9 Depression Total Score: 2 09/26/19 23 2:58 PM EST documented as of this encounter Care Teams Powerhouse Electrician Relationship Specialty Start Date End Date Jennifer Schroeder MD [address] [place] [address] PCP - General Family Medicine 06/19/21 05/27/24 Mireya Beltran MD [address] [place] [address] PCP - General Family Medicine 05/28/24 documented as of this encounter
--- OUTSIDE RECORDS SUMMARY | 2024-09-30 16:43 | XMS_ITS | Encounter Summary ---
Author Organization [employer] Address [address] [facility] [facility] [address] [place] [address] Care Team Providers Care Radiator Specialist Name Role Phone Jennifer Schroeder MD Primary Care Provider [phone] Mireya Beltran MD Primary Care Provider [phone] Reason for Visit * Reason Onset Date Comments Referral 07/28/2023 Encounter Details Date Type Department Care Team ([facility] st Contact Info) Description 07/28/2023 Telephone [facility] [address] [place] [address] Jennifer Schroeder MD [address] [place] [address] Referral Social History Tobacco Use Types Packs/Day [...] encounter Miscellaneous Notes * Telephone Encounter - Daphne Salinas - 07/28/2023 4:12 PM EST Tc from pt requesting status on laundry route driver referral. States pt spoke with provider about referral during 07/07 OV. Tool Room Gear Machine Operator does not see any documentation Please contact pt at [phone] (Iraqi) documented in this encounter Plan of Treatment Upcoming Encounters Date Type Department Care Team (Late st Contact Info) Description 10/14/2024 2:00 PM EST Clinical Support [facility] [address] [place] [address] Sirisha Orellana, RN 11/04/2024 2:30 PM EST Office Visit [facility] [address] [place] [address] Adrianna Cleary, DEWAYNE [address] [place] [address] documented as of this encounter Visit Diagnoses Not on filedocumented in this encounter Additional Health Concerns Assessment Noted Time PHQ-9 Depression Total Score: 2 09/26/19 23 2:58 PM EST documented as of this encounter Care Teams Radiator Specialist Relationship Specialty Start Date End Date Jennifer Schroeder MD [address] [place] [address] PCP - General Family Medicine 06/19/21 05/27/24 Mireya Beltran MD [address] [place] [address] PCP - General Family Medicine 05/28/24 documented as of this encounter
--- OUTSIDE RECORDS SUMMARY | 2024-09-30 16:43 | XMS_ITS | Encounter Summary ---
Author Organization [employer] Address [address] [place] [address] Care Team Providers Care Subsea Engineer Name Role Phone Jennifer Schroeder MD Primary Care Provider [phone] Mireya Beltran MD Primary Care Provider [phone] Reason for Visit * Reason Onset Date Comments Referral 08/01/2023 Encounter Details Date Type Department Care Team ([facility] st Contact Info) Description 08/01/2023 Telephone [facility] [address] [place] [address] Jennifer Schroeder MD [address] [place] [address] Referral Social History Tobacco Use Types Packs/Day [...] * Telephone Encounter - India Albarado - 08/04/2023 11:04 AM EST Referral re faxed to Dr. Rose office/podiatry. * Telephone Encounter - Daphne Salinas - 08/01/2023 3:42 PM EST Tc from pt requesting for referral to podiatry to be resent to [phone]. documented in this encounter Plan of Treatment Upcoming Encounters Date Type Department Care Team (Late st Contact Info) Description 10/14/2024 2:00 PM EST Clinical Support [facility] [address] [place] [address] Sirisha Orellana RN 11/04/2024 2:30 PM EST Office Visit [facility] [address] [place] [address] Adrianna Cleary, OD [address] [place] [address] documented as of this encounter Visit Diagnoses Not on filedocumented in this encounter Additional Health Concerns Assessment Noted Time PHQ-9 Depression Total Score: 2 09/26/19 23 2:58 PM EST documented as of this encounter Care Teams Subsea Engineer Relationship Specialty Start Date End Date Jennifer Schroeder MD [address] [place] [address] PCP - General Family Medicine 06/19/21 05/27/24 Mireya Beltran MD [address] [place] [address] PCP - General Family Medicine 05/28/24 documented as of this encounter
--- OUTSIDE RECORDS SUMMARY | 2024-09-30 16:43 | XMS_ITS | Encounter Summary ---
Author Organization [employer] [facility] Address [address] [place] [address] [address] [place] [address] Care Team Providers Care Metal Fabricating Supervisor Name Role Phone Jennifer Schroeder MD Primary Care Provider [phone] Mireya Beltran MD Primary Care Provider [phone] Encounter Details Date Type Department Care Team (Latest Contact Info) Description 05/26/2019 Abstract [facility] CONVERSION[facility] Dental, Provider, DDS Social History Tobacco Use Types Packs/Day Years Used Date Smoking Tobacco: Never Assessed Sex and Gender Information Value Date Recorded Sex Assigned at Male 07/01/2022 10:31 AM EDT Legal Sex Male 10:31 AM EDT Gender Identity Male 07/01/2022 10:31 AM EDT Sexual Orientation Straight 07/01/2022 10 :31 AM EDT documented as of this encounter Plan of Treatment Upcoming Encounters Date Type Department Care Team (Late st Contact Info) Description 10/14/2024 2:00 PM EST Clinical Support [facility] [address] [place] [address] Sirisha Orellana RN 11/04/2024 2:30 PM EST Office Visit [facility] [address] [place] [address] Adrianna Cleary, OD [address] [place] [address] documented as of this encounter Visit Diagnoses Not on filedocumented in this encounter Care Teams Metal Fabricating Supervisor Relationship Specialty Start Date End Date Jennifer Schroeder MD [address] [place] [address] PCP - General Family Medicine 06/19/21 05/27/24 Mireya Beltran MD [address] [place] [address] PCP - General Family Medicine 05/28/24 documented as of this encounter
--- OUTSIDE RECORDS SUMMARY | 2024-09-30 16:43 | XMS_ITS | Encounter Summary ---
Author Organization [employer] Address [address] [facility] 7t [place] [address] Care Team Providers Care Amphibian Crewmember Name Role Phone Mireya Beltran MD Primary Care Provider [phone] Reason for Visit * Reason Comments Med Refill Encounter Details Date Type Department Care Team ([facility] st Contact Info) Description 09/22/2024 Refill [facility] MEDICINE [address] [place] [address] Mireya Beltran MD [address] [place] [address] Insomnia, unspecified type Social History Tobacco Use [...] Description 10/14/2024 2:00 PM EST Clinical Support [facility] MED[facility]INE [address] [place] [address] Sirisha Orellana, CHEL 11/04/2024 2:30 PM EST Office Visit [facility] OPTOMETRY [address] [place] [address] Adrianna Cleary, DEWAYNE 230 [place] [address] documented as of this encounter Visit Diagnoses Diagnosis Insomnia, unspecified type documented in this encounter Additional Health Concerns Assessment Noted Time PHQ-9 Depression Total Score: 0 05/28/20 24 1:56 PM EDT documented as of this encounter Care Teams Amphibian Crewmember Relationship Specialty Start Date End Date Mireya Beltran MD [address] [place] [address] PCP - General Family Medicine 05/28/24 documented as of this encounter
--- OUTSIDE RECORDS SUMMARY | 2024-09-30 16:43 | XMS_ITS | Encounter Summary ---
Author Organization [employer] Address [address] [facility] [address] 7t [place] [address] Care Team Providers Care Sourcing Analyst Name Role Phone Jennifer Schroeder MD Primary Care Provider [phone] Mireya Beltran MD Primary Care Provider [phone] Reason for Visit * Reason Onset Date Comments PT-1 12/11/2023 Encounter Details Date Type Department Care Team (Late st Contact Info) Description 12/11/2023 Telephone [facility] MEDICINE [address] [place] [address] Jennifer Schroeder MD [address] [place] [address] PT-1 Social History Tobacco Use Types Packs/Day [...] * Telephone Encounter - India Albarado - 12/11/2023 4:42 PM EDT PT-1 submitted for patient. They will receive a letter of approval or denial in the mail. * Telephone Encounter - Sixto Barcenas - 12/11/2023 3:30 PM EDT Patient calling requesting PT1 Home Address verified: Y/N: Yes Provider name or facility name: Dr. Mcneill Facility Address: [address] [place] [address] Escort needed: Y/N: No Do you have a wheelchair: Y/N: No If yes- Manual or electric: no Visits: 6 Patient calling requesting PT1 Home Address verified: Y/N: Yes Provider name or facility name: [facility] Facility Address: [address] [place] [address] [place] [address] Escort needed: Y/N: No Do you have a wheelchair: Y/N: No If yes- Manual or electric: no Visits: 4 documented in this encounter Plan of Treatment Upcoming Encounters Date Type Department Care Team (Late st Contact Info) Description 10/14/2024 2:00 PM EST Clinical Support [facility] MEDICINE [address] [place] [address] Sirisha Orellana, CHEL 11/04/2024 2:30 PM EST Office Visit [facility] OPTOMETRY [address] [place] [address] Adrianna Cleary, OD [address] [place] [address] documented as of this encounter Visit Diagnoses Not on filedocumented in this encounter Additional Health Concerns Assessment Noted Time PHQ-9 Depression Total Score: 2 09/26/19 23 2:58 PM EST documented as of this encounter Care Teams Sourcing Analyst Relationship Specialty Start Date End Date Jennifer Schroeder MD [address] [place] [address] PCP - General Family Medicine 06/19/21 05/27/24 Mireya Beltran MD [address] [place] [address] PCP - General Family Medicine 05/28/24 documented as of this encounter
--- OUTSIDE RECORDS SUMMARY | 2024-09-30 16:43 | XMS_ITS | Encounter Summary ---
Author Organization [employer] Address 75 [facility] 7t [place] [address] Care Team Providers Care Wire Coating Machine Operator Name Role Phone Mireya Beltran MD Primary Care Provider [phone] Reason for Visit * Reason Comments Med Refill Encounter Details Date Type Department Care Team ([facility] Contact Info) Description 07/23/[address] [facility] MEDICINE [address] [place] [address] Mireya Beltran MD [address] [place] [address] Insomnia, unspecified type Social History Tobacco Use [...] Description 10/14/2024 2:00 PM EST Clinical Support [facility] MEDICINE [address] [place] [address] Sirisha Orellana, CHEL 11/04/2024 2:30 PM EST Office Visit [facility] OPTOMETRY [address] [place] [address] Adrianna Cleary, DEWAYNE 230 [place] [address] documented as of this encounter Visit Diagnoses Diagnosis Insomnia, unspecified type documented in this encounter Additional Health Concerns Assessment Noted Time PHQ-9 Depression Total Score: 0 05/28/20 24 1:56 PM EDT documented as of this encounter Care Teams Wire Coating Machine Operator Relationship Specialty Start Date End Date Mireya Beltran MD [address] [place] [address] PCP - General Family Medicine 05/28/24 documented as of this encounter
--- OUTSIDE RECORDS SUMMARY | 2024-09-30 16:43 | XMS_ITS | Encounter Summary ---
Author Organization [employer] Address [address] [facility] [address] 7[address] [place] [address] Care Team Providers Care General Production Laborer Name Role Phone Jennifer Schroeder MD Primary Care Provider [phone] Mireya Beltran MD Primary Care Provider [phone] Reason for Visit * Reason Onset Date Comments Med Refill 03/10/2023 Encounter Details Date Type Department Care Team (Late st Contact Info) Description 03/10/2023 Telephone [facility] MEDICINE [address] [place] [address] Jennifer Schroeder MD [address] [place] [address] Med Refill Social History Tobacco Use Types Packs/Day Years [...] * Telephone Encounter - Marta Maldonado - 03/10/2023 12:50 PM EDT Tc from pt requesting a refill for temazepam 30 mg documented in this encounter Plan of Treatment Upcoming Encounters Date Type Department Care Team (Late st Contact Info) Description 10/14/2024 2:00 PM EST Clinical Support [facility] MEDICINE [address] [place] [address] Sirisha Orellana RN 11/04/2024 2:30 PM EST Office Visit [facility] OPTOMETRY [address] [place] [address] Evin, Adrianna, OD [address] [place] [address] documented as of this encounter Visit Diagnoses Not on filedocumented in this encounter Additional Health Concerns Assessment Noted Time PHQ-9 Depression Total Score: 2 09/26/19 23 2:58 PM EST documented as of this encounter Care Teams General Production Laborer Relationship Specialty Start Date End Date Jennifer Schroeder MD 230 [place] [address] PCP - General Family Medicine 06/19/21 05/27/24 Mireya Beltran MD 230 [facility] [place] [address] PCP - General Family Medicine 05/28/24 documented as of this encounter
--- OUTSIDE RECORDS SUMMARY | 2024-09-30 16:43 | XMS_ITS | Encounter Summary ---
Author Organization [employer] Address [address] [place] [address] 7[address] [place] [address] Care Team Providers Care Diesel Truck Technician Name Role Phone Jennifer Schroeder MD Primary Care Provider [phone] Mireya Beltran MD Primary Care Provider [phone] Reason for Visit * Reason Comments Med Refill Encounter Details Date Type Department Care Team (Late st Contact Info) Description 05/22/[address] [address] Jennifer Schroeder MD 505 [place] [address] Back pain, unspecified back location, unspecified back pain laterality, unspecified chronicity Social History Tobacco Use Types Packs/Day Years [...] Description 10/14/2024 2:00 PM EST Clinical Support [facility] 230 [place] [address] Sirisha Orellana, CHEL 11/04/2024 2:30 PM EST Office Visit [facility] OPTOMETRY [address] [place], [place] [id number] Adrianna Cleary, OD [address] [place] [address] documented as of this encounter Visit Diagnoses Diagnosis Back pain, unspecified back location, unspecified back pain laterality, unspecified chronicity documented in this encounter Additional Health Concerns Assessment Noted Time PHQ-9 Depression Total Score: 2 09/26/19 23 2:58 PM EST documented as of this encounter Care Teams Diesel Truck Technician Relationship Specialty Start Date End Date Jennifer Schroeder MD [address] [place] [address] PCP - General Family Medicine 06/19/21 05/27/24 Mireya Beltran MD [address] [place] [address] PCP - General Family Medicine 05/28/24 documented as of this encounter
== END 2024-09-30 13:34 | disposition home or self-care (01) ==
PROVIDERS: PCP General Practice; Visit Provider Internal Medicine Hypertension Specialist
DX: N17.9 Acute kidney failure, unspecified (principal); E83.52 Hypercalcemia
CPT/HCPCS: 99214

== ENCOUNTER → 2024-09-30 12:53 | Outpatient (BNVA) | payer MEDICARE, MEDICAID, SELFPAY | PROVIDERS: PCP General Practice; Visit Provider Internal Medicine Hypertension Specialist | DX: N17.9 Acute kidney failure, unspecified (principal); E83.52 Hypercalcemia | CPT/HCPCS: 99212 ==

== ENCOUNTER 2024-12-30 12:03 | Outpatient (AMB) | payer MEDICARE, MEDICAID, SELFPAY ==
--- NOTE | 2024-12-30 12:03 | A.OFFVIS_ITS ---
Intake Visit Reasons: 6Months Intake Note: Patient presents today for tele visit follow up on: Erectile Dysfunction Urology Medications: tadalafil Blood Thinner: none Diabetic: no Shell Machine Operator Required: No Accompanied by: Self / Same As Patient Allergies Penicillins [PENICILLINS] Allergy (Intermediate, Verified 12/30/24 12:24) RASH Medication List - Last Reconciled 12/30/24 by RAMON Cadrenas buspirone 7.5 mg PO BID diclofenac sodium 75 mg PO BID PRN gabapentin 600 mg PO TID hydroxyzine pamoate 25 mg PO Q6H lisinopril 5 mg PO DAILY tadalafil (Cialis) 5 mg PO DAILY tadalafil 20 mg PO DAILY PRN temazepam 30 mg PO BEDTIME PRN HPI Comments Details: Valerio is a 64-year-old male patient of Dr. Schroeder. He has a past medical history of alcohol dependence quit in 2019, hypertension, paroxysmal AFib, and cardiomyopathy. He is being followed up on today via telehealth for his ED. In discussion with the patient today he reports to be doing and feeling well. He denies having had any bothersome urological issues or concerns since his last office visit here. He reports compliance with daily dose of tadalafil as well as p.r.n. dosing prior to sexual activity. He discusses feeling this has been helpful in maintaining his erections. Labs are as follows... PSA 04/24 0.5 Testosterone 03/24 840 Free testosterone 03/24 87.4 We discussed further treatment options of erectile dysfunction to include penile pump and or penile constriction bands, injectable therapy, and or penile prosthesis. Risks and benefits of these interventions were discussed. He reports be happy with current regimen and would like to continue. He does report being extremely active in his health and goes to the gym 3-5 times per week where he walks 4-6 miles a day without shortness of breath, chest pain, and or palpitations. He otherwise denies any bothersome urinary issues. He denies urinary urgency, urinary frequency, incontinence, nocturia, hematuria, dysuria, foul smelling urine, changes to urinary stream, flank pain, fever, and or chills. He is happy with his current voiding parameters. He otherwise offers no other issues or concerns at this time. [facility] Medical History Incisional pain Right inguinal hernia HTN (hypertension) Right inguinal hernia Paroxysmal atrial fibrillation Cardiomyopathy Surgical History History of right inguinal hernia repair Hx of oral surgery Hx of right heart catheterization History of tonsillectomy Family History Father Esophagus cancer Mother No problems noted. Social History Household Members: None Household Members Other:: lives alone. Housing: Apartment Are you a primary caretaker to a significant other at home: No Do you presently have visiting nurse or other home services: No Alcohol intake: current Alcohol intake frequency: a few times a week Patient Tobacco Use Status: Never used Tobacco service: No Current occupational status: disabled Review of Systems Const Reports no additional complaints Eyes Reports no additional complaints ENT Reports no additional complaints Card Reports as per HPI Resp Reports no additional complaints GI Reports no additional complaints Reports as per HPI Musc Reports as per HPI Neuro Reports no additional complaints Psych Reports no additional complaints Ben/Lymph Reports no additional complaints Aller/Immun Reports no additional complaints Physical Exam Const General: cooperative Resp Effort & Inspection: able to speak in complete sentences Psych Attitude: cooperative Thought process: Normal thought process present Thought content: Normal thought content present Insight: Fair insight present (Psych) Judgement: Fair judgement present (Psych) Telehealth Telehealth Telehealth Platform: [facility] Location of provider rendering services: practice address Location of patient: address on file Patient Identification confirmed using: Name, : Yes Telehealth method: video Patient verbally consented to treatment: Yes Patient verbally consented to billing insurance company: Yes Patient informed of any privacy concerns related to visit: Yes Minutes spent on Phone/Video with Pt.: 15 Assessment & Plan Assessment & Plan (1) Erectile dysfunction: Code(s): N52.9 - Male erectile dysfunction, unspecified Category: Medical Plan We discussed at length potential causes of ED as well as further treatment opti ons; risks and benefits of these interventions were discussed. All questions were answered. Continue daily dosing of tadalafil with p.r.n. dosing; refills provided. He currently denies any bothersome urinary issues or concerns. He reports be happy with current voiding parameters. Follow-up in 6 months; or sooner with any issues, concerns, and or questions. Orders: Orders Prostate Specific Antigen 6 Months N52.9 - Male erectile dysfunction, unspecified Patient Instructions: The patient had an opportunity to ask questions regarding the treatment plan. All questions were answered. Physical exam, labs, and imaging were discussed and reviewed in detail. As well as risks, benefits, and discussion of treatment choices. No major barriers to understanding were identified. The patient expressed understanding and agreement with the above treatment plan. The patient was made aware they should contact our office by phone for worsening of their current condition, the appearance of new symptoms, or with any questions or concerns. Compliance is encouraged with any medications and follow up testing that is ordered. It is a privilege to be allowed the opportunity to participate in? your urological care.? Again, if you have any questions or concerns If you have any questions or concerns please do not hesitate to contact me. The office is [phone]. This note is constructed using voice recognition software. While every effort has been made to ensure accuracy antitank assault gunner errors may have been included. Yours sincerely, ELINA Cardenas Coding Level of Care Code Tele Est Pt Level 3 (34654) Diagnoses Erectile dysfunction N52.9
== END 2024-12-30 12:34 | disposition home or self-care (01) ==
LOC: HO.HUSH 12:03
PROVIDERS: PCP General Practice; Visit Provider Nurse Practitioner Family
DX: N52.9 Male erectile dysfunction, unspecified (principal)
CPT/HCPCS: 99213

== ENCOUNTER → 2024-12-30 12:03 | Outpatient (BNVA) | payer MEDICARE, MEDICAID, SELFPAY | PROVIDERS: PCP General Practice; Visit Provider Nurse Practitioner Family ==

== ENCOUNTER 2025-01-14 14:47 | Outpatient (REF) | payer MEDICARE, MEDICAID, SELFPAY ==
--- OUTSIDE RECORDS SUMMARY | 2025-01-14 14:50 | XMS_ITS | Encounter Summary ---
Author Organization [employer] Address [address] [facility] [address] 7t [place] [address] Care Team Providers Care Industrial Electrical Engineer Name Role Phone Jennifer Schroeder MD Primary Care Provider [phone] Mireya Beltran MD Primary Care Provider [phone] Reason for Visit * Reason Onset Date Comments Referral 07/28/2023 Encounter Details Date Type Department Care Team ([facility] Contact Info) Description 07/28/2023 Telephone [facility] CHC MED & PEDS [address] [place] [address] Jennifer Schroeder MD [address] [place] [address] Referral Social History Tobacco Use Types Packs/Day [...] encounter Miscellaneous Notes * Telephone Encounter - Daphen Brad - 07/28/2023 4:12 PM EST Tc from pt requesting status on adapted physical education teacher referral. States pt spoke with provider about referral during 07/07 OV. Claims Consultant does not see any documentation Please contact pt at [phone] (Thai) documented in this encounter Plan of Treatment Upcoming Encounters Date Type Department Care Team (Late st Contact Info) Description 01/27/2025 2:00 PM EDT Clinical Support [facility] MEDICINE [address] [place] [address] Sirisha Orellana, RN documented as of this encounter Visit Diagnoses Not on filedocumented in this encounter Additional Health Concerns Assessment Noted Time PHQ-9 Depression Total Score: 2 09/26/19 23 2:58 PM EST documented as of this encounter Care Teams Industrial Electrical Engineer Relationship Specialty Start Date End Date Jennifer Schroeder MD [address] [place] [address] PCP - General Family Medicine 06/19/21 05/27/24 Mireya Beltran MD [address] [place] [address] PCP - General Family Medicine 05/28/24 documented as of this encounter
--- OUTSIDE RECORDS SUMMARY | 2025-01-14 14:50 | XMS_ITS | Encounter Summary ---
Author Organization [employer] Address [address] [facility] [address] 7[address] [place] [address] Care Team Providers Care Money Room Supervisor Name Role Phone Mireya Beltran MD Primary Care Provider [phone] Reason for Visit * Reason Comments Med Refill Encounter Details Date Type Department Care Team ([facility] st Contact Info) Description 01/08/2025 Refill [facility] MEDICINE [address] [place], [place] [phone] Mireya Beltran MD [address] [place], [place] [phone] Anxiety Social History Tobacco Use Types Packs/Day Years [...] Description 01/27/2025 2:00 PM EDT Clinical Support [facility] MEDICINE [address] [place] [address] Sirisha Orellana RN documented as of this encounter Visit Diagnoses Diagnosis Anxiety Anxiety state, unspecified documented in this encounter Additional Health Concerns Assessment Noted Time PHQ-9 Depression Total Score: 0 05/28/20 24 1:56 PM EDT documented as of this encounter Care Teams Money Room Supervisor Relationship Specialty Start Date End Date Mireya Beltran MD [address] [place] [address] PCP - General Family Medicine 05/28/24 documented as of this encounter
--- OUTSIDE RECORDS SUMMARY | 2025-01-14 14:50 | XMS_ITS | Encounter Summary ---
Author Organization [employer] Address [address] [facility] [address] [facility] [address] 7[address] [place] [address] Care Team Providers Care Polisher And Sander Name Role Phone Jennifer Schroeder MD Primary Care Provider [phone] Mireya Beltran MD Primary Care Provider [phone] Reason for Visit * Reason Onset Date Comments PT-1 04/19/2024 Encounter Details Date Type Department Care Team (Late st Contact Info) Description 04/19/2024 Telephone [facility] MEDICINE [address] [place] [address] Jennifer Schroeder MD [address] [place] [address] PT-1 Social History Tobacco Use Types Packs/Day [...] Y/N: Yes Provider name or facility name: [facility] Facility Address: [address] [place] [address] Escort needed: Y/N: No Do you have a wheelchair: Y/N: No If yes- Manual or electric: no Visits: 3 documented in this encounter Plan of Treatment Upcoming Encounters Date Type Department Care Team (Late st Contact Info) Description 01/27/2025 2:00 PM EDT Clinical Support [facility] MEDICINE [address] [place] [address] Sirisha Orellana RN documented as of this encounter Visit Diagnoses Not on filedocumented in this encounter Additional Health Concerns Assessment Noted Time PHQ-9 Depression Total Score: 2 09/26/19 23 2:58 PM EST documented as of this encounter Care Teams Polisher And Sander Relationship Specialty Start Date End Date Jennifer Schroeder MD [address] [place] [address] PCP - General Family Medicine 06/19/21 05/27/24 Mireya Beltran MD [address] [place] [address] PCP - General Family Medicine 05/28/24 documented as of this encounter
--- OUTSIDE RECORDS SUMMARY | 2025-01-14 14:50 | XMS_ITS | Encounter Summary ---
Author Organization [employer] Address [address] 7[address] [place] [address] Care Team Providers Care Dye Machine Operator Name Role Phone Jennifer Schroeder MD Primary Care Provider [phone] Mireya Beltran MD Primary Care Provider [phone] Encounter Details Date Type Department Care Team ([facility] Contact Info) Description 12/30/2022 Telephone [facility] MEDICINE [address] [place] [address] Jennifer Schroeder MD [address] [place] [address] Social History Tobacco Use Types Packs/Day Years [...] Upcoming Encounters Date Type Department Care Team ([facility] Contact Info) Description 01/27/2025 2:00 PM EDT Clinical Support [facility] MEDICINE [address] [place] [address] Sirisha Orellana, RN documented as of this encounter Visit Diagnoses Not on filedocumented in this encounter Additional Health Concerns Assessment Noted Time PHQ-9 Depression Total Score: 2 09/26/19 23 2:58 PM EST documented as of this encounter Care Teams Dye Machine Operator Relationship Specialty Start Date End Date Jennifer Schroeder MD [address] [place] [address] PCP - General Family Medicine 06/19/21 05/27/24 Mireya Beltran MD [address] [place] [address] PCP - General Family Medicine 05/28/24 documented as of this encounter
--- OUTSIDE RECORDS SUMMARY | 2025-01-14 14:50 | XMS_ITS | Encounter Summary ---
Author Organization [employer] Address [address] 7[address] [place] [address] Care Team Providers Care Slash Trimmer Name Role Phone Mireya Beltran MD Primary Care Provider [phone] Reason for Visit * Reason Comments Med Refill Encounter Details Date Type Department Care Team ([facility] st Contact Info) Description 07/23/2024 Refill [facility] MEDICINE [address] [place], [place] [phone] Mireya Beltran MD [address] [place], [place] [phone] Insomnia, unspecified type Social History Tobacco Use [...] 2:00 PM EDT Clinical Support [facility] MEDICINE [address] [place] [address] Sirisha Orellana, CHEL documented as of this encounter Visit Diagnoses Diagnosis Insomnia, unspecified type documented in this encounter Additional Health Concerns Assessment Noted Time PHQ-9 Depression Total Score: 0 05/28/20 24 1:56 PM EDT documented as of this encounter Care Teams Slash Trimmer Relationship Specialty Start Date End Date Mireya Beltran MD [address] [place] [address] PCP - General Family Medicine 05/28/24 documented as of this encounter
--- OUTSIDE RECORDS SUMMARY | 2025-01-14 14:50 | XMS_ITS | Encounter Summary ---
Author Organization [employer] Address [address] [facility] [address] [place] [address] Care Team Providers Care Hod Carrier Name Role Phone Jennifer Schroeder MD Primary Care Provider [phone] Mireya Beltran MD Primary Care Provider [phone] Reason for Visit * Reason Comments Med Refill Encounter Details Date Type Department Care Team ([facility] st Contact Info) Description 02/12/2024 Refill [facility] CHC MED & PEDS [address] [place], [place] [phone] Jennifer Schroeder MD [address] [place] [address] Social History Tobacco Use Types Packs/Day Years [...] Description 01/27/2025 2:00 PM EDT Clinical Support [facility] MEDICINE [address] [place] [address] Sirisha Orellana, RN documented as of this encounter Visit Diagnoses Not on filedocumented in this encounter Additional Health Concerns Assessment Noted Time PHQ-9 Depression Total Score: 2 09/26/19 23 2:58 PM EST documented as of this encounter Care Teams Hod Carrier Relationship Specialty Start Date End Date Jennifer Schroeder MD [address] [place] [address] PCP - General Family Medicine 06/19/21 05/27/24 Mireya Beltran MD [address] [place] [address] PCP - General Family Medicine 05/28/24 documented as of this encounter
--- OUTSIDE RECORDS SUMMARY | 2025-01-14 14:50 | XMS_ITS | Encounter Summary ---
Author Organization [employer] Address [address] 7[address] [place] [address] Care Team Providers Care Review Analyst Name Role Phone Jennifer Schroeder MD Primary Care Provider [phone] Mireya Beltran MD Primary Care Provider [phone] Reason for Visit * Reason Onset Date Comments Appointment 03/21/2023 Encounter Details Date Type Department Care Team (Late st Contact Info) Description 03/21/2023 Telephone [facility] [address] [place], [place] [phone] Xavier Watt [address] [place] [address] Appointment Social History Tobacco Use Types Packs/Day [...] Description 01/27/2025 2:00 PM EDT Clinical Support [facility] [address] [place] [phone] Sirisha Orellana, RN documented as of this encounter Visit Diagnoses Not on filedocumented in this encounter Additional Health Concerns Assessment Noted Time PHQ-9 Depression Total Score: 2 09/26/19 23 2:58 PM EST documented as of this encounter Care Teams Review Analyst Relationship Specialty Start Date End Date Jennifer Schroeder MD [address] [place] [id number] PCP - General Family Medicine 06/19/21 05/27/24 Mireya Beltran MD [address] [place] [address] PCP - General Family Medicine 05/28/24 documented as of this encounter
--- OUTSIDE RECORDS SUMMARY | 2025-01-14 14:50 | XMS_ITS | Encounter Summary ---
Author Organization [employer] Address [address] [facility] 7[address] [place] [address] Care Team Providers Care Lead Machinist Name Role Phone Jennifer Schroeder MD Primary Care Provider [phone] Mireya Beltran MD Primary Care Provider [phone] Reason for Visit * Reason Comments Med Refill Encounter Details Date Type Department Care Team (Late Contact Info) Description 05/01/2023 Refill [facility] [address] [place] [id number] Jennifer Schroeder MD 505 [place] [address] Insomnia, unspecified type Social History Tobacco Use [...] Department Care Team (Late Contact Info) Description 01/27/2025 2:00 PM EDT Clinical Support [facility] [address] [place] [address] Reyna, Sirisha, RN documented as of this encounter Visit Diagnoses Diagnosis Insomnia, unspecified type documented in this encounter Additional Health Concerns Assessment Noted Time PHQ-9 Depression Total Score: 2 09/26/19 23 2:58 PM EST documented as of this encounter Care Teams Lead Machinist Relationship Specialty Start Date End Date Jennifer Schroeder MD [address] [place] [address] PCP - General Family Medicine 06/19/21 05/27/24 Mireya Beltran MD [address] [place] [address] PCP - General Family Medicine 05/28/24 documented as of this encounter
--- OUTSIDE RECORDS SUMMARY | 2025-01-14 14:50 | XMS_ITS | Encounter Summary ---
Author Organization [employer] Address [address] 7[address] [place] [address] Care Team Providers Care Windows Infrastructure Engineer Name Role Phone Jennifer Schroeder MD Primary Care Provider [phone] Mireya Beltran MD Primary Care Provider [phone] Reason for Visit * Reason Onset Date Comments Hospital Follow-up 04/16/2024 Encounter Details Date Type Department Care Team (Late st Contact Info) Description 04/16/2024 Telephone [facility] [address] [place] [address] Jennifer Schroeder MD 505 [place] [address] Hospital Follow-up Social History Tobacco Use Types [...] from pt requesting a HDF appt. Hospital: [facility] Date of admission: 04/05 Discharge date: 04/15 Diagnosed: Acute renal failure and Hypercalcemia documented in this encounter Plan of Treatment Upcoming Encounters Date Type Department Care Team (Late st Contact Info) Description 01/27/2025 2:00 PM EDT Clinical Support [facility] [address] [place] [address] Sirisha Orellana, RN documented as of this encounter Visit Diagnoses Not on filedocumented in this encounter Additional Health Concerns Assessment Noted Time PHQ-9 Depression Total Score: 2 09/26/19 23 2:58 PM EST documented as of this encounter Care Teams Windows Infrastructure Engineer Relationship Specialty Start Date End Date Jennifer Schroeder MD [address] [place] [address] PCP - General Family Medicine 06/19/21 05/27/24 Mireya Beltran MD [address] [place] [address] PCP - General Family Medicine 05/28/24 documented as of this encounter
--- OUTSIDE RECORDS SUMMARY | 2025-01-14 14:50 | XMS_ITS | Encounter Summary ---
Author Organization [employer] Address [address] 7[address] [place] [address] Care Team Providers Care Radiation Control Specialist Name Role Phone Jennifer Schroeder MD Primary Care Provider [phone] Mireya Beltran MD Primary Care Provider [phone] Encounter Details Date Type Department Care Team ([facility] Contact Info) Description 10/16/2022 Telephone [facility] [address] [place], [place] [phone] Jennifer Schroeder MD [address] [place] [address] Social History Tobacco Use Types Packs/Day Years [...] Description 01/27/2025 2:00 PM EDT Clinical Support [facility] [address] [place] [address] Sirisha Orellana, RN documented as of this encounter Visit Diagnoses Not on filedocumented in this encounter Additional Health Concerns Assessment Noted Time PHQ-9 Depression Total Score: 2 09/26/19 23 2:58 PM EST documented as of this encounter Care Teams Radiation Control Specialist Relationship Specialty Start Date End Date Jennifer Schroeder MD [address] [place] [address] PCP - General Family Medicine 06/19/21 05/27/24 Mireya Beltran MD [address] [place] [address] PCP - General Family Medicine 05/28/24 documented as of this encounter
--- OUTSIDE RECORDS SUMMARY | 2025-01-14 14:50 | XMS_ITS | Encounter Summary ---
Author Organization [employer] Address [address] 7[address] [place] [address] Care Team Providers Care Regional Sales Representative Name Role Phone Jennifer Schroeder MD Primary Care Provider [phone] Mireya Beltran MD Primary Care Provider [phone] Reason for Visit * Reason Onset Date Comments PT-1 12/11/2023 Encounter Details Date Type Department Care Team (Late st Contact Info) Description 12/11/2023 Telephone [facility] [address] [place] [address] Jennifer Schroeder MD [address] [place] [address] PT-1 Social History Tobacco Use Types Packs/Day [...] or facility name: Dr. Mcneill Facility Address: [address] [place] [address] Escort needed: Y/N: No Do you have a wheelchair: Y/N: No If yes- Manual or electric: no Visits: 6 Patient calling requesting PT1 Home Address verified: Y/N: Yes Provider name or facility name: [facility] Facility Address: [address] [place] [address] [place] [address] Escort needed: Y/N: No Do you have a wheelchair: Y/N: No If yes- Manual or electric: no Visits: 4 documented in this encounter Plan of Treatment Upcoming Encounters Date Type Department Care Team (Late st Contact Info) Description 01/27/2025 2:00 PM EDT Clinical Support [facility] [address] [place] [address] [phone] Sirisha Orellana RN documented as of this encounter Visit Diagnoses Not on filedocumented in this encounter Additional Health Concerns Assessment Noted Time PHQ-9 Depression Total Score: 2 09/26/19 23 2:58 PM EST documented as of this encounter Care Teams Regional Sales Representative Relationship Specialty Start Date End Date Jennifer Schroeder MD [address] [place] [address] PCP - General Family Medicine 06/19/21 05/27/24 Mireya Beltran MD [address] [place] [address] PCP - General Family Medicine 05/28/24 documented as of this encounter
--- OUTSIDE RECORDS SUMMARY | 2025-01-14 14:50 | XMS_ITS | Encounter Summary ---
Author Organization [employer] Address [address] [place] [address] Care Team Providers Care Blanket Weaver Name Role Phone Mireya Beltran MD Primary Care Provider [phone] Encounter Details Date Type Department Care Team (Latest Contact Info) Description 01/14/2025 Travel Social History Tobacco Use Types Packs/Day Years [...] Description 01/27/2025 2:00 PM EDT Clinical Support [facility] [address] [place] [address] Sirisha Orellana RN documented as of this encounter Visit Diagnoses Not on filedocumented in this encounter Additional Health Concerns Assessment Noted Time PHQ-9 Depression Total Score: 0 05/28/20 24 1:56 PM EDT documented as of this encounter Care Teams Blanket Weaver Relationship Specialty Start Date End Date Mireya Beltran MD [address] [place] [address] PCP - General Family Medicine 05/28/24 documented as of this encounter
--- OUTSIDE RECORDS SUMMARY | 2025-01-14 14:50 | XMS_ITS | Encounter Summary ---
Author Organization [employer] Address [address] 7[address] [place] [address] Care Team Providers Care Inspector Fuel Hose Name Role Phone Jennifer Schroeder MD Primary Care Provider [phone] Mireya Beltran MD Primary Care Provider [phone] Reason for Visit * Reason Onset Date Comments PT1 08/19/2023 Encounter Details Date Type Department Care Team ([facility] st Contact Info) Description 08/19/2023 Telephone [facility] MED [facility] PEDS [address] [place] [address] Jennifer Schroeder MD [address] [place] [address] PT1 Social History Tobacco Use Types Packs/Day [...] 1:00 pm Visits: All [employer] Address: [address] [place] [address] Facility: Dr. Rose, Podiatry Wheel Chair: No Tint Layer Needed: No documented in this encounter Plan of Treatment Upcoming Encounters Date Type Department Care Team (Late st Contact Info) Description 01/27/2025 2:00 PM EDT Clinical Support [facility] [address] [place] [address] Sirisha Orellana RN documented as of this encounter Visit Diagnoses Not on filedocumented in this encounter Additional Health Concerns Assessment Noted Time PHQ-9 Depression Total Score: 2 09/26/19 23 2:58 PM EST documented as of this encounter Care Teams Inspector Fuel Hose Relationship Specialty Start Date End Date Jennifer Schroeder MD [address] [place] [address] PCP - General Family Medicine 06/19/21 05/27/24 Mireya Beltran MD [address] [place] [address] PCP - General Family Medicine 05/28/24 documented as of this encounter
--- OUTSIDE RECORDS SUMMARY | 2025-01-14 14:50 | XMS_ITS | Encounter Summary ---
Author Organization [employer] Address [address] [facility] [address] 7t [place] [address] Care Team Providers Care Cook At School Name Role Phone Jennifer Schroeder MD Primary Care Provider [phone] Mireya Beltran MD Primary Care Provider [phone] Reason for Visit * Reason Comments Med Refill Encounter Details Date Type Department Care Team (Late Contact Info) Description 05/22/2023 Refill [facility] [address] [place] [phone] Jennifer Schroeder MD [address] [place] [address] Back pain, unspecified back location, unspecified back [...] EDT Clinical Support [facility] [address] [place] [address] Sirisha Orellana, RN documented as of this encounter Visit Diagnoses Diagnosis Back pain, unspecified back location, unspecified back pain laterality, unspecified chronicity documented in this encounter Additional Health Concerns Assessment Noted Time PHQ-9 Depression Total Score: 2 09/26/19 23 2:58 PM EST documented as of this encounter Care Teams Cook At School Relationship Specialty Start Date End Date Jennifer Schroeder MD [address] [place] [address] PCP - General Family Medicine 06/19/21 05/27/24 Mireya Beltran MD [address] [place] [address] PCP - General Family Medicine 05/28/24 documented as of this encounter
--- OUTSIDE RECORDS SUMMARY | 2025-01-14 14:50 | XMS_ITS | Clinical Summary ---
Author Organization [employer] Address [address] [place] [address] Care Team Providers Care Package Yarns Drying Machine Operator Name Role Phone Mireya Beltran MD Primary Care Provider [phone] Allergies Active Allergy Reactions Criticality Noted Date Comments Penicillins Rash Low 08/12/2022 Medications amLODIPine (Norvasc) 5 MG tablet Take 5 mg by mouth Once per day. 04/15/20 24 Active labetalol (Normodyne) 200 MG tablet Take 1 tablet by mouth 2 times daily. 04/15/20 24 Active tadalafil (Cialis) 5 MG tablet Take 5 mg by mouth Once per day. 12/26/19 24 Active diclofenac (Voltaren) 75 MG EC tabletIndicati ons:Back pain, unspecified back location, unspecified back pain laterality, unspecified chronicity TAKE 1 TABLET BY MOUTH TWICE DAILY IN THE MORNING AND IN THE EVENING WITH MEALS. DO NOT BREAK, CRUSH, DISSOLVE OR CHEW. 30 tablet 06/15/20 24 Active naloxone (Narcan) 4 mg/0.1 mL nasal sprayIndicatio ns:Insomnia, unspecified type Administer 1 spray (4 mg) into affected nostril(s) if needed for opioid reversal. May repeat every 2-3 minutes if needed, alternating nostrils, until medical assistance becomes available. 2 each 3 07/23/20 24 025 Active gabapentin (Neurontin) 600 MG tabletIndicati ons:Neuropathy TAKE 1 TABLET BY MOUTH THREE TIMES DAILY 90 tablet 5 07/23/20 24 Active baclofen (Lioresal) 10 MG tablet Take 1 tablet by mouth 2 times daily. 01/19/20 24 Active potassium chloride CR (Klor-Con M20) 20 MEQ ER tablet Take 2 tablets by mouth Once per day. 04/15/20 24 Active busPIRone (Buspar) 7.5 MG tabletIndicati ons:Anxiety TAKE 1 TABLET BY MOUTH TWICE DAILY 180 tablet 1 12/07/19 25 Active temazepam (Restoril) 30 MG capsuleIndicat ions:Insomnia, unspecified type TAKE 1 CAPSULE BY MOUTH AT BEDTIME NEEDED FOR SLEEP 28 capsule 12/28/19 25 Active hydrOXYzine pamoate (Vistaril) 25 MG capsuleIndicat ions:Anxiety TAKE 1 CAPSULE BY MOUTH EVERY 6 HOURS NEEDED FOR ITCHING OR FOR ANXIETY 90 capsule 1 01/11/20 25 Active hydrOXYzine pamoate (Vistaril) 25 MG capsuleIndicat ions:Anxiety TAKE 1 CAPSULE BY MOUTH EVERY 6 HOURS NEEDED FOR ITCHING OR ANXIETY 90 capsule 1 06/07/20 24 025 Discontinued temazepam (Restoril) 30 MG capsuleIndicat ions:Insomnia, unspecified type TAKE 1 CAPSULE BY MOUTH AT BEDTIME NEEDED FOR SLEEP 28 capsule 11/27/19 25 025 Discontinued(R eorder (will not trigger notification to Pharmacy)) Active Problems Problem Noted Date Diagnosed Date 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 Periodontal disease 08/13/2023 Dental plaque 08/13/2023 Missing teeth, acquired 08/13/2023 Crowded teeth 08/13/2023 Hypertension 07/07/2023 Assessment & Plan (10/11/2024 9:36 AM EST): Continue Amlodipine 5mg daily At goal today Will recheck CMP/renal function Assessment & Plan (05/29/2024 11:46 AM EDT): [...] for [place]acic [place] [facility] F/u prn Added APAP to regimen for synergistic use with NSAID. Pending MRI results will refer to pain management. Alcoholism 09/25/2022 Assessment & Plan (05/29/2024 11:47 AM EDT): Check in with patient at next visit about current drinking habits Anxiety 09/25/2022 Assessment & Plan (10/11/2024 9:39 AM EST): Pt does not want to give up Benzo for sleep, stable on Temazepam 30mg Taking Buspar 7.5mg BID for anxiety Assessment & Plan (05/29/2024 11:48 AM EDT): [...] D deficiency 09/25/2022 Sick sinus syndrome 09/25/2022 Assessment & Plan (10/11/2024 9:36 AM EST): Has ICD in place Prolonged QT interval 12/25/2017 Primary cardiomyopathy 02/24/2017 Psychoactive substance use disorder 11/29/2016 Resolved Problems Problem Noted Date Diagnosed Date Resolved Date Hyperkalemia 08/18/2023 05/29/2024 Assessment & Plan (08/18/2023 2:22 PM EST): Labs: Basic Metabolic Panel, Magnesium. Cardiogenic shock 09/25/2022 05/28/2024 Encounters Date Type Department Care Team Description 01/14/2025 Travel 01/08/2025 Refill [facility] MEDICINE [address] [place] [address] Mireya Beltran MD Anxiety 12/30/2024 Outside Procedure [facility] OPTOMETRY [address] [place] [address] Evin, Adrianna, OD Presbyopia (Primary Dx) 12/27/2024 10:30 AM EDT Office Visit [facility] OPTOMETRY [address] [place] [address] Evin, Adrianna, OD Hyperopia of both eyes (Primary Dx) 12/27/2024 Refill [facility] MED & PEDS [address] [place], [place] [phone] Mireya Beltran MD Insomnia, unspecified type 12/05/2024 Refill [facility] MEDICINE [address] [place] [address] Mireya Beltran MD Anxiety 11/19/2024 Refill [facility] MED & PEDS [address] [place] [address] Mireya Beltran MD Insomnia, unspecified type 11/04/2024 2:30 PM EST Office Visit [facility] OPTOMETRY [address] [place] [address] Evin, Adrianna, OD Combined forms of age-related cataract of both eyes (Primary Dx); Presbyopia 11/04/2024 Travel 10/29/2024 Refill [facility] MED & PEDS [address] [place] [address] Mireya Beltran MD Insomnia, unspecified type 10/21/2024 Travel from Last 3 Months Immunizations Immunization Administration Dates Next Due Pfizer Covid-19 Vaccine 12+ 05/28/2024 Zoster, Recombinant 10/08/2024(Deferred: Patient decision),08/05/2024 Social History Tobacco Use Types Packs/Day Years [...] Sign Reading Time Taken Comments Blood Pressure 136/86 10/08/2024 2:15 PM EST Pulse 67 10/08/2024 2:15 PM EST Temperature 36.6 ??C (97.8 ??F) 10/08/2024 2:15 PM ES T Respiratory Rate 16 10/08/2024 2:15 PM EST Oxygen Saturation 99% 10/08/2024 2:15 PM EST Inhaled Oxygen Concentration - - Weight 70.8 kg (156 lb) 10/08/2024 2:15 PM EST Height 172.7 cm (5' 8 ) 10/08/2024 2:15 PM EST Body Mass Index 23.72 10/08/2024 2:15 PM EST Plan of Treatment Upcoming Encounters Date Type Department Care Team (Late st Contact Info) Description 01/27/2025 2:00 PM EDT Clinical Support [address] [address] Sirisha Orellana, RN Health Maintenance Due Date Last Done Comments CT Colonography 1962 Colonoscopy 1962 Dental X-Ray: Full Mouth 1962 FIT 1962 FOBT 1962 HIV Screening 1962 Sigmoidoscopy 1962 Hepatitis C Screening 1980 DTaP/Tdap/Td Vaccines (1 - Tdap) 1981 Pneumococcal Vaccine: 50+ Years (1 of 2 - PCV) 1981 RSV Patients and Patients Aged 60 years or older (1 - Risk 60-74 years 1-dose series) 2022 Dental Oral Exam 01/17/2024 07/18/2023, 08/12/2022 Dental Prophylaxis 02/13/2024 08/13/2023, 12/05/2022 Influenza Vaccine (#1) 2024 Dental X-Ray: Bitewings 12/19/2024 12/19/19 24, 07/18/2023, 08/12/2022 Depression Screening 05/28/2025 05/28/2024, 05/28/20 SDOH Screening 05/28/2025 05/28/2024 Alcohol/Substance Use Screening 09/30/2025 09/30/2024 Tobacco Screening 11/19/2025 11/19/2024 Colorectal Cancer Screening 08/13/2026 FIT DNA/Cologuard 08/13/2026 08/13/2023 Lipid Panel 07/21/2028 07/21/2023 COVID-19 Vaccine Completed 05/28/2024, , 04/15/2022, Additional history exists Zoster Vaccines Completed 12/23/2024, 08/05/2024 HIB Vaccines Aged Out No longer eligi ble based on patient's age to complete this topic HPV Vaccines Aged Out No longer eligi ble based on patient's age to complete this topic Hepatitis A Vaccines Aged Out No long er eligible based on patient's age to complete this topic Hepatitis B Vaccines Aged Out No long er eligible based on patient's age to complete this topic IPV Vaccines Aged Out No longer eligi ble based on patient's age to complete this topic Meningococcal B Vaccine Aged Out No l onger eligible based on patient's age to complete [...] Procedure Name Priority Date/Time Associated Diagnosis Comments BITEWING - SINGLE RADIOGRAPHIC IMAGE Routine 12/19/2023 [...] Recently Relevant to Health Maintenance Results * Cologuard?? colon cancer screening (08/13/2023 12:20 PM EST) Cologuard Result Negative Negative 08/21/20 23 3:41 AM EST [facility] (CLIA #:[id number]) Comment: NEGATIVE TEST RESULT. A negative Cologuard [...] screened with both Cologuard and colonoscopy. (Russell T. et al, N Engl J Med 2014;370(14):1286- 1297) The normal value (reference range) for this assay is negative. COLOGUARD RE-SCREENING RECOMMENDATION: Periodic colorectal cancer screening is an important part of preventive healthcare for asymptomatic individuals at average risk for colorectal cancer. ??Following a negative Cologuard result, the [place] Cancer Society and U.S. Multi-Society Task Force screening guidelines recommend a Cologuard re-screening interval of 3 years. References: [place] [employer] Guideline for Colorectal Cancer Screening: https://www.cancer.org/cancer/kwtac-bostuf-smifgd/mwqctecpk-xiuekodpg-jcxexvq/ac s-rec ommendations.html.; Edy DE LA CRUZ, Nahid CHILDRESS, Memo CanasK, Colorectal Cancer Screening: Recommendations for Physicians and Patients from the U.S. Multi-Society Task Force on Colorectal Cancer Screening , Am J Gastroenterology 2017; 112:3411-2175. TEST DESCRIPTION: Composite algorithmic analysis of stool [...] screened with both Cologuard and colonoscopy. (Russell Jamison et al, N Engl J Med 2014;370(14):9028-9859.) Cologuard may produce a false negative or false positive result (no colorectal cancer or precancerous polyp present at colonoscopy follow up). A negative Cologuard test result does not guarantee the absence of CRC or advanced adenoma (pre-cancer). The current Cologuard screening interval is every 3 years. ([place] [employer] Society and U.S. Multi-Society Task Force). Cologuard performance data in a 10,000 patient pivotal study using colonoscopy as the reference method can be accessed at the following location: www.[employer]/results. Additional description of the Cologuard test process, warnings and precautions can be found at www.PollGroundrd.com. Stool specimen (specimen) 08/13/2023 12:20 PM EST 08/15/2023 7:44 PM EST us Jennifer Schroeder MD LAB MOLECULAR DIAGNOSTICS ORD ERABLES Final Result [facility] (CLIA #:[id number]) [place] [address], * (ABNORMAL) Lipid Panel, Standard (07/21/2023 1:33 PM EST) Triglycerides 93 <150 mg/dL [facility] Comment:Desirable Triglyceri de: less than 150 mg/dLBorderline High Triglyceride 150-199 mg/dLHigh Triglyceride: 200-499 mg/dLVery High Triglyceride: greater than or equal to 5OO mg/dL Cholesterol 183 <200 mg/dL [facility] Comment:Desirable Cholestero l: less than 200 mg/dLBorderline High Cholesterol: 200-239 mg/dLHigh Cholesterol: greater than 239 mg/dL LDL Cholesterol Calculated 115(H) <100 mg/dL [facility] Comment:Desirable LDL: less than 100 mg/dLNear Optimal/Above Optimal LDL: 110- 129 mg/dLBorderline High LDL: 130-159 mg/dLHigh LDL: 160-189 mg/dLVery High LDL: greater than or equal to 190 mg/dL HDL Cholesterol 50 >40 mg/dL [facility] Comment:Desirable HDL: great er than 40 mg/dL Note: This HDL assay may give artificially low results in patients with liver disease. Blood Venous blood specimen / Unknown 07/21/2023 1:33 PM EST 07/21/2023 3:59 PM EST us Jennifer Schroeder MD LAB BLOOD ORDERABLES Final Re sult [facility] [address] [place] [address] [phone] from Last 3 Months or Most Recently Relevant to Health Maintenance Insurance MEDICARE [facility] MEDICAID STAND ADULT Care Teams Package Yarns Drying Machine Operator Relationship Specialty Start Date End Date Mireya Beltran MD [address] [facility] [employer] [place] [address] PCP - General Family Medicine 05/28/24
--- OUTSIDE RECORDS SUMMARY | 2025-01-14 14:50 | XMS_ITS | Encounter Summary ---
Author Organization [employer] Address [address] [facility] [address]t [place] [address] Care Team Providers Care Carbon Blocks Press Operator Name Role Phone Jennifer Schroeder MD Primary Care Provider [phone] Mireya Beltran MD Primary Care Provider [phone] Encounter Details Date Type Department Care Team (Latest Contact Info) Description 05/26/2019 Abstract [facility] CONVERSIONS Dental, Provider, DDS Social [...] Description 01/27/2025 2:00 PM EDT Clinical Support [facility] MEDICINE [address] [place] [address] Sirisha Orellana, RN documented as of this encounter Visit Diagnoses Not on filedocumented in this encounter Care Teams Carbon Blocks Press Operator Relationship Specialty Start Date End Date Jennifer Schroeder MD [address] [place], [place] [phone] PCP - General Family Medicine 06/19/21 05/27/24 Mireya Beltran MD [address] [place] [address] [phone] PCP - General Family Medicine 05/28/24 documented as of this encounter
--- OUTSIDE RECORDS SUMMARY | 2025-01-14 14:50 | XMS_ITS | Encounter Summary ---
Author Organization [employer] Address [address] [place] [address] Care Team Providers Care Pearl Diver Name Role Phone Mireya Beltrna MD Primary Care Provider [phone] Reason for Visit * Reason Comments Med Refill Encounter Details Date Type Department Care Team ([facility] st Contact Info) Description 06/11/2024 Refill [facility] MED[facility]INE [address] [place] [address] Jennifer Schroeder MD [address] [place] [address] Insomnia, unspecified type Social History Tobacco Use [...] Description 01/27/2025 2:00 PM EDT Clinical Support [facility] MEDIC[facility] [address] [place] [address] Sirisha Orellana, CHEL documented as of this encounter Visit Diagnoses Diagnosis Insomnia, unspecified type documented in this encounter Additional Health Concerns Assessment Noted Time PHQ-9 Depression Total Score: 0 05/28/20 24 1:56 PM EDT documented as of this encounter Care Teams Pearl Diver Relationship Specialty Start Date End Date Mireya Beltran MD [address] [place] [address] PCP - General Family Medicine 05/28/24 documented as of this encounter
--- OUTSIDE RECORDS SUMMARY | 2025-01-14 14:50 | XMS_ITS | Clinical Summary ---
Author Organization [address] [facility] Address [address] [place] [address] Phone Care Team Providers Care Registered Nurse Practitioner Name Role Phone Jennifer Schroeder MD Primary Care Provider [phone] Allergies No known active allergies Medications temazepam (RESTORIL) 7.5 mg capsule Take 1 Capsule by mouth at bedtime as needed. Active diclofenac submicronized 18 mg capsule Take by mouth. Active hydrOXYzine HCL (ATARAX) 10 mg tablet Take 1 Tablet by mouth 3 times daily as needed. Active lisinopriL (PRINIVIL,ZESTRIL) 5 mg tablet Take 1 Tablet by mouth daily. Active gabapentin (NEURONTIN) 300 mg capsule Take 1 Capsule by mouth 2 times daily. Active clotrimazole (LOTRIMIN) 1 % cream Apply to skin and toenails daily for 12 weeks Active Social History Tobacco Use Types Packs/Day Years Used Date Smoking Tobacco: Never Assessed Sex and Gender Information Value Date Recorded Sex Assigned at Not on file Legal Sex Male 2:16 AM EST Gender Identity Not on file Sexual Orientation Not on file Last Filed Vital Signs Vital Sign Reading Time Taken Comments Blood Pressure - - Pulse - - Temperature - - Respiratory Rate - - Oxygen Saturation - - Inhaled Oxygen Concentration - - Weight 71.7 kg (158 lb) 04/27/2024 1:22 PM EDT Height 167.6 cm (5' 6 ) 04/27/2024 1:22 PM EDT Body Mass Index 25.5 04/27/2024 1:22 PM EDT Plan of Treatment Upcoming Encounters Date Type Department Care Team (Late st Contact Info) Description 01/20/2025 1:15 PM EDT Office Visit Orthopedic Surgery [facility] [address] [phone] Paco Rose, DPM [address] [address] Health Maintenance Due Date Last Done Comments DTaP,Tdap,and Td Vaccines (1 - Tdap) 1981 Pneumococcal Vaccine: 50+ Ye ars (1 of 1 - PCV) 2012 Zoster Vaccines (1 of 2) 2012 Cholesterol Screening (Lipid Panel) 03/30/2024 Colorectal Cancer Screening: Colonoscopy 03/30/2024 Depression Screening 03/30/2024 HIV Screening 03/30/2024 Hepatitis C Screening 03/30/2024 Medicare Annual Wellness Visit 03/30/2024 Social Influencers of Health Screening 03/30/2024 COVID-19 Vaccine ( - 2023-2 5 season) 2024 Influenza Vaccine (Season Ended) 2025 RSV Immunization Adult Patie nts (1 - 1-dose 75+ series) 2037 HIB Vaccines Aged Out No longer eligi [...] on patient's age to complete this topic MMR Vaccines Aged Out No longer eligi ble based on patient's age to complete this topic Meningococcal ACWY Vaccine Aged Out N o longer eligible based on patient's age to complete this topic Meningococcal B Vaccine Aged Out No l onger eligible based on patient's age to complete this topic Pneumococcal Vaccine: Pediat rics (0 to 5 Years) and At-Risk Patients (6 to 64 Years) Aged Out No longer eligible b ased on patient's age to complete this topic RSV Immunization Patients Un martinez 20 months Aged Out No longer eligible b ased on patient's age to complete this topic Varicella Vaccines Aged Out No longer eligible based on patient's age to complete this topic Insurance MEDICAID - [place] MEDICARE Care Teams Registered Nurse Practitioner Relationship Specialty Start Date End Date Jennifer Schroeder MD [address] [place] [address] PCP - General 08/01/23
--- OUTSIDE RECORDS SUMMARY | 2025-01-14 14:50 | XMS_ITS | Encounter Summary ---
Author Organization [employer] Address [address] [facility] [address] [facility] [address] 7[address] [place] [address] Care Team Providers Care Feather Mixer Name Role Phone Jennifer Schroeder MD Primary Care Provider [phone] Mireya Beltran MD Primary Care Provider [phone] Reason for Visit * Reason Onset Date Comments PT-1 05/17/2024 Encounter Details Date Type Department Care Team (Late st Contact Info) Description 05/17/2024 Telephone [facility] [address] [place] [address] Jennifer Schroeder MD [address] [place] [address] PT-1 Social History Tobacco Use Types Packs/Day [...] Y/N: Yes Provider name or facility name: [facility] Facility Address: [facility] [address], [place] [address] Escort needed: Y/N: No Do you have a wheelchair: Y/N: No If yes- Manual or electric: no Visits: 3 appt 05/19 documented in this encounter Plan of Treatment Upcoming Encounters Date Type Department Care Team (Late st Contact Info) Description 01/27/2025 2:00 PM EDT Clinical Support [facility] [address] [place] [address] Sirisha Orellana RN documented as of this encounter Visit Diagnoses Not on filedocumented in this encounter Additional Health Concerns Assessment Noted Time PHQ-9 Depression Total Score: 2 09/26/19 23 2:58 PM EST documented as of this encounter Care Teams Feather Mixer Relationship Specialty Start Date End Date Jennifer Schroeder MD [address] [place] [address] PCP - General Family Medicine 06/19/21 05/27/24 Mireya Beltran MD [address] [place] [address] PCP - General Family Medicine 05/28/24 documented as of this encounter
--- OUTSIDE RECORDS SUMMARY | 2025-01-14 14:50 | XMS_ITS | Encounter Summary ---
Author Organization [employer] Address [address] [facility] [address] [facility] [address] [place] [address] Care Team Providers Care Replenishment Specialist Name Role Phone Jennifer Schroeder MD Primary Care Provider [phone] Mireya Beltran MD Primary Care Provider [phone] Reason for Visit * Reason Onset Date Comments Referral 08/01/2023 Encounter Details Date Type Department Care Team ([facility] st Contact Info) Description 08/01/2023 Telephone [facility] MED & PEDS [address] [place] [address] Jennifer Schroeder MD [address] [place] [address] Referral Social History Tobacco Use Types Packs/Day [...] referral to podiatry to be resent to [phone]. documented in this encounter Plan of Treatment Upcoming Encounters Date Type Department Care Team (Late st Contact Info) Description 01/27/2025 2:00 PM EDT Clinical Support [facility] MEDICINE [address] [place] [address] Sirisha Orellana RN documented as of this encounter Visit Diagnoses Not on filedocumented in this encounter Additional Health Concerns Assessment Noted Time PHQ-9 Depression Total Score: 2 09/26/19 23 2:58 PM EST documented as of this encounter Care Teams Replenishment Specialist Relationship Specialty Start Date End Date Jennifer Schroeder MD [address] [place] [address] PCP - General Family Medicine 06/19/21 05/27/24 Mireya Beltran MD [address] [place] [address] PCP - General Family Medicine 05/28/24 documented as of this encounter
--- OUTSIDE RECORDS SUMMARY | 2025-01-14 14:50 | XMS_ITS | Encounter Summary ---
Author Organization [employer] Address [address] [place] [address] Care Team Providers Care Splicing Machine Operator Automatic Name Role Phone Jennifer Schroeder MD Primary Care Provider [phone] Mireya Beltran MD Primary Care Provider [phone] Reason for Visit * Reason Onset Date Comments Appointment Request 04/16/2024 Encounter Details Date Type Department Care Team (Late st Contact Info) Description 04/16/2024 Telephone [facility] MEDICINE [address] [place] [address] Jennifer Schroeder MD [address] [place] [address] Appointment Request Social History Tobacco Use Types [...] appt for 04/16 patient was admitted in [facility] on 04/05 and was discharged on 04/15 documented in this encounter Plan of Treatment Upcoming Encounters Date Type Department Care Team (Late st Contact Info) Description 01/27/2025 2:00 PM EDT Clinical Support [facility] MEDICINE [address] [place] [address] Sirisha Orellana, RN documented as of this encounter Visit Diagnoses Not on filedocumented in this encounter Additional Health Concerns Assessment Noted Time PHQ-9 Depression Total Score: 2 09/26/19 23 2:58 PM EST documented as of this encounter Care Teams Splicing Machine Operator Automatic Relationship Specialty Start Date End Date Jennifer Schroeder MD [address] [place] [address] PCP - General Family Medicine 06/19/21 05/27/24 Mireya Beltran MD [address] [place] [address] PCP - General Family Medicine 05/28/24 documented as of this encounter
[2025-01-14 16:09] LABS: MANUAL DIFF FLAG NO
[2025-01-14 16:29] LABS: Basophils Percent Auto 0.5 % (0-2); Eosinophils Absolute Auto 0.1 X10*3/uL (0.0-0.4); Eosinophils Percent Auto 1.7 % (0-4); Hematocrit 37.9 % (42.0-52.0); Hemoglobin 12.4 g/dl (14.0-18.0); Imm Gran Abs Auto 0.01 X10*3/uL (0.00-0.03); Imm Gran Pct Auto 0.2 % (0.0-0.4); Lymphocytes Absolute Auto 1.3 X10*3/uL (1.2-4.9); Lymphocytes Percent Auto 31.2 % (20-40); Mean Corpuscular HGB Conc 32.7 g/dl (31.0-36.0); Mean Corpuscular Hemoglobin 31.1 pg (27.0-33.0); Mean Platelet Volume 10.2 fL (9.4-12.4); Monocytes Absolute Auto 0.4 X10*3/uL (0.1-1.2); Monocytes Percent Auto 9.8 % (2-11); Neutrophils Absolute Auto 2.3 x10*3/uL (2.0-8.3); Neutrophils Percent Auto 56.6 % (45-73); Platelet Count 200 X10*3/uL (160-400); Red Blood Count 3.99 X10*6/uL (4.60-5.80); Red Cell Distribution Width 12.4 % (11.0-16.0); White Blood Count 4.1 X10*3/uL (4.8-10.8)
[2025-01-14 16:39] LABS: Alanine Aminotransferase 24 U/L (0-40); Albumin Level 4.6 g/dL (3.5-5.0); Alkaline Phosphatase 58 U/L (39-117); Anion Gap 12 (12-20); Aspartate Amino Transferase 27 U/L (5-37); Bilirubin Total 0.4 mg/dL (0.0-1.0); Blood Urea Nitrogen 7 mg/dL (9-16); Calcium 9.8 mg/dL (8.4-10.2); Carbon Dioxide 27 mmol/L (22-29); Chloride 106 mmol/L (96-108); Estimated Glomerular Filt Rate > 60; Glucose Random 98 mg/dL (60-115); Phosphorus 3.4 mg/dL (2.7-4.5); Potassium 4.5 mmol/L (3.3-5.1); Sodium 140 mmol/L (135-145); Total Protein 7.2 g/dL (6.5-8.0)
[2025-01-14 17:06] LABS: Parathyroid Hormone Intact 83.4 pg/mL (8.7-77.1)
== END 2025-01-14 14:48 | disposition home or self-care (01) ==
LOC: HO.HHCL 14:47
PROVIDERS: Internal Medicine Hypertension Specialist; Visit Provider General Practice
DX: N17.9 Acute kidney failure, unspecified (principal); I10 Essential (primary) hypertension
CPT/HCPCS: 36415; 80053; 83970; 84100; 85025

== ENCOUNTER 2025-02-03 13:02 | Outpatient (AMB) | payer MEDICARE, MEDICAID, SELFPAY ==
--- NOTE | 2025-02-03 13:16 | HO.NEPHOV ---
Vital Signs 02/03/25 13:17 Height 5 ft 8 in Weight 158 lb BMI 24.0 BP 126/72 Blood Pressure Location Lt brachial Position Sitting Pulse 62 Pulse Source Pulse Oximeter Pulse Oximetry (%) 100 Oxygen Delivery Method Room Air Intake Visit Reasons: 4mon follow-up w/labs Conf Induction Brazer Required: No Accompanied by: Self / Same As Patient Allergies Penicillins [PENICILLINS] Allergy (Intermediate, Verified 02/03/25 13:19) RASH Medication List - Last Reconciled 02/03/25 by Ayden De La Cruz MD buspirone 7.5 mg PO BID diclofenac sodium 75 mg PO BID PRN gabapentin 600 mg PO TID hydroxyzine pamoate 25 mg PO Q6H lisinopril 5 mg PO DAILY tadalafil (Cialis) 5 mg PO DAILY tadalafil 20 mg PO DAILY PRN temazepam 30 mg PO BEDTIME PRN HPI Comments Details: 64 years old man with HFrEF, CAD, paroxysmal atrial fibrillation and essential hypertension seen [place] [facility] [place]JUN And severe hypercalcemia of 17.5 He was on high dose of Vit D and Calcium tabs. Intact PTH was suppressed at 6. PTHrP was NOT elevated. Received bisphosphonate, IVF with LASIX and had hypokalemia K is being replaced Creatinine has improved 02/03/25 64-year-old male presenting with a follow-up for the management of chronic kidney disease. There had been a prior significant decline in kidney function, prompting ongoing surveillance. Recent laboratory findings suggest substantial recovery, with renal function nearing normal levels. He was previously observed to have elevated calcium levels, leading to a halt in vitamin D and calcium supplementation. The laboratory results have shown normalization of calcium levels without adverse symptoms such as nausea, vomiting, or urinary issues. The patient?s reported overall health has improved, and he maintains sufficient fluid intake. His coffee consumption is noted, and there is a plan to reassess the need for medications if necessary in the future. [facility] Medical History Incisional pain Right inguinal hernia HTN (hypertension) Right inguinal hernia Paroxysmal atrial fibrillation Cardiomyopathy Surgical History History of right inguinal hernia repair Hx of oral surgery Hx of right heart catheterization History of tonsillectomy Family History Father Esophagus cancer Mother No problems noted. Social History Household Members: None Household Members Other:: lives alone. Housing: Apartment Are you a primary child care group leader to a significant other at home: No Do you presently have visiting nurse or other home services: No Alcohol intake: current Alcohol intake frequency: a few times a week Patient Tobacco Use Status: Never used Tobacco service: No Current occupational status: disabled Physical Exam Vital Signs: Last Vital Signs Pulse 62 02/03/25 13:17 BP 126/72 02/03/25 13:17 Pulse Ox 100 02/03/25 13:17 Oxygen Delivery Method Room Air 02/03/25 13:17 BMI result Body Mass Index 24.0 Awake. Comfortable. Neck is supple. Mucosa moist. Lungs AE equal. Heart S1-S2 heard no gallop. Abdomen soft. Extremities no edema. No involuntary movements. No myoclonus. Results Reviewed Nephrology Results: Hgb 12.4 g/dl (14.0-18.0) L 01/14/25 WBC 4.1 X10*3/uL (4.8-10.8) L 01/14/25 Plt Count 200 X10*3/uL (160-400) 01/14/25 Sodium 140 mmol/L (135-145) 01/14/25 Potassium 4.5 mmol/L (3.3-5.1) 01/14/25 Chloride 106 mmol/L (96-108) 01/14/25 Carbon Dioxide 27 mmol/L (22-29) 01/14/25 BUN 7 mg/dL (9-16) L 01/14/25 Creatinine 1.01 mg/dL (0.5-1.4) 01/14/25 Calcium 9.8 mg/dL (8.4-10.2) 01/14/25 Phosphorus 3.4 mg/dL (2.7-4.5) 01/14/25 PTH Intact 83.4 pg/mL (8.7-77.1) H 01/14/25 Assessment & Plan Assessment & Plan (1) ARJUN (acute kidney injury): Code(s): N17.9 - Acute kidney failure, unspecified Category: Medical (2) Hypercalcemia: Code(s): E83.52 - Hypercalcemia Category: Medical Plan Renal function is improving Encouraged to increased PO fluid intake Expect renal recovery Hypercalcemia Ca close to normal- currently at 10.6 as on Jul 2024 PTH and PTHrP were suppresed Continue to Hold Vit D and Ca Recheck in 6 months and restart Vit D if needed HTN BP well controlled Hypokalemia - resolved Off KCL Orders: Orders Basic Metabolic Panel 6 Months N17.9 - Acute kidney failure, unspecified Parathyroid Hormone Intact 6 Months N17.9 - Acute kidney failure, unspecified Vitamin D 25-OH Total 6 Months N17.9 - Acute kidney failure, unspecified Phosphorus 6 Months N17.9 - Acute kidney failure, unspecified Coding Level of Care Code Est Pt Level 4 (48492) Diagnoses ARJUN (acute kidney injury) N17.9 Hypercalcemia E83.52
[2025-02-03 13:17] VITALS: BP 126/72; PULSE 62; O2SAT 100; BMI 24.0
--- OUTSIDE RECORDS SUMMARY | 2025-02-03 15:10 | XMS_ITS | Encounter Summary ---
Author Organization [employer] Address [address] [place] [address] Care Team Providers Care Environmental Health And Safety Intern Name Role Phone Jennifer Schroeder MD Primary Care Provider [phone] Mireya Beltran MD Primary Care Provider [phone] Reason for Visit * Reason Onset Date Comments Appointment Request 04/16/2024 Encounter Details Date Type Department Care Team (Late st Contact Info) Description 04/16/2024 Telephone [facility] MEDICINE [address] [place] [address] Jennifer Schroeder MD [address] [place] [address] Appointment Request Social History Tobacco Use Types [...] appt for 04/[address] in [facility] on 04/05 and was discharged on 04/15 documented in this encounter Plan of Treatment Upcoming Encounters Date Type Department Care Team (Late st Contact Info) Description 05/05/2025 2:00 PM EDT Clinical Support [facility] MEDICINE [address] [place] [address] Sirisha Orellana, RN documented as of this encounter Visit Diagnoses Not on filedocumented in this encounter Additional Health Concerns Assessment Noted Time PHQ-9 Depression Total Score: 2 09/26/19 23 2:58 PM EST documented as of this encounter Care Teams Environmental Health And Safety Intern Relationship Specialty Start Date End Date Jennifer Schroeder MD [address] [place] [address] PCP - General Family Medicine 06/19/21 05/27/24 Mireya Beltran MD [address] [place] [address] PCP - General Family Medicine 05/28/24 documented as of this encounter
== END 2025-02-03 13:26 | disposition home or self-care (01) ==
LOC: HO.HKA 13:03
PROVIDERS: PCP General Practice; Visit Provider Internal Medicine Hypertension Specialist
DX: N17.9 Acute kidney failure, unspecified (principal); E83.52 Hypercalcemia
CPT/HCPCS: 99214

== ENCOUNTER → 2025-02-03 13:02 | Outpatient (BNVA) | payer MEDICARE, MEDICAID, SELFPAY | PROVIDERS: PCP General Practice; Visit Provider Internal Medicine Hypertension Specialist | DX: I10 Essential (primary) hypertension (principal); N17.9 Acute kidney failure, unspecified; E83.52 Hypercalcemia; I25.10 Atherosclerotic heart disease of native coronary artery without angina pectoris | CPT/HCPCS: 99212 ==

== ENCOUNTER 2025-08-10 11:05 | Outpatient (REF) | payer MEDICARE, MEDICAID, SELFPAY ==
[2025-08-10 14:20] LABS: Parathyroid Hormone Intact 67.7 pg/mL (8.7-77.1)
[2025-08-10 14:31] LABS: Anion Gap 9 (12-20); Blood Urea Nitrogen 19 mg/dL (9-16); Calcium 9.9 mg/dL (8.4-10.2); Carbon Dioxide 30 mmol/L (22-29); Chloride 107 mmol/L (96-108); Estimated Glomerular Filt Rate > 60; Potassium 5.0 mmol/L (3.3-5.1); Sodium 141 mmol/L (135-145)
[2025-08-10 14:39] LABS: Prostate Specific Antigen 0.58 ng/mL (<0.05-4.0)
--- OUTSIDE RECORDS SUMMARY | 2025-08-10 17:28 | XMS_ITS | Encounter Summary ---
Author Organization [email or web address] Address [address] [place] [address] Care Team Providers Care Adjuster Piano Action Name Role Phone Jennifer Schroeder MD Primary Care Provider [phone] Mireya Beltran MD Primary Care Provider Encounter Details Date Type Department Care Team ([facility] Contact Info) Description 10/16/2022 Telephone [facility] CH[facility] MED & PEDS [address] [place], [place] [phone] Jennifer Schroeder MD [address] [place] [address] Social History Tobacco Use Types Packs/Day Years [...] Department Care Team (Late Contact Info) Description 09/08/2025 10:00 AM EST Clinical Support [facility] MEDICINE [address] [place] [address] Sirisha Orellana, RN documented as of this encounter Visit Diagnoses Not on filedocumented in this encounter Additional Health Concerns Assessment Noted Time PHQ-9 Depression Total Score: 2 09/26/19 23 2:58 PM EST documented as of this encounter Care Teams Adjuster Piano Action Relationship Specialty Start Date End Date Jennifer Schroeder MD [address] [place] [address] PCP - General Family Medicine 06/19/21 05/27/24 Mireya Beltran MD [address] [place] [address] PCP - General Family Medicine 05/28/24 documented as of this encounter
--- OUTSIDE RECORDS SUMMARY | 2025-08-10 17:28 | XMS_ITS | Encounter Summary ---
Author Organization [employer] Address [address] 7[address] [place] [address] Care Team Providers Care Veneer Grader Name Role Phone Jennifer Schroeder MD Primary Care Provider [phone] Mireya Beltran MD Primary Care Provider [phone] Encounter Details Date Type Department Care Team ([facility] Contact Info) Description 12/30/2022 Telephone [facility] MEDICINE [address] [place] [address] Jennifer Schroeder MD [address] [place] [address] Social History Tobacco Use Types Packs/Day Years [...] Upcoming Encounters Date Type Department Care Team ([facility] Contact Info) Description 09/08/2025 10:00 AM EST Clinical Support [facility] MEDICINE [address] [place] [address] Sirisha Orellana, RN documented as of this encounter Visit Diagnoses Not on filedocumented in this encounter Additional Health Concerns Assessment Noted Time PHQ-9 Depression Total Score: 2 09/26/19 23 2:58 PM EST documented as of this encounter Care Teams Veneer Grader Relationship Specialty Start Date End Date Jennifer Schroeder MD [address] [place] [address] PCP - General Family Medicine 06/19/21 05/27/24 Mireya Beltran MD [address] [place] [address] PCP - General Family Medicine 05/28/24 documented as of this encounter
--- OUTSIDE RECORDS SUMMARY | 2025-08-10 17:28 | XMS_ITS | Encounter Summary ---
Author Organization [email or web address] Address [address] [place] [address] Care Team Providers Care Ops Manager Name Role Phone Jennifer Schroeder MD Primary Care Provider [phone] Mireya Beltran MD Primary Care Provider [phone] Reason for Visit * Reason Onset Date Comments Hospital Follow-up 04/16/2024 Encounter Details Date Type Department Care Team (Late st Contact Info) Description 04/16/2024 Telephone [facility] MEDICINE [address] [place] [address] Jennifer Schroeder MD [address] [place] [address] Hospital Follow-up Social History Tobacco Use Types [...] from pt requesting a HDF appt. Hospital: [facility] Date of admission: 04/05 Discharge date: 04/15 Diagnosed: Acute renal failure and Hypercalcemia documented in this encounter Plan of Treatment Upcoming Encounters Date Type Department Care Team (Late st Contact Info) Description 09/08/2025 10:00 AM EST Clinical Support [facility] MEDICINE [address] [place] [address] Sirisha Orellana, RN documented as of this encounter Visit Diagnoses Not on filedocumented in this encounter Additional Health Concerns Assessment Noted Time PHQ-9 Depression Total Score: 2 09/26/19 23 2:58 PM EST documented as of this encounter Care Teams Ops Manager Relationship Specialty Start Date End Date Jennifer Schroeder MD [address] [place] [address] PCP - General Family Medicine 06/19/21 05/27/24 Mireya Beltran MD [address] [place] [address] PCP - General Family Medicine 05/28/24 documented as of this encounter
--- OUTSIDE RECORDS SUMMARY | 2025-08-10 17:28 | XMS_ITS | Encounter Summary ---
Author Organization [employer] Address [address] [place] [address] Care Team Providers Care Title I Coordinator Name Role Phone Jennifer Schroeder MD Primary Care Provider [phone] Mireya Beltran MD Primary Care Provider [phone] Reason for Visit * Reason Onset Date Comments PT-1 04/19/2024 Encounter Details Date Type Department Care Team (Late st Contact Info) Description 04/19/2024 Telephone [facility] MEDICINE [address] [place] [address] Jennifer Schroeder MD [address] [place] [address] PT-1 Social History Tobacco Use Types Packs/Day [...] Y/N: Yes Provider name or facility name: [facility] Facility Address: [address] [place] [address] Escort needed: Y/N: No Do you have a wheelchair: Y/N: No If yes- Manual or electric: no Visits: 3 documented in this encounter Plan of Treatment Upcoming Encounters Date Type Department Care Team (Late st Contact Info) Description 09/08/2025 10:00 AM EST Clinical Support [facility] MEDICINE [address] [place] [address] Sirisha Orellana RN documented as of this encounter Visit Diagnoses Not on filedocumented in this encounter Additional Health Concerns Assessment Noted Time PHQ-9 Depression Total Score: 2 09/26/19 23 2:58 PM EST documented as of this encounter Care Teams Title I Coordinator Relationship Specialty Start Date End Date Jennifer Schroeder MD [address] [place] [address] PCP - General Family Medicine 06/19/21 05/27/24 Mireya Beltran MD [address] [place] [address] PCP - General Family Medicine 05/28/24 documented as of this encounter
--- OUTSIDE RECORDS SUMMARY | 2025-08-10 17:28 | XMS_ITS | Encounter Summary ---
Author Organization [employer] Address [address] 7[address] [place] [address] Care Team Providers Care Floor Helper Name Role Phone Jennifer Schroeder MD Primary Care Provider [phone] Mireya Beltran MD Primary Care Provider [phone] Reason for Visit * Reason Onset Date Comments PT-1 05/17/2024 Encounter Details Date Type Department Care Team (Late st Contact Info) Description 05/17/2024 Telephone [facility] MEDICINE [address] [place] [address] Jennifer Schroeder MD [address] [place] [address] PT-1 Social History Tobacco Use Types Packs/Day [...] Yes Provider name or facility name: [facility] Facility Address: [facility] [address], [place] [address] Escort needed: Y/N: No Do you have a wheelchair: Y/N: No If yes- Manual or electric: no Visits: 3 appt 05/19 documented in this encounter Plan of Treatment Upcoming Encounters Date Type Department Care Team (Late st Contact Info) Description 09/08/2025 10:00 AM EST Clinical Support [facility] MEDICINE [address] [place] [address] Sirisha Orellana RN documented as of this encounter Visit Diagnoses Not on filedocumented in this encounter Additional Health Concerns Assessment Noted Time PHQ-9 Depression Total Score: 2 09/26/19 23 2:58 PM EST documented as of this encounter Care Teams Floor Helper Relationship Specialty Start Date End Date Jennifer Schroeder MD [address] [place] [address] PCP - General Family Medicine 06/19/21 05/27/24 Mireya Beltran MD [address] [place] [address] PCP - General Family Medicine 05/28/24 documented as of this encounter
--- OUTSIDE RECORDS SUMMARY | 2025-08-10 17:28 | XMS_ITS | Encounter Summary ---
Author Organization [employer] Address [address] [place] [address] Care Team Providers Care Power System Engineer Name Role Phone Mireya Beltran MD Primary Care Provider [phone] Reason for Visit * Reason Comments Med Refill Encounter Details Date Type Department Care Team ([facility] st Contact Info) Description 06/11/2024 Refill [facility] MEDICINE [address] [place] [address] eJnnifer Schroeder MD [address] [place] [address] Insomnia, unspecified type Social History Tobacco Use [...] your housing situation today? I have leona sing 05/28/[address] you li [...] Description 09/08/2025 10:00 AM EST Clinical Support [facility] MEDICINE [address] [place] [address] Sirisha Orellana, CHEL documented as of this encounter Visit Diagnoses Diagnosis Insomnia, unspecified type documented in this encounter Additional Health Concerns Assessment Noted Time PHQ-9 Depression Total Score: 0 05/28/20 24 1:56 PM EDT documented as of this encounter Care Teams Power System Engineer Relationship Specialty Start Date End Date Mireya Beltran MD [address] [place] [address] PCP - General Family Medicine 05/28/24 documented as of this encounter
--- OUTSIDE RECORDS SUMMARY | 2025-08-10 17:28 | XMS_ITS | Encounter Summary ---
Author Organization [employer] Address [address] [place] [address] Care Team Providers Care Watershed Manager Name Role Phone Jennifer Schroeder MD Primary Care Provider [phone] Mireya Beltran MD Primary Care Provider [phone] Reason for Visit * Reason Onset Date Comments Appointment Request 04/16/2024 Encounter Details Date Type Department Care Team (Late st Contact Info) Description 04/16/[address] [facility] MEDICINE [address] [place] [address] Jennifer Schroeder MD [address] [place] [address] Appointment Request Social History Tobacco Use Types [...] appt for 04/16 patient was admitted in [facility] on 04/05 and was discharged on 04/15 documented in this encounter Plan of Treatment Upcoming Encounters Date Type Department Care Team (Late st Contact Info) Description 09/08/2025 10:00 AM EST Clinical Support [facility] MEDICINE [address] [place] [address] Sirisha Orellana, RN documented as of this encounter Visit Diagnoses Not on filedocumented in this encounter Additional Health Concerns Assessment Noted Time PHQ-9 Depression Total Score: 2 09/26/19 23 2:58 PM EST documented as of this encounter Care Teams Watershed Manager Relationship Specialty Start Date End Date Jennifer Schroeder MD [address] [place] [address] PCP - General Family Medicine 06/19/21 05/27/24 Mireya Beltran MD [address] [place] [address] PCP - General Family Medicine 05/28/24 documented as of this encounter
--- OUTSIDE RECORDS SUMMARY | 2025-08-10 17:29 | XMS_ITS | Encounter Summary ---
Author Organization [employer] Address [address] [place] [address] Care Team Providers Care Match Maker Name Role Phone Mireya Beltran MD Primary Care Provider [phone] Reason for Visit * Reason Onset Date Comments PT-1 08/09/2025 Encounter Details Date Type Department Care Team ([facility] st Contact Info) Description 08/09/2025 Telephone [facility] MEDICINE [address] [place] [address] Mireya Beltran MD [address] [place] [address] PT-1 Social History Tobacco Use Types Packs/Day [...] encounter Miscellaneous Notes * Telephone Encounter - Karina Melchor - 08/09/2025 10:52 AM EST Patient calling requesting PT1 Home Address verified: Y/N: Yes Provider name or facility name: [address] [place] [address] [place] [address] Escort needed: Y/N: No Do you have a wheelchair: Y/N: No If yes- Manual or electric: N/A Visits: 2 x monthly documented in this encounter Plan of Treatment Upcoming Encounters Date Type Department Care Team (Late st Contact Info) Description 09/08/2025 10:00 AM EST Clinical Support [facility] MEDICINE [address] [place] [address] Sirisha Orellana RN documented as of this encounter Visit Diagnoses Not on filedocumented in this encounter Additional Health Concerns Assessment Noted Time PHQ-9 Depression Total Score: 0 05/28/20 24 1:56 PM EDT documented as of this encounter Care Teams Match Maker Relationship Specialty Start Date End Date Mireya Beltran MD [address] [place] [address] PCP - General Family Medicine 05/28/24 documented as of this encounter
--- OUTSIDE RECORDS SUMMARY | 2025-08-10 17:29 | XMS_ITS | Encounter Summary ---
Author Organization [employer] Address [address] [place] [address] Care Team Providers Care Credit And Collections Analyst Name Role Phone Mireya Beltran MD Primary Care Provider [phone] Reason for Visit * Reason Onset Date Comments Med Refill 08/09/2025 Encounter Details Date Type Department Care Team (Late st Contact Info) Description 08/09/2025 Refill [facility] CHC MED & PEDS [address] [place] [address] Mireya Beltran MD [address] [place] [address] Insomnia, unspecified type Social History Tobacco Use [...] encounter Miscellaneous Notes * Telephone Encounter - Laverne Mcneill LPN - 08/09/2025 3:07 PM EST DEPARTMENT OF NATURAL RESOURCES OFFICER checked on 08/09/25. Last seen 10/08/24. documented in this encounter Plan of Treatment Upcoming Encounters Date Type Department Care Team (Late st Contact Info) Description 09/08/2025 10:00 AM EST Clinical Support [facility] MEDICINE [address] [place] [address] Sirisha Orellana, CHEL documented as of this encounter Visit Diagnoses Diagnosis Insomnia, unspecified type documented in this encounter Additional Health Concerns Assessment Noted Time PHQ-9 Depression Total Score: 0 05/28/20 24 1:56 PM EDT documented as of this encounter Care Teams Credit And Collections Analyst Relationship Specialty Start Date End Date Mireya Beltran MD [address] [place] [address] PCP - General Family Medicine 05/28/24 documented as of this encounter
--- OUTSIDE RECORDS SUMMARY | 2025-08-10 17:29 | XMS_ITS | Clinical Summary ---
Author Organization [employer] Address [address] [facility] 7t [place] [address] Care Team Providers Care Motel Keeper Name Role Phone Mireya Beltran MD Primary Care Provider [phone] Allergies Active Allergy Reactions Criticality Noted Date [...] OR CHEW. 30 tablet 06/15/20 24 Active baclofen (Lioresal) 10 MG tablet Take 1 tablet by mouth 2 times daily. 01/19/20 24 Active potassium chloride CR (Klor-Con M20) 20 MEQ ER tablet Take 2 tablets by mouth Once per day. 04/15/20 24 Active gabapentin (Neurontin) 600 MG tabletIndicatio ns:Neuropathy TAKE 1 TABLET BY MOUTH THREE TIMES DAILY 90 tablet 5 03/29/20 25 Active temazepam (Restoril) 30 MG capsuleIndicati ons:Insomnia, unspecified type TAKE 1 CAPSULE BY MOUTH EVERY DAY AT BEDTIME NEEDED FOR SLEEP 28 capsule 07/08/20 25 Active busPIRone (Buspar) 7.5 MG tabletIndicatio ns:Anxiety TAKE 1 TABLET BY MOUTH TWICE DAILY 180 tablet 1 07/21/20 Active hydrOXYzine pamoate (Vistaril) 25 MG capsuleIndicati ons:Anxiety TAKE 1 CAPSULE BY MOUTH EVERY 6 HOURS NEEDED FOR ITCHING OR ANXIETY 90 capsule 3 07/25/20 25 Active tadalafil (Cialis) 20 MG tablet TAKE 1 TABLET BY MOUTH 30 MINUTES BEFORE SEXUAL ACTIVITY, DO NOT EXCEED 1 TABLET / 24 HOURS OR 3 TABLETS / WEEK 07/21/20 25 Active naloxone (Narcan) 4 mg/0.1 mL nasal sprayIndication s:Insomnia, unspecified type Administer 1 spray (4 mg) into affected nostril(s) if needed for opioid reversal. May repeat every 2-3 minutes if needed, alternating nostrils, until medical assistance becomes available. 2 each 3 07/23/20 24 025 busPIRone (Buspar) 7.5 MG tabletIndicatio ns:Anxiety TAKE 1 TABLET BY MOUTH TWICE DAILY 180 tablet 1 12/07/19 25 025 Discontinued hydrOXYzine pamoate (Vistaril) 25 MG capsuleIndicati ons:Anxiety TAKE 1 CAPSULE BY MOUTH EVERY 6 HOURS NEEDED FOR ITCHING OR FOR ANXIETY 90 capsule 3 03/07/20 25 025 Discontinued Active Problems Problem Noted Date Diagnosed Date Long-term current use of benzodiazepine 11/30/19 Overview (11/29/2024): Dx: Rx: Last LIMB DRIVER agreement: Tier II (visit every 3 months) [...] [place] [facility] [place]u prn Added APAP to regimen for synergistic use with NSAID. Pending MRI results will refer to pain management. Alcoholism (CMS/HCC) 09/25/2022 Assessment & Plan (05/29/2024 11:47 AM [...] Vitamin D deficiency 09/25/2022 Sick sinus syndrome (CMS/HCC) 09/25/2022 Assessment & Plan (10/11/2024 9:36 AM EST): Has ICD in place Prolonged QT interval 12/25/2017 Primary cardiomyopathy ([facility]/HCC) 02/24/2017 Psychoactive substance use disorder 11/29/2016 Resolved Problems Problem Noted Date Diagnosed Date Resolved Date Hyperkalemia 08/18/2023 05/29/2024 Assessment & Plan (08/18/2023 2:22 PM EST): Labs: Basic Metabolic Panel, Magnesium. Cardiogenic shock ([facility]) 09/25/2022 05/28/2024 Encounters Date Type Department Care Team Description 08/10/2025 Orders Only GENERIC EXTERNAL DATA DEPARTMENT Provider, Generic External Data 08/09/[address] [facility] PEDS [address] [place], [place] [phone] Mireya Beltran MD Insomnia, unspecified type 08/09/2025 Patient Outreach [facility] MEDICINE [address], [place] [phone] Mireya Beltran MD Care Coordination (CHW outreach for SDOH PT-1 and food needs-referral completed /) 08/09/[address] [facility] MED[facility]INE [address], [place] [phone] Mireya Beltran MD PT-1 08/04/[address] [facility] [address] [place] [address] Mireya Beltran MD chart prep 07/24/[address] [facility] MED[facility] [address] [place] [address] Mireya Beltran MD Anxiety 07/20/[address] [facility] [address] [place] [address] Mireya Beltran MD Anxiety 07/18/[address] [facility] MED[facility]INE [address] [place] [address] Mireya Beltran MD Appointment Request 07/08/[address] [facility] [address] [place] [address] Mireya Beltran MD Insomnia, unspecified type 06/13/2025 1:15 PM EDT Office Visit [facility] OPTOMET[facility] [address] [place] [address] Evin, Adrianna, OD Presbyopia (Primary Dx) 06/02/[address] [facility] [address] [place] [address] Mireya Beltran MD Insomnia, unspecified type 05/17/[address] [facility] MED[facility] [address] [place] [address] Mireya Beltran MD Nov Recall from Last 3 Months Immunizations Immunization Administration [...] 67 10/08/2024 2:15 PM EST Temperature 36.6 C (97.8 F) 10/08/2024 2:15 PM EST Respiratory Rate 16 10/08/2024 2:15 PM EST [...] Description 09/08/2025 10:00 AM EST Clinical Support [address] [address] Sirisha Orellana, RN Health Maintenance Due Date Last Done Comments CT Colonography 1962 Colonoscopy 1962 Dental X-Ray: Full Mouth 1962 FIT 1962 HIV Screening 1962 Sigmoidoscopy 1962 Disability Screening 1962 Hepatitis C Screening 1980 DTaP/Tdap/Td Vaccines (1 - Tdap) 1981 Pneumococcal Vaccine: 50+ Years (1 of 2 - PCV) 1981 Dental Oral Exam 01/17/2024 07/18/2023, 08/12/2022 Dental Prophylaxis 02/13/2024 08/13/2023, 12/05/2022 FOBT 08/13/2024 08/13/2023 Dental X-Ray: Bitewings 12/19/2024 12/19/19 24, 07/18/2023, 08/12/2022 COVID-19 Vaccine ( season) 2025 05/28/2024, 06/26/2022, 04/15/2022, Additional history exists Influenza Vaccine (#1) 2025 Depression Screening 05/28/2025 05/28/2024, 05/28/20 SDOH Screening 05/28/2025 05/28/2024 Alcohol/Substance Use Screening 09/30/2025 09/30/2024 Tobacco Screening 11/19/2025 11/19/2024 Colorectal Cancer Screening 08/13/2026 FIT DNA/Cologuard 08/13/2026 08/13/2023 Lipid Panel 07/21/2028 07/21/2023 RSV Patients and Patients Aged 60 years or older (1 - 1-dose 75+ series) 2037 Zoster Vaccines Completed 12/23/2024, 08/05/2024 HIB Vaccines [...] Procedure Name Priority Date/Time Associated Diagnosis Comments VITAMIN D,25-OH,TOTAL,IA Routine 08/10/2025 11:09 AM EST PSA, TOTAL Routine 08/10/2025 11:09 AM EST PHOSPHATE ( PHOSPHORUS) Routine 08/10/2025 11:09 AM EST BASIC METABOLIC PANEL Routine 08/10/2025 11:09 AM EST PTH, INTACT WITHOUT CALCIUM Routine 08/10/2025 11:09 AM EST BITEWING - SINGLE RADIOGRAPHIC IMAGE Routine 12/19/2023 2:30 PM EDT Full PROPHYLAXIS - ADULT Routine 08/13/2023 1:00 PM EST LAB COLOGUARD COLON CANCER SCREEN Routine 08/13/2023 12:20 PM EST Colon cancer screening LIPID PANEL, STANDARD Routine 07/21/2023 1:33 PM EST Hypertension, unspecified type PERIODIC ORAL EVALUATION - ESTABLISHED PATIENT Routine 07/18/2023 1:00 PM EST from Last 3 Months or Most Recently Relevant to Health Maintenance Results * Vitamin D, 25-Hydroxy, Total, Immunoassay (08/10/2025 11:09 AM EST) Vitamin D 25-OH Total 60.7 >30 ng/mL [facility] Comment: Health Based Reference Values*< 20 ng/mL Ltjlezpni78-32 ng/mL Insufficient> 30 ng/mL Sufficient*Leonarda DENG. N Engl J Med. 2007;357:266-280There is no well-established upper level of normal vitamin Dlevels. Some laboratories use 50 ng/mL as an upper limit ofnormal. However, toxicity is patient-dependent and may occurat any level. Careful correlation with the patient'spresentation is necessary and, if there is concern forvitamin D toxicity, treatment should be consideredirrespective of the serum level.Care must be taken in interpreting Vitamin D results fromdifferent laboratories and methodologies. Published datademonstrated that results from patients undergoinghemodialysis may show a negative bias when tested withvarious automated 25-OH vitamin D assays when compared toLC-MS/MS.When testing samples from patients whose predominant form ofVitamin D is Vitamin D2, such as patients receiving VitaminD2 supplementation, results that are subtherapeutic shouldbe confirmed with another method such as LC-MS/MS. 08/10/2025 11:0 9 AM EST 08/10/2025 1:50 PM EST Generic External Data Provider LAB BLOOD ORDERAB LES Final Result Performing Organization Address [facility]/ZIP Co de Phone Number [facility] [address] [place] [phone] * PSA,Total (08/10/2025 11:09 AM EST) Prostate Specific Antigen 0.58 <0.05 - 4.0 ng/mL [facility] Comment:PSA methodology: Kar Britton i ChemiluminescentMicroparticle Immunoassay (CMIA) 08/10/2025 11:0 9 AM EST 08/10/2025 1:50 PM EST Generic External Data Provider LAB BLOOD ORDERAB LES Final Result Performing Organization Address [facility] Co de Phone Number [facility] [address] [place] [phone] * Phosphate (As Phosphorus) (08/10/2025 11:09 AM EST) Phosphorus 3.3 2.7 - 4.5 mg/dL [facility] 08/10/2025 11:0 9 AM EST 08/10/2025 1:50 PM EST us Generic External Data Provider LAB BLOOD ORDERAB LES Final Result Performing Organization Address City/[facility]/ZIP Co de Phone Number [facility] [address] [place] [phone] * PTH, Intact Without Calcium (08/10/2025 11:09 AM EST) Parathyroid Hormone, Intact 67.7 8.7 - 77.1 pg/mL [facility] 08/10/2025 11:0 9 AM EST 08/10/2025 1:50 PM EST Generic External Data Provider LAB BLOOD ORDERAB LES Final Result Performing Organization Address [facility] Co de Phone Number [facility] [address] [place] [phone] * (ABNORMAL) Basic Metabolic Panel (08/10/2025 11:09 AM EST) Sodium 141 135 - 145 mmol/L [facility] Potassium 5.0 3.3 - 5.1 mmol/L [facility] Chloride 107 96 - 108 mmol/L [facility] Carbon Dioxide 30(H) 22 - 29 mmol/L [facility] Anion Gap 9(L) 12 - 20 [facility] Urea Nitrogen (BUN) 19(H) 9 - 16 mg/dL [facility] Creatinine, Serum 1.17 0.5 - 1.4 mg/dL [facility] Estimated Glomerular Filt Rate >60 [facility] Comment:Chronic Kidney Disea se: Estimated GFR < 60 mL/min/1.81f2Pwkvaq Kidney Disease: Estimated GFR < 15 mL/min/1.73m2 Glucose 80 60 - 115 mg/dL [facility] Calcium 9.9 8.4 - 10.2 mg/dL [facility] 08/10/2025 11:0 9 AM EST 08/10/2025 1:50 PM EST us Generic External Data Provider LAB BLOOD ORDERAB LES Final Result [facility] [address], [place] [phone] * Cologuard?? colon cancer screening (08/13/2023 12:20 PM EST) Cologuard Result Negative Negative 08/21/20 23 3:41 AM EST [facility] (CLIA #:[id number]) Comment: NEGATIVE TEST RESULT. A negative Cologuard result indicates a low likelihood that a colorectal cancer (CRC) or advanced adenoma (adenomatous polyps with more advanced pre-malignant features) is present. The chance that a person with a negative Cologuard test has a colorectal cancer is less than 1 in 1500 (negative predictive value >99.9%) or has an advanced adenoma is less than 5.3% (negative predictive value 94.7%). These data are based on a prospective cross-sectional study of 10,000 individuals at average risk for colorectal cancer who were screened with both Cologuard and colonoscopy. (Russell Howard. et al, N Engl J Med 2014;370(14):4282-4821) The normal value (reference range) for this assay is negative. COLOGUARD RE-SCREENING RECOMMENDATION: Periodic colorectal cancer screening is an important part of preventive healthcare for asymptomatic individuals at average risk for colorectal cancer. Following a negative Cologuard result, the [employer] Cancer Society and U.S. Multi-Society Task Force screening guidelines recommend a Cologuard re-screening interval of 3 years. References: [employer] Society Guideline for Colorectal Cancer Screening: https://www.cancer.org/cancer/poxfv-einxfc-krefib/uynvpsaop-bytcdoipq-ebsitni/ac s-rec ommendations.html.; Edy DE LA CRUZ, Nahid CHILDRESS, Memo CanasK, Colorectal Cancer Screening: Recommendations for Physicians and Patients from the U.S. Multi-Society Task Force on Colorectal Cancer Screening , Am J Gastroenterology 2017; 112:5738-1225. TEST DESCRIPTION: Composite algorithmic analysis of stool DNA-biomarkers with hemoglobin immunoassay. Quantitative values of individual biomarkers are not [...] Jamison et al, N Engl J Med 2014;370(14):7084-1837.) Cologuard may produce a false negative or false positive result (no colorectal cancer or precancerous polyp present at colonoscopy follow up). A negative Cologuard test result does not guarantee the absence of CRC or advanced adenoma (pre-cancer). The current Cologuard screening interval is every 3 years. ([employer] [employer] Society and U.S. Multi-Society Task Force). Cologuard performance data in a 10,000 patient pivotal study using colonoscopy as the reference method can be accessed at the following location: www.[employer]/results. Additional description of the Cologuard test process, warnings and precautions can be found at www.Say-HeyogTiberiumrd.com. Stool specimen (specimen) 08/13/2023 12:20 PM EST 08/15/2023 7:44 PM EST us Jennifer Schroeder MD LAB MOLECULAR DIAGNOSTICS ORD ERABLES Final Result [facility] (CLIA #:[id number]) [place] [address], * (ABNORMAL) Lipid Panel, Standard (07/21/2023 1:33 PM EST) Triglycerides 93 <150 mg/dL [facility] Comment:Desirable Triglyceri de: less than 150 mg/dLBorderline High Triglyceride 150-199 mg/dLHigh Triglyceride: 200-499 mg/dLVery High Triglyceride: greater than or equal to 5OO mg/dL Cholesterol 183 <200 mg/dL [facility] Comment:Desirable Cholestero l: less than 200 mg/dLBorderline High Cholesterol: 200-239 mg/dLHigh Cholesterol: greater than 239 mg/dL LDL Cholesterol Calculated 115(H) <100 mg/dL [facility] Comment:Desirable LDL: less than 100 mg/dLNear Optimal/Above Optimal LDL: 110- 129 mg/dLBorderline High LDL: 130-159 mg/dLHigh LDL: 160-189 mg/dLVery High LDL: greater than or equal to 190 mg/dL HDL Cholesterol 50 >40 mg/dL [facility] Comment:Desirable HDL: great er than 40 mg/dL Note: This HDL assay may give artificially low results in patients with liver disease. Blood Venous blood specimen / Unknown 07/21/2023 1:33 PM EST 07/21/2023 3:59 PM EST us Jennifer Schroeder MD LAB BLOOD ORDERABLES Final Re sult [facility] [address] [place] [phone] from Last 3 Months or Most Recently Relevant to Health Maintenance Insurance MEDICARE [facility] MEDICAID STAND ADULT Care Teams Motel Keeper Relationship Specialty Start Date End Date Mireya Beltran MD [address] [place] [address] PCP - General Family Medicine 05/28/24
--- OUTSIDE RECORDS SUMMARY | 2025-08-10 17:29 | XMS_ITS | Encounter Summary ---
Author Organization [employer] Address [address] [facility] 7t [place] [address] Care Team Providers Care Order Processing Manager Name Role Phone Mireya Beltran MD Primary Care Provider [phone] Reason for Visit * Reason Comments Care Coordination CHW outreach for SDO H PT-1 and food needs-referral completed Encounter Details Date Type Department Care Team (Latest Contact Info) Description 08/09/2025 Patient Outreach [facility] MEDICINE [address] [place] [address] Mireya Beltran MD [address] [place] [address] Care Coordination (CHW outreach for SDOH PT-1 and food needs-referral completed /) Social History Tobacco Use Types Packs/Day Years [...] as of this encounter Progress Notes * Miguel A Roth - 08/09/2025 11:17 AM EST CHW Miguel A Roth, placed outbound call to patient for assistance with SDOH as a referral was received by the provider. Patient's name and were confirmed. Patient screened positive for the following SDOH food insecurities. Patient states family in on SNAP program at this time. CHW referral patient to the local list of pantries in the area for help. PT-1 requested was send out in behalf of patient for futures appt. Patient verbalizes understanding, and able to agree with plan to follow up.Patient educated on extended clinic hours on Mondays through Wednesdays, and Walk-In Urgent Care Located in [facility] of [facility]. Patient provided with after-hours line for [facility], , which offer night time triage service and option to transfer to direct sales consultant provider if needed. documented in this encounter Plan of Treatment Upcoming Encounters Date Type Department Care Team (Late st Contact Info) Description 09/08/2025 10:00 AM EST Clinical Support [facility] MEDICINE [address], [place] [phone] Sirisha Orellana, RN documented as of this encounter Visit Diagnoses Not on filedocumented in this encounter Additional Health Concerns Assessment Noted Time PHQ-9 Depression Total Score: 0 05/28/20 24 1:56 PM EDT documented as of this encounter Care Teams Order Processing Manager Relationship Specialty Start Date End Date Mireya Beltran MD [address] [facility] [place] [address] PCP - General Family Medicine 05/28/24 documented as of this encounter
--- OUTSIDE RECORDS SUMMARY | 2025-08-10 17:29 | XMS_ITS | Encounter Summary ---
Author Organization [employer] Address [address] [facility] [address] [place] [address] Care Team Providers Care Eyewear Manufacturing Supervisor Name Role Phone Mireya Beltran MD Primary Care Provider [phone] Reason for Visit * Reason Comments Med Refill Encounter Details Date Type Department Care Team ([facility] st Contact Info) Description 07/23/2024 Refill [facility] [address] [place], [place] [phone] Mireya Beltran MD [address] [place], [place] [phone] Insomnia, unspecified type Social History Tobacco Use [...] Description 09/08/2025 10:00 AM EST Clinical Support [facility] [address] [place] [address] Sirisha Orellana, CHEL documented as of this encounter Visit Diagnoses Diagnosis Insomnia, unspecified type documented in this encounter Additional Health Concerns Assessment Noted Time PHQ-9 Depression Total Score: 0 05/28/20 24 1:56 PM EDT documented as of this encounter Care Teams Eyewear Manufacturing Supervisor Relationship Specialty Start Date End Date Mireya Beltran MD [address] [place] [address] PCP - General Family Medicine 05/28/24 documented as of this encounter
--- OUTSIDE RECORDS SUMMARY | 2025-08-10 17:29 | XMS_ITS | Encounter Summary ---
Author Organization [employer] Address [address] [facility] [address] [place] [address] Care Team Providers Care Stone Hand Name Role Phone Jennifer Schroeder MD Primary Care Provider [phone] Mireya Beltran MD Primary Care Provider [phone] Reason for Visit * Reason Onset Date Comments PT1 08/19/2023 Encounter Details Date Type Department Care Team ([facility] st Contact Info) Description 08/19/2023 Telephone [facility] MED [facility] PEDS [address] [place] [address] Jennifer Schroeder MD [address] [place] [address] PT1 Social History Tobacco Use Types Packs/Day [...] 1:00 pm Visits: All future Appt's Address: [address] [place] [address] Facility: Dr. Rose, Podiatry Wheel Chair: No Mexican Food Maker Needed: No documented in this encounter Plan of Treatment Upcoming Encounters Date Type Department Care Team (Late st Contact Info) Description 09/08/2025 10:00 AM EST Clinical Support [facility] MEDIC[facility] [address] [place] [address] Sirisha Orellana RN documented as of this encounter Visit Diagnoses Not on filedocumented in this encounter Additional Health Concerns Assessment Noted Time PHQ-9 Depression Total Score: 2 09/26/19 23 2:58 PM EST documented as of this encounter Care Teams Stone Hand Relationship Specialty Start Date End Date Jennifer Schroeder MD [address] [place] [address] PCP - General Family Medicine 06/19/21 05/27/24 Mireya Beltran MD [address] [place] [phone] PCP - General Family Medicine 05/28/24 documented as of this encounter
--- OUTSIDE RECORDS SUMMARY | 2025-08-10 17:29 | XMS_ITS | Encounter Summary ---
Author Organization [employer] Address [address] 7[address] [place] [address] Care Team Providers Care Shake Feeder Name Role Phone Mireya Beltran MD Primary Care Provider [phone] Encounter Details Date Type Department Care Team (Late st Contact Info) Description 08/10/2025 Orders Only GENERIC EXTERNAL DATA DEPARTMENT Provider, Generic External Data Social History Tobacco Use Types Packs/Day Years [...] Description 09/08/2025 10:00 AM EST Clinical Support [address] [address] Sirisha Orellana RN documented as of this encounter Procedures Procedure Name Priority Date/Time Associated Diagnosis Comments VITAMIN D,25-OH,TOTAL,IA Routine 08/10/2025 11:09 AM EST PSA, TOTAL Routine 08/10/2025 11:09 AM EST PHOSPHATE ( PHOSPHORUS) Routine 08/10/2025 11:09 AM EST PTH, INTACT WITHOUT CALCIUM Routine 08/10/2025 11:09 AM EST BASIC METABOLIC PANEL Routine 08/10/2025 11:09 AM EST documented in this encounter Results * Vitamin D, 25-Hydroxy, Total, Immunoassay (08/10/2025 11:09 AM EST) Vitamin D 25-OH Total 60.7 >30 ng/mL [facility] Comment: Health Based Reference Values*< 20 ng/mL Vjfqttlon14-62 ng/mL Insufficient> 30 ng/mL Sufficient*Leonarda DENG. N [...] ORDERAB LES Final Result Performing Organization Address [facility] de Phone Number [facility] [address] [place] [phone] * PSA,Total (08/10/2025 11:09 AM EST) Prostate Specific Antigen 0.58 <0.05 - 4.0 ng/mL [facility] Comment:PSA methodology: Kar Britton i ChemiluminescentMicroparticle Immunoassay (CMIA) 08/10/2025 11:0 9 AM EST 08/10/2025 1:50 PM EST Generic External Data Provider LAB BLOOD ORDERAB LES Final Result Performing Organization Address [facility] Co de Phone Number [facility] [address] [place] [phone] * Phosphate (As Phosphorus) (08/10/2025 11:09 AM EST) Phosphorus 3.3 2.7 - 4.5 mg/dL [facility] 08/10/2025 11:0 9 AM EST 08/10/2025 1:50 PM EST us Generic External Data Provider LAB BLOOD ORDERAB LES Final Result Performing Organization Address [facility] Co de Phone Number [facility] [address] [place] [phone] * (ABNORMAL) Basic Metabolic Panel (08/10/2025 11:09 AM EST) Sodium 141 135 - 145 mmol/L [facility] Potassium 5.0 3.3 - 5.1 mmol/L [facility] Chloride 107 96 - 108 mmol/L [facility] Carbon Dioxide 30(H) 22 - 29 mmol/L [facility] Anion Gap 9(L) 12 - 20 [facility] Urea Nitrogen (BUN) 19(H) 9 - 16 mg/dL [facility] Creatinine, Serum 1.17 0.5 - 1.4 mg/dL [facility] Estimated Glomerular Filt Rate >60 [facility] Comment:Chronic Kidney Disea se: Estimated GFR < 60 mL/min/1.36x7Bmefsd Kidney Disease: Estimated GFR < 15 mL/min/1.73m2 Glucose 80 60 - 115 mg/dL [facility] Calcium 9.9 8.4 - 10.2 mg/dL [facility] 08/10/2025 11:0 9 AM EST 08/10/2025 1:50 PM EST us Generic External Data Provider LAB BLOOD ORDERAB LES Final Result Performing Organization Address [facility] Co de Phone Number [facility] [address] [place] [phone] * PTH, Intact Without Calcium (08/10/2025 11:09 AM EST) Parathyroid Hormone, Intact 67.7 8.7 - 77.1 pg/mL [facility] 08/10/2025 11:0 9 AM EST 08/10/2025 1:50 PM EST Generic External Data Provider LAB BLOOD ORDERAB LES Final Result Performing Organization Address [facility]/State/ZIP Co de Phone Number [facility] [address] [place] [phone] documented in this encounter Visit Diagnoses Not on filedocumented in this encounter Additional Health Concerns Assessment Noted Time PHQ-9 Depression Total Score: 0 05/28/20 1:56 PM EDT documented as of this encounter Care Teams Shake Feeder Relationship Specialty Start Date End Date Mireya Beltran MD [address] [place] [phone] PCP - General Family Medicine 05/28/24 documented as of this encounter
--- OUTSIDE RECORDS SUMMARY | 2025-08-10 17:30 | XMS_ITS | Encounter Summary ---
Author Organization [employer] Address [address] 7[address] [place] [address] Care Team Providers Care Regional Manager Name Role Phone Jennifer Schroeder MD Primary Care Provider [phone] Mireya Beltran MD Primary Care Provider [phone] Reason for Visit * Reason Onset Date Comments Referral 08/01/2023 Encounter Details Date Type Department Care Team ([facility] st Contact Info) Description 08/01/2023 Telephone [facility] CHC MED & PEDS [address] [place] [address] Jennifer Schroeder MD [address] [place] [address] Referral Social History Tobacco Use Types Packs/Day [...] referral to podiatry to be resent to [phone]. documented in this encounter Plan of Treatment Upcoming Encounters Date Type Department Care Team (Late st Contact Info) Description 09/08/2025 10:00 AM EST Clinical Support [facility] MEDICINE [address] [place] [address] Sirisha Orellana RN documented as of this encounter Visit Diagnoses Not on filedocumented in this encounter Additional Health Concerns Assessment Noted Time PHQ-9 Depression Total Score: 2 09/26/19 23 2:58 PM EST documented as of this encounter Care Teams Regional Manager Relationship Specialty Start Date End Date Jennifer Schroeder MD [address] [place] [address] PCP - General Family Medicine 06/19/21 05/27/24 Mireya Beltran MD [address] [place] [address] PCP - General Family Medicine 05/28/24 documented as of this encounter
--- OUTSIDE RECORDS SUMMARY | 2025-08-10 17:30 | XMS_ITS | Encounter Summary ---
Author Organization [employer] Address [address] [place] [address] 7[address] [place] [address] Care Team Providers Care Underwriting Intern Name Role Phone Jennifer Schroeder MD Primary Care Provider [phone] Mireya Beltran MD Primary Care Provider [phone] Reason for Visit * Reason Comments Med Refill Encounter Details Date Type Department Care Team (Late Contact Info) Description 05/01/2023 Refill [facility] MEDICINE [address] [place] [phone] Jennifer Schroeder MD [address] [place] [address] Insomnia, unspecified type Social History Tobacco Use [...] Description 09/08/2025 10:00 AM EST Clinical Support [facility] MEDICINE [address] [place] [address] Reyna, Sirisha, RN documented as of this encounter Visit Diagnoses Diagnosis Insomnia, unspecified type documented in this encounter Additional Health Concerns Assessment Noted Time PHQ-9 Depression Total Score: 2 09/26/19 23 2:58 PM EST documented as of this encounter Care Teams Underwriting Intern Relationship Specialty Start Date End Date Jennifer Schroeder MD [address] [place] [address] PCP - General Family Medicine 06/19/21 05/27/24 Mireya Beltran MD [address] [place] [address] PCP - General Family Medicine 05/28/24 documented as of this encounter
--- OUTSIDE RECORDS SUMMARY | 2025-08-10 17:30 | XMS_ITS | Encounter Summary ---
Author Organization [employer] Address [address] 7[address] [place] [address] Care Team Providers Care Senior Sourcing Manager Name Role Phone Mireya Beltran MD Primary Care Provider [phone] Reason for Visit * Reason Comments Med Refill Encounter Details Date Type Department Care Team ([facility] st Contact Info) Description 04/01/2025 Refill [facility] CHC MED & PEDS [address] [place], [place] [phone] Anila Borges MD [address] [place] [address] Insomnia, unspecified type Social History Tobacco Use [...] 10:00 AM EST Clinical Support [facility] MEDICINE [address] [place] [address] Sirisha Orellana, RN documented as of this encounter Visit Diagnoses Diagnosis Insomnia, unspecified type documented in this encounter Additional Health Concerns Assessment Noted Time PHQ-9 Depression Total Score: 0 05/28/20 24 1:56 PM EDT documented as of this encounter Care Teams Senior Sourcing Manager Relationship Specialty Start Date End Date Mireya Beltran MD [address] [place] [address] PCP - General Family Medicine 05/28/24 documented as of this encounter
--- OUTSIDE RECORDS SUMMARY | 2025-08-10 17:30 | XMS_ITS | Encounter Summary ---
Author Organization [employer] Address [address] 7t [place] [address] Care Team Providers Care Instructional Writer Name Role Phone Mireya Beltran MD Primary Care Provider [phone] Reason for Visit * Reason Comments Med Refill Encounter Details Date Type Department Care Team ([facility] st Contact Info) Description 03/28/2025 Refill [facility] CHC MED & PEDS [address] [place], [place] [phone] Anila Borges MD [address] [place] [address] Insomnia, unspecified type Social History Tobacco Use [...] Clinical Support [facility] MEDICINE [address] [place] [address] Sirisha Oerllana, RN documented as of this encounter Visit Diagnoses Diagnosis Insomnia, unspecified type documented in this encounter Additional Health Concerns Assessment Noted Time PHQ-9 Depression Total Score: 0 05/28/20 24 1:56 PM EDT documented as of this encounter Care Teams Instructional Writer Relationship Specialty Start Date End Date Mireya Beltran MD [address] [place] [address] PCP - General Family Medicine 05/28/24 documented as of this encounter
--- OUTSIDE RECORDS SUMMARY | 2025-08-10 17:30 | XMS_ITS | Encounter Summary ---
Author Organization [employer] Address [address] [facility] [address] 7[address] [place] [address] Care Team Providers Care Reed Polisher Name Role Phone Mireya Beltran MD Primary Care Provider [phone] Reason for Visit * Reason Comments Med Refill Encounter Details Date Type Department Care Team ([facility] st Contact Info) Description 03/19/2025 Refill [facility] CHC MED & PEDS [address] [place], [place] [phone] Mireya Beltran MD [address] [place] [address] Neuropathy Social History Tobacco Use Types Packs/Day Years [...] Description 09/08/2025 10:00 AM EST Clinical Support [facility] MEDICINE [address] [place] [address] Sirisha Orellana RN documented as of this encounter Visit Diagnoses Diagnosis Neuropathy Mononeuritis of unspecified site documented in this encounter Additional Health Concerns Assessment Noted Time PHQ-9 Depression Total Score: 0 05/28/20 24 1:56 PM EDT documented as of this encounter Care Teams Reed Polisher Relationship Specialty Start Date End Date Mireya Beltran MD [address] [place] [address] PCP - General Family Medicine 05/28/24 documented as of this encounter
--- OUTSIDE RECORDS SUMMARY | 2025-08-10 17:30 | XMS_ITS | Encounter Summary ---
Author Organization [employer] Address [address] [place] [address] 7t [place] [address] Care Team Providers Care Regional Business Development Manager Name Role Phone Jennifer Schroeder MD Primary Care Provider [phone] Mireya Beltran MD Primary Care Provider [phone] Encounter Details Date Type Department Care Team (Latest Contact Info) Description 05/26/2019 Abstract [facility] CONVERSIONS Dental, Provider, DDS Social [...] Description 09/08/2025 10:00 AM EST Clinical Support [facility] MEDICINE [address] [place] [address] Sirisha Orellana, RN documented as of this encounter Visit Diagnoses Not on filedocumented in this encounter Care Teams Regional Business Development Manager Relationship Specialty Start Date End Date Jennifer Schroeder MD 230 [place], [place] [phone] PCP - General Family Medicine 06/19/21 05/27/24 Mireya Beltran MD [address] [place] [phone] PCP - General Family Medicine 05/28/24 documented as of this encounter
--- OUTSIDE RECORDS SUMMARY | 2025-08-10 17:30 | XMS_ITS | Encounter Summary ---
Author Organization [employer] Address [address] 7t [place] [address] Care Team Providers Care Segmental Paver Installer Name Role Phone Jennifer Schroeder MD Primary Care Provider [phone] Mireya Beltran MD Primary Care Provider [phone] Reason for Visit * Reason Onset Date Comments PT-1 12/11/2023 Encounter Details Date Type Department Care Team (Late st Contact Info) Description 12/11/2023 Telephone [facility] MEDICINE 230 [place] [address] Jennifer Schroeder MD [address] [place] [address] PT-1 Social History Tobacco Use Types Packs/Day [...] or facility name: Dr. Mcneill Facility Address: [address] [place] [address] Escort needed: Y/N: No Do you have a wheelchair: Y/N: No If yes- Manual or electric: no Visits: 6 Patient calling requesting PT1 Home Address verified: Y/N: Yes Provider name or facility name: [facility] Facility Address: [address] [place] [address] [place] [address] Escort needed: Y/N: No Do you have a wheelchair: Y/N: No If yes- Manual or electric: no Visits: 4 documented in this encounter Plan of Treatment Upcoming Encounters Date Type Department Care Team (Late st Contact Info) Description 09/08/2025 10:00 AM EST Clinical Support [facility] MEDICINE [address] [place] [address] [phone] Sirisha Orellana RN documented as of this encounter Visit Diagnoses Not on filedocumented in this encounter Additional Health Concerns Assessment Noted Time PHQ-9 Depression Total Score: 2 09/26/19 23 2:58 PM EST documented as of this encounter Care Teams Segmental Paver Installer Relationship Specialty Start Date End Date Jennifer Schroeder MD [address] [place] [address] PCP - General Family Medicine 06/19/21 05/27/24 Mireya Beltran MD [address] [place] [address] PCP - General Family Medicine 05/28/24 documented as of this encounter
--- OUTSIDE RECORDS SUMMARY | 2025-08-10 17:30 | XMS_ITS | Encounter Summary ---
Author Organization [employer] Address [address] [facility] 7[address] [place] [address] Care Team Providers Care Retail Salesworker Name Role Phone Jennifer Schroeder MD Primary Care Provider [phone] Mireya Beltran MD Primary Care Provider [phone] Reason for Visit * Reason Comments Med Refill Encounter Details Date Type Department Care Team (Late Contact Info) Description 05/22/2023 Refill [facility] MEDICINE [address] [place] [address] [phone] Jennifer Schroeder MD [address] [place] [address] Back pain, unspecified back location, unspecified back [...] Description 09/08/2025 10:00 AM EST Clinical Support [facility] MEDICINE [address] [place] [phone] Sirisha Orellana, RN documented as of this encounter Visit Diagnoses Diagnosis Back pain, unspecified back location, unspecified back pain laterality, unspecified chronicity documented in this encounter Additional Health Concerns Assessment Noted Time PHQ-9 Depression Total Score: 2 09/26/19 23 2:58 PM EST documented as of this encounter Care Teams Retail Salesworker Relationship Specialty Start Date End Date Jennifer Schroeder MD [address] [place] [address] PCP - General Family Medicine 06/19/21 05/27/24 Mireya Beltran MD [address] [place] [phone] PCP - General Family Medicine 05/28/24 documented as of this encounter
--- OUTSIDE RECORDS SUMMARY | 2025-08-10 17:30 | XMS_ITS | Encounter Summary ---
Author Organization [employer] Address [address] 7[address] [place] [address] Care Team Providers Care Ict Educator Name Role Phone Jennifer Schroeder MD Primary Care Provider [phone] Mireya Beltran MD Primary Care Provider [phone] Reason for Visit * Reason Onset Date Comments Referral 07/28/2023 Encounter Details Date Type Department Care Team ([facility] Contact Info) Description 07/28/2023 Telephone [facility] CHC MED & PEDS [address] [place] [address] Jennifer Schroeder MD [address] [place] [address] Referral Social History Tobacco Use Types Packs/Day [...] Miscellaneous Notes * Telephone Encounter - Daphne rBad - 07/28/2023 4:12 PM EST Tc from pt requesting status on rn chronic referral. States pt spoke with provider about referral during 07/07 OV. Storage Garage Manager does not see any documentation Please contact pt at [phone] (Hungarian) documented in this encounter Plan of Treatment Upcoming Encounters Date Type Department Care Team (Late st Contact Info) Description 09/08/2025 10:00 AM EST Clinical Support [facility] MEDICINE [address] [place] [address] Sirisha Orellana, RN documented as of this encounter Visit Diagnoses Not on filedocumented in this encounter Additional Health Concerns Assessment Noted Time PHQ-9 Depression Total Score: 2 09/26/19 23 2:58 PM EST documented as of this encounter Care Teams Ict Educator Relationship Specialty Start Date End Date Jennifer Schroeder MD [address] [place] [address] PCP - General Family Medicine 06/19/21 05/27/24 Mireya Beltran MD [address] [place] [address] PCP - General Family Medicine 05/28/24 documented as of this encounter
--- OUTSIDE RECORDS SUMMARY | 2025-08-10 17:30 | XMS_ITS | Encounter Summary ---
Author Organization [employer] Address [address] 7[address] [place] [address] Care Team Providers Care Professor Of Engineering Name Role Phone Jennifer Schroeder MD Primary Care Provider [phone] Mireya Beltran MD Primary Care Provider [phone] Reason for Visit * Reason Onset Date Comments Appointment 03/21/2023 Encounter Details Date Type Department Care Team (Late st Contact Info) Description 03/21/2023 Telephone [facility]AL [address] [place], [place] [phone] Xavier Wtat [address] [place] [address] Appointment Social History Tobacco Use Types Packs/Day [...] Description 09/08/2025 10:00 AM EST Clinical Support [facility] MEDICINE [address] [place] [phone] Sirisha Orellana, RN documented as of this encounter Visit Diagnoses Not on filedocumented in this encounter Additional Health Concerns Assessment Noted Time PHQ-9 Depression Total Score: 2 09/26/19 23 2:58 PM EST documented as of this encounter Care Teams Professor Of Engineering Relationship Specialty Start Date End Date Jennifer Schroeder MD [address] [place] [id number] PCP - General Family Medicine 06/19/21 05/27/24 Mireya Beltran MD [address] [place] [phone] PCP - General Family Medicine 05/28/24 documented as of this encounter
--- OUTSIDE RECORDS SUMMARY | 2025-08-10 17:30 | XMS_ITS | Encounter Summary ---
Author Organization [employer] Address [address] 7[address] [place] [address] Care Team Providers Care Analytics Lead Name Role Phone Jennifer Schroeder MD Primary Care Provider [phone] Mireya Betlran MD Primary Care Provider [phone] Reason for Visit * Reason Comments Med Refill Encounter Details Date Type Department Care Team ([facility] st Contact Info) Description 02/12/2024 Refill [facility] CHC MED & PEDS [address] [place], [place] [phone] Jennifer Schroeder MD [address] [place] [address] Social History Tobacco Use Types Packs/Day Years [...] Description 09/08/2025 10:00 AM EST Clinical Support [facility] MEDICINE [address] [place] [address] Sirisha Orellana RN documented as of this encounter Visit Diagnoses Not on filedocumented in this encounter Additional Health Concerns Assessment Noted Time PHQ-9 Depression Total Score: 2 09/26/19 23 2:58 PM EST documented as of this encounter Care Teams Analytics Lead Relationship Specialty Start Date End Date Jennifer Schroeder MD [address] [place] [phone] PCP - General Family Medicine 06/19/21 05/27/24 Mireya Beltran MD [address] [place] [address] PCP - General Family Medicine 05/28/24 documented as of this encounter
== END 2025-08-10 11:06 | disposition home or self-care (01) ==
LOC: HO.HHCL 11:05
PROVIDERS: Nurse Practitioner Family; PCP General Practice; Visit Provider Internal Medicine Hypertension Specialist
DX: Z12.5 Encounter for screening for malignant neoplasm of prostate (principal); Z13.21 Encounter for screening for nutritional disorder; N17.9 Acute kidney failure, unspecified; N52.9 Male erectile dysfunction, unspecified
CPT/HCPCS: 36415; 80048; 82306; 83970; 84100; 84153